=== PATIENT | female | born 1955 | race American Indian/Alaskan Native ===

== ENCOUNTER 2016-06-30 17:26 | Emergency (ER) | payer OTHER ==
[2016-06-30 17:48] VITALS: BP 157/90; PULSE 90; TEMP 98.4; BMI 19.5
[2016-06-30 18:48] LABS: INR 0.92 (0.82-1.09); PROTHROMBIN TIME (PATIENT) 10.1 SEC (9.98-11.88)
[2016-06-30 19:06] LABS: ALK PHOS 108 U/L (45-117); ANION GAP 11 (8-16); BILIRUBIN,TOTAL 0.3 mg/dL (0.2-1.0); CALCIUM 8.7 mg/dL (8.5-10.1); CO2 22 mmol/L (21-32); CREATININE 1.1 mg/dL (0.55-1.02); GLUCOSE,RANDOM 119 mg/dL (74-106); SGOT/AST 13 U/L (15-37); SGPT/ALT 24 U/L (12-78); TOT PROT 6.9 g/dl (6.4-8.2)
[2016-06-30 19:08] LABS: TROPONIN I < 0.02 ng/ml (0.00-0.05); URINE APPEARANCE CLEAR; URINE BILIRUBIN NEGATIVE (NEGATIVE); URINE BLOOD NEGATIVE (NEGATIVE); URINE COLOR YELLOW; URINE GLUCOSE (UA) NEGATIVE (NEGATIVE); URINE KETONE NEGATIVE (NEGATIVE); URINE NITRITE NEGATIVE (NEGATIVE); URINE UROBILINOGEN NEGATIVE E.U./dl (0.2-1.0)
[2016-06-30 19:10] LABS: URINE LEUK ESTERASE TRACE (NEGATIVE); URINE PROTEIN 1+ (NEGATIVE)
[2016-06-30 19:15] LABS: URINE BACTERIA RARE /hpf (NONE SEEN); URINE HYALINE CAST 2 /lpf; URINE MUCUS RARE; URINE RBC 6 /hpf (0-3); URINE WBC 8 /hpf (3-5)
--- NOTE | 2016-06-30 20:32 | PDOC ---
History of Present Illness - General Chief Complaint: Palpitations Stated Complaint: PALPITATIONS Time Seen by Provider: 06/30/16 17:43 - History of Present Illness Initial Comments: 06/30/16 20:29 CHIEF COMPLAINT: palpitations, stiff arms/hands HISTORY OF PRESENT ILLNESS: 61 yo F with PMH of HIV (on Stribild, undetectable VL), HTN, COPD, rheumatoid arthritis, restless leg syndrome, seizures, "arrhythmia" who presents to ED with c/o of two weeks of alternating arm pain, stiffness, and numbness. She reports that sometimes she feels "shooting pain" to her the left side of neck and that it "shoots towards the heart." Has palpitations and shortness of breath. Also complaining of dysuria/hematuria. She also reports "stiffness to fingers on both sides. She was seen by Dr. Ty Nagel recently for a UTI and was given cipro with no relief. She saw him again yesterday and was given and oxybutynin to take in combination with cipro for her urinary symptoms. No recent travel or sick contacts. PAST MEDICAL HISTORY: Denies past medical history FAMILY HISTORY: Denies SOCIAL HISTORY: Lives at home with . Current smoker, 2 cigs daily. Denies alcohol, illicit drug use. SURGICAL HISTORY: ALLERGIES: strawberry, pcn, sulfa PCP: Dr. Cristóbal Lozoya Tobacco Sieve Operator: Dr. Mccullough REVIEW OF SYSTEMS General/Constitutional: Denies fever or chills. Denies weakness, weight change. HEENT: Denies change in vision. Denies ear pain or discharge. Denies sore throat. Cardiovascular: "Pain from arms that feels like it shoots towards the heart." Chronic SOB. Respiratory: Chronic cough, "I have lots of junk in my lungs, they are still trying to figure out what that is" Gastrointestinal: Denies nausea, vomiting, diarrhea or constipation. Denies rectal bleeding. Genitourinary: Dysuria/hematuria x "a week." Musculoskeletal: Intermittent stiffness and numbness to arms and hands bilaterally. Skin and breasts: Denies rash or easy bruising. Neurologic: Denies headache, vertigo, loss of consciousness, or loss of sensation. PHYSICAL EXAM General Appearance: Well-appearing, appropriately dressed. No apparent distress. HEENT: EOMI, PERRLA, normal ENT inspection, normal voice, TMs normal, pharynx normal. No conjunctival pallor. No photophobia, scleral icterus. Neck: Supple. Trachea midline. No tenderness, rigidity, carotid bruit, stridor , lymphadenopathy, or thyromegaly. Respiratory/Chest: Crackles to lungs bilterally. Shortness of breath. chest tenderness, respiratory distress, accessory muscle use. No crackles, rales, rhonchi, stridor, wheezing, dullness Cardiovascular: RRR. S1, S2. No JVD, murmur, bradycardia, tachycardia. Vascular Pulses: Dorsalis-Pedis (R): 2+, Dorsalis-Pedis (L): 2+ Gastrointestinal/Abdominal: Normal bowel sounds. Abdomen soft, non-distended. No tenderness or rebound tenderness. No organomegaly, pulsatile mass, guarding , hernia, hepatomegaly, splenomegaly. Lymphatic: No adenopathy, tenderness. Musculoskeletal/Extremities: Normal inspection. FROM of all extremities, normal capillary refill. Pelvis Stable. No CVA tenderness. No tenderness to extremities, pedal edema, swelling, erythema or deformity. Integumentary: Appropriate color, dry, warm. No cyanosis, erythema, jaundice or rash Neurologic: veterinary physiologist II-XII intact. Fully oriented, alert. Appropriate mood/affect. Motor strength 5/5. No appreciable EOM palsy, facial droop or sensory deficit. 06/30/16 20:46 Past History - Past Medical History Allergies/Adverse Reactions: Allergies Allergy/AdvReac Type Severity Reaction Status Date / Time strawberry Allergy Intermediate Hives Verified 06/30/16 17:43 Penicillins Allergy Unknown Hives Verified 06/30/16 17:43 Sulfa (Sulfonamide Allergy Unknown Hives Verified 06/30/16 17:43 Antibiotics) Home Medications: Ambulatory Orders Mirtazapine [Remeron -] 30 mg PO DAILY 06/04/15 Mag Hydrox/Al Hydrox/Simeth [Mylanta Oral Suspension -] 30 ml PO Q6H #1 bottle 10/17/15 Multivitamin [Poly-Vitamin] 1 each PO DAILY #30 tab 10/17/15 Cholecalciferol (Vitamin D3) [Vitamin D3] 1,000 unit PO DAILY #30 tablet Acetaminophen/Caffeine/Butalb [Fioricet -] 1 tab PO BID PRN #60 tablet MDD 2 09/ 15/16 Megestrol Acetate [Megace] 400 mg PO TID #1 ml 02/13/16 Ondansetron HCl [Zofran] 8 mg PO DAILY #20 tablet 03/16/16 Albuterol 0.083% Nebulizer Kelly [Ventolin 0.083% Nebulizer Soln -] 1 neb NEB Q6H PRN #1 box 03/24/16 Albuterol Sulfate Inhaler - [Ventolin HFA Inhaler -] 2 inh PO Q4H PRN #1 inhaler 03/24/16 Budesonide/Formeterol Fumarate [SYMBICORT 80/4.5mcg -] 1 inh PO BID #1 inhaler 03/24/16 Tiotropium [place] [Spiriva Respimat] 1 puff IH DAILY #1 mist.inhal 03/24/16 Elviteg/Shandra/Emtric/Tenofo Dis [Stribild Tablet] 1 each PO DAILY #30 tablet 01/22 Butalbital/Acetaminophen [Acetaminophn-Butalbital 325-50] 1 each PO DAILY #30 tablet MDD 1 05/25/16 Gabapentin 800 mg PO HS 06/22/16 Oxycodone HCl/Acetaminophen [Percocet 10-325 mg Tablet] 1 each PO BID #30 tablet MDD 2 06/22/16 Anemia: No Asthma: Yes Cancer: No Cardiac Disorders: No CVA: No COPD: Yes CHF: No Dementia: No Diabetes: No GI Disorders: No Disorders: No HTN: Yes Hypercholesterolemia: No HIV: Yes Liver Disease: No Psychiatric Problems: Yes (anxeity) Suicide Attempt (Hx): No Seizures: No Thyroid Disease: Yes - Surgical History Abdominal Surgery: No Appendectomy: No Cardiac Surgery: No Cholecystectomy: No Lung Surgery: No Neurologic Surgery: No Orthopedic Surgery: Yes (neck) - Psycho/Social/Smoking Cessation Hx Anxiety: No Suicidal Ideation: No Smoking Status: Yes Smoking History: Former smoker Have you smoked in the past 12 months: Yes Number of Cigarettes Smoked Daily: 4 If you are a former smoker, when did you quit?: 8 months Cigars Per Day: 0 Information on smoking cessation initiated: No 'Breaking Loose' booklet given: 06/05/15 Hx Alcohol Use: No Drug/Substance Use Hx: Yes (none x 2 years) Substance Use Type: None Hx Substance Use Treatment: No (stopped on my own) Cardiac Specific PMH - Complaint Specific PMHX Pacemaker: No *Physical Exam - Vital Signs Last Vital Signs Temp Pulse Resp BP Pulse Ox 98.4 F 90 18 157/90 100 06/30/16 17:43 06/30/16 17:43 06/30/16 17:43 06/30/16 17:43 06/30/16 17:43 ED Treatment Course - LABORATORY CBC & Chemistry Diagram: 06/30/16 20:01 06/30/16 17:45 - ADDITIONAL ORDERS Additional order review: Laboratory Results 06/30/16 06/30/16 06/30/16 17:45 17:45 17:45 INR 0.92 Sodium 143 Potassium 4.6 Chloride 110 H Carbon Dioxide 22 Anion Gap 11 BUN 22 H Creatinine 1.1 H D Creat Clearance w eGFR 50.50 Random Glucose 119 H D Calcium 8.7 Total Bilirubin 0.3 D AST 13 L ALT 24 D Alkaline Phosphatase 108 D Creatine Kinase 100 Troponin I < 0.02 Total Protein 6.9 Albumin 4.0 Urine Color Yellow Urine Appearance Clear Urine pH 5.0 Ur Specific [place] 1.021 Urine Protein 1+ H Urine Glucose (UA) Negative Urine Ketones Negative Urine Blood Negative Urine Nitrite Negative Urine Bilirubin Negative Urine Urobilinogen Negative Ur Leukocyte Esterase Trace H Urine RBC 6 Urine WBC 8 Ur Epithelial Cells Rare Urine Bacteria Rare Hyaline Casts 2 Urine Mucus Rare 06/30/16 20:01 RBC 3.32 L MCV 101.8 H MCHC 33.5 RDW 14.4 D MPV 7.2 L D Neutrophils % 71.7 Lymphocytes % 19.2 D Monocytes % 8.2 Eosinophils % 0.4 Basophils % 0.5 Medical Decision Making - Medical Decision Making 06/30/16 21:16 61 yo F with PMH of HIV (on Stribild, undetectable VL), HTN, COPD, rheumatoid arthritis, restless leg syndrome, seizures, "arrhythmia" who presents to ED with c/o of two weeks of alternating arm pain, stiffness, and numbness. -CBC, CMP, cardiac profile -UA, Ucx -CXR Labs drawn in E except for CBC. Cardiac enzymes negative. CBC drawn and sent, patient eloped while awaiting results of CBC. *DC/Admit/Observation/Transfer Diagnosis at time of Disposition: lbme - Discharge Dispostion Disposition: ELOPED - Referrals Referrals: Na Price MD [Primary Care Provider] -
[2016-06-30 20:54] LABS: BASOPHIL 0.5 % (0-2.0); EOSINOPHIL 0.4 % (0-4.5); MCH 34.2 pg (25.7-33.7); MCHC 33.5 g/dl (32.0-36.0); MEAN CELL VOLUME 101.8 fl (80-96); MEAN PLT VOLUME 7.2 fl (7.5-11.1); NEUTROPHILS 71.7 % (42.8-82.8); PLATELET COUNT 308 K/MM3 (134-434); RDW 14.4 % (11.6-15.6); WHITE BLOOD COUNT 11.3 K/mm3 (4.0-10.0)
--- NOTE | 2016-07-01 14:47 | EKG ---
Test Reason : Blood Pressure : / mmHG Vent. Rate : 088 BPM Atrial Rate : 088 BPM P-R Int : 114 ms QRS Dur : 068 ms QT Int : 328 ms P-R-T Axes : 006 013 -14 degrees QTc Int : 396 ms SINUS RHYTHM WITH PREMATURE ATRIAL COMPLEXES POSSIBLE LEFT ATRIAL ENLARGEMENT LOW VOLTAGE QRS POSSIBLE INFERIOR INFARCT , AGE UNDETERMINED ABNORMAL ECG WHEN COMPARED WITH ECG OF 22-MAR-2016 09:47, PREMATURE ATRIAL COMPLEXES ARE NOW PRESENT BORDERLINE CRITERIA FOR INFERIOR INFARCT ARE NOW PRESENT T WAVE INVERSION NOW EVIDENT IN INFERIOR LEADS T WAVE INVERSION NOW EVIDENT IN ANTERIOR LEADS Confirmed by RADHIKA SHEPHERD MD ([id number]) on 07/01/2016 2:47:06 PM Referred By: Confirmed By:RADHIKA SHEPHERD MD
== END 2016-06-30 21:13 | disposition left against medical advice (07) ==
LOC: JER 17:26
DX: R00.2 Palpitations (principal); M79.601 Pain in right arm; M79.602 Pain in left arm; I10 Essential (primary) hypertension; J44.9 Chronic obstructive pulmonary disease, unspecified; G25.81 Restless legs syndrome; F41.9 Anxiety disorder, unspecified; Z21 Asymptomatic human immunodeficiency virus [HIV] infection status; Z87.891 Personal history of nicotine dependence
CPT/HCPCS: 36415; 71020-TC; 80053; 81003; 81015; 82550; 84484; 85025; 85610; 93005; 93010; 99281-25

== ENCOUNTER 2017-04-04 07:52 | Day surgery (SDC) | payer OTHER ==
[2017-03-29 16:21] VITALS: BMI 21.7
[~2017-04-04 07:52] MED LIST: BACITRACIN 50,000 UNITS VIAL NR ONE
[2017-04-04] MEDS ORDERED: BACITRACIN 50,000 UNITS VIAL NR ONE (10:30)
[2017-04-04] MEDS ORDERED: LIDOCAINE HCL 1%, 10 MG/ML (50 mL VIAL) IJ ONE ×2 (11:03)
--- NOTE | 2017-04-04 11:49 | OP ---
Operative Note - Note: Operative Date: 04/04/17 Pre-Operative Diagnosis: urge incontinence Operation: interstim neuromodulator placement Implants: interstim neuromodulator Post-Operative Diagnosis: Same as Pre-op Surgeon: Jose Conte Anesthesia: Local, Fractional Operative Report Dictated: Yes
[2017-04-04 12:42] VITALS: TEMP 98.7
[2017-04-04 13:30] VITALS: BP 140/90; PULSE 94
--- NOTE | 2017-04-04 20:08 | OP ---
DATE OF OPERATION: 04/04/2017 PREOPERATIVE DIAGNOSIS: Urge incontinence. POSTOPERATIVE DIAGNOSIS: Urge incontinence. PROCEDURE: InterStim neuromodulator placement. PROCEDURE: 1. Complete InterStim system implantation with incision and implantation of tined quadripolar lead electrodes into foramen S3. 2. Fluoroscopic guidance for needle placement. 3. Subcutaneous implantation of sacral nerve neurostimulator, electronic analysis and complex programming. INDICATIONS FOR THE PROCEDURE: Patient has severe urinary frequency and urgency with urge incontinence. The patient was informed of the risks and benefits of the procedures and agreed to undertake this procedure. DESCRIPTION OF PROCEDURE: The patient was properly identified and placed in prone position as per operating room protocol. MAC anesthesia was administered. The patient was given 1 g of Ancef. Pillows were placed under the lower abdomen to flatten the sacrum and under the shins to allow the toes to dangle freely. Tape was placed on each buttock and pulled laterally to separate cheeks adequately to visualize anal sphincter. The patient was prepped and draped in the usual sterile manner using ChloraPrep prep solution. The C-arm was moved into the PA position to provide fluoroscopy visual and the midline of the vertebrae. S1 notches and medial foraminal borders were marked. The C-arm was moved to the lateral position to image the area from sacral promontory to the coccyx. Local injection of lidocaine was administered. A 3.5-inch size needle was introduced approximately 2 cm above the SI notch and 3 cm lateral to the vertebral midline, feeling for foraminal margins until the S3 foramen was identified and penetrated. The depth of the needle was confirmed and adjusted fluoroscopically. Proper needle position was confirmed by patient identification of location of sensation, direct observation of the lifting of the perineum or bellowing, and observation of plantar flexion of the great toe utilizing the test stimulator box. The needle stylet was removed and a directional guidewire was placed and confirmed fluoroscopically. The foramen needle was removed. An incision was made peripherally to the directional guidewire through the fascial layer. The dilator and introducer sheath were placed over the directional guidewire and directed into the foramen until the opaque marker of the dilator was seen on the anterior rim of the sacrum. The dilator obturator was unlocked and removed. The lead was then placed through the introducer sheath to the first white line. Position was checked fluoroscopically. The lead was then further introduced until 3 electrodes were visible below the sacrum. Each electrode was tested for location of patient sensation, visualization of stephanie and plantar flexion of the great toe. After satisfactory positioning was confirmed, under continuous fluoroscopy, the introducer sheath was retracted, deploying the lead tines into the perisacral tissue. Further incision was made into the subcutaneous tissue posterior to the iliac crest and blunt dissection was continued until the gluteal fascia was identified and hemostasis was achieved, allowing for a sufficient pocket for the neurostimulator. A tunneling tool and tube were placed from the lead subcutaneously to the incised pocket site. The tunneling tool was removed and the lead was fed through the tube and pulled out at the pocket site. The lead was cleansed of bodily fluids and a boot was placed over the lead. The lead was inserted into the InterStim II pulse generator and the metal bands were aligned with the white lead tip clearly visible in the distal portion of the pulse generator header. The single set screw was tightened with the hex wrench. The pulse generator was placed into the subcutaneous pocket with the etched identification side placed upward and the extension wrapped counterclockwise around the pulse generator. The programming head was placed over the implanted neurostimulator. The impedance was verified to ensure adequate lead placement and the parameters were within normal limits. If impedance is greater than the normal limits, a second interrogation is required. If the second interrogation is required, further troubleshooting may be required. Impedances were checked, confirmed to be within normal limits at greater than 50 and less than 4000. After implantation of the neurostimulator was completed, complex programming of the neurostimulator was performed based on impedance values. Final electrode sensations were set to 0+1-2-. Estimated time for analysis and complex programming was 30 minutes. The wounds were irrigated with antibiotic solution and water and closed with a subcutaneous and subcuticular stitch. Counts were correct. Steri-Strips and gauze were placed over the incision under the cable connector. The estimated blood loss was less than 3 mL. The patient was transferred to postop in satisfactory condition. Using the clinician cobol programmer, the patient was programmed to the lead of optimum sensation and given instructions on utilizing the patient cobol programmer prior to discharge. RANDAL GALLARDO M.D. [id number]
== END 2017-04-04 13:30 | disposition home or self-care (01) ==
LOC: JASU-SURG 07:52
PROVIDERS: ATTEND Urology
PROC: 01HY0MZ Insertion of Neurostimulator Lead into Peripheral Nerve, Open Approach (ICD-10-PCS; 2017-04-04)
PROC: 4B00XVZ Measurement of Central Nervous Stimulator, External Approach (ICD-10-PCS; 2017-04-04)
PROC: 0JH70DZ Insertion of Multiple Array Stimulator Generator into Back Subcutaneous Tissue and Fascia, Open Approach (ICD-10-PCS; principal; 2017-04-04 09:30)
DX: N39.41 Urge incontinence (principal); R35.0 Frequency of micturition
CPT/HCPCS: 64581; 64590; 95972; C1767; C1778; 76000-TC; 94760

== ENCOUNTER 2017-06-25 15:43 | Observation (INO) | payer OTHER ==
[2017-06-25 16:39] VITALS: BMI 23.0
--- NOTE | 2017-06-25 16:42 | PDOC ---
Attending Attestation - Resident Resident Name: Amaury Marti - ED Attending Attestation I have performed the following: I have examined & evaluated the patient, The case was reviewed & discussed with the resident, I agree w/resident's findings & plan, Exceptions are as noted - HPI HPI: 06/30/17 22:25 Ms Noe is a 62 yo F who presents to the ER with a complaint of dizziness Her past medical history is significant for HIV, HTN, COPD, rheumatoid arthritis , restless leg syndrome, seizures, "arrhythmia". She awoke this morning with a complaint of dizziness which upon clarification was vertigo. She felt that her gait was not steady No prior episodes like this She denies chest pain She tells me that she had had right shoulder pain which for her is chronic She denies changes in her speech or sensation - Physicial Exam PE: 06/25/17 16:42 GENERAL: The patient is in no acute distress, pt is upset because she missed an afternoon dose of pain medications. HEAD: Normal with no signs of trauma. EYES: PERRLA, EOMI, sclera anicteric, conjunctiva clear. ENT: Moist mucous membranes. NECK: Normal range of motion, supple LUNGS: Breath sounds equal, clear to auscultation bilaterally. No wheezes, and no crackles. HEART:Regular rate and rhythm, normal S1 and S2 without murmur, rub or gallop. ABDOMEN: Soft, nontender EXTREMITIES: Normal range of motion, no edema. NEUROLOGICAL: Alert, awake, answers questions appropriately. Cranial nerves 2- 12 intact. No motor deficits in the in face, upper extremities and lower extremities. Finger to nose abnormal on the Left upper extremity. Normal speech. MUSCULOSKELETAL: Back non-tender to palpation SKIN: Warm, Dry, normal turgor, no rashes or lesions noted. - Medical Decision Making Upon my initial assessment of this patient, she was frustrated that she missed her dose of percocet I have ordered this for her and asked her to be patient while we obtain labs and imaging Labs performed, CMP hemolyzed and had to be re drawn Upon labs report of her troponin of 0.2, this patient had already walked out of the ER with her Pt was called at home and asked to return to the ER The police were also called as this patient left the ER with an IV Pt returned to the ER with her and was admitted for further evaluation Pt admitted to the Hospitalist service Clinical Impression: Elevated Troponin level, initial presentation Possible TIA vs CVA posterior circulation?, initial presentation
--- NOTE | 2017-06-25 17:25 | PDOC ---
History of Present Illness - General History Source: Patient Exam Limitations: No Limitations - History of Present Illness Initial Comments: 06/25/17 17:23 The patient is a 62F with a PMH of HIV, HTN, COPD, rheumatoid arthritis, restless leg syndrome, seizures, "arrhythmia" who presents to ED with dizziness and sudden onset weakness. The patient states that she woke up around 5am this morning and felt like she had an unsteady gait and felt like the room was spinning. She says that she has never had these symptoms before, especially the acute onset weakness. She states she has some chronic pains including CP and has mild SOB. She denies any focal neurologic deficits. <Amaury Marti - Last Filed: 06/25/17 19:05> <Macario Moses - Last Filed: 06/25/17 22:55> - General Chief Complaint: Asthma Stated Complaint: BREATHING PROBLEM, WEAKNESS Time Seen by Provider: 06/25/17 16:40 Past History - Past Medical History Anemia: No Asthma: Yes Cancer: No Cardiac Disorders: No CVA: No COPD: Yes (on meds) CHF: No Dementia: No Diabetes: No GI Disorders: Yes (delayed gastric emptying) Disorders: No HTN: Yes Hypercholesterolemia: No Liver Disease: No Psychiatric Problems: Yes (anxeity) Seizures: Yes (MANY YEARS AGO) Thyroid Disease: Yes - Surgical History Abdominal Surgery: No Appendectomy: No Cardiac Surgery: No Cholecystectomy: No Lung Surgery: No Neurologic Surgery: No Orthopedic Surgery: Yes (neck, microdiscectomy L3,4,5 [facility] 11/25/16) - Immunization History Immunization Up to Date: No (no flu or pneumonia shot.) - Suicide/Smoking/Psychosocial Hx Smoking Status: Yes Smoking History: Former smoker Have you smoked in the past 12 months: No Number of Cigarettes Smoked Daily: 3 If you are a former smoker, when did you quit?: 8 months Cigars Per Day: 0 Information on smoking cessation initiated: No 'Breaking Loose' booklet given: 04/04/17 Hx Alcohol Use: No Drug/Substance Use Hx: No Substance Use Type: Cocaine Hx Substance Use Treatment: Yes (25YRS AGO) <Amaury Marti - Last Filed: 06/25/17 19:05> <Macario Moses - Last Filed: 06/25/17 22:55> - Past Medical History Allergies/Adverse Reactions: Allergies Allergy/AdvReac Type Severity Reaction Status Date / Time strawberry Allergy Intermediate Hives Verified 04/04/17 08:39 Penicillins Allergy Unknown Hives Verified 04/04/17 08:39 Sulfa (Sulfonamide Allergy Unknown Hives Verified 04/04/17 08:39 Antibiotics) gabapentin AdvReac Intermediate Nausea Verified 04/04/17 08:39 Home Medications: Ambulatory Orders Albuterol Sulfate Inhaler - [Ventolin HFA Inhaler -] 2 inh PO Q4H PRN #1 inhaler 03/24/16 Budesonide/Formeterol Fumarate [SYMBICORT 80/4.5mcg -] 1 inh PO BID #1 inhaler 03/24/16 Tiotropium [place] [Spiriva Respimat] 1 puff IH DAILY #1 mist.inhal 03/24/16 Cyproheptadine [Periactin -] 4 mg PO HS 08/05/16 Elviteg/Cob/Emtri/Tenof Alafen [Genvoya (Non-Formulary)] 1 each PO DAILY Lisinopril [Prinivil -] 40 mg PO DAILY 04/04/17 Diclofenac Sodium [Voltaren] 2 gm TP QID PRN 06/03/17 Ergocalciferol (Vitamin D2) [Vitamin D2] 50,000 unit PO Q7D 06/03/17 Ondansetron HCl [Zofran] 8 mg PO DAILY #14 tablet MDD 2 06/03/17 Oxycodone HCl/Acetaminophen [Percocet 10-325 mg Tablet] 1 each PO TID PRN #90 tablet MDD 3 06/03/17 Pramipexole Dihydrochloride [Mirapex -] 1 - 2 mg PO HS 06/03/17 Review of Systems - Review of Systems Able to Perform ROS?: Yes Comments:: 06/25/17 17:46 GENERAL/CONSTITUTIONAL: Positive for weakness. No fever or chills. HEAD, EYES, EARS, NOSE AND THROAT: No change in vision. No ear pain or discharge. No sore throat. CARDIOVASCULAR: Positive for chest pain. No palpitations or lightheadedness. RESPIRATORY: No cough, wheezing, shortness of breath, or hemoptysis. GASTROINTESTINAL: No nausea, vomiting, diarrhea, constipation, or abdominal pain. GENITOURINARY: No dysuria, frequency, hematuria, or change in urination. MUSCULOSKELETAL: No joint or muscle swelling or pain. No neck or back pain. SKIN: No rash or lesions. NEUROLOGIC: Positive for weakness. No headache, numbness, tingling, loss of consciousness, or change in strength/sensation. ENDOCRINE: No increased thirst. No abnormal weight change. HEMATOLOGIC/LYMPHATIC: No anemia, easy bleeding, or history of blood clots. ALLERGIC/IMMUNOLOGIC: No hives or skin allergy. Is the patient limited [place] Zealander proficient: No <Amaury Marti - Last Filed: 06/25/17 19:05> *Physical Exam - Vital Signs Last Vital Signs Temp Pulse Resp BP Pulse Ox 98.3 F 98 H 20 127/81 99 06/25/17 16:30 06/25/17 16:30 06/25/17 16:30 06/25/17 16:30 06/25/17 16:30 - Physical Exam Comments: 06/25/17 17:53 GENERAL: Well developed, well nourished. Awake and alert. No acute distress. HEENT: Normocephalic, atraumatic. Hearing grossly normal. Moist mucous membranes. PERRLA, EOMI. No conjunctival pallor. Sclera are non-icteric. NECK: Supple. Full ROM. No JVD. CARDIOVASCULAR: Regular rate and rhythm. No murmurs, rubs, or gallops. PULMONARY: No evidence of respiratory distress. Coarse lung sounds bilaterally. ABDOMINAL: Soft. Non-tender. Distended. No rebound or guarding. GENITOURINARY: L CVA tenderness. MUSCULOSKELETAL: Normal range of motion at all joints. No bony deformities or tenderness. EXTREMITIES: No cyanosis. No clubbing. No edema. No calf tenderness. SKIN: Warm and dry. Normal capillary refill. No rashes. No jaundice. NEUROLOGICAL: Alert, awake, appropriate. Cranial nerves 2-12 intact. No deficits to light touch and temperature in face, upper extremities and lower extremities. No motor deficits in the in face, upper extremities and lower extremities. Finger to nose abnormal on the L. Normal speech. PSYCHIATRIC: Cooperative. Good eye contact. Appropriate mood and affect. <Amaury Marti - Last Filed: 06/25/17 19:05> - Vital Signs Last Vital Signs Temp Pulse Resp BP Pulse Ox 98.6 F 94 H 22 173/104 100 06/25/17 18:36 06/25/17 18:36 06/25/17 18:36 06/25/17 18:36 06/25/17 18:36 <Macario Moses - Last Filed: 06/25/17 22:55> Heart Score/ECG Review - History History: Slightly suspicious - Electrocardiogram EKG: Normal - Age Age: 45-65 - Risk Factors Risk Factors Heart Score: Yes Hx Hypercholesterolemia, Yes Hx Hypertension, Yes Smoking History Based on the list above the patient has:: >/=3 risk factors or Hx atherosclerotic disease - Troponin Troponin: >/=3x normal limit - Score Heart Score - Total: 5 <Macario Moses - Last Filed: 06/25/17 22:55> ED Treatment Course - LABORATORY CBC & Chemistry Diagram: 06/25/17 17:40 06/25/17 17:40 - RADIOLOGY Radiology Studies Ordered: Category Date Time Status CHEST PA & LAT [RAD] Stat Radiology 06/25/17 17:09 Ordered <Amaury Marti - Last Filed: 06/25/17 19:05> - LABORATORY CBC & Chemistry Diagram: 06/25/17 17:40 06/25/17 19:46 - ADDITIONAL ORDERS Additional order review: Laboratory Results 06/25/17 06/25/17 06/25/17 Unknown 19:46 17:40 Sodium 145 Cancelled Potassium 3.9 Cancelled Chloride 111 H Cancelled Carbon Dioxide 26 Cancelled Anion Gap 8 Cancelled BUN 20 H Cancelled Creatinine 1.0 Cancelled Creat Clearance w eGFR 56.18 Cancelled Random Glucose 98 Cancelled Calcium 8.2 L Cancelled Magnesium Cancelled Total Bilirubin 0.4 Cancelled AST 32 Cancelled ALT 39 Cancelled Alkaline Phosphatase 134 H Cancelled Creatine Kinase 161 Cancelled Creatine Kinase Index 1.3 CK-MB (CK-2) 2.126 Troponin I 0.20 H Cancelled Total Protein 7.1 Cancelled Albumin 3.9 Cancelled 06/25/17 17:40 RBC 3.73 MCV 104.5 H MCHC 33.7 RDW 15.3 D MPV 8.1 Neutrophils % 63.5 D Lymphocytes % 24.7 D Monocytes % 10.0 Eosinophils % 0.6 Basophils % 1.2 - Medications Given in the ED: ED Medications Discontinued Medications Generic Name Dose Route Start Last Admin Trade Name Clarice PRN Reason Stop Dose Admin Oxycodone/Acetaminophen 2 combo 06/25/17 19:23 06/25/17 19:29 Percocet 5/325 - PO 06/25/17 19:24 2 combo ONCE ONE Administration <Macario Moses - Last Filed: 06/25/17 22:55> Medical Decision Making - Medical Decision Making 06/25/17 17:54 The patient is a 62F with an extensive PMH who presents with acute onset weakness and dizziness. On my differential is stroke, TIA, vertigo. Pending labs and imaging. 06/25/17 19:[address] Moses, night team. <Amaury Marti - Last Filed: 06/25/17 19:05> *DC/Admit/Observation/Transfer <Amaury Marti - Last Filed: 06/25/17 19:05> <Macario Moses - Last Filed: 06/25/17 22:55> Diagnosis at time of Disposition: Troponin level elevated - Discharge Dispostion Disposition: ELOPED Condition at time of disposition: Stable - Referrals Referrals: Cristóbal Lozoya MD [Primary Care Provider] - - Patient Instructions - Post Discharge Activity
[2017-06-25 17:52] LABS: BASO % 1.2 % (0-2.0); EOS % 0.6 % (0-4.5); HEMATOCRIT 38.9 % (32.4-45.2); HEMOGLOBIN 13.1 GM/dL (10.7-15.3); LYMPH % 24.7 % (8-40); MCH 35.1 pg (25.7-33.7); MCHC 33.7 g/dl (32.0-36.0); MEAN CELL VOLUME 104.5 fl (80-96); MEAN PLT VOLUME 8.1 fl (7.5-11.1); NEUT % 63.5 % (42.8-82.8); PLATELET COUNT 258 K/MM3 (134-434); RBC 3.73 M/mm3 (3.60-5.2); RDW 15.3 % (11.6-15.6); WHITE BLOOD COUNT 9.1 K/mm3 (4.0-10.0)
[2017-06-25 20:28] LABS: ALBUMIN 3.9 g/dl (3.4-5.0); ALK PHOS 134 U/L (45-117); ANION GAP 8 (8-16); BILIRUBIN,TOTAL 0.4 mg/dL (0.2-1.0); BLOOD UREA NITROGEN 20 mg/dL (7-18); CALCIUM 8.2 mg/dL (8.5-10.1); CHLORIDE 111 mmol/L (98-107); CO2 26 mmol/L (21-32); GLUCOSE,RANDOM 98 mg/dL (74-106); POTASSIUM 3.9 mmol/L (3.5-5.1); SGOT/AST 32 U/L (15-37); SGPT/ALT 39 U/L (12-78); SODIUM 145 mmol/L (136-145); TOT PROT 7.1 g/dl (6.4-8.2)
--- NOTE | 2017-06-25 21:23 | PDOC ---
*Physical Exam - Vital Signs Last Vital Signs Temp Pulse Resp BP Pulse Ox 98.6 F 94 H 22 173/104 100 06/25/17 18:36 06/25/17 18:36 06/25/17 18:36 06/25/17 18:36 06/25/17 18:36 - Physical Exam Comments: 06/25/17 21:21 GENERAL: Awake, alert, and fully oriented, in no acute distress HEAD: No signs of trauma, normocephalic, atraumatic EYES: PERRLA, EOMI, sclera anicteric, conjunctiva clear ENT: Auricles normal inspection, hearing grossly normal, nares patent, oropharynx clear without exudates. Moist mucosa LUNGS: No distress, speaks full sentences, clear to auscultation bilaterally HEART: Regular rate and rhythm, normal S1 and S2, no murmurs, rubs or gallops, peripheral pulses normal and equal bilaterally. NEUROLOGICAL: Cranial nerves II through XII grossly intact. Normal speech, walks stably with a cane, no focal sensorimotor deficits SKIN: Warm, Dry, normal turgor, no rashes or lesions noted. ED Treatment Course - LABORATORY CBC & Chemistry Diagram: 06/25/17 17:40 06/25/17 19:46 - ADDITIONAL ORDERS Additional order review: Laboratory Results 06/25/17 06/25/17 06/25/17 Unknown 19:46 17:40 Sodium 145 Cancelled Potassium 3.9 Cancelled Chloride 111 H Cancelled Carbon Dioxide 26 Cancelled Anion Gap 8 Cancelled BUN 20 H Cancelled Creatinine 1.0 Cancelled Creat Clearance w eGFR 56.18 Cancelled Random Glucose 98 Cancelled Calcium 8.2 L Cancelled Magnesium Cancelled Total Bilirubin 0.4 Cancelled AST 32 Cancelled ALT 39 Cancelled Alkaline Phosphatase 134 H Cancelled Creatine Kinase 161 Cancelled Troponin I 0.20 H Cancelled Total Protein 7.1 Cancelled Albumin 3.9 Cancelled 06/25/17 17:40 RBC 3.73 MCV 104.5 H MCHC 33.7 RDW 15.3 D MPV 8.1 Neutrophils % 63.5 D Lymphocytes % 24.7 D Monocytes % 10.0 Eosinophils % 0.6 Basophils % 1.2 - Medications Given in the ED: ED Medications Discontinued Medications Generic Name Dose Route Start Last Admin Trade Name Freq PRN Reason Stop Dose Admin Oxycodone/Acetaminophen 2 combo 06/25/17 19:23 06/25/17 19:29 Percocet 5/325 - PO 06/25/17 19:24 2 combo ONCE ONE Administration Medical Decision Making - Medical Decision Making 06/25/17 21:24 EKG shows normal sinus rhythm, normal rate, normal axis. No st elevations/ depressions. No t-wave abnormalities. Q waves in anterior and lateral leads. Normal CA/QRS/QTc intervals. Patient says that she feels better. Walk test normal. Laboratory Tests 06/25/17 06/25/17 17:40 Unknown WBC 9.1 Hgb 13.1 D Hct 38.9 Plt Count 258 Troponin I 0.20 H CBC normal. CMP unremarkable. Trop 0.20. Delay in trop/cmp due to hemolyzation of labs. Went to reassess patient. Patient no longer in bed, not in bathrooms, not seen in ED. Will place call to patient. 06/25/17 21:35 Patient contacted at her home. Advised of results, told to return to the ED. Confirmed as eloped. Patient still has IV in arm. Will notify [facility]. 06/25/17 22:28 Patient came back to ED. Will give aspirin and admit. *DC/Admit/Observation/Transfer Diagnosis at time of Disposition: Troponin level elevated - Discharge Dispostion Condition at time of disposition: Stable Admit: Yes - Referrals Referrals: Cristóbal Lozoya MD [Primary Care Provider] - - Patient Instructions - Post Discharge Activity
[2017-06-25] MEDS ORDERED: ASPIRIN 81 MG CHEWABLE TABLETS PO ONE (22:27)
[2017-06-25] MEDS ORDERED: ASPIRIN COATED 81 MG TABLET.EC ONE (22:42)
--- NOTE | 2017-06-25 23:35 | HP ---
CHIEF COMPLAINT: light headed with chest pain PCP: Dr. Lozoya HISTORY OF PRESENT ILLNESS: This is a 62 year old female with a past medical history of HIV (viral load <20 in 07/23), COPD, HTN, "arrhythmia" according to patient, anxiety, who presents to the emergency room due to lightheadedness, shortness of breath, and chest pain this morning. Patient states she was getting out of bed, urinated and moved her bowels, then walked to kitchen to make coffee, just then symptoms began. She admits to accompanied left arm pain and tingling. Denies palpitations , diaphoresis, n, v, blurry vision, LOC, edema. She does have chronic sob from COPD, but admits to worsening since event. Patient came to ER; eloped; then was called back for troponin of 0.2. Recent Travel: PAST MEDICAL HISTORY: HIV; COPD, HTN, urinary incontinence PAST SURGICAL HISTORY: s/p thyroidectomy?; interstim neuromodulator placed for urinary incontinence Social History: Smokin-3 daily cigs for 30yrs Alcohol:no Drugs: no Family History: Allergies strawberry Allergy (Intermediate, Verified 04/04/17 08:39) Hives PATIENT STATED SHE GETS HIVES Penicillins Allergy (Unknown, Verified 04/04/17 08:39) Hives Sulfa (Sulfonamide Antibiotics) Allergy (Unknown, Verified 04/04/17 08:39) Hives gabapentin Adverse Reaction (Intermediate, Verified 04/04/17 08:39) Nausea HOME MEDICATIONS: Home Medications Medication Instructions Recorded Albuterol Sulfate Inhaler - 2 inh PO Q4H PRN #1 inhaler 03/24/16 [Ventolin HFA Inhaler -] Budesonide/Formeterol Fumarate 1 inh PO BID #1 inhaler 03/24/16 [SYMBICORT 80/4.5mcg -] Tiotropium [place] [Spiriva 1 puff IH DAILY #1 mist.inhal 03/24/16 Respimat] Cyproheptadine [Periactin -] 4 mg PO HS 08/05/16 Elviteg/Cob/Emtri/Tenof Alafen 1 each PO DAILY 03/02/17 [Genvoya (Non-Formulary)] Lisinopril [Prinivil -] 40 mg PO DAILY 04/04/17 Diclofenac Sodium [Voltaren] 2 gm TP QID PRN 06/03/17 Ergocalciferol (Vitamin D2) 50,000 unit PO Q7D 06/03/17 [Vitamin D2] Ondansetron HCl [Zofran] 8 mg PO DAILY #14 tablet MDD 2 06/03/17 Oxycodone HCl/Acetaminophen 1 each PO TID PRN #90 tablet MDD 3 06/03/17 [Percocet 10-325 mg Tablet] Pramipexole Dihydrochloride 1 - 2 mg PO HS 06/03/17 [Mirapex -] REVIEW OF SYSTEMS CONSTITUTIONAL: Absent: fever, chills, diaphoresis, generalized weakness, malaise, loss of appetite, weight change HEENT: Absent: rhinorrhea, nasal congestion, throat pain, throat swelling, difficulty swallowing, mouth swelling, ear pain, eye pain, visual changes CARDIOVASCULAR: POsitive:chest pain, lightheadedness Absent: , syncope, palpitations, irregular heart rate, , peripheral edema RESPIRATORY: Positive:shortness of breath, dyspnea with exertion, orthopnea, wheezing, Absent: cough, stridor, hemoptysis GASTROINTESTINAL: Absent: abdominal pain, abdominal distension, nausea, vomiting, diarrhea, constipation, melena, hematochezia GENITOURINARY: Absent: dysuria, frequency, urgency, hesitancy, hematuria, flank pain, genital pain MUSCULOSKELETAL: Absent: myalgia, arthralgia, joint swelling, back pain, neck pain SKIN: Absent: rash, itching, pallor HEMATOLOGIC/IMMUNOLOGIC: Absent: easy bleeding, easy bruising, lymphadenopathy, frequent infections ENDOCRINE: Absent: unexplained weight gain, unexplained weight loss, heat intolerance, cold intolerance NEUROLOGIC: Absent: headache, focal weakness or paresthesias, dizziness, unsteady gait, seizure, mental status changes, bladder or bowel incontinence PSYCHIATRIC: Absent: anxiety, depression, suicidal or homicidal ideation, hallucinations. PHYSICAL EXAMINATION Vital Signs - 24 hr 06/25/17 06/25/17 16:30 18:36 Temperature 98.3 F 98.6 F Pulse Rate 98 H Pulse Rate [ 94 H Left] Respiratory 20 22 Rate Blood Pressure 127/81 Blood Pressure 173/104 [Left] O2 Sat by Pulse 99 100 Oximetry (%) GENERAL: Awake, alert, and fully oriented, in no acute distress. HEAD: Normal with no signs of trauma. NECK: Normal range of motion, supple without lymphadenopathy, JVD, or masses. LUNGS: Breath sounds equal, clear to auscultation bilaterally.bilateral wheezing HEART: Regular rate and rhythm, normal S1 and S2 without murmur, rub or gallop. ABDOMEN: Soft, nontender, not distended, normoactive bowel sounds, no guarding, no rebound, no masses. No hepatomegaly or splenomegaly. MUSCULOSKELETAL: Normal range of motion at all joints. No bony deformities or tenderness. No CVA tenderness. UPPER EXTREMITIES: 2+ pulses, warm, well-perfused. No cyanosis. No clubbing. No peripheral edema. LOWER EXTREMITIES: 2+ pulses, warm, well-perfused. No calf tenderness. No peripheral edema. NEUROLOGICAL: Cranial nerves II-XII intact. Normal speech. Normal gait. PSYCHIATRIC: Cooperative. Good eye contact. Appropriate mood and affect. SKIN: Warm, dry, normal turgor, no rashes or lesions noted, normal capillary refill. Laboratory Results - last 24 hr 06/25/17 06/25/17 06/25/17 17:40 17:40 19:46 WBC 9.1 RBC 3.73 Hgb 13.1 D Hct 38.9 MCV 104.5 H MCH 35.1 H MCHC 33.7 RDW 15.3 D Plt Count 258 MPV 8.1 Neutrophils % 63.5 D Lymphocytes % 24.7 D Monocytes % 10.0 Eosinophils % 0.6 Basophils % 1.2 Sodium Cancelled 145 Potassium Cancelled 3.9 Chloride Cancelled 111 H Carbon Dioxide Cancelled 26 Anion Gap Cancelled 8 BUN Cancelled 20 H Creatinine Cancelled 1.0 Creat Clearance w eGFR Cancelled 56.18 Random Glucose Cancelled 98 Calcium Cancelled 8.2 L Magnesium Cancelled Total Bilirubin Cancelled 0.4 AST Cancelled 32 ALT Cancelled 39 Alkaline Phosphatase Cancelled 134 H Creatine Kinase Cancelled Creatine Kinase Index CK-MB (CK-2) Troponin I Cancelled Total Protein Cancelled 7.1 Albumin Cancelled 3.9 06/25/17 Unknown WBC RBC Hgb Hct MCV MCH MCHC RDW Plt Count MPV Neutrophils % Lymphocytes % Monocytes % Eosinophils % Basophils % Sodium Potassium Chloride Carbon Dioxide Anion Gap BUN Creatinine Creat Clearance w eGFR Random Glucose Calcium Magnesium Total Bilirubin AST ALT Alkaline Phosphatase Creatine Kinase 161 Creatine Kinase Index 1.3 CK-MB (CK-2) 2.126 Troponin I 0.20 H Total Protein Albumin ASSESSMENT/PLAN: 62 year old female with a history of HIV and COPD, HTN presents to emergency room with lightheadedness and chest pain tht started early this morning. Trop 0.2; r/o ACS. 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 -repeat ECG ; no st/t wave abnormalities; repeat due to artifact -trend trop -orhtostatics -carotid doppler -echocardiogram #Sob; sec to COPD -cont inhaled broncodilators -keep O2% >88; -monitor off steroids; no indication for antibiotics #HIV: -cont HAART -check viral load/cd4 #hx of thyroidectomy; not on medications -check tsh DVT: heparin sq Disposition: tele obs Problem List - Problem (1) Troponin level elevated Code(s): R74.8 - ABNORMAL LEVELS OF OTHER SERUM ENZYMES (2) COPD (chronic obstructive pulmonary disease) Code(s): J44.9 - CHRONIC OBSTRUCTIVE PULMONARY DISEASE, UNSPECIFIED Visit type - Emergency Visit Emergency Visit: Yes Care time: The patient presented to the Emergency Department on the above date and was hospitalized for further evaluation of their emergent condition. - New Patient This patient is new to me today: Yes Date on this admission: 06/26/17 - Critical Care Critical Care patient: No
--- NOTE | 2017-06-26 00:36 | PDOC ---
ED Treatment Course - LABORATORY CBC & Chemistry Diagram: 06/25/17 17:40 06/25/17 19:46 - ADDITIONAL ORDERS Additional order review: Laboratory Results 06/25/17 06/25/17 19:46 17:40 Sodium 145 Cancelled Potassium 3.9 Cancelled Chloride 111 H Cancelled Carbon Dioxide 26 Cancelled Anion Gap 8 Cancelled BUN 20 H Cancelled Creatinine 1.0 Cancelled Creat Clearance w eGFR 56.18 Cancelled Random Glucose 98 Cancelled Calcium 8.2 L Cancelled Magnesium Cancelled Total Bilirubin 0.4 Cancelled AST 32 Cancelled ALT 39 Cancelled Alkaline Phosphatase 134 H Cancelled Creatine Kinase Cancelled Troponin I Cancelled Total Protein 7.1 Cancelled Albumin 3.9 Cancelled 06/25/17 17:40 RBC 3.73 MCV 104.5 H MCHC 33.7 RDW 15.3 D MPV 8.1 Neutrophils % 63.5 D Lymphocytes % 24.7 D Monocytes % 10.0 Eosinophils % 0.6 Basophils % 1.2 - Medications Given in the ED: ED Medications Discontinued Medications Generic Name Dose Route Start Last Admin Trade Name Clarice PRN Reason Stop Dose Admin Aspirin 162 mg 06/25/17 22:27 06/25/17 22:56 Asa - PO 06/25/17 22:28 162 mg ONCE ONE Administration Oxycodone/Acetaminophen 2 combo 06/25/17 19:23 06/25/17 19:29 Percocet 5/325 - PO 06/25/17 19:24 2 combo ONCE ONE Administration *DC/Admit/Observation/Transfer Diagnosis at time of Disposition: Troponin level elevated CVA (cerebral vascular accident) Qualifiers: CVA mechanism: unspecified Qualified Code(s): I63.9 - Cerebral infarction, unspecified - Discharge Dispostion Condition at time of disposition: Stable Admit: Yes - Referrals - Patient Instructions - Post Discharge Activity
[2017-06-26] MEDS ORDERED: ATORVASTATIN CA 80 MG TABLET (FP) PO ONE (00:42)
[2017-06-26] MEDS ORDERED: ALBUTEROL SO4 2.5/IPRATROPIUM 0.5 INH SOL 3 ML VIAL.NEB. NEB PRN (00:43)
[2017-06-26] MEDS ORDERED: ALBUTEROL SO4 18 GM HFA INHALER IH PRN (00:44)
[2017-06-26] MEDS ORDERED: PATIENT'S OWN MEDICATION (NON-FORMULARY) (Diclofenac Sodium [Voltaren] 2 GM) TP PRN (00:44)
[2017-06-26] MEDS ORDERED: SODIUM CHLORIDE 1,000 ML IV SCH (00:45)
--- NOTE | 2017-06-26 01:54 | PN ---
Teaching Attending Note Name of Resident: Dana Tracey ATTENDING PHYSICIAN STATEMENT I saw and evaluated the patient. I reviewed the resident's note and discussed the case with the resident. I agree with the resident's findings and plan as documented. SUBJECTIVE: 62 woman with well controlled HIV on Genvoya, HTN, COPD, RA, restless leg syndrome, seizures, migraines, and recent cervical microdiscectomy, reports waking up at about 5am on 06/25 with vertigo, nausea, unsteady gait, and also c/ o some chest pain. As per patient, symptoms have persisted all day. She denied any nausea or vomiting. Headache is different from her regular migraines and is located in occipital region. OBJECTIVE: Last Vital Signs Temp Pulse Resp BP Pulse Ox 98.6 F 94 H 22 173/104 100 06/25/17 18:36 06/25/17 18:36 06/25/17 18:36 06/25/17 18:36 06/25/17 18:36 General-NAD, AAox3 HEENT- nc, at CN grossly intact except for decreased sensation on left side of face Neck- supple CV -s1+s2+ RRR Chest- CTA b/l Abdomen- soft, nt, BS+ Neuro- left face, upper extremity and lower extremity grossly decreased sensation compared to right Unable to perform finger to nose test with left hand. Unable to perform Romberg test due to unsteady posture No hyperreflexia in biceps or patella b/l Abnormal Lab Results 06/25/17 06/25/17 06/25/17 17:40 19:46 Unknown MCV 104.5 H MCH 35.1 H Chloride 111 H BUN 20 H Calcium 8.2 L Alkaline Phosphatase 134 H Troponin I 0.[address] of head- lacunar infarct of right thalamus of indeterminant age, no acute infarcts or lesions noted EKG -NSR, no acute ST-T changes ASSESSMENT AND PLAN: #Possible CVA as patient has clinical findings such as persistent vertigo and headache and left sided numbness and weakness. Head CT was initially negative however it is not very sensitive. Possible basilar involvement as there is persistent vertigo and headache. Patient is already out of window for TPA administration as symptoms started on 5am. -admit to telemetry -ASA -high dose statin -neurology evaluation -NPO -physical therapy evaluation -speech and swallow evaluation -transthoracic echo -carotid duplex b/l -MRI of brain, MRA of head/neck -neuro checks q4hrs -bedrest -fall precuations #R/o ACS- patient c/o chest pain- troponin was mildly elevated -0.2. Positive troponin may be 2/2 to CVA. Lower suspiscion -trend troponin -ASA -Clopidogrel -repeat EKG -cardiology evaluation DVT ppx -heparin sc diet - NPO for now
--- NOTE | 2017-06-26 01:59 | HP ---
CHIEF COMPLAINT: dizziness and chest pain HISTORY OF PRESENT ILLNESS: 62F with PMH of HIV (most recent CD4 522 and viral load < 20 in 09/2016), asthma/ COPD, htn, migraines, presents c/o of vertigo and chest pain. Symptoms began upon waking at 5am on 06/25/17. Pt reports Left sided chest pain that radiated to the Right chest and down the Right arm, which has since resolved. Pt reports persistent vertigo, and a headache that is different from her regular migraines as this headache is located in the occipital region. Pt denies fever , palpitations, diaphoresis, LOC. ER course was notable for: (1) trop 0.2 (2) ASA 162mg and Percocet (3) EKG -> NSR, no acute ST-T changes PAST MEDICAL HISTORY: HIV COPD asthma htn rheumatoid arthritis restless leg syndrome seizures anxiety PAST SURGICAL HISTORY: microdiscectomy in cervical spine 11/2016 at [facility] thyroidectomy 06/2016 interstim neuromodulator placement by Dg at [facility] in 03/2017 Social History: Smokin cigarettes daily x 30 yrs Alcohol: none Drugs: cocaine 25 yrs ago Allergies strawberry Allergy (Intermediate, Verified 04/04/17 08:39) Hives PATIENT STATED SHE GETS HIVES Penicillins Allergy (Unknown, Verified 04/04/17 08:39) Hives Sulfa (Sulfonamide Antibiotics) Allergy (Unknown, Verified 04/04/17 08:39) Hives gabapentin Adverse Reaction (Intermediate, Verified 04/04/17 08:39) Nausea HOME MEDICATIONS: Home Medications Medication Instructions Recorded Albuterol Sulfate Inhaler - 2 inh PO Q4H PRN #1 inhaler 03/24/16 [Ventolin HFA Inhaler -] Budesonide/Formeterol Fumarate 1 inh PO BID #1 inhaler 03/24/16 [SYMBICORT 80/4.5mcg -] Tiotropium [place] [Spiriva 1 puff IH DAILY #1 mist.inhal 03/24/16 Respimat] Cyproheptadine [Periactin -] 4 mg PO HS 08/05/16 Elviteg/Cob/Emtri/Tenof Alafen 1 each PO DAILY 03/02/17 [Genvoya (Non-Formulary)] Lisinopril [Prinivil -] 40 mg PO DAILY 04/04/17 Diclofenac Sodium [Voltaren] 2 gm TP QID PRN 06/03/17 Ergocalciferol (Vitamin D2) 50,000 unit PO Q7D 06/03/17 [Vitamin D2] Ondansetron HCl [Zofran] 8 mg PO DAILY #14 tablet MDD 2 06/03/17 Oxycodone HCl/Acetaminophen 1 each PO TID PRN #90 tablet MDD 3 06/03/17 [Percocet 10-325 mg Tablet] Pramipexole Dihydrochloride 1 - 2 mg PO HS 06/03/17 [Mirapex -] REVIEW OF SYSTEMS CONSTITUTIONAL: Absent: fever, chills, diaphoresis HEENT: Absent: rhinorrhea, nasal congestion, throat pain, throat swelling, difficulty swallowing, mouth swelling, ear pain, eye pain, visual changes CARDIOVASCULAR: chest pain Absent: syncope, palpitations, irregular heart rate, peripheral edema RESPIRATORY: dyspnea on exertion, orthopnea, wheezing Absent: cough, stridor, hemoptysis GASTROINTESTINAL: Absent: abdominal pain, abdominal distension, diarrhea, constipation, melena, hematochezia GENITOURINARY: Absent: dysuria, hematuria MUSCULOSKELETAL: Absent: myalgia, arthralgia, joint swelling, back pain, neck pain SKIN: Absent: rash, itching, pallor HEMATOLOGIC/IMMUNOLOGIC: Absent: easy bleeding, easy bruising NEUROLOGIC: Left-sided weakness, dizziness, headache, unsteady gait Absent: seizure, mental status changes, bladder or bowel incontinence PHYSICAL EXAMINATION Vital Signs - 24 hr 06/25/17 06/25/17 16:30 18:36 Temperature 98.3 F 98.6 F Pulse Rate 98 H Pulse Rate [ 94 H Left] Respiratory 20 22 Rate Blood Pressure 127/81 Blood Pressure 173/104 [Left] O2 Sat by Pulse 99 100 Oximetry (%) GENERAL: Awake, alert, and fully oriented, in no acute distress. HEAD: Normal with no signs of trauma. EYES: Pupils equal, round and reactive to light, sclera anicteric, conjunctiva clear. No lid lag. EARS, NOSE, THROAT: Ears normal, nares patent, oropharynx clear without exudates. Moist mucous membranes. NECK: Supple without lymphadenopathy, JVD, or masses. LUNGS: diffuse molly wheezes HEART: Regular rate and rhythm, normal S1 and S2 without murmur, rub or gallop. ABDOMEN: Soft, nontender, not distended, normoactive bowel sounds, no guarding. LOWER EXTREMITIES: Warm, well-perfused. No calf tenderness. No peripheral edema. NEUROLOGICAL: Left sided (face, UE and LE) with decreased sensation as compared to Right side. Left UE and LE muscle strength 4/5, compared to Right UE and LE 5/5. No hyper-reflexia x 4 extremities appreciated. Pt unable to perform finger to nose test with Left UE. Gait was observed to be unsteady, with cane. SKIN: Warm, dry, normal turgor, no rashes or lesions noted. Laboratory Results - last 24 hr 06/25/17 06/25/17 06/25/17 17:40 17:40 19:46 WBC 9.1 RBC 3.73 Hgb 13.1 D Hct 38.9 MCV 104.5 H MCH 35.1 H MCHC 33.7 RDW 15.3 D Plt Count 258 MPV 8.1 Neutrophils % 63.5 D Lymphocytes % 24.7 D Monocytes % 10.0 Eosinophils % 0.6 Basophils % 1.2 Sodium Cancelled 145 Potassium Cancelled 3.9 Chloride Cancelled 111 H Carbon Dioxide Cancelled 26 Anion Gap Cancelled 8 BUN Cancelled 20 H Creatinine Cancelled 1.0 Creat Clearance w eGFR Cancelled 56.18 Random Glucose Cancelled 98 Calcium Cancelled 8.2 L Magnesium Cancelled Total Bilirubin Cancelled 0.4 AST Cancelled 32 ALT Cancelled 39 Alkaline Phosphatase Cancelled 134 H Creatine Kinase Cancelled Creatine Kinase Index CK-MB (CK-2) Troponin I Cancelled Total Protein Cancelled 7.1 Albumin Cancelled 3.9 06/25/17 Unknown WBC RBC Hgb Hct MCV MCH MCHC RDW Plt Count MPV Neutrophils % Lymphocytes % Monocytes % Eosinophils % Basophils % Sodium Potassium Chloride Carbon Dioxide Anion Gap BUN Creatinine Creat Clearance w eGFR Random Glucose Calcium Magnesium Total Bilirubin AST ALT Alkaline Phosphatase Creatine Kinase 161 Creatine Kinase Index 1.3 CK-MB (CK-2) 2.126 Troponin I 0.20 H Total Protein Albumin IMAGIN06/25/[address] -> prelim read: no acute infarcts or lesions noted. 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 ASSESSMENT/PLAN: 62F with PMH of HIV (most recent CD4 522 and viral load < 20 in 09/2016), asthma/ COPD, htn, migraines, presents c/o of vertigo and chest pain, admitted to Telemetry for possible CVA. # possible CVA - persistent vertigo, headache (different from regular migraines, located in occipital region), Left-sided weakness and diminished sensation - out of window for TPA as symptoms began at 5am - Neurology Consult ([facility]) - f/u MRI brain, MRA neck - f/u lipid panel, hgba1c, TSH - neuro checks q4hr - fall precautions - bedrest # chest pain - r/o ACS - repeat EKG - f/u Echo - ASA, high dose statin, Clopidogrel given - troponins trending down - continuous cardiac monitoring # asthma/COPD - resume home meds of Albuterol, Spiriva, Symbicort - monitor off steroids # htn - hold home med of Lisinopril for now as pt not hypertensive currently - Day team to reconcile medications with pt's pharmacy ([facility]) # HIV - continue home med of Genvoya - f/u outpt with Dr. Lozoya # Rheumatoid Arthritis - resume home med of Voltaren # Restless Leg Syndrome - resume home med of Mirapex # FEN - Fluids: possibly po pending bedside swallow eval - Electrolytes: wnl, continue to monitor - Nutrition: npo pending bedside swallow eval # Prophylaxis - DVT ppx with molly SCDs - deconditioning ppx with PT Visit type - Emergency Visit Emergency Visit: Yes ED Registration Date: 06/25/17 Care time: The patient presented to the Emergency Department on the above date and was hospitalized for further evaluation of their emergent condition. - New Patient This patient is new to me today: Yes Date on this admission: 06/26/17 - Critical Care Critical Care patient: No
[2017-06-26 03:12] LABS: URINE APPEARANCE CLEAR; URINE BILIRUBIN NEGATIVE (NEGATIVE); URINE BLOOD NEGATIVE (NEGATIVE); URINE COLOR YELLOW; URINE GLUCOSE (UA) NEGATIVE (NEGATIVE); URINE KETONE NEGATIVE (NEGATIVE); URINE LEUK ESTERASE NEGATIVE (NEGATIVE); URINE NITRITE NEGATIVE (NEGATIVE)
[2017-06-26 03:23] LABS: URINE PROTEIN 2+ (NEGATIVE)
[2017-06-26 03:28] LABS: EPI CELLS RARE /HPF (FEW); URINE BACTERIA RARE /hpf (NONE SEEN); URINE HYALINE CAST 3 /lpf; URINE MUCUS FEW
[2017-06-26 03:40] LABS: INR 1.02 (0.82-1.09); PROTHROMBIN TIME (PATIENT) 11.5 SEC (9.98-11.88)
[2017-06-26] MEDS ORDERED: CLOPIDOGREL BISULFATE 300 MG TABLET PO ONE (04:50)
[2017-06-26] MEDS ORDERED: ASPIRIN 81 MG CHEWABLE TABLETS PO ONE (05:03)
[2017-06-26 06:46] LABS: BASO % 0.7 % (0-2.0); EOS % 0.7 % (0-4.5); HEMATOCRIT 35.2 % (32.4-45.2); HEMOGLOBIN 11.9 GM/dL (10.7-15.3); LYMPH % 25.3 % (8-40); MCH 35.3 pg (25.7-33.7); MCHC 33.8 g/dl (32.0-36.0); MEAN CELL VOLUME 104.4 fl (80-96); MONO % 8.7 % (3.8-10.2); NEUT % 64.6 % (42.8-82.8); PLATELET COUNT 252 K/MM3 (134-434); RBC 3.38 M/mm3 (3.60-5.2); RDW 15.5 % (11.6-15.6); WHITE BLOOD COUNT 9.2 K/mm3 (4.0-10.0)
[2017-06-26 07:07] LABS: CHLORIDE 110 mmol/L (98-107); POTASSIUM 3.8 mmol/L (3.5-5.1); SODIUM 146 mmol/L (136-145)
[2017-06-26 07:15] LABS: ALBUMIN 3.5 g/dl (3.4-5.0); ALK PHOS 118 U/L (45-117); ANION GAP 8 (8-16); BILIRUBIN,TOTAL 0.5 mg/dL (0.2-1.0); BLOOD UREA NITROGEN 23 mg/dL (7-18); CALCIUM 8.8 mg/dL (8.5-10.1); CO2 28 mmol/L (21-32); CREATININE 0.9 mg/dL (0.55-1.02); GLUCOSE,RANDOM 89 mg/dL (74-106); SGOT/AST 31 U/L (15-37); SGPT/ALT 36 U/L (12-78); TOT PROT 6.6 g/dl (6.4-8.2)
[2017-06-26] MEDS ORDERED: BUDESONIDE/FORMETEROL FUMARATE 80/4.5 mcg INHALER IH SCH (10:00)
[2017-06-26] MEDS ORDERED: PATIENT'S OWN MEDICATION (NON-FORMULARY) (Elviteg/Cob/Emtri/Tenof Alafen [Genvoya (Non-For PO SCH (10:00)
[2017-06-26 10:19] VITALS: BP 120/62; PULSE 97; TEMP 98.3
--- NOTE | 2017-06-26 11:09 | EKG ---
Test Reason : Blood Pressure : / mmHG Vent. Rate : 089 BPM Atrial Rate : 089 BPM P-R Int : 116 ms QRS Dur : 070 ms QT Int : 350 ms P-R-T Axes : 063 049 076 degrees QTc Int : 425 ms POOR DATA QUALITY, INTERPRETATION MAY BE ADVERSELY AFFECTED NORMAL SINUS RHYTHM SEPTAL INFARCT , AGE UNDETERMINED ABNORMAL ECG WHEN COMPARED WITH ECG OF 30-JUN-2016 18:00, PREMATURE ATRIAL COMPLEXES ARE NO LONGER PRESENT SEPTAL INFARCT IS NOW PRESENT BORDERLINE CRITERIA FOR INFERIOR INFARCT ARE NO LONGER PRESENT T WAVE INVERSION NO LONGER EVIDENT IN INFERIOR LEADS NONSPECIFIC T WAVE ABNORMALITY HAS REPLACED INVERTED T WAVES IN ANTERIOR LEADS Confirmed by CORA MILLIGAN, RADHIKA ([id number]) on 06/26/2017 11:08:42 AM Referred By: Confirmed By:RADHIKA SHEPHERD MD
[2017-06-26] MEDS ORDERED: ACETAMINOPHEN/CAFFEINE/BUTALBITAL 1 TAB PO ONE (11:47)
[2017-06-26] MEDS ORDERED: DICLOFENAC SODIUM 25 MG TABLET.DR PO PRN (12:41)
--- NOTE | 2017-06-26 12:46 | PN ---
Teaching Attending Note Name of Resident: Preeti Mcneill SUBJECTIVE: Patient seen and examined. Reports LUE/LLE tingling/numbness that is chronic. Also reports left sided intermittent migraine headaches. Denies any dizziness or new gait unsteadiness currently, has been ambulating with cane to the bathroom in the ED. OBJECTIVE: Vital Signs Period Temp Pulse Resp BP Sys/Beasley Pulse Ox Last 24 Hr 98.3 F-100.2 F 94-98 16-22 120-173/62-104 96-100 Intake & Output 06/23/17 06/24/17 06/25/17 06/26/17 23:59 23:59 23:59 23:59 Weight 147 lb 147 lb General: ambulating in ED with cane, no acute distress CVS:S1S2 regular Chest; CTAB, no rales or wheezing abdomen: soft, NT, ND, positive bowel sounds extremities: no edema Neuro AAOX3, facial symmetry, PERRL, power RUE/RLE 5/5, LUE/LLE 4/5, decreased sensation to gross touch LUE/LLE, no pronator drift, DTR bilaterally symmetric Home Medication List Medication Instructions Recorded Confirmed Type Cyproheptadine [Periactin -] 4 mg PO HS 08/05/16 06/25/17 History Elviteg/Cob/Emtri/Tenof Alafen 1 each PO DAILY 03/02/17 06/25/17 History [Genvoya (Non-Formulary)] Lisinopril [Prinivil -] 40 mg PO DAILY 04/04/17 06/25/17 History Diclofenac Sodium [Voltaren] 2 gm TP QID PRN 06/03/17 06/25/17 History Ergocalciferol (Vitamin D2) 50,000 unit PO Q7D 06/03/17 06/25/17 History [Vitamin D2] Pramipexole Dihydrochloride 1 - 2 mg PO HS 06/03/17 06/25/17 History [Mirapex -] Active Medications Generic Name Dose Route Start Last Admin Trade Name Freq PRN Reason Stop Dose Admin Acetaminophen/Butalbital/Caffeine 1 tablet 06/26/17 11:47 06/26/17 11:59 Fioricet - PO 06/26/17 11:48 1 tablet ONCE ONE Administration Albuterol Sulfate 2 puff 06/26/17 00:44 Ventolin Hfa Inhaler - IH Q4H PRN WHEEZING Albuterol/Ipratropium 1 amp 06/26/17 00:43 06/26/17 04:18 Duoneb - NEB 1 amp Q6H PRN Administration SHORT OF BREATH/WHEEZING Budesonide/Formoterol Fumarate 1 puff 06/26/17 10:00 06/26/17 11:03 Symbicort 80/4.5mcg - IH Not Given BID [facility] Cyproheptadine HCl 4 mg 06/26/17 22:00 Periactin - PO [facility] Diclofenac Sodium 25 mg 06/26/17 12:41 Voltaren - PO BID PRN MODERATE PAIN Sodium Chloride 1,000 mls @ 42 mls/hr 06/26/17 00:45 06/26/17 00:52 Normal Saline - IV 42 mls/hr ASDIR OSBALDO Administration Non-Formulary Medication 2 gm 06/26/17 00:44 Diclofenac Sodium [Voltaren] TP QID PRN PAIN Non-Formulary Medication 1 each 06/26/17 10:00 Elviteg/Cob/Emtri/Tenof Alafen [Genvoya (Non-Formulary)] PO DAILY [facility] Oxycodone/Acetaminophen 1 combo 06/26/17 12:40 Percocet 5/325 - PO TID PRN PAIN LEVEL 6-10 Pramipexole Dihydrochloride 1 mg 06/26/17 22:00 Mirapex - PO [facility] Laboratory Results - last 24 hr 06/25/17 06/25/17 06/25/17 01:14 17:40 17:40 WBC 9.1 RBC 3.73 Hgb 13.1 D Hct 38.9 MCV 104.5 H MCH 35.1 H MCHC 33.7 RDW 15.3 D Plt Count 258 MPV 8.1 Neutrophils % 63.5 D Lymphocytes % 24.7 D Monocytes % 10.0 Eosinophils % 0.6 Basophils % 1.2 PT with INR INR Sodium Cancelled Potassium Cancelled Chloride Cancelled Carbon Dioxide Cancelled Anion Gap Cancelled BUN Cancelled Creatinine Cancelled Creat Clearance w eGFR Cancelled Random Glucose Cancelled Hemoglobin A1c % Calcium Cancelled Magnesium Cancelled Total Bilirubin Cancelled AST Cancelled ALT Cancelled Alkaline Phosphatase Cancelled Creatine Kinase Cancelled Creatine Kinase Index CK-MB (CK-2) Troponin I Cancelled Total Protein Cancelled Albumin Cancelled Triglycerides Cholesterol Total LDL Cholesterol HDL Cholesterol TSH Urine Color Yellow Urine Appearance Clear Urine pH 5.0 Ur Specific [place] 1.027 Urine Protein 2+ H Urine Glucose (UA) Negative Urine Ketones Negative Urine Blood Negative Urine Nitrite Negative Urine Bilirubin Negative Urine Urobilinogen 2.0 H Ur Leukocyte Esterase Negative Urine WBC (Auto) 1 Urine RBC (Auto) 12 Ur Epithelial Cells Rare Urine Bacteria Rare Hyaline Casts 3 Urine Mucus Few Blood Type Antibody Screen Antibody Identification 06/25/17 06/25/17 06/26/17 19:46 Unknown 01:14 WBC RBC Hgb Hct MCV MCH MCHC RDW Plt Count MPV Neutrophils % Lymphocytes % Monocytes % Eosinophils % Basophils % PT with INR 11.50 INR 1.02 Sodium 145 Potassium 3.9 Chloride 111 H Carbon Dioxide 26 Anion Gap 8 BUN 20 H Creatinine 1.0 Creat Clearance w eGFR 56.18 Random Glucose 98 Hemoglobin A1c % Calcium 8.2 L Magnesium Total Bilirubin 0.4 AST 32 ALT 39 Alkaline Phosphatase 134 H Creatine Kinase 161 Creatine Kinase Index 1.3 CK-MB (CK-2) 2.126 Troponin I 0.20 H Total Protein 7.1 Albumin 3.9 Triglycerides Cholesterol Total LDL Cholesterol HDL Cholesterol TSH Urine Color Urine Appearance Urine pH Ur Specific [place] Urine Protein Urine Glucose (UA) Urine Ketones Urine Blood Urine Nitrite Urine Bilirubin Urine Urobilinogen Ur Leukocyte Esterase Urine WBC (Auto) Urine RBC (Auto) Ur Epithelial Cells Urine Bacteria Hyaline Casts Urine Mucus Blood Type Antibody Screen Antibody Identification 06/26/17 06/26/17 06/26/17 01:14 01:14 01:14 WBC RBC Hgb Hct MCV MCH MCHC RDW Plt Count MPV Neutrophils % Lymphocytes % Monocytes % Eosinophils % Basophils % PT with INR INR Sodium Potassium Chloride Carbon Dioxide Anion Gap BUN Creatinine Creat Clearance w eGFR Random Glucose Hemoglobin A1c % Calcium Magnesium Total Bilirubin AST ALT Alkaline Phosphatase Creatine Kinase 160 Creatine Kinase Index 1.2 CK-MB (CK-2) 1.960 Troponin I 0.17 H Total Protein Albumin Triglycerides 157 Cholesterol 185 Total LDL Cholesterol 76 HDL Cholesterol 89 H TSH 3.75 H Urine Color Urine Appearance Urine pH Ur Specific [place] Urine Protein Urine Glucose (UA) Urine Ketones Urine Blood Urine Nitrite Urine Bilirubin Urine Urobilinogen Ur Leukocyte Esterase Urine WBC (Auto) Urine RBC (Auto) Ur Epithelial Cells Urine Bacteria Hyaline Casts Urine Mucus Blood Type B NEGATIVE Antibody Screen Positive H Antibody Identification Anti-D 06/26/17 06/26/17 06/26/17 01:14 06:00 06:00 WBC 9.2 RBC 3.38 L Hgb 11.9 Hct 35.2 MCV 104.4 H MCH 35.3 H MCHC 33.8 RDW 15.5 Plt Count 252 MPV 8.0 Neutrophils % 64.6 Lymphocytes % 25.3 Monocytes % 8.7 Eosinophils % 0.7 Basophils % 0.7 PT with INR INR Sodium 146 H Potassium 3.8 Chloride 110 H Carbon Dioxide 28 Anion Gap 8 BUN 23 H Creatinine 0.9 Creat Clearance w eGFR > 60 Random Glucose 89 Hemoglobin A1c % 5.7 Calcium 8.8 Magnesium Total Bilirubin 0.5 D AST 31 ALT 36 Alkaline Phosphatase 118 H Creatine Kinase Creatine Kinase Index CK-MB (CK-2) Troponin I Total Protein 6.6 Albumin 3.5 Triglycerides Cholesterol Total LDL Cholesterol HDL Cholesterol TSH Urine Color Urine Appearance Urine pH Ur Specific [place] Urine Protein Urine Glucose (UA) Urine Ketones Urine Blood Urine Nitrite Urine Bilirubin Urine Urobilinogen Ur Leukocyte Esterase Urine WBC (Auto) Urine RBC (Auto) Ur Epithelial Cells Urine Bacteria Hyaline Casts Urine Mucus Blood Type Antibody Screen Antibody Identification 06/26/17 11:01 WBC RBC Hgb Hct MCV MCH MCHC RDW Plt Count MPV Neutrophils % Lymphocytes % Monocytes % Eosinophils % Basophils % PT with INR INR Sodium Potassium Chloride Carbon Dioxide Anion Gap BUN Creatinine Creat Clearance w eGFR Random Glucose Hemoglobin A1c % Calcium Magnesium Total Bilirubin AST ALT Alkaline Phosphatase Creatine Kinase 134 Creatine Kinase Index CK-MB (CK-2) Troponin I 0.11 H Total Protein Albumin Triglycerides Cholesterol Total LDL Cholesterol HDL Cholesterol TSH Urine Color Urine Appearance Urine pH Ur Specific [place] Urine Protein Urine Glucose (UA) Urine Ketones Urine Blood Urine Nitrite Urine Bilirubin Urine Urobilinogen Ur Leukocyte Esterase Urine WBC (Auto) Urine RBC (Auto) Ur Epithelial Cells Urine Bacteria Hyaline Casts Urine Mucus Blood Type Antibody Screen Antibody Identification EKG NSR CT brain - ASSESSMENT AND PLAN: 62 yof with PMHx of HIV, COPD, HTN, Chronic LUE tingling/numbess, radiculopathy , comes with dizziness/gait instability/Ongoing LUE/LLE tingling/numbness and noted with elevated troponin. -Dizziness/gait instability -Chronic LUE/LLE tingling/numbness -Elevated Troponin -HIV on HAART -COPD -HTN Plan: Reports went to bath, urinated/had BM after which went to make coffee when had sudden onset of dizziness/gait instability. Also reports LUE/LLE tingling/ numbness and some weakness which she states is chronic and uses a cane for the same. Reportedly seen by her Neurologist Dr. Alok Valdivia in last 2 weeks, had MRI brain (doesn't know results). Also reported C-spine discectomy a year ago with Dr. Darling at [facility]. Denies any exertional symptoms, again reports stress test within last 2 weeks, reportedly normal. CT brain prelim raising suspicion for lacunar infarct right thalamus of indeterminate age, follow up official read. Neurology consult with Dr. Vazquez. ASA, lipid profile noted. Follow up MRI brain/MRA neck. PT eval. no facial symptoms, resume diet after bedside swallow eval, no concerns currently. No chest symptoms or concerning EKG changes. Trend TRoponin. Check 2D echo. Cardiology consult. Reportedly with recent stress test in 2 week, attempt to retrieve records. [facility] registry reviewed (reference # [id number], getting monthly percocet 90 tablets last filled on 06/02/2017 with [facility]). No opioid scripts on discharge hold lisinopril x 24 hours. PT eval. Dispo planning in 24 hours pending neurology/cardiology input, MRI/MRA and 2D echo. Plan discussed with patient in detail, all questions answered. Attempted to reach [place] pharmacy, not open currently.
[2017-06-26] MEDS ORDERED: ACETAMINOPHEN 325 MG TABLET (FP) PO PRN (12:49)
[2017-06-26] MEDS ORDERED: oxyCODONE HCL 5 MG TABLET PO PRN (12:49)
--- NOTE | 2017-06-26 13:14 | CON.CARD ---
Consult Consult Specialty:: Cardiology Referred by:: Hospitalist Reason for Consultation:: Elevated troponin - History of Present Illness Chief Complaint: Dizziness, L sided weakness, unsteady gait History of Present Illness: 62 year old woman with a h/o HIV, HTN, COPD, spine disease with chronic radiculopathy, admitted with unsteady gait, dizziness, headaches, worsening L sided weakness, incidentally noted to have an elevated troponin. Pt seen and examined in the ER in [place]. states she still feels dizzy, unsteady and headaches. reports mild chronic intermittent chest pain. chronic dyspnea. - History Source History Provided By: Patient, Medical Record Limitations to Obtaining History: No Limitations - Past Medical History Cardio/Vascular: Yes: HTN, Hyperlipdemia Pulmonary: Yes: COPD Infectious Disease: Yes: HIV Endocrine: Yes: Hypothyroidism Additional Medical History: 1. HIV Positivity. 2. COPD/Emphysema. 3. HTN. 4. Seizure d/o. 5. Tobacco Abuse (Quit 6 months Ago). 6. h/o TB-treated in the past - Alcohol/Substance Use Hx Alcohol Use: No History of Substance Use: reports: None - Smoking History Smoking history: Former smoker Have you smoked in the past 12 months: No Aproximately how many cigarettes per day: 3 If you are a former smoker, when did you quit?: 8 months - Social History Usual Living Arrangement: Alone ADL: Independent History of Recent Travel: No Home Medications - Allergies Allergies/Adverse Reactions: Allergies Allergy/AdvReac Type Severity Reaction Status Date / Time strawberry Allergy Intermediate Hives Verified 04/04/17 08:39 Penicillins Allergy Unknown Hives Verified 04/04/17 08:39 Sulfa (Sulfonamide Allergy Unknown Hives Verified 04/04/17 08:39 Antibiotics) gabapentin AdvReac Intermediate Nausea Verified 04/04/17 08:39 - Home Medications Home Medications: Ambulatory Orders Albuterol Sulfate Inhaler - [Ventolin HFA Inhaler -] 2 inh PO Q4H PRN #1 inhaler 03/24/16 Budesonide/Formeterol Fumarate [SYMBICORT 80/4.5mcg -] 1 inh PO BID #1 inhaler 03/24/16 Tiotropium [place] [Spiriva Respimat] 1 puff IH DAILY #1 mist.inhal 03/24/16 Cyproheptadine [Periactin -] 4 mg PO HS 08/05/16 Elviteg/Cob/Emtri/Tenof Alafen [Genvoya (Non-Formulary)] 1 each PO DAILY Lisinopril [Prinivil -] 40 mg PO DAILY 04/04/17 Diclofenac Sodium [Voltaren] 2 gm TP QID PRN 06/03/17 Ergocalciferol (Vitamin D2) [Vitamin D2] 50,000 unit PO Q7D 06/03/17 Ondansetron HCl [Zofran] 8 mg PO DAILY #14 tablet MDD 2 06/03/17 Oxycodone HCl/Acetaminophen [Percocet 10-325 mg Tablet] 1 each PO TID PRN #90 tablet MDD 3 06/03/17 Pramipexole Dihydrochloride [Mirapex -] 1 - 2 mg PO HS 06/03/17 Family Disease History - Family Disease History Family Disease History: Heart Disease: Father, Mother, Brother, Respiratory: Mother, Other: Father, Mother, Brother, Sister Review of Systems - Review of Systems Constitutional: reports: Weakness. denies: No Symptoms, Chills, Diaphoresis, Fever, Lethargy, Loss of Appetite, Malaise, Night Sweats, Unintentional Wgt. Loss, Other Eyes: denies: No Symptoms, Blind Spots, Blurred Vision, Double Vision, Eye Pain , Floaters, Photophobia, Recent Change in Vision, Other HENT: denies: No Symptoms, Difficult Swallowing, Ear Discharge, Ear Pain, Epistaxis, Gingival Bleeding, Hearing Loss, Mouth Swelling, Nasal Congestion, Ocular Prosthesis, Throat Pain, Toothache, Ringing in Ears, Other Neck: denies: No Symptoms, Decreased ROM, Lumps, Pain on Movement, Stiffness, Swollen Glands, Tenderness, Other Cardiovascular: reports: Chest Pain, Palpitations, Shortness of Breath. denies : No Symptoms, Edema, Other Respiratory: reports: SOB, SOB on Exertion. denies: No Symptoms, Cough, Exercise Intolerance, Hemoptysis, Orthopnea, PND, Snoring, Wheezing, Other Gastrointestinal: denies: No Symptoms, Abdominal Pain, Bloating, Constipation, Diarrhea, Dysphagia, Indigestion, Melena, Nausea, Rectal Bleeding, Vomiting, Vomiting Blood, Other Genitourinary: denies: No Symptoms, Burning, Discharge, Dysuria, Flank Pain, Frequency, Hematuria, Incontinence, Lesions, Menses, Pain, Testicular Mass, Testicular Pain, Testicular Swelling, Urgency, Vaginal Bleeding, Other Breasts: denies: No Symptoms Reported, See HPI, Breast Implants, Discharge from Nipple, Lumps, Pain, Skin Changes, Other Musculoskeletal: denies: No Symptoms, Back Pain, Crepitus, Decreased ROM, Extremity Pain, Joint Pain, Joint Swelling, Muscle Pain, Muscle Cramps, Muscle Weakness, Other Integumentary: denies: No Symptoms, Blister, Bruising, Change in Color, Eczema, Erythema, Incision, Lesions, Lump, Pallor, Pruritis, Rash, Wound, Other Neurological: reports: Dizziness, Headache, Incoordination, Numbness, Parasthesia, Pre-Existing Deficit, Unsteady Gait, Weakness Endocrine: denies: No Symptoms, Excessive Sweating, Flushing, Increased Hunger, Increased Thirst, Intolerance to Cold, Intolerance to Heat, Unexplained Weight Gain, Unexplained Weight Loss, Other Hematology/Lymphatic: denies: No Symptoms, Easily Bruised, Excessive Bleeding, Swollen Glands, Other Psychiatric: denies: No Symptoms, Altered Sleep Pattern, Anxiety, Depression, Hallucinations, Panic, Paranoia, Suicidal, Other - Risk Factors Known Risk Factors: Yes: Hypercholesterolemia, Hypertension, Smoking Vital Signs: Vital Signs Temperature 98.3 F 06/26/17 10:18 Pulse Rate 97 H 06/26/17 10:18 Respiratory Rate 16 06/26/17 10:18 Blood Pressure 120/62 06/26/17 10:18 O2 Sat by Pulse Oximetry (%) 98 06/26/17 10:18 Constitutional: Yes: Well Nourished, No Distress, Calm Eyes: Yes: WNL, Conjunctiva Clear, EOM Intact, PERRL Neck: Yes: WNL, Supple, Trachea Midline Respiratory: Yes: Regular, Wheezes. No: Rales, Rhonchi, SOB Gastrointestinal: Yes: Normal Bowel Sounds, Soft. No: Distention, Tenderness Renal/: Yes: WNL Cardiovascular: Yes: Regular Rate and Rhythm. No: Bradycardia, Tachycardia, Pulse Irregular, Gallop, Rub, Varicosities JVD: No Carotid Bruit: No PMI: Non-Displaced Heart Sounds: Yes: S1, S2. No: Split S2, S3, S4, Clicks, Gallop, Rub, Bruit Murmur: No: Systolic Murmur, Diastolic Murmur Musculoskeletal: Yes: Muscle Weakness Extremities: Yes: WNL Edema: No Peripheral Pulses WNL: Yes Peripheral Pulses: 2+ Left Doralis Pedis, 2+ Right Dorsalis Pedis Neurological: Yes: Alert, Oriented Psychiatric: Yes: Alert, Oriented - Other Data Labs, Other Data: CBC, BMP 06/26/17 06:00 06/26/17 06:00 INR, PTT INR 1.02 (0.82-1.09) 06/26/17 01:14 Troponin, BNP 06/25/17 06/25/17 06/26/17 17:40 Unknown 01:14 Troponin I Cancelled 0.20 H 0.17 H 06/26/17 11:01 Troponin I 0.11 H Troponin, BNP 06/25/17 06/25/17 06/26/17 17:40 Unknown 01:14 Troponin I Cancelled 0.20 H 0.17 H 06/26/17 11:01 Troponin I 0.11 H ekg-nsr 84bpm, no sig ST abnl Echo: Pending Imaging - Results Chest X-ray: Report Reviewed, Image Reviewed EKG: Report Reviewed, Image Reviewed Other: Report Reviewed, Image Reviewed Assessment/Plan 62 year old woman with a h/o HIV, HTN, COPD, spine disease with chronic radiculopathy, admitted with unsteady gait, dizziness, headaches, worsening L sided weakness, incidentally noted to have an elevated troponin. states she still feels dizzy, unsteady and headaches. reports mild chronic intermittent chest pain. chronic dyspnea. Elevated troponin-uncertain etiology, Neurological symptoms, chronic intermittent atypical chest pain -mildly elevated and trended down with normal CK level -ekg showed no sig ST abnl -unlikely ACS -given clinical picture concern for CVA as source of elevated troponin -head CT report pending, MRI pending -Neurology to consult -hold off on full AC at this time -pt reports having a normal stress test a few weeks ago at outside office, would be helpful to review report as well as echo -plan for echo here -telemetry monitoring Dizziness/unsteady gait/L sided weakness -Neuro evaluation and imaging as above -check echo and carotid doppler -telemetry monitoring for occult arrhythmia
--- NOTE | 2017-06-26 13:38 | PN ---
Progress Note (short form) - Note Progress Note: Neurology History of Present Illness The patient is a 62F with a PMH of HIV, HTN, COPD, rheumatoid arthritis, restless leg syndrome, seizures, "arrhythmia" who presents to ED with dizziness and sudden onset weakness of the left. The patient states that she woke up around 5am in the morning and felt like she had an unsteady gait and felt like the room was spinning. She says that she has never had these symptoms before, especially the weakness. Difficult getting consistent history. She states she has some chronic pains including CP and has mild SOB. CT head without acute changes but awaiting final report. Will check MRI brain to rule out CVA. Past History - Past Medical History Anemia: No Asthma: Yes Cancer: No Cardiac Disorders: No CVA: No COPD: Yes (on meds) CHF: No Dementia: No Diabetes: No GI Disorders: Yes (delayed gastric emptying) Disorders: No HTN: Yes Hypercholesterolemia: No Liver Disease: No Psychiatric Problems: Yes (anxeity) Seizures: Yes (MANY YEARS AGO) Thyroid Disease: Yes - Surgical History Abdominal Surgery: No Appendectomy: No Cardiac Surgery: No Cholecystectomy: No Lung Surgery: No Neurologic Surgery: No Orthopedic Surgery: Yes (neck, microdiscectomy L3,4,5 [facility] 11/25/16) - Immunization History Immunization Up to Date: No (no flu or pneumonia shot.) - Suicide/Smoking/Psychosocial Hx Smoking Status: Yes Smoking History: Former smoker Have you smoked in the past 12 months: No Number of Cigarettes Smoked Daily: 3 If you are a former smoker, when did you quit?: 8 months Cigars Per Day: 0 Information on smoking cessation initiated: No 'Breaking Loose' booklet given: 04/04/17 Hx Alcohol Use: No Drug/Substance Use Hx: No Substance Use Type: Cocaine Hx Substance Use Treatment: Yes (25YRS AGO) - Past Medical History Allergies/Adverse Reactions: Allergies Allergy/AdvReac Type Severity Reaction Status Date / Time strawberry Allergy Intermediate Hives Verified 04/04/17 08:39 Penicillins Allergy Unknown Hives Verified 04/04/17 08:39 Sulfa (Sulfonamide Allergy Unknown Hives Verified 04/04/17 08:39 Antibiotics) gabapentin AdvReac Intermediate Nausea Verified 04/04/17 08:39 Home Medications: Ambulatory Orders Albuterol Sulfate Inhaler - [Ventolin HFA Inhaler -] 2 inh PO Q4H PRN #1 inhaler 03/24/16 Budesonide/Formeterol Fumarate [SYMBICORT 80/4.5mcg -] 1 inh PO BID #1 inhaler 03/24/16 Tiotropium [employer] [Spiriva Respimat] 1 puff IH DAILY #1 mist.inhal 03/24/16 Cyproheptadine [Periactin -] 4 mg PO HS 08/05/16 Elviteg/Cob/Emtri/Tenof Alafen [Genvoya (Non-Formulary)] 1 each PO DAILY Lisinopril [Prinivil -] 40 mg PO DAILY 04/04/17 Diclofenac Sodium [Voltaren] 2 gm TP QID PRN 06/03/17 Ergocalciferol (Vitamin D2) [Vitamin D2] 50,000 unit PO Q7D 06/03/17 Ondansetron HCl [Zofran] 8 mg PO DAILY #14 tablet MDD 2 06/03/17 Oxycodone HCl/Acetaminophen [Percocet 10-325 mg Tablet] 1 each PO TID PRN #90 tablet MDD 3 06/03/17 Pramipexole Dihydrochloride [Mirapex -] 1 - 2 mg PO HS 06/03/17 Review of Systems GENERAL/CONSTITUTIONAL: Positive for weakness. No fever or chills. HEAD, EYES, EARS, NOSE AND THROAT: No change in vision. No ear pain or discharge. No sore throat. CARDIOVASCULAR: Positive for chest pain. No palpitations or lightheadedness. RESPIRATORY: No cough, wheezing, shortness of breath, or hemoptysis. GASTROINTESTINAL: No nausea, vomiting, diarrhea, constipation, or abdominal pain. GENITOURINARY: No dysuria, frequency, hematuria, or change in urination. MUSCULOSKELETAL: No joint or muscle swelling or pain. No neck or back pain. SKIN: No rash or lesions. NEUROLOGIC: Positive for weakness. No headache, numbness, tingling, loss of consciousness, or change in strength/sensation. ENDOCRINE: No increased thirst. No abnormal weight change. HEMATOLOGIC/LYMPHATIC: No anemia, easy bleeding, or history of blood clots. ALLERGIC/IMMUNOLOGIC: No hives or skin allergy. Is the patient limited Spanish proficient: No *Physical Exam Vital Signs Period Temp Pulse Resp BP Sys/Beasley Pulse Ox Last 24 Hr 98.3 F-100.2 F 94-98 16-22 120-173/62-104 96-100 GENERAL: Well developed, well nourished. Awake and alert. No acute distress. HEENT: Normocephalic, atraumatic. Hearing grossly normal. Moist mucous membranes. PERRLA, EOMI. No conjunctival pallor. Sclera are non-icteric. NECK: Supple. Full ROM. No JVD. CARDIOVASCULAR: Regular rate and rhythm. No murmurs, rubs, or gallops. PULMONARY: No evidence of respiratory distress. Coarse lung sounds bilaterally. ABDOMINAL: Soft. Non-tender. Distended. No rebound or guarding. GENITOURINARY: L CVA tenderness. MUSCULOSKELETAL: Normal range of motion at all joints. No bony deformities or tenderness. EXTREMITIES: No cyanosis. No clubbing. No edema. No calf tenderness. SKIN: Warm and dry. Normal capillary refill. No rashes. No jaundice. NEUROLOGICAL: Alert, awake, appropriate. Cranial nerves 2-12 intact. No deficits to light touch and temperature in face, ?5-/5 L sided, 5/5 R sided Finger to nose abnormal on the L. Normal speech. PSYCHIATRIC: Cooperative. Good eye contact. Appropriate mood and affect. CBCD WBC 9.2 K/mm3 (4.0-10.0) 06/26/17 06:00 RBC 3.38 M/mm3 (3.60-5.2) L 06/26/17 06:00 Hgb 11.9 GM/dL (10.7-15.3) 06/26/17 06:00 Hct 35.2 % (32.4-45.2) 06/26/17 06:00 MCV 104.4 fl (80-96) H 06/26/17 06:00 MCHC 33.8 g/dl (32.0-36.0) 06/26/17 06:00 RDW 15.5 % (11.6-15.6) 06/26/17 06:00 Plt Count 252 K/MM3 (134-434) 06/26/17 06:00 MPV 8.0 fl (7.5-11.1) 06/26/17 06:00 CMP Sodium 146 mmol/L (136-145) H 06/26/17 06:00 Potassium 3.8 mmol/L (3.5-5.1) 06/26/17 06:00 Chloride 110 mmol/L (98-107) H 06/26/17 06:00 Carbon Dioxide 28 mmol/L (21-32) 06/26/17 06:00 Anion Gap 8 (8-16) 06/26/17 06:00 BUN 23 mg/dL (7-18) H 06/26/17 06:00 Creatinine 0.9 mg/dL (0.55-1.02) 06/26/17 06:00 Creat Clearance w eGFR > 60 (>60) 06/26/17 06:00 Calcium 8.8 mg/dL (8.5-10.1) 06/26/17 06:00 Total Bilirubin 0.5 mg/dL (0.2-1.0) D 06/26/17 06:00 AST 31 U/L (15-37) 06/26/17 06:00 ALT 36 U/L (12-78) 06/26/17 06:00 Alkaline Phosphatase 118 U/L (45-117) H 06/26/17 06:00 Total Protein 6.6 g/dl (6.4-8.2) 06/26/17 06:00 Albumin 3.5 g/dl (3.4-5.0) 06/26/17 06:00 CT head reviewed Plan: 62F with a PMH of HIV, HTN, COPD, rheumatoid arthritis, restless leg syndrome, seizures, "arrhythmia" who presents to ED with dizziness and sudden onset weakness of the left. The patient states that she woke up around 5am in the morning and felt like she had an unsteady gait and felt like the room was spinning. She says that she has never had these symptoms before, especially the weakness. Difficult getting consistent history. She states she has some chronic pains including CP and has mild SOB. CT head without acute changes but awaiting final report Will check MRI brain to rule out CVA ASA, Statin recommended Can give Meclezine PRN for dizzyness Increased hydration Eply manuevers Avoid sudden head movements Monitor BP, can allow systolic to 160's for now Cardiology following Fall preacautions Continue Mirapex for RLS
[2017-06-26] MEDS ORDERED: MECLIZINE HCL 25 MG TABLET (FP) PO PRN (13:39)
--- NOTE | 2017-06-26 18:07 | DS ---
Physical Exam: PLEASE NOTE THAT THE PATIENT ELOPED. LABS Laboratory Results - last 24 hr 06/25/17 06/25/17 06/25/17 01:14 19:46 Unknown WBC RBC Hgb Hct MCV MCH MCHC RDW Plt Count MPV Neutrophils % Lymphocytes % Monocytes % Eosinophils % Basophils % PT with INR INR Sodium 145 Potassium 3.9 Chloride 111 H Carbon Dioxide 26 Anion Gap 8 BUN 20 H Creatinine 1.0 Creat Clearance w eGFR 56.18 Random Glucose 98 Hemoglobin A1c % Calcium 8.2 L Total Bilirubin 0.4 AST 32 ALT 39 Alkaline Phosphatase 134 H Creatine Kinase 161 Creatine Kinase Index 1.3 CK-MB (CK-2) 2.126 Troponin I 0.20 H Total Protein 7.1 Albumin 3.9 Triglycerides Cholesterol Total LDL Cholesterol HDL Cholesterol TSH Urine Color Yellow Urine Appearance Clear Urine pH 5.0 Ur Specific [place] 1.027 Urine Protein 2+ H Urine Glucose (UA) Negative Urine Ketones Negative Urine Blood Negative Urine Nitrite Negative Urine Bilirubin Negative Urine Urobilinogen 2.0 H Ur Leukocyte Esterase Negative Urine WBC (Auto) 1 Urine RBC (Auto) 12 Ur Epithelial Cells Rare Urine Bacteria Rare Hyaline Casts 3 Urine Mucus Few Blood Type Antibody Screen Antibody Identification 06/26/17 06/26/17 06/26/17 01:14 01:14 01:14 WBC RBC Hgb Hct MCV MCH MCHC RDW Plt Count MPV Neutrophils % Lymphocytes % Monocytes % Eosinophils % Basophils % PT with INR 11.50 INR 1.02 Sodium Potassium Chloride Carbon Dioxide Anion Gap BUN Creatinine Creat Clearance w eGFR Random Glucose Hemoglobin A1c % Calcium Total Bilirubin AST ALT Alkaline Phosphatase Creatine Kinase 160 Creatine Kinase Index 1.2 CK-MB (CK-2) 1.960 Troponin I 0.17 H Total Protein Albumin Triglycerides 157 Cholesterol 185 Total LDL Cholesterol 76 HDL Cholesterol 89 H TSH Urine Color Urine Appearance Urine pH Ur Specific [place] Urine Protein Urine Glucose (UA) Urine Ketones Urine Blood Urine Nitrite Urine Bilirubin Urine Urobilinogen Ur Leukocyte Esterase Urine WBC (Auto) Urine RBC (Auto) Ur Epithelial Cells Urine Bacteria Hyaline Casts Urine Mucus Blood Type B NEGATIVE Antibody Screen Positive H Antibody Identification Anti-D 06/26/17 06/26/17 06/26/17 01:14 01:14 06:00 WBC 9.2 RBC 3.38 L Hgb 11.9 Hct 35.2 MCV 104.4 H MCH 35.3 H MCHC 33.8 RDW 15.5 Plt Count 252 MPV 8.0 Neutrophils % 64.6 Lymphocytes % 25.3 Monocytes % 8.7 Eosinophils % 0.7 Basophils % 0.7 PT with INR INR Sodium Potassium Chloride Carbon Dioxide Anion Gap BUN Creatinine Creat Clearance w eGFR Random Glucose Hemoglobin A1c % 5.7 Calcium Total Bilirubin AST ALT Alkaline Phosphatase Creatine Kinase Creatine Kinase Index CK-MB (CK-2) Troponin I Total Protein Albumin Triglycerides Cholesterol Total LDL Cholesterol HDL Cholesterol TSH 3.75 H Urine Color Urine Appearance Urine pH Ur Specific [place] Urine Protein Urine Glucose (UA) Urine Ketones Urine Blood Urine Nitrite Urine Bilirubin Urine Urobilinogen Ur Leukocyte Esterase Urine WBC (Auto) Urine RBC (Auto) Ur Epithelial Cells Urine Bacteria Hyaline Casts Urine Mucus Blood Type Antibody Screen Antibody Identification 06/26/17 06/26/17 06:00 11:01 WBC RBC Hgb Hct MCV MCH MCHC RDW Plt Count MPV Neutrophils % Lymphocytes % Monocytes % Eosinophils % Basophils % PT with INR INR Sodium 146 H Potassium 3.8 Chloride 110 H Carbon Dioxide 28 Anion Gap 8 BUN 23 H Creatinine 0.9 Creat Clearance w eGFR > 60 Random Glucose 89 Hemoglobin A1c % Calcium 8.8 Total Bilirubin 0.5 D AST 31 ALT 36 Alkaline Phosphatase 118 H Creatine Kinase 134 Creatine Kinase Index CK-MB (CK-2) Troponin I 0.11 H Total Protein 6.6 Albumin 3.5 Triglycerides Cholesterol Total LDL Cholesterol HDL Cholesterol TSH Urine Color Urine Appearance Urine pH Ur Specific [place] Urine Protein Urine Glucose (UA) Urine Ketones Urine Blood Urine Nitrite Urine Bilirubin Urine Urobilinogen Ur Leukocyte Esterase Urine WBC (Auto) Urine RBC (Auto) Ur Epithelial Cells Urine Bacteria Hyaline Casts Urine Mucus Blood Type Antibody Screen Antibody Identification HOSPITAL COURSE: Date of Admission:06/25/17 Date of Discharge: 06/26/17 Please note that the patient eloped. A detailed history and physical on admission has been documented on 06/25/17. Patient was seen this AM and detailed exam documented as well. Patient was seen by cardiology and her troponin leak was suspected from possible CVA but no concerns for ACS or full dose anti-coagulation were noted. Plan was to watch her on telemetry and cycle troponins, get 2D echo. She was also evaluated by neurology and plan was to get MRI brain and neurological monitoring. She had reported recent stress test and MRI brain within prior 2 weeks and plan was to retrieve further records. However Nursing note from 5:43 PM noted that patient had reportedly eloped with "IV on bed". Call was placed to ED and confirmed. Patient was contacted and reached at her home phone [phone]. Patient reported 'nobody was doing anything for me, my hospital is [facility] and I will go there tomorrow'. Patient was informed of her current risks with ongoing stroke, possible need to address underlying heart attack and need for additional testing and monitoring, and risks of lack of treatment including progressive stroke, permanent brain damage or disasbility, massive heart attack and . She was advised to go the ED as soon as she can. patient relayed full understanding of the risks and reported planning to go to [facility]. Please note that discharge medications, discharge instructions not applicable except above. Minutes to complete discharge: 35 Discharge Summary Reason For Visit: ELEVATED TROPONIN LEVEL Current Active Problems CVA (cerebral vascular accident) (Acute) Troponin level elevated (Acute) Condition: Unchanged/Unknown - Instructions Referrals: Cristóbal Lozoya MD [Primary Care Provider] - This patient is new to me today: Yes Date on this admission: 06/26/17 Emergency Visit: No Critical Care patient: No - Discharge Referral Referred to [facility] No
[2017-06-26] MEDS ORDERED: CYPROHEPTADINE HCL 4 MG TABLET PO SCH (22:00)
[2017-06-26] MEDS ORDERED: PRAMIPEXOLE DIHYDROCHLORIDE 1 MG TABLET PO SCH (22:00)
== END 2017-06-26 17:10 | disposition left against medical advice (07) ==
LOC: JER 15:43 → JERBED 23:21
PROVIDERS: ADMIT Internal Medicine; ATTEND Hospitalist
PROC: 3E0337Z Introduction of Electrolytic and Water Balance Substance into Peripheral Vein, Percutaneous Approach (ICD-10-PCS; principal; 2017-06-25)
PROC: 3E0F7GC Introduction of Other Therapeutic Substance into Respiratory Tract, Via Natural or Artificial Opening (ICD-10-PCS; 2017-06-25)
DX: R77.8 Other specified abnormalities of plasma proteins (principal); R55 Syncope and collapse; R07.9 Chest pain, unspecified; I10 Essential (primary) hypertension; R06.02 Shortness of breath; Z21 Asymptomatic human immunodeficiency virus [HIV] infection status; J44.9 Chronic obstructive pulmonary disease, unspecified; J45.909 Unspecified asthma, uncomplicated; M06.9 Rheumatoid arthritis, unspecified; G25.81 Restless legs syndrome; F41.9 Anxiety disorder, unspecified; I49.9 Cardiac arrhythmia, unspecified; R26.89 Other abnormalities of gait and mobility; R20.2 Paresthesia of skin; I25.2 Old myocardial infarction; R20.0 Anesthesia of skin; Z86.69 Personal history of other diseases of the nervous system and sense organs; Z87.891 Personal history of nicotine dependence; Z88.0 Allergy status to penicillin; Z88.2 Allergy status to sulfonamides; Z91.018 Allergy to other foods
CPT/HCPCS: 36415; 70450-TC; 71046-TC-FY; 80053; 81003; 81015; 82465; 82550; 82553; 83036; 83718; 83721; 84443; 84478; 84484; 85025; 85610; 86850; 86870; 86900; 86901; 86902; 87086; 93005; 93010; 94640; 99285-25; G0378; J7030

== ENCOUNTER 2018-04-03 07:56 | Day surgery (SDC) | payer OTHER ==
[2018-03-10 17:18] VITALS: BMI 22.1
[2018-04-03] MEDS ORDERED: PROPOFOL 20 ML ONE (08:33)
[2018-04-03] MEDS ORDERED: MIDAZOLAM HCL 2 MG/2 ML SINGLE DOSE VIAL ONE (08:33)
[2018-04-03] MEDS ORDERED: LIDOCAINE HCL 2% (20ML MULTI-DOSE VIAL) NR ONE (09:42)
[2018-04-03] MEDS ORDERED: LIDOCAINE HCL 1%, 10 MG/ML (20ML VIAL) ONE (09:52)
[2018-04-03] MEDS ORDERED: LIDOCAINE HCL 1%, 10 MG/ML (50 mL VIAL) IJ ONE (10:27)
--- NOTE | 2018-04-03 10:50 | OP ---
Operative Note - Note: Operative Date: 04/03/18 Pre-Operative Diagnosis: urge incontinence Operation: removal of interstim neuromodulator Post-Operative Diagnosis: Same as Pre-op Surgeon: Jose Conte Anesthesia: Local, Fractional Specimens Removed: interstim neuromodulator
[2018-04-03] MEDS ORDERED: oxyCODONE HCL 5 MG TABLET PO PRN (11:04)
--- NOTE | 2018-04-03 11:19 | OP ---
DATE OF OPERATION: 04/03/2018 PREOPERATIVE DIAGNOSIS: Urge incontinence. POSTOPERATIVE DIAGNOSIS: Urge incontinence. PROCEDURE: Removal of InterStim neuromodulator. SURGEON: Jose Nagel MD ANESTHESIA: Fractional with local. DESCRIPTION OF PROCEDURE: The patient has a history of urge incontinence, which was well managed with the InterStim neuromodulator. The patient wants the neuromodulator removed in order to have an MRI of her shoulder. The patient has had all risks and benefits involving this decision reviewed. The patient accepts the risks and benefits and wants the neuromodulator removed. The patient was brought in the operating room and placed in a prone position on the operating room table. Sedation and light anesthesia are administered as is Levaquin preoperatively for surgical prophylaxis. The InterStim is located on the patient's left buttock. It is palpated in the left upper quadrant of the buttock. Lidocaine is instilled in the area. Sharp dissection utilizing a knife was taken through the fascia. At this point, electrocauterization was used to go to the level of the InterStim neuromodulator. The InterStim neuromodulator was manipulated out of the wound. The wire was removed from the InterStim neuromodulator. At this point, the wire was pulled, and a dimpling in the midline is noted. A vertical incision measuring 1 cm is made over the dimple. At this point, a right-angle clamp was taken, and the wire was brought out of the wound. It is then removed utilizing a heavy clamp, which is twirled toward the head bringing out the wire in its entirety. A 2-layered closure is utilized for the left buttock and midline incisions. No complications are noted. The patient tolerated the procedure very well. DISPOSITION: To recovery room. Raúl [id number]
[2018-04-03 11:52] VITALS: BP 126/75; PULSE 88; TEMP 97.8
--- NOTE | 2018-04-04 09:40 | PATH ---
Surgical Pathology Report Patient Name: REJI [facility]. Rec. #: [id number] /Age/Gender: 1955 (Age: 63) / F Account: [id number] Location: [facility] SURGICAL Taken: 04/03/2018 Received: 04/03/2018 Reported: 04/04/2018 Physicians: Jose Conte Specimen(s) Received REMOVED INTERSTIM Clinical History Urge incontinence Final Diagnosis INTERSTIM, REMOVAL: STEWARD DISHWASHER (BATTERY) AND HARDWARE(WIRE). MACROSCOPIC DIAGNOSIS. Electronically Signed Zahida Pinedo M.D. Gross Description Received fresh labeled "removed interstim," is a 5.0 x 4.3 x 0.6 cm barr metallic device, consistent with a battery. The battery has the following inscription: "[employer] InterStim II SN: [id number]." Also received within the same container is a 28 cm in length metallic wire. No soft tissue is present. No sections are submitted, gross only. DL/04/03/2018 saudi/04/03/2018
== END 2018-04-03 11:45 | disposition home or self-care (01) ==
LOC: JASU-SURG 07:56
PROVIDERS: ATTEND Urology
PROC: 0JPT0MZ Removal of Stimulator Generator from Trunk Subcutaneous Tissue and Fascia, Open Approach (ICD-10-PCS; principal; 2018-04-03 09:00)
DX: N39.41 Urge incontinence (principal); Z21 Asymptomatic human immunodeficiency virus [HIV] infection status
CPT/HCPCS: 88300-TC

== ENCOUNTER 2018-09-03 20:38 | Emergency (ER) | payer OTHER ==
[2018-09-03 20:49] VITALS: BP 147/80; PULSE 81; TEMP 97.8; BMI 18.6
--- NOTE | 2018-09-03 21:45 | PDOC ---
History of Present Illness - History of Present Illness Initial Comments: 09/03/18 21:44 63 yo F with h/o HIV on HAART, anxiety, osteoporosis, HTN, COPD, hypothyoridism , chronic pain syndrome, cervical neck disorder, chronic opioid use, prior cervical laminectomy at [facility] who p/w continuous acute on chronic sharp, unremitting, left sided neck pain. No identifiable alleviators, pain aggravated with horizontal or vertical neck improvement. Denies trauma of neck, or back. Denies heavy lifting, straining, repetitive movement. Patient with diffuse headache, stable, now unremitting. 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 Now with daily GUNDERSON x 1 month. No identifiable alleviators or triggers. Patient follows with Dr. Cochran Neurology. Scheduled apt. 2018 neurology, was advised to get MRI cervical spine. Has been taking Methylprednisilone with mild improvement in neck pain x 3-4 days. On Fiorcet, Percocet,Botox for migraines . Recently seen by Dr. Song advised to f/u neurology for GUNDERSON disorder, possible botox injections for symptom relief. Prior Cervical imaging with previous anterior spinal fusion C4-C6. Prominent prevertebral soft tissues. Prevertebral clips (04/2018) Patient denies vision change, palpitations, cough, wheezing, orthopena, PND, leg swelling/pain, N/V, F,C, CP, SOB, urinary complaints, hematuria, BPR, abdominal pain, diarrhea, constipation, lightheadedness, weakness, sensory changes. PMHx: as noted above ROS: as noted SHx: nicotine dependence Allergies: Sulfa meds, PCN, Gabapentin, Topiramate <Jason Sotomayor - Last Filed: 09/03/18 23:20> <Gali Sorto - Last Filed: 09/03/18 23:36> - General Chief Complaint: Headache Stated Complaint: HEADACHE AROUND RT EAR Time Seen by Provider: 09/03/18 21:38 Past History - Past Medical History Anemia: Yes Asthma: Yes Cancer: Yes (cervical cancer- cone biopsy- 1970s) Cardiac Disorders: (afib paroxsmal) CVA: Yes (tia's) COPD: No CHF: No Dementia: No Diabetes: No GI Disorders: Yes (delayed gastric emptying, dysphagia) Disorders: Yes (incontinence) HTN: Yes Hypercholesterolemia: Yes (no meds per cardiology Dr Gonzalez) Liver Disease: No Psychiatric Problems: Yes (anxeity) Seizures: No Thyroid Disease: Yes (hypothyroid) Other medical history: Migraines - Surgical History Abdominal Surgery: No Appendectomy: No Cardiac Surgery: No Cholecystectomy: No Lung Surgery: No Neurologic Surgery: No Orthopedic Surgery: Yes (neck , microdiscectomy L3,4,5 [facility] 11/25/16) - Immunization History Immunization Up to Date: No (no flu or pneumonia shot.) - Suicide/Smoking/Psychosocial Hx Smoking Status: Yes Smoking History: Never smoked Have you smoked in the past 12 months: Yes Number of Cigarettes Smoked Daily: 2 If you are a former smoker, when did you quit?: 8 months Cigars Per Day: 0 'Breaking Loose' booklet given: 04/04/17 Hx Alcohol Use: No Drug/Substance Use Hx: No Substance Use Type: Cocaine Hx Substance Use Treatment: Yes (25YRS AGO) <Jason Sotomayor - Last Filed: 09/03/18 23:20> <Gali Sorto - Last Filed: 09/03/18 23:36> - Past Medical History Allergies/Adverse Reactions: Allergies Allergy/AdvReac Type Severity Reaction Status Date / Time strawberry Allergy Intermediate Hives Verified 04/03/18 08:33 Penicillins Allergy Unknown Hives Verified 04/03/18 08:33 Sulfa (Sulfonamide Allergy Unknown Hives Verified 04/03/18 08:33 Antibiotics) gabapentin AdvReac Intermediate Nausea Verified 04/03/18 08:33 topiramate [From Topamax] AdvReac Intermediate Nausea Verified 04/03/18 08:33 Home Medications: Ambulatory Orders Levothyroxine [Synthroid -] 25 mcg PO DAILY #30 tablet 09/30/17 Mirtazapine [Remeron -] 15 mg PO HS 12/29/17 Ondansetron HCl [Zofran] 8 mg PO DAILY #30 tablet MDD 2 03/22/18 Diclofenac Sodium [Voltaren] 2 gm TP TID PRN #3 tube 07/18/18 Ergocalciferol (Vitamin D2) [Vitamin D2] 50,000 unit PO Q7D #4 capsule 07/18/18 Acetaminophen/Caffeine/Butalb [Fioricet -] 1 tab PO Q6H PRN 08/15/18 Oxycodone HCl/Acetaminophen [Percocet 10-325 mg Tablet] 1 each PO TID PRN #90 tablet MDD 3 08/15/18 Albuterol Sulfate Inhaler - [Ventolin HFA Inhaler -] 2 inh PO Q4H PRN #1 inhaler 08/31/18 Bictegrav/Emtricit/Tenofov Ala [Biktarvy 50-200-25 mg Tablet] 1 each PO DAILY # 30 tablet 08/31/18 Budesonide/Formeterol Fumarate [SYMBICORT 160/4.5mcg -] 1 inh PO BID #1 inhaler 08/31/18 Lisinopril 10 mg PO DAILY #30 tablet 08/31/18 Megestrol Acetate Oral Susp [Megace Oral Suspension -] 400 mg PO DAILY 30 Days # 300 cup 08/31/18 Review of Systems - Review of Systems Comments:: 09/03/18 21:45 GENERAL/CONSTITUTIONAL: No fever or chills. No weakness. HEAD, EYES, EARS, NOSE AND THROAT: No change in vision. No ear pain or discharge. No sore throat. CARDIOVASCULAR: No chest pain or shortness of breath RESPIRATORY: No cough, wheezing, or hemoptysis. GASTROINTESTINAL: No nausea, vomiting, diarrhea or constipation. GENITOURINARY: No dysuria, frequency, or change in urination. MUSCULOSKELETAL: No joint or muscle swelling or pain. No neck or back pain. SKIN: No rash NEUROLOGIC: + Neck pain and headache. No vertigo, loss of consciousness, or change in strength/sensation. ENDOCRINE: No increased thirst. No abnormal weight change HEMATOLOGIC/LYMPHATIC: No anemia, easy bleeding, or history of blood clots. ALLERGIC/IMMUNOLOGIC: No hives or skin allergy. <Jason Sotomayor - Last Filed: 09/03/18 23:20> *Physical Exam - Vital Signs Last Vital Signs Temp Pulse Resp BP Pulse Ox 97.8 F 81 20 147/80 99 09/03/18 20:46 09/03/18 20:46 09/03/18 20:46 09/03/18 20:46 09/03/18 20:46 - Physical Exam Comments: 09/03/18 21:45 GENERAL: Awake, alert, and fully oriented, in no acute distress HEAD: No signs of trauma, normocephalic, atraumatic EYES: PERRLA, EOMI, sclera anicteric, conjunctiva clear ENT: Auricles normal inspection, hearing grossly normal, nares patent, oropharynx clear without exudates. Moist mucosa NECK: + Left posterior-lateral ttp SCM, splenius capitis insertion. Decreased horizontal and vertical ROM 2/2 pain. supple, no lymphadenopathy, JVD, or masses LUNGS: No distress, speaks full sentences, clear to auscultation bilaterally HEART: Regular rate and rhythm, normal S1 and S2, no murmurs, rubs or gallops, peripheral pulses normal and equal bilaterally. ABDOMEN: Soft, nontender, normoactive bowel sounds. No guarding, no rebound. No masses EXTREMITIES : Normal inspection, Normal range of motion, no edema. No clubbing or cyanosis. NEUROLOGICAL: Cranial nerves II through XII grossly intact. Normal speech, normal gait, no focal sensorimotor deficits SKIN: Warm, Dry, normal turgor, no rashes or lesions noted <Jason Sotomayor - Last Filed: 09/03/18 23:20> - Vital Signs Last Vital Signs Temp Pulse Resp BP Pulse Ox 97.8 F 81 20 147/80 99 09/03/18 20:46 09/03/18 20:46 09/03/18 20:46 09/03/18 20:46 09/03/18 20:46 <Gali Sorto - Last Filed: 09/03/18 23:36> ED Treatment Course - Medications Given in the ED: ED Medications Discontinued Medications Generic Name Dose Route Start Last Admin Trade Name Ronaldoq PRN Reason Stop Dose Admin Acetaminophen 650 mg 09/03/18 22:28 09/03/18 22:52 Tylenol - PO 09/03/18 22:29 650 mg ONCE ONE Administration Diazepam 5 mg 09/03/18 23:04 09/03/18 23:18 Valium - PO 09/03/18 23:05 5 mg ONCE ONE Administration Lidocaine 1 patch 09/03/18 22:28 09/03/18 22:51 Lidoderm Patch - TP 09/03/18 22:29 1 patch ONCE ONE Administration Methocarbamol 500 mg 09/03/18 22:28 09/03/18 22:52 Robaxin - PO 09/03/18 22:29 500 mg ONCE ONE Administration <Gali Sorto - Last Filed: 09/03/18 23:36> Medical Decision Making - Medical Decision Making 09/03/18 22:146 63 yo F with h/o HIV on HAART, anxiety, osteoporosis, HTN, COPD, hypothyoridism , chronic pain syndrome, cervical neck disorder, chronic opioid use, prior cervical laminectomy at [facility] who p/w continuous acute on chronic dull diffuse headache, and sharp, unremitting, left sided neck pain, aggravated with horizontal or vertical neck improvement. Neg c-spine ttp. Nexus neg c-spine. No focal neuro deficits. Vitals wnl, AF, A&Ox3. Denies trauma of neck, or back. Denies vision change, palpitations, cough, wheezing, N/V, F,C, CP, SOB, urinary complaints, hematuria, BPR, abdominal pain, diarrhea, constipation, lightheadedness, weakness, sensory changes. GUNDERSON slow onset, moderate intensity, and consistent with prior. No evidence of increased ICP on physical exam, or history. Low suspicion SAH, hematoma, or mass effect. ED Course: 09/03/18 22:32 Patient advised to f/u with neurology September [address] Cochran Tylenol, Robaxin, Lidoderm patch Patient pain improved Stable for d/c with return precautions. <Jason Sotomayor - Last Filed: 09/03/18 23:20> *DC/Admit/Observation/Transfer <Jason Sotomayor - Last Filed: 09/03/18 23:20> <Gali Sorto - Last Filed: 09/03/18 23:36> Diagnosis at time of Disposition: Chronic neck pain - Discharge Dispostion Condition at time of disposition: Stable - Referrals Referrals: Roscoe Cochran [Non Staff, Medical] - - Patient Instructions Printed Discharge Instructions: DI for Chronic Neck Pain Additional Instructions: Please return to the emergency department with any new or worsening symptoms or concerns. Please follow up with your neurologist and primary care physician within 72 hours. Please follow up with Dr. Cochran as scheduled.
[2018-09-03] MEDS ORDERED: LIDOCAINE PATCH REMOVAL MC SCH (22:00)
[2018-09-03] MEDS ORDERED: METHOCARBAMOL 500 MG TABLET PO ONE (22:28)
[2018-09-03] MEDS ORDERED: ACETAMINOPHEN 325 MG TABLET (FP) PO ONE (22:28)
[2018-09-03] MEDS ORDERED: LIDOCAINE 5% TOPICAL PATCH TP ONE (22:28)
[2018-09-03] MEDS ORDERED: ACETAMINOPHEN 325 MG TABLET (FP) ONE (22:33)
[2018-09-03] MEDS ORDERED: METHOCARBAMOL 500 MG TABLET ONE (22:33)
[2018-09-03] MEDS ORDERED: LIDOCAINE 5% TOPICAL PATCH ONE (22:34)
[2018-09-03] MEDS ORDERED: diazePAM 5 MG TABLET PO ONE (23:04)
[2018-09-03] MEDS ORDERED: diazePAM 5 MG TABLET ONE (23:13)
--- NOTE | 2018-09-03 23:39 | PDOC ---
Documentation entered by Gabino Hernandez SCRIBE, acting as scribe for Gali Sorto MD. Gali Sorto MD: This documentation has been prepared by the David pickens Daniel, SCRIBE, under my direction and personally reviewed by me in its entirety. I confirm that the documentation accurately reflects all work, treatment, procedures, and medical decision making performed by me. Attending Attestation - Resident Resident Name: BranKishor - ED Attending Attestation I have performed the following: I have examined & evaluated the patient, The case was reviewed & discussed with the resident, I agree w/resident's findings & plan, Exceptions are as noted - HPI HPI: 09/03/18 23:06 The patient is a 63 year old female with a past medical history of HAART, anxiety, osteoporosis, HTN, COPD, hypothyroidism, chronic pain syndrome, cervical neck disorder, chronic opioid use, prior cervical laminectomy here today for evaluation of neck pain. The patient reports that her neck pain used to be intermittent but has become constant in the past month. She reports that her neck pain is worse with any movement of the head. She also notes having a constant dull headache. Patient denies lightheadedness. Denies fever, chills. Denies chest pain, shortness of breath. Denies nausea, vomiting, diarrhea, abdominal pain. - Physicial Exam PE: 09/03/18 23:21 wnwd 63 yo female has chronic migraines and neck pain but it has been more persistent than usual head ncat eyes valeria eomi neck supple,no bruits,+left posterior SCM soreness,no midline tenderness lungs cta b/l cvs [id number] abd nontender extremities no deformities skin warm and dry neuro axox3,ambulatory psych appropriate 09/03/18 23:35 - Medical Decision Making 09/03/18 23:36 pt has an appt with Dr Cochran her neurologist for her head/neck pain in the morning -she states has had been offered botox injections by her neurologist and also she is scheduled for MRI so she will keep her appt with Dr Cochran tomorrow -she has no new focal neuro deficits -pt's pain improved after muscle relaxants,pain meds given imp acute on chronic pain/discharged home w outpt follow up this week
[2018-09-04] MEDS ORDERED: diazePAM 2 MG TABLET PO SCH (10:00)
== END 2018-09-04 | disposition home or self-care (01) ==
LOC: JER 20:38
DX: M54.2 Cervicalgia (principal); R51 Headache; G89.29 Other chronic pain; G43.909 Migraine, unspecified, not intractable, without status migrainosus; E03.9 Hypothyroidism, unspecified; F41.9 Anxiety disorder, unspecified; E78.00 Pure hypercholesterolemia, unspecified; M19.90 Unspecified osteoarthritis, unspecified site; Z86.73 Personal history of transient ischemic attack (TIA), and cerebral infarction without residual deficits; Z85.41 Personal history of malignant neoplasm of cervix uteri
CPT/HCPCS: 99282-25

== ENCOUNTER 2018-10-04 09:23 | Observation (INO) | payer OTHER ==
[2018-10-04 09:31] VITALS: BMI 18.8
[2018-10-04] MEDS ORDERED: SODIUM CHLORIDE 1,000 ML IV SCH (09:45)
[2018-10-04 10:16] LABS: BASO % 0.9 % (0-2.0); EOS % 1.7 % (0-4.5); HEMATOCRIT 36.6 % (32.4-45.2); HEMOGLOBIN 12.4 GM/dL (10.7-15.3); LYMPH % 32.3 % (8-40); MCH 36.7 pg (25.7-33.7); MCHC 33.8 g/dl (32.0-36.0); MEAN CELL VOLUME 108.8 fl (80-96); MEAN PLT VOLUME 8.1 fl (7.5-11.1); MONO % 7.9 % (3.8-10.2); NEUT % 57.2 % (42.8-82.8); PLATELET COUNT 311 K/MM3 (134-434); RBC 3.36 M/mm3 (3.60-5.2); RDW 15.3 % (11.6-15.6); WHITE BLOOD COUNT 7.8 K/mm3 (4.0-10.0)
--- NOTE | 2018-10-04 10:24 | PDOC ---
Documentation entered by Anastasiya Alarcon SCRIBE, acting as scribe for Araceli Galindo MD. Araceli Galindo MD: This documentation has been prepared by the gabiibe, Anastasiya Alarcon SCRIBE, under my direction and personally reviewed by me in its entirety. I confirm that the documentation accurately reflects all work, treatment, procedures, and medical decision making performed by me. History of Present Illness - General Chief Complaint: CVA/TIA Stated Complaint: WEAKNESS Time Seen by Provider: 10/04/18 09:35 History Source: Family Exam Limitations: No Limitations - History of Present Illness Initial Comments: 10/04/18 10:21 The patient is a 63-year-old female, with a past medical history of HIV (on HAART), osteoporosis, HTN, asthma, COPD, hypothyroidism, migraines, chronic pain syndrome, anxiety, and seizures, who presents to the ED with 2 days of difficulty speaking. Patients is at bedside and reports that on Tuesday morning the patient appeared to be confused and was having difficulty finding her words. He denies any slurred speech. She was last known well on Tuesday evening. On exam, patient reports having a chronic headache; she has a history of migraines. The patient denies any fever, chills, nausea, or vomiting. Denies any frequency , urgency, hesitancy, dysuria, or hematuria. Denies any chest pain or shortness of breath. Allergies: [place], Penicillins, Sulfa. Social History: Smokin cigarettes daily x 30 yrs, cocaine use 25 years ago. Denies any alcohol use. Surgical History: Microdiscectomy in cervical spine 11/2016 at [facility], thyroidectomy 06/2016 interstim neuromodulator placement by gD at [facility] in 03/2017 tPA Exclusion checklist 3-4.5h - Time Elapsed Date last known well: 10/01/18 Time last known well: 20:00 Elaspsed time: 2 Day(s) and 21 Hour(s) and 31 Minutes - Thrombolytic Therapy Candidate Is patient eligible for thrombolytic therapy: No - Exclusion Criteria 3-4.5 hr SBP greater than 185 or DBP greater than 110mmHg despite tx: No Recent IC/spinal surgery,head trauma or stroke<3mos.: No Hx IC hemorrhage, IC neoplasm, AV malformation or aneurysm: No Active internal bleeding: No Blding diathesis(low plt ct, inc PTT,INR>1.7 or use of NOAC): No Symptoms suggest subarachnoid hemorrhage: No CT demonstrates multilobar infarct(>1/3 cerebral hemiphere): No Arterial puncture at noncompressible site in previous 7 days: No Blood glucose concentration less than 50mg/dL (2.7mmol/L): No - Relative Exclusion Criteria 3-4.5 hr Life expectancy <1 yr or severe co-morbid illness: No : No Patient/family refused: No Rapid improvement: No Stroke severity too mild: No Recent acute CT (w/in previous 3 months): No Seizure at onset with postictal residual neuro impairments: No Major surgery or serious trauma w/in previous 14 days: No Recent GI or hemorrhage (w/in previous 21 days): No - Add'l Relative Exclusion 3-4.5 hr Age > 80: No Hx of both diabetes AND prior ischemic stroke: No Taking an oral anticoagulant regardless of INR: No NIHSS >25: No - Ineligibility reason(s) Reasons No tPA given: Outside of window - delayed arrival NIH Stroke Scale - Last Known Well Date/Time & Onset Date Last Known Well: 10/01/18 Time Last Known Well: 20:00 - Initial Evaluation Level of consciousness: Alert Ask patient the month and their age: Answers both correctly Ask patient to open & close eyes; make fist and let go: Obeys both correctly Best gaze (horizontal eye movement): Normal Visual field testing: Partial hemianopia Facial paresis (Show teeth/raise eyebrows/close eyes tight): Normal symmetrical movement Motor Function: Left Arm: Normal Motor Function: Right Arm: Normal (extends arm 90 (or 45) degrees for 10 seconds without drift Motor Function: Left Leg: Normal (extends leg 30 degrees for 5 seconds without drift) Motor Function: Right Leg: Normal (extends leg 30 degrees for 5 seconds without drift) Limb Ataxia: No ataxia Sensory(Use pinprick test arms,legs,trunk,face/side to side): Normal Best language (Describe picture, name items, read sentences): Mild to moderate aphasia Dysarthria (read several words): Normal articulation Extinction and Inattention: No abnormality - Total Score NIH Stroke Scale Score: 2 Past History - Past Medical History Allergies/Adverse Reactions: Allergies Allergy/AdvReac Type Severity Reaction Status Date / Time strawberry Allergy Intermediate Hives Verified 10/04/18 10:17 Penicillins Allergy Unknown Hives Verified 10/04/18 10:17 Sulfa (Sulfonamide Allergy Unknown Hives Verified 10/04/18 10:17 Antibiotics) gabapentin AdvReac Intermediate Nausea Verified 10/04/18 10:17 topiramate [From Topamax] AdvReac Intermediate Nausea Verified 10/04/18 10:17 Home Medications: Ambulatory Orders Levothyroxine [Synthroid -] 25 mcg PO DAILY #30 tablet 09/30/17 Diclofenac Sodium [Voltaren] 2 gm TP TID PRN #3 tube 07/18/18 Ergocalciferol (Vitamin D2) [Vitamin D2] 50,000 unit PO Q7D #4 capsule 07/18/18 Acetaminophen/Caffeine/Butalb [Fioricet -] 1 tab PO Q6H PRN 08/15/18 Albuterol Sulfate Inhaler - [Ventolin HFA Inhaler -] 2 inh PO Q4H PRN #1 inhaler 08/31/18 Bictegrav/Emtricit/Tenofov Ala [Biktarvy 50-200-25 mg Tablet] 1 each PO DAILY # 30 tablet 08/31/18 Budesonide/Formeterol Fumarate [SYMBICORT 160/4.5mcg -] 1 inh PO BID #1 inhaler 08/31/18 Lisinopril 10 mg PO DAILY #30 tablet 08/31/18 Megestrol Acetate Oral Susp [Megace Oral Suspension -] 400 mg PO DAILY 30 Days # 300 cup 09/12/18 Oxycodone HCl/Acetaminophen [Percocet 10-325 mg Tablet] 1 each PO TID PRN #90 tablet MDD 3 09/12/18 Umeclidinium [place] [Incruse Ellipta] 62.5 mcg IH DAILY 10/04/18 Anemia: Yes Asthma: Yes Cancer: Yes (cervical cancer- cone biopsy- 1970s) Cardiac Disorders: (afib paroxsmal) CVA: Yes (tia's) COPD: No CHF: No Dementia: No Diabetes: No GI Disorders: Yes (delayed gastric emptying, dysphagia) Disorders: Yes (incontinence) HTN: Yes Hypercholesterolemia: Yes (no meds per cardiology Dr Gonzalez) Liver Disease: No Psychiatric Problems: Yes (anxeity) Seizures: No Thyroid Disease: Yes (hypothyroid) - Surgical History Abdominal Surgery: No Appendectomy: No Cardiac Surgery: No Cholecystectomy: No Lung Surgery: No Neurologic Surgery: No Orthopedic Surgery: Yes (neck , microdiscectomy L3,4,5 [facility] 11/25/16) - Immunization History Immunization Up to Date: No (no flu or pneumonia shot.) - Suicide/Smoking/Psychosocial Hx Smoking Status: Yes Smoking History: Current every day smoker Have you smoked in the past 12 months: Yes Number of Cigarettes Smoked Daily: 3 If you are a former smoker, when did you quit?: 8 months Cigars Per Day: 0 Information on smoking cessation initiated: No 'Breaking Loose' booklet given: 04/04/17 Hx Alcohol Use: No Drug/Substance Use Hx: No Substance Use Type: Cocaine Hx Substance Use Treatment: Yes (25YRS AGO) Review of Systems - Review of Systems Able to Perform ROS?: Yes Comments:: 10/04/18 10:21 GENERAL/CONSTITUTIONAL: No fever or chills. No weakness. HEAD, EYES, EARS, NOSE AND THROAT: No change in vision. No ear pain or discharge. No sore throat. CARDIOVASCULAR: No chest pain or shortness of breath. RESPIRATORY: No cough, wheezing, or hemoptysis. GASTROINTESTINAL: No nausea, vomiting, diarrhea or constipation. GENITOURINARY: No dysuria, frequency, or change in urination. MUSCULOSKELETAL: No joint or muscle swelling or pain. No neck or back pain. SKIN: No rash NEUROLOGIC: (+)Headache. No vertigo, loss of consciousness, or change in strength/sensation. ENDOCRINE: No increased thirst. No abnormal weight change. HEMATOLOGIC/LYMPHATIC: No anemia, easy bleeding, or history of blood clots. ALLERGIC/IMMUNOLOGIC: No hives or skin allergy. *Physical Exam - Vital Signs Last Vital Signs Temp Pulse Resp BP Pulse Ox 98.3 F 85 16 105/78 100 10/04/18 09:28 10/04/18 09:28 10/04/18 09:28 10/04/18 09:28 10/04/18 09:28 - Physical Exam Comments: 10/04/18 10:22 GENERAL: The patient is in no acute distress. HEAD: Normal with no signs of trauma. EYES: PERRLA, EOMI, sclera anicteric, conjunctiva clear. ENT: Ears normal, nares patent, oropharynx clear without exudates. Moist mucous membranes. NECK: Normal range of motion, supple without lymphadenopathy, JVD, or masses. LUNGS: Breath sounds equal, clear to auscultation bilaterally. No wheezes, and no crackles. HEART:Regular rate and rhythm, normal S1 and S2 without murmur, rub or gallop. ABDOMEN: Soft, nontender, normoactive bowel sounds. No guarding, no rebound. No masses palpable. EXTREMITIES: Normal range of motion, no edema. No clubbing or cyanosis. No erythema, or tenderness. NEUROLOGICAL: (+)See NIHSS. MUSCULOSKELETAL: Back non-tender to palpation, no CVA tenderness SKIN: Warm, Dry, normal turgor, no rashes or lesions noted. ED Treatment Course - LABORATORY CBC & Chemistry Diagram: 10/04/18 10:00 10/04/18 10:00 - RADIOLOGY Radiology Studies Ordered: 10/04/18 11:[address] was reviewed by Dr. Galindo and over-read by Radiology. IMPRESSION: No significant interval change or gross acute intracranial pathology is identified. There remains [id number] volume loss and moderate ventricular dilatation. No mass lesion or gross acute infarct are identified. Correlate clinically to determine further evaluation. Medical Decision Making - Medical Decision Making 10/04/18 10:00 Ms Noe presents to the ER with her family due to difficulty with her speech She has a h/o HTN, Hypothyroidism, HIV, per chart review, possible prior CVA Pt was noted to have these symptoms beginning on Tuesday morning She was notably "confused" when this was clarified, pt was actually noted to be having word finding difficulty Pt reports chronic headache, no changes in this regard No head trauma No chest pain No abdominal pain On examination: A&O x3 RRR CTA B/L No abdominal tenderness Neuro: please see NIHSS Pt demonstrates word finding difficulties 10/04/18 10:20 EKG - DD: CVA Brain mass Brain bleed Complicated migraine Will do: Labs CT stroke Re Assess 10/04/18 10:27 EKG - NSR rate of 78 bpm, axis nml, intervals nml, ARTIFACT at baseline, no clear st elevation or depressions, no pathological q waves 10/04/18 10:51 Laboratory Tests 10/04/18 10:00 WBC 7.8 Hgb 12.4 Hct 36.6 Plt Count 311 10/04/18 12:26 Laboratory Tests 05/29/19 10:00 Sodium 146 H Potassium 4.1 Chloride 119 H Carbon Dioxide 19 L BUN 19 H Creatinine 0.8 Random Glucose 77 Creatine Kinase 59 Troponin I 0.07 H 10/04/18 12:26 CXR : no acute findings 10/04/18 12:29 CT - lacunar infarcts, no acute infarct noted Pt admitted to hospitalist service 10/04/18 17:29 Pt was about to be sent to her room Became very agitated and verbally abusive to staff with clear speech Pt ambulatory to the bathroom and the phone with NO assistance Pt called family multiple times Pt refused to be transported to the inpatient unit Hospitalist team called and have responded to the ER to AMA this patient Pt will be leaving here AMA today 10/04/18 17:31 *DC/Admit/Observation/Transfer Diagnosis at time of Disposition: Word finding difficulty, Weakness - Discharge Dispostion Condition at time of disposition: Stable Decision to Admit order: Yes - Referrals - Patient Instructions - Post Discharge Activity
[2018-10-04 11:06] LABS: PROTHROMBIN TIME (PATIENT) 11.8 SEC (9.7-13.0)
[2018-10-04] MEDS ORDERED: METOCLOPRAMIDE HCL INJECTION 10 MG/2 ML VIAL IVPUSH ONE (11:24)
[2018-10-04] MEDS ORDERED: ACETAMINOPHEN 1000 MG/100 ML VIAL (NON FORMULARY) IVPB ONE (11:24)
[2018-10-04] MEDS ORDERED: ACETAMINOPHEN INJECTION 100 ML IVPB ONE (11:29)
[2018-10-04] MEDS ORDERED: METOCLOPRAMIDE HCL INJECTION 10 MG/2 ML VIAL ONE (11:29)
[2018-10-04 12:13] LABS: CREATININE 0.8 mg/dL (0.55-1.3); POTASSIUM 4.1 mmol/L (3.5-5.1)
[2018-10-04 12:14] LABS: ALBUMIN 3.5 g/dl (3.4-5.0); CALCIUM 8.9 mg/dL (8.5-10.1); TOT PROT 6.5 g/dl (6.4-8.2)
[2018-10-04 12:15] LABS: BILIRUBIN,TOTAL 0.3 mg/dL (0.2-1)
--- NOTE | 2018-10-04 14:33 | CONSULT ---
Consult - text type - Consultation Consultation Note: NEUROLOGY CONSULT GREATLY APPRECIATED: This 63 yo RH woman with pmhx HIV (on HAART), migraines, seizures, asthma/COPD, hypothyroidism and chronic pain and insomnia. Maintained on: levothyroxine, mirtazapine 15 mg qhs, Butalbital, ventolin, Biktarvy, Symbicort, lisionpril, megace, percocet 10-325 TID. Surgical history includes: ACD C4-C6 11/2016 at [facility], thyroidectomy, interstim neuromodulator placement by Dg 03/2017, L shoulder sx. Adverse drug rx include: gabapentin and topiramate, which resulted in nausea. Presenting in ED due to reports of increased difficulty with word finding x2 days associated with persistent headache. Pt does note some memory changes and believes this has been going on for at least 2 weeks, admitting she may be depressed. Previously seen by Dr. Roscoe Cochran for Rx for migraine headaches. Reports hx of holocranial migraines since age 15, persistent daily despite ( perhaps because of) use of butalbital. Today with L occipital "pains" with associated photophobia, phonophobia, dizziness and kinesiophobia. Hx of seizures since childhood reported by patient, previously maintained on dilantin however unsure why discontinued, or when. Review of systems significant for mostly nocturnal "tingling" in the hands R>L. She notes this is disabling and interrupts her ability to grasp or hold things as well. Head CT (C-): Mild to mod atrophy with ex vacuo ventricular dilation. Scattered microvascular changes. Mod periventricular ischemic changes. RONI: Cor reg. No bruit. Neck supple. S/P ACD. B/L Complete claw hands with R wrist drop. + Tinel's on R. NEURO: Slightly dysarthric. "Ox [facility]" "I don't know month, corrected to " 2018. TRUMP. CNII-CNXII: EOM's full without nystagmus. Full barker. No facial. Motor: No drift. Strength normal in proximal groups, however 4-/5 intrinsic on R, 4+/5 R ABP, 3/5 R wrist extenders. Reduced reflexes. Coordination: No FTN dystaxia Sensation: Diminished to pinprick in R median and ulnar distribution , however spared in R posterior forearm. Decreased vibration toes. Gait: Slightly wide-based, shuffling. 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 Psuedodementia/Depression Suggest: Review prior neuroimaging at [facility] (i.e. MRI of brain, C spine) Check TSH, B12, RPR, UA, C & S, check HIV viral loads and CD4 count Start Depakote 250 mg po qhs x 1 week then increase to Depakote 500 mg po qhs for migraine and seizure prevention Try Sumatriptan 50-100 mg prn for migraine D/C butalbital, mirtazapine Neuro f/u for electrodiagnostic evaluation of compressive/ metabolic neuropathies. Thank you very much, Jose L Ridley MD
[2018-10-04] MEDS ORDERED: ACETAMINOPHEN/CAFFEINE/BUTALBITAL 1 TAB PO PRN (14:43)
[2018-10-04] MEDS ORDERED: ALBUTEROL SO4 8 GM HFA INHALER IH PRN (15:27)
[2018-10-04] MEDS ORDERED: SUMAtriptan SUCCINATE 50 MG TABLET PO ONE (15:45)
--- NOTE | 2018-10-04 15:59 | HP ---
CHIEF COMPLAINT: Left neck pain associated with dizziness and difficulty finding words. PCP: HISTORY OF PRESENT ILLNESS: Pt.is a 63 y.o. F w/ PMHx. of HIV(CD4: 1,923; Viral Load: 0-last week), HTN, COPD, Hypothyroidism, Migraines, chronic pain syndrome , seizures, Rheumatoid Arthritis(not on medication) presents for worsening left neck pain associated with dizziness, and anomic aphasia. Pt. states that these issues began 2 months ago but has been getting worse over the last 2 days. Pt. states she has 9/10 pain in her neck. Pt. endorses difficulty walking due to imbalance and dizziness (feels like the room is spinning), right hand pain that is associated with night time numbness in that hand. Pt. endorses decreased sleep, energy, appetite and difficulty remembering. Pt. states that she feels sad about 3 days/ week. Pt. states that she still enjoys wood-working but due to her increased right hand pain has been unable to do this activity as much as in the past. Pt. endorses vaginal discharge that is clear and sometimes with blood. Pt. states that she follow Dr. Sandoval. Pt. states she follows Dr. Cochran as her neurologist. Pt. denies fever, chills, nausea, vomiting, diarrhea, constipation, chest pain, shortness of breath or difficulty swallowing. ER course was notable for: (1)CBC. CMP, (2)Reglan, Ofirmev, NS @ 42ml/hr (3)Neuro Consult Recent Travel: No PAST MEDICAL HISTORY: As Above PAST SURGICAL HISTORY: Microdiscectomy in C-Spine, Thyroidectomy 06/2016, Neuromodulator placement (by Dg in 03/2017) and L. Shoulder surgery Social History: Smokin cigs/ day x 30 years Alcohol: Denies Drugs: Cocaine use 25 years ago Family History: Mother-Uterine Ca; Father has metal plate in head Allergies strawberry Allergy (Intermediate, Verified 10/04/18 10:17) Hives PATIENT STATED SHE GETS HIVES Penicillins Allergy (Unknown, Verified 10/04/18 10:17) Hives Sulfa (Sulfonamide Antibiotics) Allergy (Unknown, Verified 10/04/18 10:17) Hives gabapentin Adverse Reaction (Intermediate, Verified 10/04/18 10:17) Nausea topiramate [From Topamax] Adverse Reaction (Intermediate, Verified 10/04/18 10: 17) Nausea HOME MEDICATIONS: Home Medications Medication Instructions Recorded Levothyroxine [Synthroid -] 25 mcg PO DAILY #30 tablet 09/30/17 Diclofenac Sodium [Voltaren] 2 gm TP TID PRN #3 tube 07/18/18 Ergocalciferol (Vitamin D2) 50,000 unit PO Q7D #4 capsule 07/18/18 [Vitamin D2] Acetaminophen/Caffeine/Butalb 1 tab PO Q6H PRN 08/15/18 [Fioricet -] Albuterol Sulfate Inhaler - 2 inh PO Q4H PRN #1 inhaler 08/31/18 [Ventolin HFA Inhaler -] Bictegrav/Emtricit/Tenofov Ala 1 each PO DAILY #30 tablet 08/31/18 [Biktarvy 50-200-25 mg Tablet] Budesonide/Formeterol Fumarate 1 inh PO BID #1 inhaler 08/31/18 [SYMBICORT 160/4.5mcg -] Lisinopril 10 mg PO DAILY #30 tablet 08/31/18 Megestrol Acetate Oral Susp 400 mg PO DAILY 30 Days #300 cup 09/12/18 [Megace Oral Suspension -] Oxycodone HCl/Acetaminophen 1 each PO TID PRN #90 tablet MDD 3 09/12/18 [Percocet 10-325 mg Tablet] Umeclidinium [place] [Incruse 62.5 mcg IH DAILY 10/04/18 Ellipta] REVIEW OF SYSTEMS CONSTITUTIONAL: malaise, loss of appetite, Absent: fever, chills, diaphoresis, generalized weakness, weight change HEENT: visual changes Absent: rhinorrhea, nasal congestion, throat pain, throat swelling, difficulty swallowing, mouth swelling, ear pain, eye pain, CARDIOVASCULAR: Absent: chest pain, syncope, palpitations, irregular heart rate, lightheadedness , peripheral edema RESPIRATORY: Absent: cough, shortness of breath, dyspnea with exertion, orthopnea, wheezing, stridor, hemoptysis GASTROINTESTINAL: Absent: abdominal pain, abdominal distension, nausea, vomiting, diarrhea, constipation, melena, hematochezia GENITOURINARY: Absent: dysuria, frequency, urgency, hesitancy, hematuria, flank pain, genital pain MUSCULOSKELETAL: neck pain, arthralgia Absent: myalgia, joint swelling, back pain, SKIN: Absent: rash, itching, pallor HEMATOLOGIC/IMMUNOLOGIC: Absent: easy bleeding, easy bruising, lymphadenopathy, frequent infections ENDOCRINE: Absent: unexplained weight gain, unexplained weight loss, heat intolerance, cold intolerance NEUROLOGIC: headache, focal weakness or paresthesias, dizziness, unsteady gait, seizure, mental status changes, Absent: bladder or bowel incontinence PSYCHIATRIC: anxiety, depression Absent: suicidal or homicidal ideation, hallucinations. PHYSICAL EXAMINATION Vital Signs - 24 hr 10/04/18 10/04/18 10/04/18 09:28 10:23 11:27 Temperature 98.3 F Pulse Rate 85 Pulse Rate [ 76 Apical] Respiratory 16 18 Rate Blood Pressure 105/78 Blood Pressure 154/81 [Left Arm] O2 Sat by Pulse 100 100 98 Oximetry (%) GENERAL: Awake, alert, and fully oriented, in mild distress. HEAD: Normal with no signs of trauma. EYES: Extraocular movements intact, sclera anicteric, conjunctiva clear. EARS, NOSE, THROAT: Ears normal, nares patent, oropharynx clear without exudates. Moist mucous membranes. NECK: Normal range of motion, supple without lymphadenopathy, JVD, or masses, non-tender to palpation LUNGS: Breath sounds equal, clear to auscultation bilaterally. No wheezes, and no crackles. No accessory muscle use. HEART: Regular rate and rhythm, normal S1 and S2 without murmur ABDOMEN: Soft, nontender, not distended, normoactive bowel sounds, no guarding, no rebound, no masses. MUSCULOSKELETAL: Normal range of motion at all joints EXCEPT Right Hand. Right wrist tenderness. No CVA tenderness. UPPER EXTREMITIES: 2+ radial pulses, warm, well-perfused. No cyanosis. No clubbing. No peripheral edema. R. Hand has 1/5 political aide strength, L. Hand has 3/5 political aide strength. Proximal muscles 5/5 in strength. Lower extremities 5/5 muscle strength. Decreased vibration sensation in R. Hand and L. Foot. Positive Tinnel test in right hand. LOWER EXTREMITIES: 2+ dorsal pedal pulses, warm, well-perfused. No calf tenderness. No peripheral edema. NEUROLOGICAL: Cranial nerves II-XII intact. Normal speech. Normal gait. PSYCHIATRIC: Cooperative. Good eye contact. Anxious, depressed. SKIN: Warm, dry, normal turgor, no rashes or lesions noted, normal capillary refill. Laboratory Results - last 24 hr 10/04/18 10/04/18 10/04/18 10:00 10:00 10:00 WBC 7.8 RBC 3.36 L Hgb 12.4 Hct 36.6 MCV 108.8 H MCH 36.7 H MCHC 33.8 RDW 15.3 Plt Count 311 MPV 8.1 Absolute Neuts (auto) 4.5 Neutrophils % 57.2 Lymphocytes % 32.3 Monocytes % 7.9 Eosinophils % 1.7 D Basophils % 0.9 Nucleated RBC % 0 PT with INR 11.80 INR 1.00 Sodium 146 H Potassium 4.1 Chloride 119 H Carbon Dioxide 19 L Anion Gap 8 BUN 19 H Creatinine 0.8 Est GFR (CKD-EPI)AfAm 90.94 Est GFR (CKD-EPI)NonAf 78.46 Random Glucose 77 Calcium 8.9 Total Bilirubin 0.3 AST 14 L ALT 25 Alkaline Phosphatase 167 H Creatine Kinase 59 Troponin I 0.07 H Total Protein 6.5 Albumin 3.5 Triglycerides 115 Cholesterol 156 Total LDL Cholesterol 87 HDL Cholesterol 56 Blood Type Antibody Screen Antibody Identification Antigen Identification 10/04/18 10:00 WBC RBC Hgb Hct MCV MCH MCHC RDW Plt Count MPV Absolute Neuts (auto) Neutrophils % Lymphocytes % Monocytes % Eosinophils % Basophils % Nucleated RBC % PT with INR INR Sodium Potassium Chloride Carbon Dioxide Anion Gap BUN Creatinine Est GFR (CKD-EPI)AfAm Est GFR (CKD-EPI)NonAf Random Glucose Calcium Total Bilirubin AST ALT Alkaline Phosphatase Creatine Kinase Troponin I Total Protein Albumin Triglycerides Cholesterol Total LDL Cholesterol HDL Cholesterol Blood Type B NEGATIVE Antibody Screen Positive Antibody Identification Anti-D Antigen Identification No Result Required. Current Medications Albuterol Sulfate (Ventolin Hfa Inhaler -) 2 puff IH Q4H PRN PRN Reason: WHEEZING Budesonide/Formoterol Fumarate (Symbicort 160/4.5mcg -) 1 puff IH BID OSBALDO Divalproex Sodium (Depakote *Er* -) 250 mg PO HS OSBALDO Sodium Chloride (Normal Saline -) 1,000 mls @ 42 mls/hr IV ASDIR OSBALDO Last Admin: 10/04/18 10:12 Dose: 42 mls/hr Levothyroxine Sodium (Synthroid -) 25 mcg PO DAILY@0700 [facility] Lisinopril (Prinivil) 10 mg PO DAILY OSBALDO Megestrol Acetate (Megace Oral Suspension -) 400 mg PO DAILY OSBALDO Non-Formulary Medication (Bictegrav/Emtricit/Tenofov Ala) 1 each PO DAILY OSBALDO ASSESSMENT/PLAN: Pt.is a 63 y.o. F w/ PMHx. of HIV(CD4: 1,923; Viral Load: 0-last week), HTN, COPD, Hypothyroidism, Migraines, chronic pain syndrome, seizures, Rheumatoid Arthritis(not on medication) presents for worsening left neck pain associated with dizziness, and anomic aphasia. #r/o TIA Symptoms likely 2/2 Depression however must rule out TIA, infectious and other pathologies Head CT negative for acute pathology Neuro consult Dr. Ridley appreciated Will investigate prior head imaging f/u RPR, TSH, B12 and Folate levels Physical Therapies f/u UA to rule out pathology will consider MRI to #Migraine d/c Fiorcet and Remeron will start Sumatriptan 50mg #Seizures Start Depakote 250mg HS for 1 week, then increase Depakote 500mg HS #HTN Lisinopril 10mg Daily #HIV-stable c/w Biktarvy CD4: 1,923, Viral Load: 0 - as per Pt. which was checked last week. Pt. Ddx. 17 years ago 2/2 sexual activity. c/w Megace #COPD-stable c/w Symbicort c/w Ventolin inhaler PRN #FEN NS @ 42ml/hr monitor electrolytes and replete as needed Regular Diet #DVT Ppx. Early Ambulation SCDs/TEDs Visit type - Emergency Visit Emergency Visit: Yes ED Registration Date: 10/04/18 Care time: The patient presented to the Emergency Department on the above date and was hospitalized for further evaluation of their emergent condition. - New Patient This patient is new to me today: Yes Date on this admission: 10/04/18 - Critical Care Critical Care patient: No
[2018-10-04] MEDS ORDERED: SUMAtriptan SUCCINATE 50 MG TABLET ONE (16:23)
--- NOTE | 2018-10-04 17:16 | EKG ---
Test Reason : Blood Pressure : / mmHG Vent. Rate : 078 BPM Atrial Rate : 078 BPM P-R Int : 134 ms QRS Dur : 068 ms QT Int : 376 ms P-R-T Axes : 055 072 073 degrees QTc Int : 428 ms POOR DATA QUALITY, INTERPRETATION MAY BE ADVERSELY AFFECTED SINUS RHYTHM WITH PREMATURE ATRIAL COMPLEXES OTHERWISE NORMAL ECG WHEN COMPARED WITH ECG OF 31-AUG-2018 11:13, PREMATURE ATRIAL COMPLEXES ARE NOW PRESENT Confirmed by GUS RUBIO MD ([id number]) on 10/04/2018 5:16:13 PM Referred By: Confirmed By:GUS RUBIO MD
--- NOTE | 2018-10-04 17:37 | HOSP ---
Subjective - Review of Symptoms Events since last encounter: Notified by ER staff about patient wanting leave AMA instead of going to her room on telemetry. Pt reports that she felt better and didn't want to stay any longer. It was discussed how we were evaluating her for a possible TIA which could be the source of her intermittent weakness and anomic aphasia. It was explained how leaving AMA could lead to potentially worsened neurovascular status, how her symptoms could return or worsen, and even possibly lead to . She verbalized understanding of the risks and still wanted to leave. Pt is leaving against medical advice of sound logic and orientation. D/c summary to follow in EMR. Physical Examination Vital Signs: Vital Signs Temperature 98.6 F 10/04/18 17:02 Pulse Rate 74 10/04/18 17:02 Respiratory Rate 20 10/04/18 17:02 Blood Pressure 126/77 10/04/18 17:02 O2 Sat by Pulse Oximetry (%) 98 10/04/18 17:02 Labs: CBC, BMP 10/04/18 10:00 10/04/18 10:00
--- NOTE | 2018-10-04 17:39 | DS ---
Physical Exam: SUBJECTIVE: Pt left AMA (see previous note). OBJECTIVE: Vital Signs Period Temp Pulse Resp BP Sys/Beasley Pulse Ox Last 24 Hr 98.3 F-98.6 F 74-85 16-23 105-154/71-81 98-100 PHYSICAL EXAM SEE H&P and AMA note LABS Laboratory Results 10/04/18 10/04/18 10/04/18 10:00 10:00 10:00 WBC 7.8 RBC 3.36 L Hgb 12.4 Hct 36.6 MCV 108.8 H MCH 36.7 H MCHC 33.8 RDW 15.3 Plt Count 311 MPV 8.1 Absolute Neuts (auto) 4.5 Neutrophils % 57.2 Lymphocytes % 32.3 Monocytes % 7.9 Eosinophils % 1.7 D Basophils % 0.9 Nucleated RBC % 0 PT with INR 11.80 INR 1.00 Sodium 146 H Potassium 4.1 Chloride 119 H Carbon Dioxide 19 L Anion Gap 8 BUN 19 H Creatinine 0.8 Est GFR (CKD-EPI)AfAm 90.94 Est GFR (CKD-EPI)NonAf 78.46 Random Glucose 77 Calcium 8.9 Total Bilirubin 0.3 AST 14 L ALT 25 Alkaline Phosphatase 167 H Creatine Kinase 59 Troponin I 0.07 H Total Protein 6.5 Albumin 3.5 Triglycerides 115 Cholesterol 156 Total LDL Cholesterol 87 HDL Cholesterol 56 Serum Folate 17 Blood Type Antibody Screen Antibody Identification Antigen Identification 10/04/18 10:00 WBC RBC Hgb Hct MCV MCH MCHC RDW Plt Count MPV Absolute Neuts (auto) Neutrophils % Lymphocytes % Monocytes % Eosinophils % Basophils % Nucleated RBC % PT with INR INR Sodium Potassium Chloride Carbon Dioxide Anion Gap BUN Creatinine Est GFR (CKD-EPI)AfAm Est GFR (CKD-EPI)NonAf Random Glucose Calcium Total Bilirubin AST ALT Alkaline Phosphatase Creatine Kinase Troponin I Total Protein Albumin Triglycerides Cholesterol Total LDL Cholesterol HDL Cholesterol Serum Folate Blood Type B NEGATIVE Antibody Screen Positive Antibody Identification Anti-D Antigen Identification No Result Required. HOSPITAL COURSE: Date of Admission:10/04/18 Date of Discharge: 10/04/18 Pt was seen here for intermittent weakness and anomic aphasia which occurred today alongside a unilateral headache that she was experiencing. Pt had routine labs performed, a Head CT, and CXR which did not reveal any acute pathologic abnormalities. Neurology was consulted and saw the patient and recommended further neurological workup. However, upon transitioning to the telemetry floor for r/o TIA, pt wanted to leave AMA. (See AMA encounter in EMR). Pt is leaving against medical advice with paperwork signed and left in chart. Head CT noncontrast 10/04/18 - No significant interval change or gross acute intracranial pathology is identified. There remains [id number] volume loss and moderate ventricular dilatation. No mass lesion or gross acute infarct are identified. Minutes to complete discharge: 35 Discharge Summary Reason For Visit: WORD FINDING DIFFICULTY,TIA,WEAKNESS Current Active Problems Weakness (Acute) Word finding difficulty (Acute) Condition: Stable - Instructions - Home Medications Comprehensive Discharge Medication List: Ambulatory Orders Levothyroxine [Synthroid -] 25 mcg PO DAILY #30 tablet 09/30/17 Diclofenac Sodium [Voltaren] 2 gm TP TID PRN #3 tube 07/18/18 Ergocalciferol (Vitamin D2) [Vitamin D2] 50,000 unit PO Q7D #4 capsule 07/18/18 Acetaminophen/Caffeine/Butalb [Fioricet -] 1 tab PO Q6H PRN 08/15/18 Albuterol Sulfate Inhaler - [Ventolin HFA Inhaler -] 2 inh PO Q4H PRN #1 inhaler 08/31/18 Bictegrav/Emtricit/Tenofov Ala [Biktarvy 50-200-25 mg Tablet] 1 each PO DAILY # 30 tablet 08/31/18 Budesonide/Formeterol Fumarate [SYMBICORT 160/4.5mcg -] 1 inh PO BID #1 inhaler 08/31/18 Lisinopril 10 mg PO DAILY #30 tablet 08/31/18 Megestrol Acetate Oral Susp [Megace Oral Suspension -] 400 mg PO DAILY 30 Days # 300 cup 09/12/18 Oxycodone HCl/Acetaminophen [Percocet 10-325 mg Tablet] 1 each PO TID PRN #90 tablet MDD 3 09/12/18 Umeclidinium [place] [Incruse Ellipta] 62.5 mcg IH DAILY 10/04/18 This patient is new to me today: Yes Date on this admission: 10/04/18 Emergency Visit: Yes ED Registration Date: 10/04/18 Care time: The patient presented to the Emergency Department on the above date and was hospitalized for further evaluation of their emergent condition. Critical Care patient: No - Discharge Referral Referred to [facility] No
--- NOTE | 2018-10-04 18:18 | PN ---
Teaching Attending Note Name of Resident: Jose L Ribeiro ATTENDING PHYSICIAN STATEMENT I reviewed the resident's note and discussed the case with the resident. I agree with the resident's findings and plan as documented. SUBJECTIVE: 63 y.o. F w/ PMHx. of HIV(CD4: 1,923; Viral Load: 0-last week), HTN, COPD, Hypothyroidism, Migraines, chronic pain syndrome, seizures, Rheumatoid Arthritis (not on medication) presents for worsening left neck pain associated with dizziness, and anomic aphasia. Pt. states that these issues began 2 months ago but has been getting worse over the last 2 days. Pt. states she has 9/10 pain in her neck. Pt. endorses difficulty walking due to imbalance and dizziness ( feels like the room is spinning), right hand pain that is associated with night time numbness in that hand. Pt. endorses decreased sleep, energy, appetite and difficulty remembering. Pt. states that she feels sad about 3 days/ week. Pt. states that she still enjoys wood-working but due to her increased right hand pain has been unable to do this activity as much as in the past. Pt. endorses vaginal discharge that is clear and sometimes with blood. Pt. states that she follow Dr. Sandoval. Pt. states she follows Dr. Cochran as her neurologist. Pt. denies fever, chills, nausea, vomiting, diarrhea, constipation, chest pain, shortness of breath or difficulty swallowing. Assessment and plan 1. Intermittent dizzyness- assoc with aphasia and dizzyness. could be chronic GUNDERSON with aura vs TIA vs electrolyte disturbance vs NPH. MRI, TSH, Vit B12, folate , RPR. neuro eval. case d/w resident. pt signed out AMA by resident prior to my eval of the patient. she was encouraged to f/u [facility] neuro as outpatient
--- NOTE | 2018-10-04 20:08 | HOSP ---
Subjective - Review of Symptoms Subjective: Patient daughter voiced concern about patient going home due to unsafe home conditions and polypharmacy use. Spoke to patient and her daughter. Patient reports continued slurred speech and posterior neck pain worse with turning her head. Patient agreed to stay admitted. Will give patient a dose of flexeril for her musculoskeletal neck pain. Physical Examination Vital Signs: Vital Signs Temperature 98.6 F 10/04/18 17:02 Pulse Rate 74 10/04/18 17:02 Respiratory Rate 20 10/04/18 17:02 Blood Pressure 126/77 10/04/18 17:02 O2 Sat by Pulse Oximetry (%) 98 10/04/18 17:02 Labs: CBC, BMP 10/04/18 10:00 10/04/18 10:00 Visit type - Emergency Visit Emergency Visit: No - New Patient This patient is new to me today: Yes Date on this admission: 10/04/18 - Critical Care Critical Care patient: No
[2018-10-04] MEDS ORDERED: CYCLOBENZAPRINE HCL 5 MG TABLET PO ONE (20:18)
[2018-10-04] MEDS ORDERED: DIVALPROEX SODIUM 125 MG TABLET E.C. ONE (21:14)
[2018-10-04] MEDS ORDERED: DIVALPROEX NA *ER* EXTEND REL 250 MG TABLET.SA PO SCH (22:00)
[2018-10-04] MEDS: BUDESONIDE/FORMETEROL FUMARATE 160/4.5 mcg INHALER IH SCH (22:06)
[2018-10-05] MEDS ORDERED: traMADol HCL 50 MG TABLET PO ONE (01:32)
[2018-10-05] MEDS: LEVOTHYROXINE NA 25 MCG TABLET (FP) PO SCH (06:18)
[2018-10-05 08:21] LABS: BASO % 0.8 % (0-2.0); HEMATOCRIT 39.7 % (32.4-45.2); HEMOGLOBIN 13.2 GM/dL (10.7-15.3); LYMPH % 28.7 % (8-40); MCH 36.2 pg (25.7-33.7); MCHC 33.3 g/dl (32.0-36.0); MEAN CELL VOLUME 108.7 fl (80-96); MONO % 8.4 % (3.8-10.2); NEUT % 60.1 % (42.8-82.8); PLATELET COUNT 332 K/MM3 (134-434); RBC 3.65 M/mm3 (3.60-5.2); RDW 15.2 % (11.6-15.6); WHITE BLOOD COUNT 8.2 K/mm3 (4.0-10.0)
[2018-10-05] MEDS ORDERED: PATIENT'S OWN MEDICATION (NON-FORMULARY) (Diclofenac Sodium [Voltaren] 2 GM) TP PRN (08:42)
[2018-10-05] MEDS ORDERED: ERGOCALCIFEROL (VIT D2) 50,000 UNIT (1.25 MG) CAPSULE PO SCH (08:45)
[2018-10-05] MEDS ORDERED: ACETAMINOPHEN 325 MG TABLET (FP) PO PRN (08:48)
[2018-10-05 09:13] LABS: CREATININE 0.8 mg/dL (0.55-1.3); MAGNESIUM 2.1 mg/dL (1.8-2.4); POTASSIUM 4.3 mmol/L (3.5-5.1)
[2018-10-05] MEDS ORDERED: PATIENT'S OWN MEDICATION (NON-FORMULARY) (Bictegrav/Emtricit/Tenofov Ala 1 EACH) PO SCH ×2 (10:00)
[2018-10-05] MEDS ORDERED: PATIENT'S OWN MEDICATION (NON-FORMULARY) (Umeclidinium Bromide [Incruse Ellipta] 62.5 MCG) IH SCH (10:00)
[2018-10-05] MEDS ORDERED: FLU VACCINE QUAD 60 MCG/0.5 ML (MDV 18-19) IM ONE (10:00)
[2018-10-05] MEDS: BUDESONIDE/FORMETEROL FUMARATE 160/4.5 mcg INHALER IH SCH ×2 (10:28→22:21)
[2018-10-05] MEDS: LISINOPRIL 10 MG TABLET (FP) PO SCH (10:28)
[2018-10-05] MEDS: oxyCODONE HCL 5 MG TABLET PO PRN ×2 (10:29→18:57)
--- NOTE | 2018-10-05 12:27 | PN ---
Progress Note (short form) - Note Progress Note: NEUROLOGY PROGRESS: Office chart reviewed. Pt examined. This 63 yo woman with h/o HTN, Rheumatoid arthritis and HIV was my office patient from for treatment of chronic Migraine Headaches and Restless Limbs Syndrome (RLS). Headaches responded to Depakote at that time. Chronic nocturnal leg pains responded to Ropineral (pramipexole caused throat tightness. Today notes decreased headaches on Depakote. Didn't sleep last night due to throbbing left groin pain and diffuse numbness in both legs. Given Oxycodone with some mitigation. Denies further change in speech. Has never seen a Establishment Guide. Notes weakness and numbness right digit IV and V. Exam: MS/Speech normal CN II-XII Normal Motor: R intrinsics 4-/5 with atrophy. Left 4+/5. Normal leg strength. Normal reflexes. Downgoing toes. Coord: No FTN dystaxia Sensory: Decreased pin Right Ulnar distribution Gait: Sl shuffle IMP: 1. Migraine headaches 2. Restless Limbs syndrome 3. H/O seizures 4. 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 Thank you very much, Jose L Ridley MD
--- NOTE | 2018-10-05 12:31 | PN ---
Teaching Attending Note Name of Resident: Jose L Ribeiro ATTENDING PHYSICIAN STATEMENT I saw and evaluated the patient. I reviewed the resident's note and discussed the case with the resident. I agree with the resident's findings and plan as documented. SUBJECTIVE:pt was encouraged by daughter to stay for further evaluation. today she states dizzyness has resolved and GUNDERSON has improved since yesterday. pt has a +ROS, most of which seems chronic as she states all her issues have been ongoing for a minimum of a few months. also has L shoulder pain, diarrhea and poor po intake. states no recent changes in medications and claims compliance OBJECTIVE: Last Vital Signs Temp Pulse Resp BP Pulse Ox 97.9 F 88 18 155/74 98 10/05/18 06:00 10/05/18 06:00 10/05/18 06:00 10/05/18 06:00 10/05/18 03:44 General NAD bitemporal wasting, prominent clavicles, thin appearing HEENT no nystagmus CV S1 S2 RRR no murmur/rub/gallop Lungs CTA B/L no wheezing/rales/rhonchi Abdomen soft NT/ND Neuro CN II-XII grossly intact negative dysmetria, pronator drift. strength 3/5 RUE but sensation intact Back no bone point tenderness along the spine. +muscle spasms and point tenderness in mid trapezius on L side ASSESSMENT AND PLAN: 63yo F [facility] PMH HIV on HARRT, HTN, COPD, RA, migraines, seizures, s/p thyroidectomy now hypothyroid presented to the ER with constellation of symptoms but mostly for GUNDERSON and dizzyness 1. GUNDERSON- with dizzyness. likely complex migraine with aura. imaging negative. workup so far negative and seems symptoms have mostly resolved. will start depakote with titration instructions per neurology. 2. L shoulder pain- seems muscular. had recent rotator cuff repair done which she has not followed up [facility] surgeon since the surgery. will give flexeril prn. would liekyl benefit from PT. encourage surgery follow up as outpatient 3. Diarrhea- states its worse when she does not eat. no assoc fever/chills/ abdominal pain. has not had recent abx. will check for O&P but low suspicion as VL undetectable and high CD4 counts. liekly diet or medication induced. should try elimination diet 4. malnutrition- BMI 17. evident by body habitus and reports of poor po intake. on megace. encourage po intake 5. HIV on HARRT- VL undetectable and high CD4. cont home regimen 6. HTN- controlled. cont home medication. will adjust if needed to optimize control 7. RA- cont home regimen 8. DVT ppx- EAM
[2018-10-05] MEDS: MEGESTROL ACETATE 400 MG/10 ML UNIT DOSE CUP PO SCH (13:31)
[2018-10-05] MEDS: rOPINIRole HCL 0.25 MG TABLET PO SCH ×2 (13:32→23:38)
--- NOTE | 2018-10-05 14:33 | PN ---
Physical Exam: SUBJECTIVE: Patient seen and examined. Pt. states she was not sleeping. 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 Pt. endorses mild, chronic dizziness. Pt. endorses 4 episodes of water diarrhea last night and 2 episodes of diarrhea this morning. Pt. now states that she has had diarrhea for 1 week. Pt. denies any recent antibiotic use other than her HARRT therapy. Pt. endorses chills but denies fever. Pt. denies any difficulty swallowing. Pt. states that the left neck pain started shortly after having left shoulder surgery and endorses that she neve rwent ot formal physical therapy. OBJECTIVE: Vital Signs Period Temp Pulse Resp BP Sys/Beasley Pulse Ox Last 24 Hr 97.9 F-99 F 74-88 18-20 126-155/68-77 98-98 GENERAL: Awake, alert, and fully oriented, in mild distress. HEAD: Normal with no signs of trauma. EYES: Extraocular movements intact, sclera anicteric, conjunctiva clear. EARS, NOSE, THROAT: Ears normal, nares patent, oropharynx clear without exudates. Moist mucous membranes. NECK: Normal range of motion, supple without lymphadenopathy, JVD, or masses, non-tender to palpation LUNGS: Breath sounds equal, clear to auscultation bilaterally. No wheezes, and no crackles. No accessory muscle use. HEART: Regular rate and rhythm, normal S1 and S2 without murmur ABDOMEN: Soft, nontender, not distended, hyperactive bowel sounds MUSCULOSKELETAL: Normal range of motion at all joints EXCEPT Right Hand. Right wrist tenderness. No CVA tenderness. UPPER EXTREMITIES: 2+ dorsal pedal pulses, warm, well-perfused. No cyanosis. No clubbing. No peripheral edema. R. Hand has 2/5 lens dotter strength, L. Hand has 3/5 lens dotter strength. Proximal muscles 5/5 in strength. Lower extremities 5/5 muscle strength. R. Hand general numbness, Medial aspect of the left foot numbness. LOWER EXTREMITIES: 2+ dorsal pedal pulses, warm, well-perfused. No calf tenderness. No peripheral edema. NEUROLOGICAL: Normal speech. Normal gait. PSYCHIATRIC: Cooperative. Good eye contact. Anxious, depressed. SKIN: Warm, dry, normal turgor Laboratory Results - last 24 hr 10/04/18 10/05/18 10/05/18 10:00 07:50 07:50 WBC RBC Hgb Hct MCV MCH MCHC RDW Plt Count MPV Absolute Neuts (auto) Neutrophils % Lymphocytes % Monocytes % Eosinophils % Basophils % Nucleated RBC % Sodium 146 H Potassium 4.1 Chloride 119 H Carbon Dioxide 19 L Anion Gap 8 BUN 19 H Creatinine 0.8 Est GFR (CKD-EPI)AfAm 90.94 Est GFR (CKD-EPI)NonAf 78.46 Random Glucose 77 Calcium 8.9 Magnesium Total Bilirubin 0.3 AST 14 L ALT 25 Alkaline Phosphatase 167 H Creatine Kinase 59 Troponin I 0.07 H 0.07 H Total Protein 6.5 Albumin 3.5 Triglycerides 115 Cholesterol 156 Total LDL Cholesterol 87 HDL Cholesterol 56 Vitamin B12 Cancelled Serum Folate 17 TSH Cancelled RPR Titer 10/05/18 10/05/18 10/05/18 07:50 07:50 07:50 WBC 8.2 RBC 3.65 Hgb 13.2 Hct 39.7 MCV 108.7 H MCH 36.2 H MCHC 33.3 RDW 15.2 Plt Count 332 MPV 8.0 Absolute Neuts (auto) 5.0 Neutrophils % 60.1 Lymphocytes % 28.7 Monocytes % 8.4 Eosinophils % 2.0 Basophils % 0.8 Nucleated RBC % 0 Sodium 145 Potassium 4.3 Chloride 118 H Carbon Dioxide 18 L Anion Gap 9 BUN 20 H Creatinine 0.8 Est GFR (CKD-EPI)AfAm 90.94 Est GFR (CKD-EPI)NonAf 78.46 Random Glucose 97 Calcium 9.0 Magnesium 2.1 Total Bilirubin AST ALT Alkaline Phosphatase Creatine Kinase Troponin I Total Protein Albumin Triglycerides Cholesterol Total LDL Cholesterol HDL Cholesterol Vitamin B12 789 Serum Folate TSH 1.84 RPR Titer Nonreactive 10/05/18 13:05 WBC RBC Hgb Hct MCV MCH MCHC RDW Plt Count MPV Absolute Neuts (auto) Neutrophils % Lymphocytes % Monocytes % Eosinophils % Basophils % Nucleated RBC % Sodium Potassium Chloride Carbon Dioxide Anion Gap BUN Creatinine Est GFR (CKD-EPI)AfAm Est GFR (CKD-EPI)NonAf Random Glucose Calcium Magnesium Total Bilirubin AST ALT Alkaline Phosphatase Creatine Kinase Troponin I 0.06 H Total Protein Albumin Triglycerides Cholesterol Total LDL Cholesterol HDL Cholesterol Vitamin B12 Serum Folate TSH RPR Titer Active Medications Home Medications Medication Instructions Recorded Levothyroxine [Synthroid -] 25 mcg PO DAILY #30 tablet 09/30/17 Diclofenac Sodium [Voltaren] 2 gm TP TID PRN #3 tube 07/18/18 Ergocalciferol (Vitamin D2) 50,000 unit PO Q7D #4 capsule 07/18/18 [Vitamin D2] Acetaminophen/Caffeine/Butalb 1 tab PO Q6H PRN 08/15/18 [Fioricet -] Albuterol Sulfate Inhaler - 2 inh PO Q4H PRN #1 inhaler 08/31/18 [Ventolin HFA Inhaler -] Bictegrav/Emtricit/Tenofov Ala 1 each PO DAILY #30 tablet 08/31/18 [Biktarvy 50-200-25 mg Tablet] Budesonide/Formeterol Fumarate 1 inh PO BID #1 inhaler 08/31/18 [SYMBICORT 160/4.5mcg -] Lisinopril 10 mg PO DAILY #30 tablet 08/31/18 Megestrol Acetate Oral Susp 400 mg PO DAILY 30 Days #300 cup 09/12/18 [Megace Oral Suspension -] Oxycodone HCl/Acetaminophen 1 each PO TID PRN #90 tablet MDD 3 09/12/18 [Percocet 10-325 mg Tablet] Umeclidinium [place] [Incruse 62.5 mcg IH DAILY 10/04/18 Ellipta] Current Medications Acetaminophen (Tylenol -) 325 mg PO Q8H PRN PRN Reason: PAIN 7-10 Albuterol Sulfate (Ventolin Hfa Inhaler -) 2 puff IH Q4H PRN PRN Reason: WHEEZING Budesonide/Formoterol Fumarate (Symbicort 160/4.5mcg -) 1 puff IH BID [facility] Last Admin: 10/05/18 10:28 Dose: 1 puff Divalproex Sodium (Depakote *Er* -) 500 mg PO [facility] Ergocalciferol (Drisdol -) 50,000 unit PO Th [facility] Last Admin: 10/05/18 10:26 Dose: 50,000 unit Levothyroxine Sodium (Synthroid -) 25 mcg PO DAILY@0700 [facility] Last Admin: 10/05/18 06:18 Dose: 25 mcg Lisinopril (Prinivil) 10 mg PO DAILY [facility] Last Admin: 10/05/18 10:28 Dose: 10 mg Megestrol Acetate (Megace Oral Suspension -) 400 mg PO DAILY [facility] Last Admin: 10/05/18 13:31 Dose: 400 mg Non-Formulary Medication (Bictegrav/Emtricit/Tenofov Ala) 1 each PO DAILY [facility] Non-Formulary Medication (Umeclidinium [place] [Incruse Ellipta]) 62.5 mcg IH DAILY [facility] Oxycodone HCl (Roxicodone -) 10 mg PO Q8H PRN PRN Reason: PAIN 7-10 Last Admin: 10/05/18 10:29 Dose: 10 mg Ropinirole HCl (Requip -) 0.25 mg PO TID [facility] Last Admin: 10/05/18 13:32 Dose: 0.25 mg ASSESSMENT/PLAN: Pt.is a 63 y.o. F w/ PMHx. of HIV(CD4: 1,923; Viral Load: 0-last week), HTN, COPD, Hypothyroidism, Migraines, chronic pain syndrome, seizures, Rheumatoid Arthritis(not on medication) presents for worsening left neck pain associated with dizziness, and anomic aphasia. #Chronic Pain Syndrome TIA ruled out Symptoms likely 2/2 Depression however must rule out TIA, infectious and other pathologies Head CT negative for acute pathology Neuro consult Dr. Ridley appreciated--> f/u ESR, CRP, RF, CORTES, Lyme and Uric Acid for component of Rheumatoid Arthritis Pending results will consider Rheumatology consult TSH, B12 and Folate levels wnl RPR negative Physical Therapy f/u UA to rule out pathology started Ropinorole for likely component of restless leg syndrome #Migraine d/c Fiorcet and Remeron c/w Sumatriptan 50mg Pt. reports resolution of neck pain #Seizure Disorder Unspecified Increased Depakote to 500mg HS- per Neuro #Macrocytosis w/o anemia likely secondary to RTI (emtricitabine) compliance In the setting of HIV + Pt. on HAART this is another indicator of medication compliance f/u Iron studies- per Neuro #HTN Lisinopril 10mg Daily #HIV-stable c/w Biktarvy CD4: 1,923, Viral Load: 0 - as per Pt. which was checked last week. As per our last available records last CD4 was 1,302 (09/12/18) Pt. Ddx. 17 years ago 2/2 sexual activity. c/w Megace- Pt. states that she gets Diarrhea if not on Megace. #COPD-stable c/w Symbicort c/w Ventolin inhaler PRN #FEN NS @ 42ml/hr monitor electrolytes and replete as needed Regular Diet #DVT Ppx. Early Ambulation SCDs/TEDs Visit type - Emergency Visit Emergency Visit: Yes ED Registration Date: 10/04/18 Care time: The patient presented to the Emergency Department on the above date and was hospitalized for further evaluation of their emergent condition. - New Patient This patient is new to me today: No - Critical Care Critical Care patient: No - Discharge Referral Referred to [facility] Med P.C.: No
[2018-10-05] MEDS: ACETAMINOPHEN 325 MG TABLET (FP) PO PRN (18:58)
[2018-10-05] MEDS ORDERED: PT OWN MED DRAWER 7, Y5N ONE ×2 (21:53→22:36)
[2018-10-05] MEDS ORDERED: DIVALPROEX NA *ER* EXTEND REL 500 MG TABLET.SA (FP) PO SCH (22:00)
[2018-10-06] MEDS: oxyCODONE HCL 5 MG TABLET PO PRN ×2 (01:08→10:06)
[2018-10-06] MEDS: ACETAMINOPHEN 325 MG TABLET (FP) PO PRN (01:09)
[2018-10-06 04:12] LABS: SERUM IRON SATURATION 55 % (15-55); TOTAL IRON BINDING CAPACITY 389 ug/dL (250-450); UIBC 175 ug/dL (118-369)
[2018-10-06] MEDS: LEVOTHYROXINE NA 25 MCG TABLET (FP) PO SCH (06:33)
[2018-10-06] MEDS: rOPINIRole HCL 0.25 MG TABLET PO SCH (06:33)
[2018-10-06 06:36] VITALS: TEMP 98
[2018-10-06] MEDS ORDERED: CYCLOBENZAPRINE HCL 5 MG TABLET PO ONE (07:39)
[2018-10-06 08:37] LABS: CALCIUM 8.7 mg/dL (8.5-10.1); CREATININE 0.7 mg/dL (0.55-1.3); PHOSPHOROUS 3.7 mg/dL (2.5-4.9); POTASSIUM 4.1 mmol/L (3.5-5.1)
[2018-10-06] MEDS ORDERED: PT OWN MED DRAWER 7, Y5N ONE (09:11)
[2018-10-06 10:03] LABS: HYALINE CASTS 8 /lpf (0-8); URINE APPEARANCE CLEAR; URINE BACTERIA 27.3 /hpf (NEGATIVE); URINE BILIRUBIN NEGATIVE (NEGATIVE); URINE COLOR YELLOW; URINE GLUCOSE (UA) NEGATIVE (NEGATIVE); URINE KETONE NEGATIVE (NEGATIVE); URINE LEUK ESTERASE NEGATIVE (NEGATIVE); URINE NITRITE NEGATIVE (NEGATIVE); URINE PROTEIN 2+ (NEGATIVE); URINE RBC 8 /hpf (0-4); URINE UROBILINOGEN 0.2 mg/dL (0.2-1.0); URINE WBC 1 /hpf (0-5)
[2018-10-06] MEDS: LISINOPRIL 10 MG TABLET (FP) PO SCH (10:04)
[2018-10-06] MEDS: MEGESTROL ACETATE 400 MG/10 ML UNIT DOSE CUP PO SCH (10:04)
[2018-10-06] MEDS: BUDESONIDE/FORMETEROL FUMARATE 160/4.5 mcg INHALER IH SCH (10:05)
--- NOTE | 2018-10-06 11:22 | PN ---
Teaching Attending Note Name of Resident: Jose L Ribeiro ATTENDING PHYSICIAN STATEMENT I saw and evaluated the patient. I reviewed the resident's note and discussed the case with the resident. I agree with the resident's findings and plan as documented. SUBJECTIVE:GUNDERSON much improved today and mostly has dissipated since taking imitrex recently. neck pain has resolved. diarrhea resolved. eating well. denies Cp, SOB, fever, chills, N/V/C/D or dizzyness OBJECTIVE: Last Vital Signs Temp Pulse Resp BP Pulse Ox 98 F 80 20 138/88 100 10/06/18 06:00 10/06/18 06:00 10/06/18 06:00 10/06/18 06:00 10/05/18 20:57 General NAD bitemporal wasting, prominent clavicles, thin appearing CV S1 S2 RRR no murmur/rub/gallop Lungs CTA B/L no wheezing/rales/rhonchi ASSESSMENT AND PLAN: 63yo F wt PMH HIV on HARRT, HTN, COPD, RA, migraines, seizures, s/p thyroidectomy now hypothyroid presented to the ER with constellation of symptoms but mostly for GUNDERSON and dizzyness 1. GUNDERSON- with dizzyness. likely complex migraine with aura. imaging negative. resolved. started on depakote yesterday and imitrex prn workup. neuro on baord 2. L shoulder pain- seems muscular. pain resolved with flexeril. will give a few tabs on discharge and follow up [facility] orthopedic surgeon. 3. Diarrhea- now resolved. no fever or white count. can f/u wt PMD if returns. 4. malnutrition- BMI 17. evident by body habitus and reports of poor po intake. on megace. had 3 meals for dinner. encourage po intake 5. HIV on HARRT- VL undetectable and high CD4. cont home regimen 6. HTN- controlled. cont home medication. will adjust if needed to optimize control 7. RA- seen by rheum and states likely does not have RA. will get hand xr at his request and will f/u in his office for further testing 8. DVT ppx- EAM 9. d/c home. discussed in detail new medications and follow up required. verbalized understanding and agreement with plan
[2018-10-06 13:03] VITALS: BP 128/77; PULSE 84
--- NOTE | 2018-10-06 15:56 | CONSULT ---
Consult Consult Specialty:: Rheumatology - History of Present Illness History of Present Illness: 63 y/o female with PMHx. of HIV(CD4: 1,923; Viral Load: 0-last week), HTN, COPD , Hypothyroidism, Migraines, chronic pain syndrome and seizures, admitted for progressive left neck pain associated with dizziness, and anomic aphasia. 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 HPI. The patient reports a 2 year history of pain in hands, knees and ankles. The pain is worse in the morning and it is accompanied by 1 hour morning stiffness. She has flexion contracture of proximal interphalangeal joints in the right hands resulting in some limitation in her activities of daily living. Laboratory work-up from 08/15/18 in the hospital revealed a negative rheumatoid factor. X rays of the hands revealed normal carpus and MCPs. Degenerative changes in PIPs and DIPs. - History Source History Provided By: Patient, Medical Record - Past Medical History Cardio/Vascular: Yes: HTN, Hyperlipdemia Pulmonary: Yes: COPD ...: No Infectious Disease: Yes: HIV Endocrine: Yes: Hypothyroidism Additional Medical History: 1. HIV Positivity. 2. COPD/Emphysema. 3. HTN. 4. Seizure d/o. 5. Tobacco Abuse (Quit 6 months Ago). 6. h/o TB-treated in the past - Alcohol/Substance Use Hx Alcohol Use: No History of Substance Use: reports: None - Smoking History Smoking history: Current every day smoker Have you smoked in the past 12 months: Yes Aproximately how many cigarettes per day: 3 If you are a former smoker, when did you quit?: 8 months - Social History Usual Living Arrangement: Alone ADL: Independent History of Recent Travel: No Home Medications - Allergies Allergies/Adverse Reactions: Allergies Allergy/AdvReac Type Severity Reaction Status Date / Time strawberry Allergy Intermediate Hives Verified 10/04/18 10:17 Penicillins Allergy Unknown Hives Verified 10/04/18 10:17 Sulfa (Sulfonamide Allergy Unknown Hives Verified 10/04/18 10:17 Antibiotics) gabapentin AdvReac Intermediate Nausea Verified 10/04/18 10:17 topiramate [From Topamax] AdvReac Intermediate Nausea Verified 10/04/18 10:17 - Home Medications Home Medications: Ambulatory Orders Levothyroxine [Synthroid -] 25 mcg PO DAILY #30 tablet 09/30/17 Diclofenac Sodium [Voltaren] 2 gm TP TID PRN #3 tube 07/18/18 Ergocalciferol (Vitamin D2) [Vitamin D2] 50,000 unit PO Q7D #4 capsule 07/18/18 Albuterol Sulfate Inhaler - [Ventolin HFA Inhaler -] 2 inh PO Q4H PRN #1 inhaler 08/31/18 Bictegrav/Emtricit/Tenofov Ala [Biktarvy 50-200-25 mg Tablet] 1 each PO DAILY # 30 tablet 08/31/18 Budesonide/Formeterol Fumarate [SYMBICORT 160/4.5mcg -] 1 inh PO BID #1 inhaler 08/31/18 Lisinopril 10 mg PO DAILY #30 tablet 08/31/18 Megestrol Acetate Oral Susp [Megace Oral Suspension -] 400 mg PO DAILY 30 Days # 300 cup 09/12/18 Oxycodone HCl/Acetaminophen [Percocet 10-325 mg Tablet] 1 each PO TID PRN #90 tablet MDD 3 09/12/18 Umeclidinium [place] [Incruse Ellipta] 62.5 mcg IH DAILY 10/04/18 Cyclobenzaprine HCl [Flexeril -] 10 mg PO HS #7 tablet 10/06/18 Divalproex *ER* [Depakote *ER* -] 500 mg PO HS #30 tablet.sa 10/06/18 Miscellaneous Medical Supply [Outpatient Order] 1 each ASDIR #1 misc Ropinirole HCl [Requip -] 0.25 mg PO TID #90 tablet 10/06/18 Sumatriptan Succinate [Imitrex -] 50 mg PO PRN PRN #10 tablet 10/06/18 Family Disease History - Family Disease History Family Disease History: Heart Disease: Father (seizures), Mother (uterine cancer , seizure due to etoh), Brother, CA: Mother, Respiratory: Mother, Other: Father , Mother, Brother, Sister Review of Systems - Review of Systems Constitutional: reports: Malaise Eyes: reports: No Symptoms HENT: reports: No Symptoms Neck: reports: No Symptoms Cardiovascular: reports: No Symptoms Respiratory: reports: No Symptoms Gastrointestinal: reports: No Symptoms Musculoskeletal: reports: Other (See HPI) Physical Exam Vital Signs: Vital Signs Temperature 98 F 10/06/18 10:00 Pulse Rate 84 10/06/18 10:00 Respiratory Rate 20 10/06/18 10:00 Blood Pressure 128/77 10/06/18 10:00 O2 Sat by Pulse Oximetry (%) 100 10/06/18 10:00 Constitutional: Yes: Mild Distress Eyes: Yes: WNL HENT: Yes: WNL Neck: Yes: WNL Cardiovascular: Yes: WNL Respiratory: Yes: WNL Gastrointestinal: Yes: WNL Musculoskeletal: Yes: Other (No active joints. Tenderness in fibrositic tender points in chest, back and upper limbs. 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 She did not have synovitis in hands and recent rheumatoid factor was negatuve. She does not have rheumatoid arthritis or other inflammatory arthritis. Degenerative changes in hands. It is not clear why she has mild flexor contracture in PIPs in the right hand. She does not require treatment with DMARDsa. Code(s): M19.021 - PRIMARY OSTEOARTHRITIS, RIGHT ELBOW; M19.022 - PRIMARY OSTEOARTHRITIS, LEFT ELBOW
--- NOTE | 2018-10-07 04:20 | DS ---
Physical Exam: SUBJECTIVE: Patient seen and examined OBJECTIVE: Vital Signs Period Temp Pulse Resp BP Sys/Beasley Pulse Ox Last 24 Hr 98 F-98 F 80-84 20-20 128-138/77-88 100 PHYSICAL EXAM GENERAL: The patient is awake, alert, and fully oriented, in no acute distress. HEAD: Normal with no signs of trauma. EYES: PERRL, extraocular movements intact, sclera anicteric, conjunctiva clear. ENT: Ears normal, nares patent, oropharynx clear without exudates, moist mucous membranes. NECK: Trachea midline, full range of motion, supple. LUNGS: Breath sounds equal, clear to auscultation bilaterally, no wheezes, no crackles, no accessory muscle use. HEART: Regular rate and rhythm, S1, S2 without murmur, rub or gallop. ABDOMEN: Soft, nontender, nondistended, normoactive bowel sounds, no guarding, no rebound, no hepatosplenomegaly, no masses. EXTREMITIES: 2+ pulses, warm, well-perfused, no edema. NEUROLOGICAL: Cranial nerves II through XII grossly intact. Normal speech, gait not observed. PSYCH: Normal mood, normal affect. SKIN: Warm, dry, normal turgor, no rashes or lesions noted. Numbess in Lower extremities up to the knees. LABS Laboratory Results - last 24 hr 10/06/18 10/06/18 06:45 06:49 Sodium 141 Potassium 4.1 Chloride 117 H Carbon Dioxide 19 L Anion Gap 5 L BUN 16 Creatinine 0.7 Est GFR (CKD-EPI)AfAm 106.87 Est GFR (CKD-EPI)NonAf 92.21 Random Glucose 86 Calcium 8.7 Phosphorus 3.7 Magnesium 2.0 Urine Color Yellow Urine Appearance Clear Urine pH 6.0 Ur Specific Carver 1.031 Urine Protein 2+ H Urine Glucose (UA) Negative Urine Ketones Negative Urine Blood Trace Urine Nitrite Negative Urine Bilirubin Negative Urine Urobilinogen 0.2 Ur Leukocyte Esterase Negative Urine WBC (Auto) 1 Urine RBC (Auto) 8 Urine Casts (Auto) 8 U Epithel Cells (Auto) 3.0 Urine Bacteria (Auto) 27.3 HOSPITAL COURSE: Date of Admission:10/04/18 Date of Discharge: 10/07/18 Discharge Summary Reason For Visit: WORD FINDING DIFFICULTY,TIA,WEAKNESS Condition: Improved - Instructions Diet, Activity, Other Instructions: You came in for neck pain, leg pain, dizziness and migraine We believe the neck pain is from muscle spasms. We believe the leg pain is from restless leg syndrome We believe the migraine is related to your neck pain. We imaged your hands and did not find any thing immediately concerning on X-ray. We started you on new medications Please take Ropinorole 0.25mg THREE times a day Please take Depakote 500mg ONCE per Night If you realize that you are having or beginning to have a migraine, please take Sumatriptan 50mg ONCE to stop the migraine from developing. Please take Flexeril 10 mg when you are having increased neck pain. Do not drive or operate heavy machinery when taking this medication as it can cause lethargy. You were evaluated by Physical Therapy and it was determined that you need to rolling walker to improve your stability when walking. We have sent it to your pharmacy. Please STOP taking Fiorcet. Please follow up with your Primary Care Physician, within 1 week. Please follow up with your Neurologist, Dr. Ridley within 1 week. Please follow up with your Soft Sugar Cutter, Dr. Coffman within 1 week. Please follow up with your Orthopedic surgeon to evaluate your left shoulder. Please return to the ED if you are having worsening pain, worsening numbness. worsening weakness, falls or any other concerning symptoms. Referrals: Jose L Ridley MD [Staff Physician] - 1 Week Robbie Nieto MD [Staff Physician] - 1 Week ON STAFF,NOT [Non Staff, Medical] - 1 Week Disposition: HOME - Home Medications Comprehensive Discharge Medication List: Ambulatory Orders Levothyroxine [Synthroid -] 25 mcg PO DAILY #30 tablet 09/30/17 Diclofenac Sodium [Voltaren] 2 gm TP TID PRN #3 tube 07/18/18 Ergocalciferol (Vitamin D2) [Vitamin D2] 50,000 unit PO Q7D #4 capsule 07/18/18 Albuterol Sulfate Inhaler - [Ventolin HFA Inhaler -] 2 inh PO Q4H PRN #1 inhaler 08/31/18 Bictegrav/Emtricit/Tenofov Ala [Biktarvy 50-200-25 mg Tablet] 1 each PO DAILY # 30 tablet 08/31/18 Budesonide/Formeterol Fumarate [SYMBICORT 160/4.5mcg -] 1 inh PO BID #1 inhaler 08/31/18 Lisinopril 10 mg PO DAILY #30 tablet 08/31/18 Megestrol Acetate Oral Susp [Megace Oral Suspension -] 400 mg PO DAILY 30 Days # 300 cup 09/12/18 Oxycodone HCl/Acetaminophen [Percocet 10-325 mg Tablet] 1 each PO TID PRN #90 tablet MDD 3 09/12/18 Umeclidinium [place] [Incruse Ellipta] 62.5 mcg IH DAILY 10/04/18 Cyclobenzaprine HCl [Flexeril -] 10 mg PO HS #7 tablet 10/06/18 Divalproex *ER* [Depakote *ER* -] 500 mg PO HS #30 tablet.sa 10/06/18 Miscellaneous Medical Supply [Outpatient Order] 1 each ASDIR #1 misc Ropinirole HCl [Requip -] 0.25 mg PO TID #90 tablet 10/06/18 Sumatriptan Succinate [Imitrex -] 50 mg PO PRN PRN #10 tablet 10/06/18 - Discharge Referral Referred to [facility] No
== END 2018-10-06 13:13 | disposition home or self-care (01) ==
LOC: JER 09:23 → JERBED 11:43 → UNDODISOB 17:34 → J4W 21:49
PROVIDERS: ADMIT Internal Medicine; ATTEND Internal Medicine
PROC: 3E0234Z Introduction of Serum, Toxoid and Vaccine into Muscle, Percutaneous Approach (ICD-10-PCS; principal; 2018-10-04)
PROC: 3E0337Z Introduction of Electrolytic and Water Balance Substance into Peripheral Vein, Percutaneous Approach (ICD-10-PCS; 2018-10-04)
PROC: 3E033NZ Introduction of Analgesics, Hypnotics, Sedatives into Peripheral Vein, Percutaneous Approach (ICD-10-PCS; 2018-10-04)
PROC: 3E033GC Introduction of Other Therapeutic Substance into Peripheral Vein, Percutaneous Approach (ICD-10-PCS; 2018-10-04)
PROC: 3E0F7GC Introduction of Other Therapeutic Substance into Respiratory Tract, Via Natural or Artificial Opening (ICD-10-PCS; 2018-10-04)
DX: G43.909 Migraine, unspecified, not intractable, without status migrainosus (principal); R47.9 Unspecified speech disturbances; R53.1 Weakness; G40.909 Epilepsy, unspecified, not intractable, without status epilepticus; G93.89 Other specified disorders of brain; I10 Essential (primary) hypertension; E03.9 Hypothyroidism, unspecified; J44.9 Chronic obstructive pulmonary disease, unspecified; G89.4 Chronic pain syndrome; Z21 Asymptomatic human immunodeficiency virus [HIV] infection status; F41.9 Anxiety disorder, unspecified; M81.0 Age-related osteoporosis without current pathological fracture; F17.210 Nicotine dependence, cigarettes, uncomplicated; F68.11 Factitious disorder imposed on self, with predominantly psychological signs and symptoms; G62.9 Polyneuropathy, unspecified; Z85.41 Personal history of malignant neoplasm of cervix uteri; Z88.0 Allergy status to penicillin; Z88.2 Allergy status to sulfonamides; R42 Dizziness and giddiness; R47.01 Aphasia; M25.512 Pain in left shoulder; R19.7 Diarrhea, unspecified; E46 Unspecified protein-calorie malnutrition; Z68.1 Body mass index [BMI] 19.9 or less, adult; M06.9 Rheumatoid arthritis, unspecified; G25.81 Restless legs syndrome; D75.89 Other specified diseases of blood and blood-forming organs; M19.021 Primary osteoarthritis, right elbow; M19.022 Primary osteoarthritis, left elbow; Z23 Encounter for immunization
CPT/HCPCS: 36415; 70450-TC; 71045-TC-FY; 73110-TC-LT-FY; 73110-TC-RT-FY; 73130-TC-LT-FY; 73130-TC-RT-FY; 80048; 80053; 81003; 82465; 82550; 82607; 82746; 83540; 83550; 83718; 83721; 83735; 84100; 84443; 84478; 84484; 85025; 85610; 86593; 86850; 86870; 86900; 86901; 86902; 87086; 90688; 93005; 93010; 97116-GP; 97161-GP; 99284-25; G0378; J0131; J7030

== ENCOUNTER 2018-11-24 09:49 | Inpatient (IN) | payer OTHER ==
--- NOTE | 2018-11-24 11:01 | PDOC ---
History of Present Illness - General Chief Complaint: CVA/TIA Stated Complaint: DIFFICULTY SPEAKING Time Seen by Provider: 11/24/18 10:23 History Source: Patient Exam Limitations: No Limitations - History of Present Illness Initial Comments: 11/24/18 10:55 63 yo female pmh HIV (on HAART, last CD4 900s and non detectable viral load), osteoporosis, HTN, asthma, COPD, hypothyroidism, migraines, chronic pain syndrome, anxiety, and seizures presents to the ED with left upper and lower ext weakness, word finding difficulty, staggered gate worsening over the last 4 days. Of note, pt seen with similar complaints 09/2018, CT neg for stroke, pt admitted for TIA work up however, pt AMA. After AMA, pt states she got better without any new treatments however, over the last 4 days has noted worsening gait, weakness in the left upper and lower ext, worsening peripheral vision on the left and increased confusion/forgetfulness. Last known well 4 days, denies new GUNDERSON (admits to chronic migraines, todays GUNDERSON is no different than past) CP, SOB, abdominal pain, changes in bowel or bladder habits. NIH Stroke Scale - Last Known Well Date/Time & Onset Date Last Known Well: 11/20/18 - Initial Evaluation Level of consciousness: Alert Ask patient the month and their age: Answers both correctly Ask patient to open & close eyes; make fist and let go: Obeys both correctly Best gaze (horizontal eye movement): Normal Visual field testing: Partial hemianopia Facial paresis (Show teeth/raise eyebrows/close eyes tight): Normal symmetrical movement Motor Function: Left Arm: Some effort against gravity Motor Function: Right Arm: Normal (extends arm 90 (or 45) degrees for 10 seconds without drift Motor Function: Left Leg: Drift Motor Function: Right Leg: Normal (extends leg 30 degrees for 5 seconds without drift) Limb Ataxia: Present in one limb Sensory(Use pinprick test arms,legs,trunk,face/side to side): Mild to moderate decrease in sensation Best language (Describe picture, name items, read sentences): Mild to moderate aphasia Dysarthria (read several words): Mild to moderate slurring of words Extinction and Inattention: No abnormality - Total Score NIH Stroke Scale Score: 8 Past History - Past Medical History Allergies/Adverse Reactions: Allergies Allergy/AdvReac Type Severity Reaction Status Date / Time strawberry Allergy Intermediate Hives Verified 11/24/18 09:53 Penicillins Allergy Unknown Hives Verified 11/24/18 09:53 Sulfa (Sulfonamide Allergy Unknown Hives Verified 11/24/18 09:53 Antibiotics) gabapentin AdvReac Intermediate Nausea Verified 11/24/18 09:53 sumatriptan [From Imitrex] AdvReac Intermediate dizzy Verified 11/24/18 09:53 topiramate [From Topamax] AdvReac Intermediate Nausea Verified 11/24/18 09:53 Home Medications: Ambulatory Orders Levothyroxine [Synthroid -] 25 mcg PO DAILY #30 tablet 09/30/17 Diclofenac Sodium [Voltaren] 2 gm TP TID PRN #3 tube 07/18/18 Ergocalciferol (Vitamin D2) [Vitamin D2] 50,000 unit PO Q7D #4 capsule 07/18/18 Megestrol Acetate Oral Susp [Megace Oral Suspension -] 400 mg PO DAILY 30 Days # 300 cup 09/12/18 Umeclidinium [place] [Incruse Ellipta] 62.5 mcg IH DAILY 10/04/18 Cyclobenzaprine HCl [Flexeril -] 10 mg PO HS #7 tablet 10/06/18 Divalproex *ER* [Depakote *ER* -] 500 mg PO HS #30 tablet.sa 10/06/18 Miscellaneous Medical Supply [Outpatient Order] 1 each ASDIR #1 misc Ropinirole HCl [Requip -] 0.25 mg PO TID #90 tablet 10/06/18 Albuterol Sulfate Inhaler - [Ventolin HFA Inhaler -] 2 inh PO Q4H PRN #1 inhaler 10/24/18 Bictegrav/Emtricit/Tenofov Ala [Biktarvy 50-200-25 mg Tablet] 1 each PO DAILY # 30 tablet 10/24/18 Budesonide/Formeterol Fumarate [SYMBICORT 160/4.5mcg -] 1 inh PO BID #1 inhaler 10/24/18 Lisinopril 10 mg PO DAILY #30 tablet 10/24/18 Nutritional Supplement [Ensure] 113 gm PO BID #60 pudding 10/31/18 Docusate Sodium [Dulcolax Stool Softener] 100 mg PO DAILY #6 capsule 11/10/18 Oxycodone HCl/Acetaminophen [Percocet 10-325 mg Tablet] 1 each PO TID PRN #90 tablet MDD 3 11/10/18 Polyethylene Glycol 3350 [Miralax (For Bowel Prep) -] 255 gm PO ASDIR #1 btl 09/24 Anemia: Yes Asthma: Yes Cancer: Yes (cervical cancer- cone biopsy- 1970s) Cardiac Disorders: (afib paroxsmal) CVA: Yes (TIA) COPD: Yes CHF: No Dementia: No Diabetes: No GI Disorders: Yes (delayed gastric emptying, dysphagia) Disorders: No HTN: Yes Hypercholesterolemia: Yes Liver Disease: No Psychiatric Problems: Yes (anxeity) Seizures: No Thyroid Disease: Yes (hypothyroid) - Surgical History Abdominal Surgery: No Appendectomy: No Cardiac Surgery: No Cholecystectomy: No Lung Surgery: No Neurologic Surgery: No Orthopedic Surgery: Yes (neck , microdiscectomy L3,4,5 [facility] 11/25/16) - Immunization History Immunization Up to Date: No (no flu or pneumonia shot.) - Suicide/Smoking/Psychosocial Hx Smoking Status: Yes Smoking History: Current every day smoker Have you smoked in the past 12 months: Yes Number of Cigarettes Smoked Daily: 3 If you are a former smoker, when did you quit?: 8 months Cigars Per Day: 0 Information on smoking cessation initiated: No 'Breaking Loose' booklet given: 04/04/17 Hx Alcohol Use: No Drug/Substance Use Hx: No Substance Use Type: Cocaine Hx Substance Use Treatment: Yes (25YRS AGO) Review of Systems - Review of Systems Constitutional: No: Chills, Fever HEENTM: Yes: Recent change in vision. No: Eye Pain Respiratory: No: Shortness of Breath Cardiac (ROS): No: Chest Pain, Edema ABD/GI: No: Constipated, Diarrhea, Nausea, Vomiting : No: Burning, Dysuria, Flank Pain, Hematuria Musculoskeletal: No: Back Pain Neurological: Yes: Headache (chronic), Numbness, Paresthesia, Weakness, Unsteady Gait, Ataxia *Physical Exam - Vital Signs Last Vital Signs Temp Pulse Resp BP Pulse Ox 98.1 F 72 18 155/74 99 11/24/18 09:53 11/24/18 09:53 11/24/18 09:53 11/24/18 09:53 11/24/18 09:53 - Physical Exam General Appearance: Yes: Nourished, Appropriately Dressed. No: Apparent Distress HEENT: positive: EOMI, JO-ANN. negative: Photophobia Respiratory/Chest: positive: Lungs Clear, Normal Breath Sounds Cardiovascular: positive: Regular Rhythm, Regular Rate, S1, S2. negative: Edema , JVD, Murmur Vascular Pulses: Dorsalis-Pedis (R): 4+, Doralis-Pedis (L): 4+ Gastrointestinal/Abdominal: positive: Flat, Soft. negative: Pulsatile Mass, Distended, Guarding, Rebound, Tenderness Extremity: positive: Normal Capillary Refill, Normal Inspection Integumentary: positive: Normal Color, Dry, Warm Neurologic: positive: remotely operated vehicle II-XII NML intact, Fully Oriented, Alert, Normal Mood/ Affect, Normal Response, Numbness, Sensory Deficit, Finger to Nose (abn), Confused. negative: Motor Strength 5/5, Facial Droop, Disoriented ED Treatment Course - LABORATORY CBC & Chemistry Diagram: 11/24/18 11:45 11/24/18 11:45 - RADIOLOGY Radiology Studies Ordered: Category Date Time Status HEAD CT (STROKE) [CT] Stat CT Scan 11/24/18 10:38 Ordered Medical Decision Making - Medical Decision Making 11/24/18 13:39 63 yo female pmh HIV (on HAART, last CD4 900s and non detectable viral load), osteoporosis, HTN, asthma, COPD, hypothyroidism, migraines, chronic pain syndrome, anxiety, and seizures presents to the ED with left upper and lower ext weakness, word finding difficulty, staggered gate worsening over the last 4 days. Of note, pt seen with similar complaints 09/2018, CT neg for stroke, pt admitted for TIA work up however, pt AMA. After AMA, pt states she got better without any new treatments however, over the last 4 days has noted worsening gait, weakness in the left upper and lower ext, worsening peripheral vision on the left and increased confusion/forgetfulness. Last known well 4 days, denies new GUNDERSON (admits to chronic migraines, todays GUNDERSON is no different than past) CP, SOB, abdominal pain, changes in bowel or bladder habits. vitals wnl see PE and stroke scale when comparing head CT from 09/2018 to todays, noted obvious acute vs subacute stroke Dr. Betty consulted, states admission to stroke unit with full ASA dose and high dose statin indicated along with brain and C spine CTA Discussed case with hospitalist, agree to admission *DC/Admit/Observation/Transfer Diagnosis at time of Disposition: Cerebrovascular accident (CVA) - Discharge Dispostion Disposition: HOME Condition at time of disposition: Stable Decision to Admit order: Yes - Referrals - Patient Instructions - Post Discharge Activity
[2018-11-24] MEDS ORDERED: ASPIRIN 325 MG TABLET PO ONE (12:03)
[2018-11-24] MEDS ORDERED: ATORVASTATIN CA 40 MG TABLET (FP) PO ONE (12:03)
[2018-11-24 12:14] LABS: BASO % 1.1 % (0-2.0); EOS % 0.9 % (0-4.5); HEMATOCRIT 33.9 % (32.4-45.2); HEMOGLOBIN 11.6 GM/dL (10.7-15.3); LYMPH % 31.7 % (8-40); MCH 36.7 pg (25.7-33.7); MCHC 34.1 g/dl (32.0-36.0); MEAN CELL VOLUME 107.4 fl (80-96); MEAN PLT VOLUME 8.5 fl (7.5-11.1); MONO % 9.8 % (3.8-10.2); NEUT % 56.5 % (42.8-82.8); PLATELET COUNT 200 K/MM3 (134-434); RBC 3.15 M/mm3 (3.60-5.2); WHITE BLOOD COUNT 7.5 K/mm3 (4.0-10.0)
[2018-11-24 12:31] LABS: INR 1.08 (0.83-1.09); PROTHROMBIN TIME (PATIENT) 12.8 SEC (9.7-13.0)
[2018-11-24] MEDS ORDERED: ASPIRIN 325 MG TABLET ONE (12:35)
[2018-11-24] MEDS ORDERED: ATORVASTATIN CA 40 MG TABLET (FP) ONE (12:36)
[2018-11-24] MEDS ORDERED: ACETAMINOPHEN 325 MG TABLET (FP) PO ONE (12:41)
[2018-11-24 12:45] LABS: ALBUMIN 3.8 g/dl (3.4-5.0); BILIRUBIN,TOTAL 0.3 mg/dL (0.2-1); BLOOD UREA NITROGEN 11.7 mg/dL (7-18); CALCIUM 8.8 mg/dL (8.5-10.1); CREATININE 0.9 mg/dL (0.55-1.3); POTASSIUM 4.2 mmol/L (3.5-5.1); TOT PROT 6.8 g/dl (6.4-8.2)
[2018-11-24 13:16] LABS: ANISOCYTOSIS 1+; MACROCYTOSIS 2+; PLATELET ESTIMATE NORMAL
[2018-11-24] MEDS ORDERED: ACETAMINOPHEN 325 MG TABLET (FP) ONE (13:28)
--- NOTE | 2018-11-24 14:40 | PDOC ---
Documentation entered by Sara Jefferson SCRIBE, acting as scribe for Da Montague MD. Da Montague MD: This documentation has been prepared by the Ronny pickens Xhesika, SCRIBE, under my direction and personally reviewed by me in its entirety. I confirm that the documentation accurately reflects all work, treatment, procedures, and medical decision making performed by me. Attending Attestation - Resident Resident Name: Husam Christianson - ED Attending Attestation I have performed the following: I have examined & evaluated the patient, The case was reviewed & discussed with the resident, I agree w/resident's findings & plan, Exceptions are as noted - HPI HPI: 11/24/18 11:26 The patient is a 63-year-old female with a past medical history of HIV (on HAART ), osteoporosis, HTN, asthma, COPD, hypothyroidism, migraines, chronic pain syndrome, anxiety, chronic migraines, and seizures, who presents to the ED with 4 days of L arm weakness and numbness associated with decreased motor skills L> R. The patient notes she has been endorsing difficulty speaking, peripheral vision loss, subjective decreased sensation on bilateral upper extremities, and feels uncoordinated, however, as per the symptoms aren't new but they have been progressively getting worse. The patient states she is unable to pick anything up or hold anything and has been endorsing new onset chest pain described as someone is pressing on her chest. The patient notes she saw her eye doctor on Tuesday and was told she had a retina problem. Patient was admitted here at [facility] on 10/04/18 for similar symptoms and patient AMA without getting an MRI. Patient states her last MRI was 6 months ago. The patient denies any shortness of breath, abdominal pain, fever, chills, cough , nausea, or vomiting. Denies any frequency, urgency, hesitancy, dysuria, or hematuria. Denies any chest pain or shortness of breath. Allergies: Barrett, Penicillins, Sulfa. Social History: 3 cigarettes daily x 30 yrs, cocaine use 25 years ago. Denies alcohol use. Surgical History: Microdiscectomy in cervical spine (11/2016 at [facility]), thyroidectomy 06/2016 interstim neuromodulator placement by Dg at [facility] in 03/2017 PCP: Merle Castro Physicial Exam PE: 11/24/18 11:27 Vitals: Triage Vital signs reviewed General Appearance: no acute distress, well nourished well developed, Head: Atraumatic, normocephalic Eyes: Pupils equal reactive round, extraocular movement intact Neck: Supple;No Nuchal rigidity Chest Wall: Nontender Cardiac: Regular rate and rhythm, no murmurs, no rubs, no gallops, Lungs: Clear to auscultation bilateral, good air movement bilaterally, Abdomen: Soft, nondistended, normal bowel sounds, nontender to palpation Extremities: Full range of motion to all extremities, no cyanosis, clubbing, or edema Skin: Warm and dry, no rashes or lesions, no petechiae Neuro: (+) decreased cosmetic maker of upper extremities L >R. (+) Generalized weakness of upper extremities L>R. (+) decreased sensation L>R. AOX3; Cranial Nerves 2- 12 grossly c intact. Psych: normal mood, normal affect - Medical Decision Making 11/24/18 16:21 CT with evidence of multiple subacute infarcts Neurology aware Unable to obtain an MRI second secondary to questionable metallic object in brain Full dose aspirin given. We'll admit to medicine for further neurologic workup for CVA Heart Score/ECG Review - ECG Impressions Comment:: 11/24/18 16:21 EKG performed at 1102 demonstrates normal sinus rhythm [address] elevations or T-wave inversions. Interpreted by me.
[2018-11-24] MEDS ORDERED: METOCLOPRAMIDE HCL INJECTION 10 MG/2 ML VIAL IVPUSH ONE (15:31)
[2018-11-24] MEDS ORDERED: ACETAMINOPHEN 1000 MG/100 ML VIAL (NON FORMULARY) IVPB ONE (15:32)
[2018-11-24] MEDS ORDERED: SUMAtriptan SUCCINATE 25 MG TABLET PO ONE (15:47)
--- NOTE | 2018-11-24 15:48 | HP ---
CHIEF COMPLAINT:left arm and leg weakness PCP:Dr. Song HISTORY OF PRESENT ILLNESS: Patient is a 63 year old female with past medical history of HIV (on HAART), migraines, seizures, asthma, COPD, hypothyroidism, chronic pain and insomnia, presented to the ED due to worsening left arm and leg weakness with associated confusion and reported dysarthria in the last 4 days. Patient was admitted 2 months ago due to difficulty word finding, headache and left sided weakness. Head CT was negative at that time. Patient signed out AMA, and further work-up was not completed. During the last 2 months, patient noted persistence of the left arm and leg weakness, and reported that in the last 4 days, she feels "not being connected to her body". PAtient also reported loss of peripheral vision, worse on her left eye that she noted started about 2 months ago. Patient denies any fever, chills, headache, dizziness, chest pain, SOB, abdominal pain, diarrhea, urinary symptoms. ER course was notable for: (1)Head CT: Acute/early subacute cortical infarct is seen in the right middle frontal gyrus. Acute, early subacute cortical infarct with loss of differentiation between the white and barr matter is seen in the right posterior temporal lobe, inferior parietal lobule right, right precentral gyrus. No evidence of acute intracranial hemorrhage. (2)Trop 0.19, EKG: NSR, no acute ST-T wave changes, similar to prior (3) Recent Travel:denies PAST MEDICAL HISTORY: HIV (on HAART) migraines seizures asthma COPD hypothyroidism chronic pain insomnia PAST SURGICAL HISTORY: Anterior cervical discectomy (2017) Thyroidectomy Neuromodulator placement Left shoulder surgery Social History: Smokin cigs/ day x 30 years Alcohol: Denies Drugs: Cocaine use 25 years ago Family History:noncontributory Allergies strawberry Allergy (Intermediate, Verified 11/24/18 09:53) Hives PATIENT STATED SHE GETS HIVES Penicillins Allergy (Unknown, Verified 11/24/18 09:53) Hives Sulfa (Sulfonamide Antibiotics) Allergy (Unknown, Verified 11/24/18 09:53) Hives gabapentin Adverse Reaction (Intermediate, Verified 11/24/18 09:53) Nausea sumatriptan [From Imitrex] Adverse Reaction (Intermediate, Verified 11/24/18 09: 53) dizzy topiramate [From Topamax] Adverse Reaction (Intermediate, Verified 11/24/18 09: 53) Nausea HOME MEDICATIONS: Home Medications Medication Instructions Recorded Levothyroxine [Synthroid -] 25 mcg PO DAILY #30 tablet 09/30/17 Diclofenac Sodium [Voltaren] 2 gm TP TID PRN #3 tube 07/18/18 Ergocalciferol (Vitamin D2) 50,000 unit PO Q7D #4 capsule 07/18/18 [Vitamin D2] Megestrol Acetate Oral Susp 400 mg PO DAILY 30 Days #300 cup 09/12/18 [Megace Oral Suspension -] Umeclidinium [place] [Incruse 62.5 mcg IH DAILY 10/04/18 Ellipta] Cyclobenzaprine HCl [Flexeril -] 10 mg PO HS #7 tablet 10/06/18 Divalproex *ER* [Depakote *ER* -] 500 mg PO HS #30 tablet.sa 10/06/18 Miscellaneous Medical Supply 1 each ASDIR #1 misc 10/06/18 [Outpatient Order] Ropinirole HCl [Requip -] 0.25 mg PO TID #90 tablet 10/06/18 Albuterol Sulfate Inhaler - 2 inh PO Q4H PRN #1 inhaler 10/24/18 [Ventolin HFA Inhaler -] Bictegrav/Emtricit/Tenofov Ala 1 each PO DAILY #30 tablet 10/24/18 [Biktarvy 50-200-25 mg Tablet] Budesonide/Formeterol Fumarate 1 inh PO BID #1 inhaler 10/24/18 [SYMBICORT 160/4.5mcg -] Lisinopril 10 mg PO DAILY #30 tablet 10/24/18 Nutritional Supplement [Ensure] 113 gm PO BID #60 pudding 10/31/18 Docusate Sodium [Dulcolax Stool 100 mg PO DAILY #6 capsule 11/10/18 Softener] Oxycodone HCl/Acetaminophen 1 each PO TID PRN #90 tablet MDD 3 11/10/18 [Percocet 10-325 mg Tablet] Polyethylene Glycol 3350 [Miralax 255 gm PO ASDIR #1 btl 11/10/18 (For Bowel Prep) -] REVIEW OF SYSTEMS CONSTITUTIONAL: Absent: fever, chills, diaphoresis, generalized weakness, malaise, loss of appetite, weight change HEENT: Absent: rhinorrhea, nasal congestion, throat pain, throat swelling, difficulty swallowing, mouth swelling, ear pain, eye pain, visual changes CARDIOVASCULAR: Absent: chest pain, syncope, palpitations, irregular heart rate, lightheadedness , peripheral edema RESPIRATORY: Absent: cough, shortness of breath, dyspnea with exertion, orthopnea, wheezing, stridor, hemoptysis GASTROINTESTINAL: Absent: abdominal pain, abdominal distension, nausea, vomiting, diarrhea, constipation, melena, hematochezia GENITOURINARY: Absent: dysuria, frequency, urgency, hesitancy, hematuria, flank pain, genital pain MUSCULOSKELETAL: Absent: myalgia, arthralgia, joint swelling, back pain, neck pain SKIN: Absent: rash, itching, pallor HEMATOLOGIC/IMMUNOLOGIC: Absent: easy bleeding, easy bruising, lymphadenopathy, frequent infections ENDOCRINE: Absent: unexplained weight gain, unexplained weight loss, heat intolerance, cold intolerance NEUROLOGIC: left arm and leg weakness or paresthesias Absent: headache, dizziness, unsteady gait, seizure, mental status changes, bladder or bowel incontinence PSYCHIATRIC: Absent: anxiety, depression, suicidal or homicidal ideation, hallucinations. PHYSICAL EXAMINATION Vital Signs - 24 hr 11/24/18 11/24/18 11/24/18 09:53 11:08 11:30 Temperature 98.1 F 98.5 F 98.5 F Pulse Rate 72 Pulse Rate [ 70 70 Left Radial] Respiratory 18 Rate Blood Pressure 155/74 Blood Pressure 159/96 159/96 [Right Arm] O2 Sat by Pulse 99 100 100 Oximetry (%) 11/24/18 14:30 Temperature 99.1 F Pulse Rate Pulse Rate [ 77 Left Radial] Respiratory 15 Rate Blood Pressure Blood Pressure 145/78 [Right Arm] O2 Sat by Pulse 99 Oximetry (%) GENERAL: Awake, alert, and fully oriented, in no acute distress. HEAD: Normal with no signs of trauma. EYES: PERRLA, EOMI, sclera anicteric, conjunctiva clear. EARS, NOSE, THROAT: Dry mucous membranes. NECK: Normal range of motion, supple. LUNGS: Breath sounds equal, clear to auscultation bilaterally. HEART: Regular rate and rhythm, normal S1 and S2 without murmur, rub or gallop. ABDOMEN: Soft, nontender, not distended, normoactive bowel sounds. MUSCULOSKELETAL: Normal range of motion at all joints. No bony deformities or tenderness. UPPER EXTREMITIES: 2+ pulses, warm, well-perfused. No peripheral edema. LOWER EXTREMITIES: 2+ pulses, warm, well-perfused. No peripheral edema. NEUROLOGICAL: AAOx3. Cranial nerves II-XII intact. Peripheral vision loss of left eye. Normal speech. B/L UE: Motor strength 4/5, sensation intact. B/L LE: motor strength 5/5, sensation intact. DTR +2. Walks with a cane. PSYCHIATRIC: Cooperative. Does not make eye contact. Gaze fixed to the right. SKIN: Warm, dry, normal turgor, no rashes or lesions noted, normal capillary refill. Laboratory Results - last 24 hr 11/24/18 11/24/18 11/24/18 11:45 11:45 11:45 WBC 7.5 RBC 3.15 L Hgb 11.6 Hct 33.9 MCV 107.4 H MCH 36.7 H MCHC 34.1 RDW 14.0 Plt Count 200 D MPV 8.5 Absolute Neuts (auto) 4.2 Neutrophils % 56.5 Lymphocytes % 31.7 Monocytes % 9.8 Eosinophils % 0.9 Basophils % 1.1 Nucleated RBC % 0 Hypochromia 0 Platelet Estimate Normal Polychromasia 0 Poikilocytosis 0 Anisocytosis 1+ Microcytosis 0 Macrocytosis 2+ PT with INR 12.80 INR 1.08 Sodium 146 H Potassium 4.2 Chloride 116 H Carbon Dioxide 24 Anion Gap 5 L BUN 11.7 Creatinine 0.9 Est GFR (CKD-EPI)AfAm 78.87 Est GFR (CKD-EPI)NonAf 68.05 Random Glucose 72 L Calcium 8.8 Total Bilirubin 0.3 AST 25 ALT 22 Alkaline Phosphatase 178 H Creatine Kinase 214 H Creatine Kinase Index 0.4 CK-MB (CK-2) 1.0 Troponin I 0.19 H Total Protein 6.8 Albumin 3.8 Triglycerides 103 Cholesterol 194 Total LDL Cholesterol 98 HDL Cholesterol 72 H Blood Type Antibody Screen 11/24/18 11:45 WBC RBC Hgb Hct MCV MCH MCHC RDW Plt Count MPV Absolute Neuts (auto) Neutrophils % Lymphocytes % Monocytes % Eosinophils % Basophils % Nucleated RBC % Hypochromia Platelet Estimate Polychromasia Poikilocytosis Anisocytosis Microcytosis Macrocytosis PT with INR INR Sodium Potassium Chloride Carbon Dioxide Anion Gap BUN Creatinine Est GFR (CKD-EPI)AfAm Est GFR (CKD-EPI)NonAf Random Glucose Calcium Total Bilirubin AST ALT Alkaline Phosphatase Creatine Kinase Creatine Kinase Index CK-MB (CK-2) Troponin I Total Protein Albumin Triglycerides Cholesterol Total LDL Cholesterol HDL Cholesterol Blood Type B NEGATIVE Antibody Screen Positive ASSESSMENT/PLAN: Patient is a 63 year old female with past medical history of HIV (on HAART), migraines, seizures, asthma, COPD, hypothyroidism, chronic pain and insomnia, presented to the ED due to worsening left arm and leg weakness with associated confusion and reported dysarthria in the last 4 days. #CVA -Head CT: Acute/early subacute cortical infarct is seen in the right middle frontal gyrus. Acute, early subacute cortical infarct with loss of differentiation between the white and barr matter is seen in the right posterior temporal lobe, inferior parietal lobule right, right precentral gyrus. No evidence of acute intracranial hemorrhage. -ASA 325mg given at the ED -Neurology (Dr. Hernández) consulted. Recommendations appreciated. -Continue ASA 81mg daily -Crestor 20mg PO HS -Brain CTA -Neck CTA -Echo -HbA1c -Lipid panel -physical therapy -tele monitoring -fall risk precautions #Elevated Troponin -Trop 0.19, will trend -EKG: NSR, no ST-T wave ischemic changes, similar to previous #Macrocytosis, chronic -Will order folate, Vit B12 #Hx of HIV -Continue HAART -ID (Dr. Song) consulted. #Hx of Migraines, Seizures -Patient was started on Depakote 500mg qHS last admission, but did not take it after discharge (AMA) -Sumatriptan 50-100mg PRN recommended on previous admission for migraine -patient currently asymptomatic, will monitor -seizure precautions #Asthma/COPD -Continue Symbicort BID -Duonebs q6h PRN for SOB #Hypothyroidism -Continue Synthroid 25mcg daily #Chronic pain -Continue home med percocet PRN #Underweight -Continue home Megestrol -Ensure added on diet #FEN -Not on any standing fluids -Electrolytes wnl, routine bmp monitoring -Sodium restricted, low fat diet #Prophylaxis -Lovenox 40mg sq daily #Disposition -full code -admit to tele Visit type - Emergency Visit Emergency Visit: Yes ED Registration Date: 11/24/18 Care time: The patient presented to the Emergency Department on the above date and was hospitalized for further evaluation of their emergent condition. - New Patient This patient is new to me today: Yes Date on this admission: 11/26/18 - Critical Care Critical Care patient: No ATTENDING PHYSICIAN STATEMENT I saw and evaluated the patient. I reviewed the resident's note and discussed the case with the resident. I agree with the resident's findings and plan as documented. SUBJECTIVE: OBJECTIVE: ASSESSMENT AND PLAN:
[2018-11-24] MEDS ORDERED: SUMATRIPTAN SUCCINATE 6 MG/0.5 ML VIAL SQ ONE (15:49)
[2018-11-24] MEDS ORDERED: PATIENT'S OWN MEDICATION (NON-FORMULARY) (Diclofenac Sodium [Voltaren] 2 GM) TP PRN (15:58)
--- NOTE | 2018-11-24 15:59 | ECHO ---
Name: REJI ANDERSON I Exam:Adult Echocardiogram Study Date: 11/24/2018 03:07 PM Age: 63 yrs Reason For Study: CVA Height: 67 in Weight: 114 lb BSA: 1.6 m2 MMode/2D Measurements & Calculations IVSd: 1.0 cm ACS: 2.0 cm LVIDd: 3.6 cm LVIDs: 2.8 cm LVPWd: 1.1 cm EDV(Teich): 53.0 ml LVOT diam: 2.0 cm ESV(Teich): 29.7 ml RV S Norm: 10.9 cm/sec Doppler Measurements & Calculations MV E max norm: 80.5 cm/sec MV A max norm: 99.9 cm/sec MV dec slope: 381.0 cm/sec2 MV E/A: 0.81 Ao V2 max: 159.0 cm/sec LV V1 max P.6 mmHg Ao max P.1 mmHg LV V1 mean P.2 mmHg Ao V2 mean: 106.3 cm/sec LV V1 max: 80.0 cm/sec Ao mean P.1 mmHg LV V1 mean: 51.8 cm/sec Ao V2 VTI: 32.2 cm LV V1 VTI: 19.3 cm WILLIAM(I,D): 1.9 cm2 WILLIAM(V,D): 1.6 cm2 SV(LVOT): 60.0 ml TR max norm: 235.6 cm/sec TR max P.2 mmHg Med Peak E' Norm: 8.7 cm/sec Med E/e': 9.2 Lat Peak E' Norm: 11.0 cm/sec Lat E/e': 7.3 Procedure The study was technically difficult with many images being suboptimal in quality. Left Ventricle Left ventricular systolic function is grossly normal. Regional wall motion abnormalities cannot be ex cluded due to limited visualization. Right Ventricle The right ventricle is normal in size and function. Atria Normal left and right atrial size and function. Mitral Valve The mitral valve is normal in structure and function. There is no mitral valve stenosis. There is mil d mitral regurgitation. Tricuspid Valve The tricuspid valve is normal in structure and function. There is mild tricuspid regurgitation. Aortic Valve The aortic valve opens well. No hemodynamically significant valvular aortic stenosis. No aortic regur gitation is present. Pulmonic Valve The pulmonic valve is not well seen, but is grossly normal. There is no pulmonic valvular stenosis. Great Vessels The aortic root is normal size. Pericardium/Pleura There is no pericardial effusion. Interpretation Summary The study was technically difficult with many images being suboptimal in quality. Regional wall motion abnormalities cannot be excluded due to limited visualization. Left ventricular systolic function is grossly normal. The right ventricle is normal in size and function. There is mild mitral regurgitation. There is mild tricuspid regurgitation. There is no pericardial effusion. MD Moralez *May 11/24/2018 03:58 PM
[2018-11-24] MEDS ORDERED: POLYETHYLENE GLYCOL 3350 255 GM BTL PO SCH (16:00)
[2018-11-24] MEDS ORDERED: ALBUTEROL SO4 2.5/IPRATROPIUM 0.5 INH SOL 3 ML VIAL.NEB. NEB PRN (16:44)
[2018-11-24] MEDS ORDERED: SUMATRIPTAN SUCCINATE 6 MG/0.5 ML VIAL ONE (16:56)
[2018-11-24] MEDS ORDERED: METOCLOPRAMIDE HCL INJECTION 10 MG/2 ML VIAL ONE (16:56)
[2018-11-24] MEDS ORDERED: POLYETHYLENE GLYCOL 3350 119 GM BTL PO PRN (17:23)
[2018-11-24] MEDS ORDERED: DOCUSATE SODIUM 100 MG CAPSULE (FP) PO PRN (17:24)
--- NOTE | 2018-11-24 18:00 | CON.NEURO ---
Consult - Past Medical History Cardio/Vascular: Yes: HTN, Hyperlipdemia Pulmonary: Yes: COPD Infectious Disease: Yes: HIV Endocrine: Yes: Hypothyroidism Additional Medical History: 1. HIV Positivity. 2. COPD/Emphysema. 3. HTN. 4. Seizure d/o. 5. Tobacco Abuse (Quit 6 months Ago). 6. h/o TB-treated in the past - Alcohol/Substance Use Hx Alcohol Use: No History of Substance Use: reports: None - Smoking History Smoking history: Current every day smoker Have you smoked in the past 12 months: Yes Aproximately how many cigarettes per day: 3 If you are a former smoker, when did you quit?: 8 months - Social History Usual Living Arrangement: Alone ADL: Independent History of Recent Travel: No Home Medications - Allergies Allergies/Adverse Reactions: Allergies Allergy/AdvReac Type Severity Reaction Status Date / Time strawberry Allergy Intermediate Hives Verified 11/24/18 09:53 Penicillins Allergy Unknown Hives Verified 11/24/18 09:53 Sulfa (Sulfonamide Allergy Unknown Hives Verified 11/24/18 09:53 Antibiotics) gabapentin AdvReac Intermediate Nausea Verified 11/24/18 09:53 sumatriptan [From Imitrex] AdvReac Intermediate dizzy Verified 11/24/18 09:53 topiramate [From Topamax] AdvReac Intermediate Nausea Verified 11/24/18 09:53 - Home Medications Home Medications: Ambulatory Orders Levothyroxine [Synthroid -] 25 mcg PO DAILY #30 tablet 09/30/17 Diclofenac Sodium [Voltaren] 2 gm TP TID PRN #3 tube 07/18/18 Ergocalciferol (Vitamin D2) [Vitamin D2] 50,000 unit PO Q7D #4 capsule 07/18/18 Umeclidinium [place] [Incruse Ellipta] 62.5 mcg IH DAILY 10/04/18 Bictegrav/Emtricit/Tenofov Ala [Biktarvy 50-200-25 mg Tablet] 1 each PO DAILY # 30 tablet 10/24/18 Lisinopril 10 mg PO DAILY #30 tablet 10/24/18 Nutritional Supplement [Ensure] 113 gm PO BID #60 pudding 10/31/18 Docusate Sodium [Dulcolax Stool Softener] 100 mg PO DAILY #6 capsule 11/10/18 Oxycodone HCl/Acetaminophen [Percocet 10-325 mg Tablet] 1 each PO TID PRN #90 tablet MDD 3 11/10/18 Budesonide/Formeterol Fumarate [SYMBICORT 160/4.5mcg -] 2 inh PO BID 11/24/18 Megestrol Acetate Oral Susp [Megace Oral Suspension -] 400 mg PO DAILY 11/24/18 Polyethylene Glycol 3350 [Miralax 119 gm Btl -] 17 gm PO DAILY PRN 11/24/18 Family Disease History - Family Disease History Family Disease History: Heart Disease: Father (seizures), Mother (uterine cancer , seizure due to etoh), Brother, [place]: Mother, Respiratory: Mother, Other: Father , Mother, Brother, Sister Physical Exam-Neuro Vital Signs: Vital Signs Temperature 99.1 F 11/24/18 14:30 Pulse Rate 77 11/24/18 14:30 Respiratory Rate 15 11/24/18 14:30 Blood Pressure 145/78 11/24/18 14:30 O2 Sat by Pulse Oximetry (%) 99 11/24/18 14:30 Labs: CBC, BMP 11/24/18 11:45 11/24/18 11:45 INR, PTT INR 1.08 (0.83-1.09) 11/24/18 11:45 Assessment/Plan cc Acute stroke HPI 63 year old female history of HIV( CD4 in 900s), Migraines, Seizure, Asthma , COPD, Hypothyroidism. Patient came to hospital for left arm and leg weakness. Patient also ahve dysarthria for last four days, and it seems to be getting better. Patient has ct head done and showed right frontal lobe subacute /acute infarct. Patient denies any other focal neurological symptoms. She also complain of left eye peripheral los sof vision. PAST MEDICAL HISTORY: HIV (on HAART) migraines seizures asthma COPD hypothyroidism chronic pain insomnia PAST SURGICAL HISTORY: Anterior cervical discectomy (2017) Thyroidectomy Neuromodulator placement Left shoulder surgery Social History: Smokin cigs/ day x 30 years Alcohol: Denies Drugs: Cocaine use 25 years ago Family History:noncontributory Allergies strawberry Allergy (Intermediate, Verified 11/24/18 09:53) Hives PATIENT STATED SHE GETS HIVES Penicillins Allergy (Unknown, Verified 11/24/18 09:53) Hives Sulfa (Sulfonamide Antibiotics) Allergy (Unknown, Verified 11/24/18 09:53) Hives gabapentin Adverse Reaction (Intermediate, Verified 11/24/18 09:53) Nausea sumatriptan [From Imitrex] Adverse Reaction (Intermediate, Verified 11/24/18 09: 53) dizzy topiramate [From Topamax] Adverse Reaction (Intermediate, Verified 11/24/18 09: 53) Nausea HOME MEDICATIONS: Home Medications Medication Instructions Recorded Levothyroxine [Synthroid -] 25 mcg PO DAILY #30 tablet 09/30/17 Diclofenac Sodium [Voltaren] 2 gm TP TID PRN #3 tube 07/18/18 Ergocalciferol (Vitamin D2) 50,000 unit PO Q7D #4 capsule 07/18/18 [Vitamin D2] Megestrol Acetate Oral Susp 400 mg PO DAILY 30 Days #300 cup 09/12/18 [Megace Oral Suspension -] Umeclidinium [place] [Incruse 62.5 mcg IH DAILY 10/04/18 Ellipta] Cyclobenzaprine HCl [Flexeril -] 10 mg PO HS #7 tablet 10/06/18 Divalproex *ER* [Depakote *ER* -] 500 mg PO HS #30 tablet.sa 10/06/18 Miscellaneous Medical Supply 1 each ASDIR #1 misc 10/06/18 [Outpatient Order] Ropinirole HCl [Requip -] 0.25 mg PO TID #90 tablet 10/06/18 Albuterol Sulfate Inhaler - 2 inh PO Q4H PRN #1 inhaler 10/24/18 [Ventolin HFA Inhaler -] Bictegrav/Emtricit/Tenofov Ala 1 each PO DAILY #30 tablet 10/24/18 [Biktarvy 50-200-25 mg Tablet] Budesonide/Formeterol Fumarate 1 inh PO BID #1 inhaler 10/24/18 [SYMBICORT 160/4.5mcg -] Lisinopril 10 mg PO DAILY #30 tablet 10/24/18 Nutritional Supplement [Ensure] 113 gm PO BID #60 pudding 10/31/18 Docusate Sodium [Dulcolax Stool 100 mg PO DAILY #6 capsule 11/10/18 Softener] Oxycodone HCl/Acetaminophen 1 each PO TID PRN #90 tablet MDD 3 11/10/18 [Percocet 10-325 mg Tablet] Polyethylene Glycol 3350 [Miralax 255 gm PO ASDIR #1 btl 11/10/18 (For Bowel Prep) -] NEUROLOGICAL EXAMINATION Alert oriented x 3, speech is normal, slight difficulty repetetion eomi, pupils reactive, no face asymmetry Left arm is grade 4/5 left lower extremity is minimalkly weak she is able to walk around with cane ct head showed right frontal lobe acute /sub acute stroke ASSESSMENT/PLAN 1. Right mca stroke, unliklely to be hiv related infection, patient has sudden onset symptoms, and left arm and leg weakness with right mca ischecmic lesion on ct head Plan: speech, pt and dvt prophylaxis - continue aspirin adn statin - carotid ultrasound, echo - mri of brain - cta of neck and brain reviewed - will continue to follow with primary Thanking you so much Yehuda Hernández MD
--- NOTE | 2018-11-24 20:14 | PN ---
Teaching Attending Note Name of Resident: Angelina Cerrato ATTENDING PHYSICIAN STATEMENT I saw and evaluated the patient. I reviewed the resident's note and discussed the case with the resident. I agree with the resident's findings and plan as documented. SUBJECTIVE: Patient is a 63 year old female with PMhx of HIV (on HAART), migraines, seizures, asthma, COPD, hypothyroidism, chronic pain and insomnia, presented to the ED with worsening left arm and leg weakness , associated with confusion and dysarthria for 4 days. OBJECTIVE: Vital Signs Temperature 98.7 F 11/24/18 18:30 Pulse Rate 65 11/24/18 18:30 Respiratory Rate 18 11/24/18 18:30 Blood Pressure 142/79 11/24/18 18:30 O2 Sat by Pulse Oximetry (%) 99 11/24/18 14:30 GENERAL: Awake, alert, and fully oriented, in no acute distress. HEAD: Normal with no signs of trauma. EYES: PERRLA, EOMI, sclera anicteric, conjunctiva clear. EARS, NOSE, THROAT: Dry mucous membranes. NECK: Normal range of motion, supple. LUNGS: Breath sounds equal, clear to auscultation bilaterally. HEART: Regular rate and rhythm, normal S1 and S2 without murmur, rub or gallop. ABDOMEN: Soft, nontender, not distended, normoactive bowel sounds. EXTREMITIES: 2+ pulses, warm, well-perfused. No peripheral edema. NEUROLOGICAL: AAOx3. Cranial nerves II-XII intact. Peripheral vision loss of left eye with gaze to the right . Normal speech. B/L UE: Motor strength 4/5, sensation intact. B/L LE: motor strength 5/5, sensation intact. DTR +2. SKIN: Warm, dry, normal turgor, no rashes or lesions noted, normal capillary refill.CBCD WBC 7.5 K/mm3 (4.0-10.0) 11/24/18 11:45 RBC 3.15 M/mm3 (3.60-5.2) L 11/24/18 11:45 Hgb 11.6 GM/dL (10.7-15.3) 11/24/18 11:45 Hct 33.9 % (32.4-45.2) 11/24/18 11:45 MCV 107.4 fl (80-96) H 11/24/18 11:45 MCHC 34.1 g/dl (32.0-36.0) 11/24/18 11:45 RDW 14.0 % (11.6-15.6) 11/24/18 11:45 Plt Count 200 K/MM3 (134-434) D 11/24/18 11:45 MPV 8.5 fl (7.5-11.1) 11/24/18 11:45 CMP Sodium 146 mmol/L (136-145) H 11/24/18 11:45 Potassium 4.2 mmol/L (3.5-5.1) 11/24/18 11:45 Chloride 116 mmol/L (98-107) H 11/24/18 11:45 Carbon Dioxide 24 mmol/L (21-32) 11/24/18 11:45 Anion Gap 5 MMOL/L (8-16) L 11/24/18 11:45 BUN 11.7 mg/dL (7-18) 11/24/18 11:45 Creatinine 0.9 mg/dL (0.55-1.3) 11/24/18 11:45 Random Glucose 72 mg/dL (74-106) L 11/24/18 11:45 Calcium 8.8 mg/dL (8.5-10.1) 11/24/18 11:45 Total Bilirubin 0.3 mg/dL (0.2-1) 11/24/18 11:45 AST 25 U/L (15-37) 11/24/18 11:45 ALT 22 U/L (13-61) 11/24/18 11:45 Alkaline Phosphatase 178 U/L (45-117) H 11/24/18 11:45 Total Protein 6.8 g/dl (6.4-8.2) 11/24/18 11:45 Albumin 3.8 g/dl (3.4-5.0) 11/24/18 11:45 CARDIAC ENZYMES Creatine Kinase 214 U/L (26-192) H 11/24/18 11:45 Troponin I 0.19 ng/ml (0.00-0.05) H 11/24/18 11:45 Current Medications Generic Name Dose Route Start Last Admin Trade Name Freq PRN Reason Stop Dose Admin Acetaminophen 325 mg 11/24/18 18:45 Tylenol - PO TID PRN PAIN LEVEL 1-5 Albuterol/Ipratropium 1 amp 11/24/18 16:44 Duoneb - NEB Q6H PRN SHORTNESS OF BREATH Aspirin 81 mg 11/25/18 10:00 Ecotrin - PO DAILY [facility] Budesonide/Formoterol Fumarate 2 puff 11/24/18 22:00 Symbicort 160/4.5mcg - IH BID [facility] Docusate Sodium 100 mg 11/24/18 17:24 Colace - PO Q24H PRN CONSTIPATION Enoxaparin Sodium 40 mg 11/25/18 10:00 Lovenox - SQ DAILY [facility] Levothyroxine Sodium 25 mcg 11/25/18 10:00 Synthroid - PO DAILY [facility] Lisinopril 10 mg 11/25/18 10:00 Prinivil PO DAILY [facility] Megestrol Acetate 400 mg 11/25/18 10:00 Megace Oral Suspension - PO DAILY [facility] Non-Formulary Medication 1 each 11/25/18 10:00 Bictegrav/Emtricit/Tenofov Ala PO DAILY [facility] Non-Formulary Medication 2 gm 11/24/18 15:58 Diclofenac Sodium [Voltaren] TP TID PRN PAIN Oxycodone HCl 5 mg 11/24/18 18:44 Roxicodone - PO TID PRN PAIN LEVEL 1-5 Polyethylene Glycol 17 gm 11/24/18 17:23 Miralax (For Daily Use) - PO Q24H PRN CONSTIPATION Rosuvastatin Calcium 20 mg 11/24/18 22:00 Crestor - PO [facility] Home Medications Medication Instructions Recorded Levothyroxine [Synthroid -] 25 mcg PO DAILY #30 tablet 09/30/17 Diclofenac Sodium [Voltaren] 2 gm TP TID PRN #3 tube 07/18/18 Ergocalciferol (Vitamin D2) 50,000 unit PO Q7D #4 capsule 07/18/18 [Vitamin D2] Umeclidinium [place] [Incruse 62.5 mcg IH DAILY 10/04/18 Ellipta] Bictegrav/Emtricit/Tenofov Ala 1 each PO DAILY #30 tablet 10/24/18 [Biktarvy 50-200-25 mg Tablet] Lisinopril 10 mg PO DAILY #30 tablet 10/24/18 Nutritional Supplement [Ensure] 113 gm PO BID #60 pudding 10/31/18 Docusate Sodium [Dulcolax Stool 100 mg PO DAILY #6 capsule 11/10/18 Softener] Oxycodone HCl/Acetaminophen 1 each PO TID PRN #90 tablet MDD 3 11/10/18 [Percocet 10-325 mg Tablet] Budesonide/Formeterol Fumarate 2 inh PO BID 11/24/18 [SYMBICORT 160/4.5mcg -] Megestrol Acetate Oral Susp 400 mg PO DAILY 11/24/18 [Megace Oral Suspension -] Polyethylene Glycol 3350 [Miralax 17 gm PO DAILY PRN 11/24/18 119 gm Btl -] ct head showed right frontal lobe acute /sub acute stroke ECHO: reviewed Neck CTA: reviewed ASSESSMENT/PLAN: Patient is a 63 year old female with PMhx of HIV (on HAART), migraines, seizures, asthma, COPD, hypothyroidism, chronic pain and insomnia, presented to the ED with worsening left arm and leg weakness , associated with confusion and dysarthria for 4 days. # Acute CVA ; Right mca stroke ; left arm and leg weakness : on aspirin and statin; carotid ultrasound, echo, mri of brain; cta of neck and brain reviewed #Elevated Troponin possible demand ischemia with Trop 0.19, will trend; EKG: NSR , no ST-T wave ischemic changes, similar to previous #Hx of HIV on HAART; ID (Dr. Song) consulted. #chronic macrocytosis: folate, Vit B12 level #Hx of Migraines : continue Depakote 500mg/Sumatriptan 50-100mg #Asthma/COPD: Continue Symbicort BID, Duonebs q6h PRN for SOB #Hypothyroidism: continue Synthroid 25mcg daily #Chronic pain: percocet PRN #Underweight: on Megestrol will hold DVT Px: Lovenox
[2018-11-24] MEDS: BUDESONIDE/FORMETEROL FUMARATE 160/4.5 mcg INHALER IH SCH (22:35)
[2018-11-24] MEDS: ROSUVASTATIN CA 20 MG TABLET (FP) PO SCH (22:35)
[2018-11-24] MEDS ORDERED: oxyCODONE HCL 5 MG TABLET ONE (23:41)
[2018-11-24] MEDS: oxyCODONE HCL 5 MG TABLET PO PRN (23:44)
[2018-11-25] MEDS: LEVOTHYROXINE NA 25 MCG TABLET (FP) PO SCH (06:02)
[2018-11-25 06:48] LABS: HEMATOCRIT 33.5 % (32.4-45.2); HEMOGLOBIN 11.5 GM/dL (10.7-15.3); LYMPH % 30.6 % (8-40); MCH 36.9 pg (25.7-33.7); MCHC 34.4 g/dl (32.0-36.0); MEAN CELL VOLUME 107.3 fl (80-96); MEAN PLT VOLUME 8.8 fl (7.5-11.1); NEUT % 59.1 % (42.8-82.8); PLATELET COUNT 200 K/MM3 (134-434); RBC 3.12 M/mm3 (3.60-5.2); RDW 13.7 % (11.6-15.6); WHITE BLOOD COUNT 7.4 K/mm3 (4.0-10.0)
[2018-11-25 06:49] LABS: BASO % 0.8 % (0-2.0); EOS % 1.1 % (0-4.5); MONO % 8.4 % (3.8-10.2)
[2018-11-25] MEDS: ACETAMINOPHEN 325 MG TABLET (FP) PO PRN ×2 (06:52→21:28)
[2018-11-25] MEDS: oxyCODONE HCL 5 MG TABLET PO PRN ×3 (06:52→21:29)
[2018-11-25 07:21] LABS: ALBUMIN 3.6 g/dl (3.4-5.0); BILIRUBIN,TOTAL 0.4 mg/dL (0.2-1); BLOOD UREA NITROGEN 7.6 mg/dL (7-18); CALCIUM 8.4 mg/dL (8.5-10.1); CREATININE 0.6 mg/dL (0.55-1.3); PHOSPHOROUS 3.4 mg/dL (2.5-4.9); POTASSIUM 3.5 mmol/L (3.5-5.1); TOT PROT 6.2 g/dl (6.4-8.2)
[2018-11-25] MEDS: LISINOPRIL 10 MG TABLET (FP) PO SCH (09:30)
[2018-11-25] MEDS: ENOXAPARIN NA (PORCINE) 40 MG/0.4 ML DISP.SYRIN SQ SCH (09:30)
[2018-11-25] MEDS ORDERED: PATIENT'S OWN MEDICATION (NON-FORMULARY) (Bictegrav/Emtricit/Tenofov Ala 1 EACH) PO SCH (10:00)
[2018-11-25] MEDS ORDERED: MEGESTROL ACETATE 400 MG/10 ML UNIT DOSE CUP PO SCH (10:00)
[2018-11-25] MEDS ORDERED: DOCUSATE SODIUM 100 MG CAPSULE (FP) PO SCH (10:00)
[2018-11-25] MEDS ORDERED: ASPIRIN COATED 81 MG TABLET.EC PO SCH (10:00)
[2018-11-25 10:27] LABS: ERYTHROCYTE SEDIMENTATION RATE 14 mm/hr (0-30)
[2018-11-25] MEDS: ASPIRIN 325 MG ENTERIC COATED TABLET (FP) PO SCH (10:33)
[2018-11-25] MEDS: BUDESONIDE/FORMETEROL FUMARATE 160/4.5 mcg INHALER IH SCH ×2 (10:34→21:29)
--- NOTE | 2018-11-25 15:19 | PN ---
Progress Note (short form) - Note Progress Note: 63 year old female history of HIV( CD4 in 900s), Migraines, Seizure, Asthma, COPD, Hypothyroidism. Patient came to hospital for left arm and leg weakness. Patient also ahve dysarthria for last four days, and it seems to be getting better. Patient has ct head done and showed right frontal lobe subacute /acute infarct. Patient denies any other focal neurological symptoms. Patient is feeling much better and she is able to speak better NEUROLOGICAL EXAMINATION Alert oriented x 3, speech is normal, slight difficulty repetetion eomi, pupils reactive, no face asymmetry Left arm is grade 4/5 left lower extremity is minimalkly weak she is able to walk around with cane ct head showed right frontal lobe acute /sub acute stroke, repeat one showed there is evolution of stroke mri of brain pending carotid ultraosund is unremarkable ASSESSMENT/PLAN 1. Right mca stroke, unliklely to be hiv related infection, patient has sudden onset symptoms, and left arm and leg weakness with right mca ischecmic lesion on ct head( evolved on second ct head ) Plan: speech, pt and dvt prophylaxis - continue aspirin and statin - - mri of brain pending - cta of neck and brain reviewed - will continue to follow with primary Thanking you so much Yehuda Hernández MD
--- NOTE | 2018-11-25 18:07 | PN ---
Progress Note (short form) - Note Progress Note: Patient feels better today. Vital Signs Temperature 98.7 F 11/25/18 16:09 Pulse Rate 93 H 11/25/18 16:09 Respiratory Rate 20 11/25/18 16:09 Blood Pressure 147/74 11/25/18 16:09 O2 Sat by Pulse Oximetry (%) 98 11/25/18 09:00 GENERAL: Awake, alert, and fully oriented, in no acute distress. HEAD: Normal with no signs of trauma. EYES: PERRLA, EOMI, sclera anicteric, conjunctiva clear. EARS, NOSE, THROAT: Dry mucous membranes. NECK: Normal range of motion, supple. LUNGS: Breath sounds equal, clear to auscultation bilaterally. HEART: Regular rate and rhythm, normal S1 and S2 without murmur, rub or gallop. ABDOMEN: Soft, nontender, not distended, normoactive bowel sounds. MUSCULOSKELETAL: Normal range of motion at all joints. No bony deformities or tenderness. EXTREMITIES: 2+ pulses, warm, well-perfused. No peripheral edema. NEUROLOGICAL: AAOx3. Cranial nerves II-XII intact. Peripheral vision loss of left eye with fixed gaxe to the right . Normal speech. B/L UE: Motor strength 4/ 5, sensation intact. B/L LE: motor strength 5/5, sensation intact. DTR +2. SKIN: Warm, dry, normal turgor, no rashes or lesions noted, normal capillary refill. CBCD WBC 7.4 K/mm3 (4.0-10.0) 11/25/18 05:25 RBC 3.12 M/mm3 (3.60-5.2) L 11/25/18 05:25 Hgb 11.5 GM/dL (10.7-15.3) 11/25/18 05:25 Hct 33.5 % (32.4-45.2) 11/25/18 05:25 MCV 107.3 fl (80-96) H 11/25/18 05:25 MCHC 34.4 g/dl (32.0-36.0) 11/25/18 05:25 RDW 13.7 % (11.6-15.6) 11/25/18 05:25 Plt Count 200 K/MM3 (134-434) 11/25/18 05:25 MPV 8.8 fl (7.5-11.1) 11/25/18 05:25 CMP Sodium 142 mmol/L (136-145) 11/25/18 05:25 Potassium 3.5 mmol/L (3.5-5.1) 11/25/18 05:25 Chloride 112 mmol/L (98-107) H 11/25/18 05:25 Carbon Dioxide 23 mmol/L (21-32) 11/25/18 05:25 Anion Gap 7 MMOL/L (8-16) L 11/25/18 05:25 BUN 7.6 mg/dL (7-18) 11/25/18 05:25 Creatinine 0.6 mg/dL (0.55-1.3) 11/25/18 05:25 Random Glucose 75 mg/dL (74-106) 11/25/18 05:25 Calcium 8.4 mg/dL (8.5-10.1) L 11/25/18 05:25 Total Bilirubin 0.4 mg/dL (0.2-1) 11/25/18 05:25 AST 22 U/L (15-37) 11/25/18 05:25 ALT 22 U/L (13-61) 11/25/18 05:25 Alkaline Phosphatase 173 U/L (45-117) H 11/25/18 05:25 Total Protein 6.2 g/dl (6.4-8.2) L 11/25/18 05:25 Albumin 3.6 g/dl (3.4-5.0) 11/25/18 05:25 CARDIAC ENZYMES Creatine Kinase 214 U/L (26-192) H 11/24/18 11:45 Troponin I 0.20 ng/ml (0.00-0.05) H 11/24/18 22:50 Current Medications Generic Name Dose Route Start Last Admin Trade Name Freq PRN Reason Stop Dose Admin Acetaminophen 325 mg 11/24/18 18:45 11/25/18 06:52 Tylenol - PO 325 mg TID PRN Administration PAIN LEVEL 1-5 Albuterol/Ipratropium 1 amp 11/24/18 16:44 Duoneb - NEB Q6H PRN SHORTNESS OF BREATH Aspirin 325 mg 11/25/18 10:00 11/25/18 10:33 Ecotrin - PO 325 mg DAILY OSBALDO Administration Budesonide/Formoterol Fumarate 2 puff 11/24/18 22:00 11/25/18 10:34 Symbicort 160/4.5mcg - IH 2 puff BID OSBALDO Administration Docusate Sodium 100 mg 11/24/18 17:24 Colace - PO Q24H PRN CONSTIPATION Enoxaparin Sodium 40 mg 11/25/18 10:00 11/25/18 09:30 Lovenox - SQ 40 mg DAILY [facility] Administration Levothyroxine Sodium 25 mcg 11/25/18 07:00 11/25/18 06:02 Synthroid - PO 25 mcg AM OSBALDO Administration Lisinopril 10 mg 11/25/18 10:00 11/25/18 09:30 Prinivil PO 10 mg DAILY [facility] Administration Non-Formulary Medication 1 each 11/25/18 10:00 Bictegrav/Emtricit/Tenofov Ala PO DAILY [facility] Non-Formulary Medication 2 gm 11/24/18 15:58 Diclofenac Sodium [Voltaren] TP TID PRN PAIN Oxycodone HCl 5 mg 11/24/18 18:44 11/25/18 14:05 Roxicodone - PO 5 mg TID PRN Administration PAIN LEVEL 1-5 Polyethylene Glycol 17 gm 11/24/18 17:23 Miralax (For Daily Use) - PO Q24H PRN CONSTIPATION Rosuvastatin Calcium 20 mg 11/24/18 22:00 11/24/18 22:35 Crestor - PO 20 mg HS [facility] Administration Home Medications Medication Instructions Recorded Levothyroxine [Synthroid -] 25 mcg PO DAILY #30 tablet 09/30/17 Diclofenac Sodium [Voltaren] 2 gm TP TID PRN #3 tube 07/18/18 Ergocalciferol (Vitamin D2) 50,000 unit PO Q7D #4 capsule 07/18/18 [Vitamin D2] Umeclidinium [place] [Incruse 62.5 mcg IH DAILY 10/04/18 Ellipta] Bictegrav/Emtricit/Tenofov Ala 1 each PO DAILY #30 tablet 10/24/18 [Biktarvy 50-200-25 mg Tablet] Lisinopril 10 mg PO DAILY #30 tablet 10/24/18 Nutritional Supplement [Ensure] 113 gm PO BID #60 pudding 10/31/18 Docusate Sodium [Dulcolax Stool 100 mg PO DAILY #6 capsule 11/10/18 Softener] Oxycodone HCl/Acetaminophen 1 each PO TID PRN #90 tablet MDD 3 11/10/18 [Percocet 10-325 mg Tablet] Budesonide/Formeterol Fumarate 2 inh PO BID 11/24/18 [SYMBICORT 160/4.5mcg -] Megestrol Acetate Oral Susp 400 mg PO DAILY 11/24/18 [Megace Oral Suspension -] Polyethylene Glycol 3350 [Miralax 17 gm PO DAILY PRN 11/24/18 119 gm Btl -] ct head showed right frontal lobe acute /sub acute stroke ECHO: reviewed Neck CTA: reviewed ASSESSMENT/PLAN: Patient is a 63 year old female with PMhx of HIV (on HAART), migraines, seizures, asthma, COPD, hypothyroidism, chronic pain and insomnia, presented to the ED with worsening left arm and leg weakness , associated with confusion and dysarthria for 4 days. # Acute CVA ; Right mca stroke ; left arm and leg weakness : on aspirin and statin; carotid ultrasound, echo, mri of brain; cta of neck and brain reviewed #Elevated Troponin possible demand ischemia with Trop 0.19, will trend; EKG: NSR , no ST-T wave ischemic changes, similar to previous #Hx of HIV on HAART; ID (Dr. Song) consulted. #chronic macrocytosis: folate, Vit B12 level #Hx of Migraines : continue Depakote 500mg/Sumatriptan 50-100mg #Asthma/COPD: Continue Symbicort BID, Duonebs q6h PRN for SOB #Hypothyroidism: continue Synthroid 25mcg daily #Chronic pain: percocet PRN #Underweight: on Megestrol will hold DVT Px: Lovenox continue Aspirin 325mg po daily continue crestor 20mg daily, mri of the brain is pending held megace Visit type - Emergency Visit Emergency Visit: Yes ED Registration Date: 11/24/18 Care time: The patient presented to the Emergency Department on the above date and was hospitalized for further evaluation of their emergent condition. - New Patient This patient is new to me today: No - Critical Care Critical Care patient: No - Discharge Referral Referred to [facility] Med [facility] No
[2018-11-25] MEDS: ROSUVASTATIN CA 20 MG TABLET (FP) PO SCH (21:28)
--- NOTE | 2018-11-26 00:17 | EKG ---
Test Reason : Blood Pressure : / mmHG Vent. Rate : 064 BPM Atrial Rate : 064 BPM P-R Int : 130 ms QRS Dur : 074 ms QT Int : 406 ms P-R-T Axes : 057 059 077 degrees QTc Int : 418 ms POOR DATA QUALITY, INTERPRETATION MAY BE ADVERSELY AFFECTED SINUS RHYTHM WITH PREMATURE ATRIAL COMPLEXES POSSIBLE LEFT ATRIAL ENLARGEMENT BORDERLINE ECG WHEN COMPARED WITH ECG OF 04-OCT-2018 10:20, NO SIGNIFICANT CHANGE WAS FOUND Confirmed by GUS RUBIO MD ([id number]) on 11/26/2018 12:17:31 AM Referred By: Confirmed By:GUS RUBIO MD
[2018-11-26] MEDS: oxyCODONE HCL 5 MG TABLET PO PRN (05:03)
[2018-11-26] MEDS: ACETAMINOPHEN 325 MG TABLET (FP) PO PRN ×2 (05:03→11:22)
[2018-11-26] MEDS: LEVOTHYROXINE NA 25 MCG TABLET (FP) PO SCH (06:23)
--- NOTE | 2018-11-26 08:43 | PN ---
Teaching Attending Note Name of Resident: Angelina Cerrato ATTENDING PHYSICIAN STATEMENT I saw and evaluated the patient. I reviewed the resident's note and discussed the case with the resident. I agree with the resident's findings and plan as documented. SUBJECTIVE: OBJECTIVE: Vital Signs Temperature 98.3 F 11/26/18 05:08 Pulse Rate 77 11/26/18 05:08 Respiratory Rate 18 11/26/18 05:08 Blood Pressure 117/67 11/26/18 05:08 O2 Sat by Pulse Oximetry (%) 97 11/25/18 21:00 GENERAL: Awake, alert, and fully oriented, in no acute distress. HEAD: Normal with no signs of trauma. EYES: PERRLA, EOMI, sclera anicteric, conjunctiva clear. EARS, NOSE, THROAT: Dry mucous membranes. NECK: Normal range of motion, supple. LUNGS: Breath sounds equal, clear to auscultation bilaterally. HEART: Regular rate and rhythm, normal S1 and S2 without murmur, rub or gallop. ABDOMEN: Soft, nontender, not distended, normoactive bowel sounds. MUSCULOSKELETAL: Normal range of motion at all joints. No bony deformities or tenderness. EXTREMITIES: 2+ pulses, warm, well-perfused. No peripheral edema. NEUROLOGICAL: AAOx3. Cranial nerves II-XII intact. Peripheral vision loss of left eye with fixed gaxe to the right . Normal speech. B/L UE: Motor strength 4/ 5, sensation intact. B/L LE: motor strength 5/5, sensation intact. DTR +2. SKIN: Warm, dry, normal turgor, no rashes or lesions noted, normal capillary refill. CBCD WBC 7.4 K/mm3 (4.0-10.0) 11/25/18 05:25 RBC 3.12 M/mm3 (3.60-5.2) L 11/25/18 05:25 Hgb 11.5 GM/dL (10.7-15.3) 11/25/18 05:25 Hct 33.5 % (32.4-45.2) 11/25/18 05:25 MCV 107.3 fl (80-96) H 11/25/18 05:25 MCHC 34.4 g/dl (32.0-36.0) 11/25/18 05:25 RDW 13.7 % (11.6-15.6) 11/25/18 05:25 Plt Count 200 K/MM3 (134-434) 11/25/18 05:25 MPV 8.8 fl (7.5-11.1) 11/25/18 05:25 CMP Sodium 142 mmol/L (136-145) 11/25/18 05:25 Potassium 3.5 mmol/L (3.5-5.1) 11/25/18 05:25 Chloride 112 mmol/L (98-107) H 11/25/18 05:25 Carbon Dioxide 23 mmol/L (21-32) 11/25/18 05:25 Anion Gap 7 MMOL/L (8-16) L 11/25/18 05:25 BUN 7.6 mg/dL (7-18) 11/25/18 05:25 Creatinine 0.6 mg/dL (0.55-1.3) 11/25/18 05:25 Random Glucose 75 mg/dL (74-106) 11/25/18 05:25 Calcium 8.4 mg/dL (8.5-10.1) L 11/25/18 05:25 Total Bilirubin 0.4 mg/dL (0.2-1) 11/25/18 05:25 AST 22 U/L (15-37) 11/25/18 05:25 ALT 22 U/L (13-61) 11/25/18 05:25 Alkaline Phosphatase 173 U/L (45-117) H 11/25/18 05:25 Total Protein 6.2 g/dl (6.4-8.2) L 11/25/18 05:25 Albumin 3.6 g/dl (3.4-5.0) 11/25/18 05:25 CARDIAC ENZYMES Creatine Kinase 214 U/L (26-192) H 11/24/18 11:45 Troponin I 0.19 ng/ml (0.00-0.05) H 11/25/18 17:15 Current Medications Generic Name Dose Route Start Last Admin Trade Name Freq PRN Reason Stop Dose Admin Acetaminophen 325 mg 11/24/18 18:45 11/26/18 05:03 Tylenol - PO 325 mg TID PRN Administration PAIN LEVEL 1-5 Albuterol/Ipratropium 1 amp 11/24/18 16:44 Duoneb - NEB Q6H PRN SHORTNESS OF BREATH Aspirin 325 mg 11/25/18 10:00 11/25/18 10:33 Ecotrin - PO 325 mg DAILY OSBALDO Administration Budesonide/Formoterol Fumarate 2 puff 11/24/18 22:00 11/25/18 21:29 Symbicort 160/4.5mcg - IH 2 puff BID OSBALDO Administration Docusate Sodium 100 mg 11/24/18 17:24 Colace - PO Q24H PRN CONSTIPATION Enoxaparin Sodium 40 mg 11/25/18 10:00 11/25/18 09:30 Lovenox - SQ 40 mg DAILY OSBALDO Administration Levothyroxine Sodium 25 mcg 11/25/18 07:00 11/26/18 06:23 Synthroid - PO 25 mcg AM OSBALDO Administration Lisinopril 10 mg 11/25/18 10:00 11/25/18 09:30 Prinivil PO 10 mg DAILY [facility] Administration Non-Formulary Medication 1 each 11/25/18 10:00 Bictegrav/Emtricit/Tenofov Ala PO DAILY [facility] Non-Formulary Medication 2 gm 11/24/18 15:58 Diclofenac Sodium [Voltaren] TP TID PRN PAIN Oxycodone HCl 5 mg 11/24/18 18:44 11/26/18 05:03 Roxicodone - PO 5 mg TID PRN Administration PAIN LEVEL 1-5 Polyethylene Glycol 17 gm 11/24/18 17:23 Miralax (For Daily Use) - PO Q24H PRN CONSTIPATION Rosuvastatin Calcium 20 mg 11/24/18 22:00 11/25/18 21:28 Crestor - PO 20 mg HS OSBALDO Administration Home Medications Medication Instructions Recorded Levothyroxine [Synthroid -] 25 mcg PO DAILY #30 tablet 09/30/17 Diclofenac Sodium [Voltaren] 2 gm TP TID PRN #3 tube 07/18/18 Ergocalciferol (Vitamin D2) 50,000 unit PO Q7D #4 capsule 07/18/18 [Vitamin D2] Umeclidinium [place] [Incruse 62.5 mcg IH DAILY 10/04/18 Ellipta] Bictegrav/Emtricit/Tenofov Ala 1 each PO DAILY #30 tablet 10/24/18 [Biktarvy 50-200-25 mg Tablet] Lisinopril 10 mg PO DAILY #30 tablet 10/24/18 Nutritional Supplement [Ensure] 113 gm PO BID #60 pudding 10/31/18 Docusate Sodium [Dulcolax Stool 100 mg PO DAILY #6 capsule 11/10/18 Softener] Oxycodone HCl/Acetaminophen 1 each PO TID PRN #90 tablet MDD 3 11/10/18 [Percocet 10-325 mg Tablet] Budesonide/Formeterol Fumarate 2 inh PO BID 11/24/18 [SYMBICORT 160/4.5mcg -] Megestrol Acetate Oral Susp 400 mg PO DAILY 11/24/18 [Megace Oral Suspension -] Polyethylene Glycol 3350 [Miralax 17 gm PO DAILY PRN 11/24/18 119 gm Btl -] ct head showed right frontal lobe acute /sub acute stroke ECHO: reviewed Neck CTA: reviewed ASSESSMENT/PLAN: Patient is a 63 year old female with PMhx of HIV (on HAART), migraines, seizures, asthma, COPD, hypothyroidism, chronic pain and insomnia, presented to the ED with worsening left arm and leg weakness , associated with confusion and dysarthria for 4 days. # Acute CVA ; Right mca stroke ; left arm and leg weakness : on aspirin and statin; carotid ultrasound, echo, mri of brain; cta of neck and brain reviewed #Elevated Troponin possible demand ischemia with Trop 0.19, will trend; EKG: NSR , no ST-T wave ischemic changes, similar to previous #Hx of HIV on HAART; ID (Dr. Song) consulted. #chronic macrocytosis: folate, Vit B12 level #Hx of Migraines : continue Depakote 500mg/Sumatriptan 50-100mg #Asthma/COPD: Continue Symbicort BID, Duonebs q6h PRN for SOB #Hypothyroidism: continue Synthroid 25mcg daily #Chronic pain: percocet PRN #Underweight: on Megestrol and periactin continue continue Aspirin 325mg po daily continue crestor 20mg daily will increase to 40mg , mri of the brain reviewed -BP goal < 130/80, may benefit from halfway B-Blockade. 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 Defer further reccs for intervention to Neurology. -Complete smoking cessation recommended. -high intensity statin , LDL is 90 now -BL CVAs reported , patient might need JONY inpatient vs outpatient. will check wiht cardio, -will continue her megace and periactin , patient is asking for it. DVT Px: Raffaele need to check with her outpatient apprenticeship training representative Dr. Gonzalez. If she indeed has PAF, this would likely explain her b/l CVAs. -Cont telemetry. -JONY may be helpful, depending on confirmation of PAF history. Starting 11/27, [facility] will follow patient and try to verify history.
[2018-11-26] MEDS ORDERED: MEGESTROL ACETATE 40 MG TABLET PO SCH (10:00)
[2018-11-26] MEDS ORDERED: oxyCODONE HCL 5 MG TABLET PO PRN (10:13)
--- NOTE | 2018-11-26 10:38 | PN ---
Progress Note (short form) - Note Progress Note: 63 year old female history of HIV( CD4 in 900s), Migraines, Seizure, Asthma, COPD, Hypothyroidism. Patient came to hospital for left arm and leg weakness. Patient also ahve dysarthria for last four days, and it seems to be getting better. Patient has ct head done and showed right frontal lobe subacute /acute infarct. Patient denies any other focal neurological symptoms. Patient is feeling much better and she is able to speak better NEUROLOGICAL EXAMINATION Alert oriented x 3, speech is normal, slight difficulty repetetion eomi, pupils reactive, no face asymmetry Left arm is grade 4/5 left lower extremity is minimalkly weak she is able to walk around with cane ct head showed right frontal lobe acute /sub acute stroke, repeat one showed there is evolution of stroke mri of brain showed right frontal, parietal infacrt carotid ultraosund is unremarkable ASSESSMENT/PLAN 1. Right mca stroke, unliklely to be hiv related infection, patient has sudden onset symptoms, and left arm and leg weakness with right mca ischecmic lesion on ct head( evolved on second ct head ) Plan: speech, pt and dvt prophylaxis - continue aspirin and statin - acid mixer consult for bihemispheric stroke for possible JONY and bubble study - spoke to primary team regarding giving percocet for her migraine headahce - cta of neck and brain reviewed - will continue to follow with primary Thanking you so much Yehuda Hernández MD
--- NOTE | 2018-11-26 10:48 | CON.CARD ---
Consult Consult Specialty:: Cardiology Referred by:: Dr. Byrnes Reason for Consultation:: Stroke - History of Present Illness Chief Complaint: Bilateral CVAs on MRI History of Present Illness: The patient is a 63-year-old female with a past medical history of HIV (on HAART ), osteoporosis, HTN, asthma, COPD, hypothyroidism, migraines, chronic pain syndrome, anxiety, chronic migraines, and seizures, who presents to the ED with 4 days of L arm weakness and numbness associated with decreased motor skills L> R. The patient notes she has been endorsing difficulty speaking, peripheral vision loss, subjective decreased sensation on bilateral upper extremities, and felt uncoordinated. She was seen by Neuro and MRI confirmed b/l CVAs. Patient reports seeing Dr. Leta Gonzalez ([facility]) and was told she had PAF in past, but is not on AC because of "bleeding ulcer". 2 weeks ago, she reports having BRBPR and an upper endo and colonoscopy were planned as outpt. (Dr. Doyle). On Cardiac ROS, denies CP. +chronic GANNON she attributes to COPD, + Palpitations. No prior IN or PCI. TELE: NSR, PACs, occ PVCs. No AF noted. - History Source History Provided By: Patient - Past Medical History Cardio/Vascular: Yes: HTN, Hyperlipdemia Pulmonary: Yes: COPD Infectious Disease: Yes: HIV Endocrine: Yes: Hypothyroidism Additional Medical History: 1. HIV Positivity. 2. COPD/Emphysema. 3. HTN. 4. Seizure d/o. 5. Tobacco Abuse (Quit 6 months Ago). 6. h/o TB-treated in the past - Alcohol/Substance Use Hx Alcohol Use: No History of Substance Use: reports: None - Smoking History Smoking history: Current every day smoker Have you smoked in the past 12 months: Yes Aproximately how many cigarettes per day: 1 If you are a former smoker, when did you quit?: 8 months - Social History Usual Living Arrangement: Alone ADL: Independent History of Recent Travel: No Home Medications - Allergies Allergies/Adverse Reactions: Allergies Allergy/AdvReac Type Severity Reaction Status Date / Time strawberry Allergy Intermediate Hives Verified 11/24/18 09:53 Penicillins Allergy Unknown Hives Verified 11/24/18 09:53 Sulfa (Sulfonamide Allergy Unknown Hives Verified 11/24/18 09:53 Antibiotics) gabapentin AdvReac Intermediate Nausea Verified 11/24/18 09:53 sumatriptan [From Imitrex] AdvReac Intermediate dizzy Verified 11/24/18 09:53 topiramate [From Topamax] AdvReac Intermediate Nausea Verified 11/24/18 09:53 - Home Medications Home Medications: Ambulatory Orders Levothyroxine [Synthroid -] 25 mcg PO DAILY #30 tablet 09/30/17 Diclofenac Sodium [Voltaren] 2 gm TP TID PRN #3 tube 07/18/18 Ergocalciferol (Vitamin D2) [Vitamin D2] 50,000 unit PO Q7D #4 capsule 07/18/18 Umeclidinium [place] [Incruse Ellipta] 62.5 mcg IH DAILY 10/04/18 Bictegrav/Emtricit/Tenofov Ala [Biktarvy 50-200-25 mg Tablet] 1 each PO DAILY # 30 tablet 10/24/18 Lisinopril 10 mg PO DAILY #30 tablet 10/24/18 Nutritional Supplement [Ensure] 113 gm PO BID #60 pudding 10/31/18 Docusate Sodium [Dulcolax Stool Softener] 100 mg PO DAILY #6 capsule 11/10/18 Oxycodone HCl/Acetaminophen [Percocet 10-325 mg Tablet] 1 each PO TID PRN #90 tablet MDD 3 11/10/18 Budesonide/Formeterol Fumarate [SYMBICORT 160/4.5mcg -] 2 inh PO BID 11/24/18 Megestrol Acetate Oral Susp [Megace Oral Suspension -] 400 mg PO DAILY 11/24/18 Polyethylene Glycol 3350 [Miralax 119 gm Btl -] 17 gm PO DAILY PRN 11/24/18 Family Disease History - Family Disease History Family Disease History: Heart Disease: Father (seizures), Mother (uterine cancer , seizure due to etoh), Brother, CA: Mother, Respiratory: Mother, Other: Father , Mother, Brother, Sister Review of Systems - Review of Systems Constitutional: reports: No Symptoms Eyes: reports: No Symptoms Cardiovascular: reports: Palpitations Respiratory: reports: No Symptoms Gastrointestinal: reports: No Symptoms Genitourinary: reports: No Symptoms Musculoskeletal: reports: No Symptoms Neurological: reports: Dizziness, Incoordination, Unsteady Gait Endocrine: reports: No Symptoms Hematology/Lymphatic: reports: No Symptoms - Risk Factors Known Risk Factors: Yes: Hypercholesterolemia, Hypertension, Smoking Vital Signs: Vital Signs Temperature 98.3 F 11/26/18 05:08 Pulse Rate 77 11/26/18 05:08 Respiratory Rate 18 11/26/18 05:08 Blood Pressure 117/67 11/26/18 05:08 O2 Sat by Pulse Oximetry (%) 97 11/25/18 21:00 Constitutional: Yes: No Distress, Calm Eyes: Yes: Conjunctiva Clear, EOM Intact Respiratory: Yes: CTA Bilaterally, Other (decreased breath sounds b/l c/w COPD, no active wheezing.) Gastrointestinal: Yes: Soft Cardiovascular: Yes: Regular Rate and Rhythm JVD: No Carotid Bruit: No Heart Sounds: Yes: S1, S2 Edema: No Neurological: Yes: Alert, Oriented - Other Data Labs, Other Data: CBC, BMP 11/25/18 05:25 11/25/18 05:25 INR, PTT INR 1.08 (0.83-1.09) 11/24/18 11:45 Troponin, BNP 11/25/18 17:15 Troponin I 0.19 H Troponin, BNP 11/25/18 17:15 Troponin I 0.19 H Laboratory Tests 11/24/18 11/24/18 11/25/18 11:45 22:50 05:25 WBC 7.4 Hgb 11.5 Plt Count 200 Sodium Potassium Creatinine AST ALT Troponin I 0.19 H 0.20 H 11/25/18 11/25/18 05:25 17:15 WBC Hgb Plt Count Sodium 142 Potassium 3.5 Creatinine 0.6 AST 22 ALT 22 Troponin I 0.19 H Echo: Report Reviewed Ejection Fraction %: LVEF > or = 40 % Imaging - Results Chest X-ray: Image Reviewed MRI: Image Reviewed EKG: Image Reviewed Assessment/Plan IMP: 1. Acute b/l CVAs 2. Reported h/o of PAF, no on chronic AC due prior GI bleeds 3. Chronic HTN 4. Hyperlipidemia 5. HIV+ 6. Chronic COPD, active smoker 7. Peptic ulcer disease (patient report). 8. PRESIDING JUDGE aneurysm REC: 1. Need to confirm reported h/o PAF with her outpatient data steward Dr. Gonzalez. Starting 11/27, [facility] will follow patient and try to verify history. If she indeed has PAF, this would likely explain her b/l CVAs. The issue of initiating AC will then need to be addressed with GI given the reported h/o PUD and recent accounts of BRBPR (Dr. Doyle is her GI). -For now, on ASA. -Cont telemetry. -JONY may be helpful, depending on confirmation of PAF history. 2. Agree w/ high intensity statin for LDL goal 7mg/dl, LDL currently 90s. 3. BP currently well controlled, cont. MAGDY-I. 4. Complete smoking cessation recommended. 5. Cont HAART as per primary team. 6. 1.4 cm PRESIDING JUDGE aneurysm on Head/Neck CTA. Defer further reccs re surveillance imaging and indication for intervention to Neurology. BP goal < 130/80, may benefit from skilled nursing B-Blockade. Coverage for Dr. Adams/Stephany
[2018-11-26] MEDS ORDERED: PT OWN MED DRAWER 7, Y5N ONE ×3 (11:02→16:02)
[2018-11-26] MEDS: LISINOPRIL 10 MG TABLET (FP) PO SCH (11:21)
[2018-11-26] MEDS: ASPIRIN 325 MG ENTERIC COATED TABLET (FP) PO SCH (11:21)
[2018-11-26] MEDS: ENOXAPARIN NA (PORCINE) 40 MG/0.4 ML DISP.SYRIN SQ SCH (11:22)
[2018-11-26] MEDS: CYPROHEPTADINE HCL 4 MG TABLET PO SCH ×2 (11:33→16:02)
[2018-11-26] MEDS: BUDESONIDE/FORMETEROL FUMARATE 160/4.5 mcg INHALER IH SCH (11:40)
--- NOTE | 2018-11-26 14:17 | PN ---
Progress Note (short form) - Note Progress Note: ID CONSULT DICTATED S/P CVA HIV + STABLE CONTINUE BIKTARVY (PT HAS OWN MEDS)
--- NOTE | 2018-11-26 14:50 | PN ---
Physical Exam: SUBJECTIVE: Patient seen and examined at bedside this morning. No acute events overnight. Patient reports feeling better and denies any fever, chills, headache , chest pain, SOB, abdominal pain, diarrhea, urinary symptoms. OBJECTIVE: Vital Signs Temperature 98.4 F 11/26/18 10:00 Pulse Rate 91 H 11/26/18 10:00 Respiratory Rate 18 11/26/18 10:00 Blood Pressure 123/84 11/26/18 10:00 O2 Sat by Pulse Oximetry (%) 99 11/26/18 09:00 GENERAL: Awake, alert, and fully oriented, in no acute distress. HEAD: Normal with no signs of trauma. EYES: PERRLA, EOMI, sclera anicteric, conjunctiva clear. EARS, NOSE, THROAT: Dry mucous membranes. NECK: Normal range of motion, supple. LUNGS: Breath sounds equal, clear to auscultation bilaterally. HEART: Regular rate and rhythm, normal S1 and S2 without murmur, rub or gallop. ABDOMEN: Soft, nontender, not distended, normoactive bowel sounds. MUSCULOSKELETAL: Normal range of motion at all joints. No bony deformities or tenderness. UPPER EXTREMITIES: 2+ pulses, warm, well-perfused. No peripheral edema. LOWER EXTREMITIES: 2+ pulses, warm, well-perfused. No peripheral edema. NEUROLOGICAL: AAOx3. Cranial nerves II-XII intact. Normal speech. B/L UE: Motor strength 4/5, sensation intact. B/L LE: motor strength 5/5, sensation intact. DTR +2. Walks with a cane. PSYCHIATRIC: Cooperative. Does not make eye contact. Gaze fixed to the right. SKIN: Warm, dry, normal turgor, no rashes or lesions noted, normal capillary refill. Laboratory Results - last 24 hr 11/25/18 17:15 Troponin I 0.19 H Active Medications Generic Name Dose Route Start Last Admin Trade Name Freq PRN Reason Stop Dose Admin Acetaminophen 325 mg 11/24/18 18:45 11/26/18 11:22 Tylenol - PO 325 mg TID PRN Administration PAIN LEVEL 1-5 Albuterol/Ipratropium 1 amp 11/24/18 16:44 Duoneb - NEB Q6H PRN SHORTNESS OF BREATH Aspirin 325 mg 11/25/18 10:00 11/26/18 11:21 Ecotrin - PO 325 mg DAILY OSBALDO Administration Budesonide/Formoterol Fumarate 2 puff 11/24/18 22:00 11/26/18 11:40 Symbicort 160/4.5mcg - IH 2 puff BID OSBALDO Administration Cyproheptadine HCl 4 mg 11/26/18 11:00 11/26/18 11:33 Periactin - PO 4 mg TIDAC OSBALDO Administration Docusate Sodium 100 mg 11/24/18 17:24 Colace - PO Q24H PRN CONSTIPATION Enoxaparin Sodium 40 mg 11/25/18 10:00 11/26/18 11:22 Lovenox - SQ 40 mg DAILY OSBALDO Administration Levothyroxine Sodium 25 mcg 11/25/18 07:00 11/26/18 06:23 Synthroid - PO 25 mcg AM OSBALDO Administration Lisinopril 10 mg 11/25/18 10:00 11/26/18 11:21 Prinivil PO 10 mg DAILY OSBALDO Administration Megestrol Acetate 40 mg 11/26/18 10:00 11/26/18 11:32 Megace - PO 40 mg DAILY OSBALDO Administration Non-Formulary Medication 1 each 11/25/18 10:00 Bictegrav/Emtricit/Tenofov Ala PO DAILY OSBALDO Non-Formulary Medication 2 gm 11/24/18 15:58 Diclofenac Sodium [Voltaren] TP TID PRN PAIN Oxycodone HCl 10 mg 11/26/18 10:13 11/26/18 11:22 Roxicodone - PO 10 mg TID PRN Administration PAIN LEVEL 7 - 10 Polyethylene Glycol 17 gm 11/24/18 17:23 Miralax (For Daily Use) - PO Q24H PRN CONSTIPATION Rosuvastatin Calcium 20 mg 11/24/18 22:00 11/25/18 21:28 Crestor - PO 20 mg HS OSBALDO Administration ASSESSMENT/PLAN: Patient is a 63 year old female with past medical history of HIV (on HAART), migraines, seizures, asthma, COPD, hypothyroidism, chronic pain and insomnia, presented to the ED due to worsening left arm and leg weakness with associated confusion and reported dysarthria in the last 4 days. #CVA -Head CT: Acute/early subacute cortical infarct is seen in the right middle frontal gyrus. Acute, early subacute cortical infarct with loss of differentiation between the white and barr matter is seen in the right posterior temporal lobe, inferior parietal lobule right, right precentral gyrus. No evidence of acute intracranial hemorrhage. -Brain CTA - Moderate to marked focal luminal narrowing is seen along the middle third of the right MCA which may be on the basis of stenosis vs localized spasm. 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 -Neck CTA - No extracranial carotid artery stenosis identified. -Brain MRI - Generalized volume loss with multiple acute infarcts in the right frontoparietal and occipital lobes with foci of acute small vessel infarction deep in the right periventricular white matter. There are 2 small foci of subacute infarction in the left parietal lobe. There are a few foci of chronic small vessel infarction in the periventricular white matter basal ganglia and thalami. Minimal hemorrhage is seen of the cortex of the largest infarct of the right parieto-occipital region. -Neurology (Dr. Hernández) consulted. Recommendations appreciated. -Continue ASA 81mg daily -Crestor 20mg PO HS -cardiology consult for bihemispheric stroke for possible JONY and bubble study -Echo done -physical therapy -tele monitoring -fall risk precautions -Cardiology consulted. REcommendations appreciated. -reported hx of paroxysmal A.fib -Seen by Dr. Gonzalez as outpatient -Would benefit from JONY, depending on confirmation of PAF history #Elevated Troponin -likely demand, peaked at 0.20 -EKG: NSR, no ST-T wave ischemic changes, similar to previous #Macrocytosis, chronic -Folate -B12 - 1299 #Hx of HIV -Continue HAART -ID (Dr. Song) consulted. #Hx of Migraines, Seizures -Patient was started on Depakote 500mg qHS last admission, but did not take it after discharge (AMA) -Sumatriptan 50-100mg PRN recommended on previous admission for migraine -Will give percocet PRN (home med) -seizure precautions #Asthma/COPD -Continue Symbicort BID -Duonebs q6h PRN for SOB #Hypothyroidism -Continue Synthroid 25mcg daily #Chronic pain -Continue home med percocet PRN #Underweight -Continue home Megestrol -Ensure added on diet #FEN -Not on any standing fluids -Electrolytes wnl, routine bmp monitoring -Sodium restricted, low fat diet #Prophylaxis -Lovenox 40mg sq daily #Disposition -full code -admit to tele Visit type - Emergency Visit Emergency Visit: Yes ED Registration Date: 11/24/18 Care time: The patient presented to the Emergency Department on the above date and was hospitalized for further evaluation of their emergent condition. - New Patient This patient is new to me today: Yes Date on this admission: 11/26/18 - Critical Care Critical Care patient: No ATTENDING PHYSICIAN STATEMENT I saw and evaluated the patient. I reviewed the resident's note and discussed the case with the resident. I agree with the resident's findings and plan as documented. SUBJECTIVE: OBJECTIVE: ASSESSMENT AND PLAN:
[2018-11-26 15:36] VITALS: BMI 16.7
[2018-11-26 19:05] VITALS: BP 110/54; PULSE 73; TEMP 98.3
--- NOTE | 2018-11-26 19:53 | PN ---
Progress Note (short form) - Note Progress Note: Was paged by nurse at 7:25 PM in regards to patient wanting to leave AMA. Spoke with patient about the risks of not completing work-up of cause of stroke including the risks of new stroke, weakness and tiredness from possible Afib, and risk of . Patient was competent and understood the risks of leaving and chose to leave despite risks.
--- NOTE | 2018-11-27 10:39 | PN ---
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 2 small foci of subacute infarct left parietal lobe 1. Acute b/l CVAs 2. Reported h/o of PAF, no on chronic AC due prior GI bleeds 3. Chronic HTN 4. Hyperlipidemia 5. HIV+ 6. Chronic COPD, active smoker 7. Peptic ulcer disease (patient report). 8. FISH SALTER aneurysm REC: 1. Need to confirm reported h/o PAF with her outpatient spoilage worker Dr. Gonzalez. Starting 11/27, [facility] will follow patient and try to verify history. If she indeed has PAF, this would likely explain her b/l CVAs. The issue of initiating AC will then need to be addressed with GI given the reported h/o PUD and recent accounts of [facility] (Dr. Doyle is her GI). -For now, on ASA. -Cont telemetry. -JONY may be helpful, depending on confirmation of PAF history. 2. Agree w/ high intensity statin for LDL goal 7mg/dl, LDL currently 90s. 3. BP currently well controlled, cont. MAGDY-I. 4. Complete smoking cessation recommended. 5. Cont HAART as per primary team. 6. 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 Defer further reccs re surveillance imaging and indication for intervention to Neurology. BP goal < 130/80, may benefit from moth exterminator B-Blockade. ASSESSMENT/PLAN 1. Right mca stroke, unliklely to be hiv related infection, patient has sudden onset symptoms, and left arm and leg weakness with right mca ischecmic lesion on ct head( evolved on second ct head ) Plan: speech, pt and dvt prophylaxis - continue aspirin and statin - spoilage worker consult for bihemispheric stroke for possible JONY and bubble study - spoke to primary team regarding giving percocet for her migraine headahce - cta of neck and brain reviewed - will continue to follow with primary
--- NOTE | 2018-11-27 17:32 | DS ---
Physical Exam: SUBJECTIVE: Please see previous notes. Patient signed out AMA overnight. -Head CT: Acute/early subacute cortical infarct is seen in the right middle frontal gyrus. Acute, early subacute cortical infarct with loss of differentiation between the white and barr matter is seen in the right posterior temporal lobe, inferior parietal lobule right, right precentral gyrus. No evidence of acute intracranial hemorrhage. -Brain CTA - Moderate to marked focal luminal narrowing is seen along the middle third of the right MCA which may be on the basis of stenosis vs localized spasm. 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 -Neck CTA - No extracranial carotid artery stenosis identified. -Brain MRI - Generalized volume loss with multiple acute infarcts in the right frontoparietal and occipital lobes with foci of acute small vessel infarction deep in the right periventricular white matter. There are 2 small foci of subacute infarction in the left parietal lobe. There are a few foci of chronic small vessel infarction in the periventricular white matter basal ganglia and thalami. Minimal hemorrhage is seen of the cortex of the largest infarct of the right parieto-occipital region. HOSPITAL COURSE: Date of Admission:11/24/18 Date of Discharge: 11/27/18 Patient is a 63 year old female with past medical history of HIV (on HAART), migraines, seizures, asthma, COPD, hypothyroidism, chronic pain and insomnia, presented to the ED due to worsening left arm and leg weakness with associated confusion and reported dysarthria in the last [address] revealed Right MCA stroke. Neurology was consulted. Patient started on ASA and Crestor. Brain MRI was done which revealed bihemispheric stroke. Cardiology was consulted for possible JONY with bubble study. Work-up was not completed as patient signed out AMA. Minutes to complete discharge: 35 Discharge Summary Reason For Visit: CVA Condition: Stable - Instructions Referrals: Merle Song MD [Primary Care Provider] - Disposition: AGAINST MEDICAL ADVICE - Home Medications Comprehensive Discharge Medication List: Ambulatory Orders Levothyroxine [Synthroid -] 25 mcg PO DAILY #30 tablet 09/30/17 Diclofenac Sodium [Voltaren] 2 gm TP TID PRN #3 tube 07/18/18 Ergocalciferol (Vitamin D2) [Vitamin D2] 50,000 unit PO Q7D #4 capsule 07/18/18 Umeclidinium Pelzer [Incruse Ellipta] 62.5 mcg IH DAILY 10/04/18 Bictegrav/Emtricit/Tenofov Ala [Biktarvy 50-200-25 mg Tablet] 1 each PO DAILY # 30 tablet 10/24/18 Lisinopril 10 mg PO DAILY #30 tablet 10/24/18 Nutritional Supplement [Ensure] 113 gm PO BID #60 pudding 10/31/18 Docusate Sodium [Dulcolax Stool Softener] 100 mg PO DAILY #6 capsule 11/10/18 Oxycodone HCl/Acetaminophen [Percocet 10-325 mg Tablet] 1 each PO TID PRN #90 tablet MDD 3 11/10/18 Budesonide/Formeterol Fumarate [SYMBICORT 160/4.5mcg -] 2 inh PO BID 11/24/18 Megestrol Acetate Oral Susp [Megace Oral Suspension -] 400 mg PO DAILY 11/24/18 Polyethylene Glycol 3350 [Miralax 119 gm Btl -] 17 gm PO DAILY PRN 11/24/18 This patient is new to me today: Yes Date on this admission: 11/29/18 Emergency Visit: Yes ED Registration Date: 11/24/18 Care time: The patient presented to the Emergency Department on the above date and was hospitalized for further evaluation of their emergent condition. Critical Care patient: No - Discharge Referral Referred to [facility] Med [facility] No ATTENDING PHYSICIAN STATEMENT I saw and evaluated the patient. I reviewed the resident's note and discussed the case with the resident. I agree with the resident's findings and plan as documented. SUBJECTIVE: OBJECTIVE: ASSESSMENT AND PLAN:
== END 2018-11-26 19:45 | disposition left against medical advice (07) | DRG 45 ==
LOC: JER 09:49 → JERBED 13:50 → J4S 11-25 00:36
PROVIDERS: ADMIT Internal Medicine; ATTEND Internal Medicine
DX: I63.89 Other cerebral infarction (principal); I67.1 Cerebral aneurysm, nonruptured; I69.354 Hemiplegia and hemiparesis following cerebral infarction affecting left non-dominant side; I24.8 Other forms of acute ischemic heart disease; I10 Essential (primary) hypertension; J44.9 Chronic obstructive pulmonary disease, unspecified; E03.9 Hypothyroidism, unspecified; G89.4 Chronic pain syndrome; F41.9 Anxiety disorder, unspecified; G43.909 Migraine, unspecified, not intractable, without status migrainosus; R56.9 Unspecified convulsions; Z21 Asymptomatic human immunodeficiency virus [HIV] infection status; M81.0 Age-related osteoporosis without current pathological fracture; Z88.0 Allergy status to penicillin; Z85.41 Personal history of malignant neoplasm of cervix uteri; I48.0 Paroxysmal atrial fibrillation; R13.10 Dysphagia, unspecified; E78.5 Hyperlipidemia, unspecified; F17.210 Nicotine dependence, cigarettes, uncomplicated; E43 Unspecified severe protein-calorie malnutrition; R26.81 Unsteadiness on feet; H54.7 Unspecified visual loss; G47.00 Insomnia, unspecified; R29.708 NIHSS score 8; D75.89 Other specified diseases of blood and blood-forming organs; Z68.1 Body mass index [BMI] 19.9 or less, adult; Z87.11 Personal history of peptic ulcer disease; Z86.11 Personal history of tuberculosis
CPT/HCPCS: 36415; 70450-TC; 70496-TC; 70498-TC; 70551-TC; 71045-TC-FY; 80053; 80061; 82550; 82553; 82607; 82747; 82977; 83036; 83721; 83735; 84100; 84484; 85014; 85025; 85610; 85651; 86850; 86870; 86900; 86901; 86902; 93005; 93010; 93306-TC; 93880-TC; 99285-25; J8999

== ENCOUNTER 2018-12-12 08:35 | Day surgery (SDC) | payer OTHER ==
[2018-12-11 15:08] VITALS: BMI 18.1
[2018-12-12 11:38] VITALS: TEMP 98.8
[2018-12-12 12:49] VITALS: BP 165/74; PULSE 61
== END 2018-12-12 12:00 | disposition home or self-care (01) ==
LOC: JASU-ENDO 08:35
PROVIDERS: ATTEND Internal Medicine Gastroenterology
PROC: 0DJD8ZZ Inspection of Lower Intestinal Tract, Via Natural or Artificial Opening Endoscopic (ICD-10-PCS; principal; 2018-12-12 10:45)
DX: K59.00 Constipation, unspecified (principal); Z21 Asymptomatic human immunodeficiency virus [HIV] infection status; J44.9 Chronic obstructive pulmonary disease, unspecified; I48.0 Paroxysmal atrial fibrillation; I10 Essential (primary) hypertension; Z86.73 Personal history of transient ischemic attack (TIA), and cerebral infarction without residual deficits; Z72.0 Tobacco use; C55 Malignant neoplasm of uterus, part unspecified

== ENCOUNTER → 2019-01-12 | Outpatient (CLI) | payer OTHER | LOC: YHH 11:07 ==

== ENCOUNTER 2019-10-26 05:25 | Inpatient (IN) | payer OTHER ==
--- NOTE | 2019-10-26 05:32 | PDOC ---
History of Present Illness - General Chief Complaint: Migraine Headache Stated Complaint: MIGRAINE Time Seen by Provider: 10/26/19 05:31 NIH Stroke Scale - Last Known Well Date/Time & Onset Date Last Known Well: 10/25/19 Time Last Known Well: 21:00 - Initial Evaluation Level of consciousness: Alert Ask patient the month and their age: Answers both correctly Ask patient to open & close eyes; make fist and let go: Obeys both correctly Best gaze (horizontal eye movement): Normal Visual field testing: No visual field loss Facial paresis (Show teeth/raise eyebrows/close eyes tight): Normal symmetrical movement Motor Function: Left Arm: Some effort against gravity Motor Function: Right Arm: Normal (extends arm 90 (or 45) degrees for 10 seconds without drift Motor Function: Left Leg: Some effort against gravity Motor Function: Right Leg: Normal (extends leg 30 degrees for 5 seconds without drift) Limb Ataxia: Untestable (Joint fused or limb amputated), explain: (L-sided ataxia untestable due to weakness) Sensory(Use pinprick test arms,legs,trunk,face/side to side): Normal Best language (Describe picture, name items, read sentences): No Aphasia Dysarthria (read several words): Normal articulation Extinction and Inattention: No abnormality - Total Score NIH Stroke Scale Score: 4 Past History - Medical History Allergies/Adverse Reactions: Allergies Allergy/AdvReac Type Severity Reaction Status Date / Time strawberry Allergy Intermediate Hives Verified 10/26/19 05:28 Penicillins Allergy Unknown Hives Verified 10/26/19 05:28 Sulfa (Sulfonamide Allergy Unknown Hives Verified 10/26/19 05:28 Antibiotics) gabapentin AdvReac Intermediate Nausea Verified 10/26/19 05:28 sumatriptan [From Imitrex] AdvReac Intermediate dizzy Verified 10/26/19 05:28 topiramate [From Topamax] AdvReac Intermediate Nausea Verified 10/26/19 05:28 Home Medications: Ambulatory Orders Aspirin [ASA -] 81 mg PO DAILY #30 tab 11/30/18 Levothyroxine [Synthroid -] 25 mcg PO DAILY #30 tablet 12/11/18 Multivitamin [Multiple Vitamins] 1 each PO DAILY 12/11/18 Albuterol Sulfate Inhaler - [Ventolin HFA Inhaler -] 1 puff IH DAILY 12/12/18 Butalb/Acetaminophen/Caffeine [Jiluyk-Ulmghhzz-Item 50-325-40] 1 each PO DAILY 12/12/18 Diltiazem HCl [Diltiazem 24Hr ER] 120 mg PO DAILY 12/12/18 Lisinopril 40 mg PO DAILY 12/12/18 Ondansetron [Zuplenz] 8 mg PO DAILY 12/12/18 Topiramate 25 mg PO DAILY 12/12/18 Umeclidinium [place] [Incruse Ellipta] 62.5 mcg IH DAILY 12/12/18 Ergocalciferol (Vitamin D2) [Vitamin D2] 50,000 unit PO Q7D #4 capsule 02/07/19 Bictegrav/Emtricit/Tenofov Ala [Biktarvy 50-200-25 mg Tablet] 1 each PO DAILY #30 tablet 03/22/19 Lactose-Reduced Food [Ensure Plus] 237 ml PO BID #60 liquid 03/22/19 Cyanocobalamin [Vitamin B12 -] 1,000 mcg PO DAILY #30 tablet 04/03/19 Diclofenac Sodium [Voltaren] 2 gm TP TID PRN #3 tube 04/03/19 Melatonin/Pyridoxine HCl (B6) [Melatonin 5 mg Tablet] 1 each PO HS #30 tablet 04/03/19 Multivitamin [Multiple Vitamins] 1 each PO DAILY #30 tablet 04/03/19 Baclofen 10 mg PO BID PRN #60 tablet 05/04/19 Oxycodone HCl/Acetaminophen [Endocet 10-325 mg Tablet] 1 each PO TID PRN #90 tablet MDD 3 05/04/19 Anemia: Yes Asthma: Yes Cancer: Yes (cervical cancer- cone biopsy- 1970s) Cardiac Disorders: Yes (afib paroxsmal) CVA: Yes (TIA) COPD: Yes CHF: No Dementia: No Diabetes: No GI Disorders: Yes (delayed gastric emptying, dysphagia) Disorders: No HTN: Yes Hypercholesterolemia: Yes Liver Disease: Yes (elevated GGT) Psychiatric Problems: Yes (anxeity) Seizures: Yes Thyroid Disease: Yes (hypothyroid s/p partial thyroidectomy) - Surgical History Abdominal Surgery: No Appendectomy: No Cardiac Surgery: No Cholecystectomy: No Lung Surgery: No Neurologic Surgery: No Orthopedic Surgery: Yes (neck , microdiscectomy L3,4,5 [facility] 11/25/16) - Immunization History Immunization Up to Date: No (no flu or pneumonia shot.) - Psycho-Social/Smoking History Smoking Status: Yes Smoking History: Former smoker Have you smoked in the past 12 months: Yes Number of Cigarettes Smoked Daily: 1 If you are a former smoker, when did you quit?: 8 months Cigars Per Day: 0 'Breaking Loose' booklet given: 11/25/18 ED Treatment Course - LABORATORY CBC & Chemistry Diagram: 10/26/19 06:00 10/26/19 06:00 Medical Decision Making - Medical Decision Making 10/26/19 05:36 HPI: 64yo F hx HIV (on HAART, last CD4 900s and non detectable viral load), osteoporosis, HLD, HTN, asthma, COPD, hypothyroidism, migraines, chronic pain syndrome, anxiety, seizures, and multiple ED visits for stroke like sx (last on 11/2018 for LUE/LLE weakness and staggered gait, prior on 09/2009) BIBA from home for collapse 2/2 L-sided weakness this AM. USOH yesterday, LKN last PM. Woke up at 0500, getting out of bed L-sided weakness caused her to collapse. Endorses lightheadedness prior to collapse and currently but denies this causing her collapse. Denies preceding chest pain or SOB or vision changes, head injury, LOC, seizure-like activity. Endorses R hip pain and L foot tingling since collapse. Pt poor historian and continuously changes story. States stroke 2 months ago with residual LUE and LLE weakness. Endorses chronic migraines usually bitemporal pressure type but now has one that's occipital pounding type. Usually takes percocet for migraines, none taken today, no pain meds taken today. Denies COVID contacts, sick contacts, travel, URI-like sx. PCP: Merle Castro ROS: Constitutional: Negative for chills, fever, fatigue, diaphoresis. HENT: Negative for sore throat, rhinorrhea, congestion. Eyes: Negative for visual disturbance. Respiratory: Negative for shortness of breath, cough, and wheezing. Cardiovascular: Negative for chest pain, palpitations, and leg swelling. Gastrointestinal: Negative for abdominal pain, blood in stool, constipation, diarrhea, nausea, and vomiting. Genitourinary: Negative for dysuria, flank pain, and hematuria. Musculoskeletal: Positive for R hip pain. Negative for myalgias, back pain, and neck pain. Skin: Negative for rash. Neurological: Positive for L-sided weakness, migraines, headache, light-hea dedness, L foot tingling. Negative for vertigo, syncope, weakness. Psychiatric/Behavioral: Negative for behavioral problems and confusion. PE: Gen: Alert, NAD, comfortable-appearing. HEENT: PERRL, EOMI, MMM, NCAT. No conjunctival pallor. Sclera are non-icteric. CV: Regular rate and rhythm. No murmurs, rubs, or gallops. PULM: No resp distress. CTAB, no wheezes, rales, or rhonchi. ABD: soft, NT/ND, no rebound tenderness or guarding, no CVA tenderness. BACK: No TTP of c/t/l-spine. No step-offs or deformities. MSK: Pelvis stable, intact. No bony deformities. 2+ pulses in all extremities. NEURO: AAOx3. PERRL. CN 2-12 intact. 3/5 strength in LLE/LUE, 5/5 strength in RLE/RUE. Sensation to light touch intact in all extremities. No R-sided dysmetria. No R-sided dysdiadochokinesia. No abnormal nystagmus. EXTREMITIES: No cyanosis. No clubbing. No edema. No calf tenderness. PSYCH: Poor historian. Normal mood and tangential thought pattern. SKIN: Warm and dry. Normal capillary refill. No rashes. No jaundice. MDM: 64yo F hx HIV (on HAART, last CD4 900s and non detectable viral load), osteoporosis, HLD, HTN, asthma, COPD, hypothyroidism, migraines, chronic pain syndrome, anxiety, seizures, and multiple ED visits for stroke like sx (last on 11/2018 for LUE/LLE weakness and staggered gait, prior on 09/2009) BIBA from home for collapse 2/2 L-sided weakness this AM. Hemodynamically stable, afebrile, 3/5 strength in LUE/LLE but otherwise neurol ogically intact, NIHSS [address] Ddx: TIA/CVA, tension headache, complex migraine, seizure, anxiety, ACS/MN, arrhythmia, infection, metabolic derangement, anemia -Stroke w/u -Pelvic/chest XR -Pain management: ofirmev -Dispo: likely admit stroke unit 10/26/19 06:29 EKG reviewed: NSR w/frequent PVCs, 73bpm, normal intervals, normal axis, no e/o acute ischemia CXR reviewed: No acute pathology Pelvic XR reviewed: No acute pathology CTH - call received from radiologist: old R-sided infarct, new L-sided mastoiditis -Vanc, Cefepime Labs reviewed. Notable for trop elevation 0.12 (lower than baseline). Pt signed out to Dr Chin. Pending CTA, likely admit stroke unit for CVA r/o and mastoiditis. Discharge - Discharge Information Problems reviewed: Yes Clinical Impression/Diagnosis: Mastoiditis, Left-sided weakness, Troponin level elevated, Migraine Condition: Stable - Admission Yes - Follow up/Referral - Patient Discharge Instructions - Post Discharge Activity
[2019-10-26] MEDS ORDERED: ACETAMINOPHEN 1000 MG/100 ML VIAL (NON FORMULARY) IVPB ONE (05:34)
[2019-10-26] MEDS ORDERED: ACETAMINOPHEN INJECTION 100 ML IVPB ONE (05:44)
--- NOTE | 2019-10-26 05:52 | PDOC ---
Attending Attestation - Resident Resident Name: BuckMary Alice - ED Attending Attestation I have performed the following: I have examined & evaluated the patient, The case was reviewed & discussed with the resident, I agree w/resident's findings & plan, Exceptions are as noted - HPI HPI: 10/26/19 07:22 See resident HPI - Physicial Exam PE: 10/26/19 07:23 Agree with documented exam - Medical Decision Making 10/26/19 07:23 USOH at bedtime, upon waking to go to the bathroom early this morning, Pt fell 2/2 L sided weakness, unclear if worsening of existing symptom, patient is poor historian. Will need to be evaluated for cva/tia, ?pre-syncope f/u labs, ekg, cxr, ct h dispo per clinical course, likely admission elevated trop, consistent with her baseline CT H: prior R MCA stroke, L mastoiditis? No clinical signs of mastoiditis, no TTP, erythema, edema, pinna unremarkable, TM unremarkable Discharge - Discharge Information Problems reviewed: Yes Clinical Impression/Diagnosis: Mastoiditis, Left-sided weakness, Troponin level elevated, Migraine Condition: Stable - Follow up/Referral - Patient Discharge Instructions - Post Discharge Activity
[2019-10-26 06:11] LABS: BASO % 0.6 % (0-2.0); EOS % 0.3 % (0-4.5); LYMPH % 17.3 % (8-40); MCH 34.9 pg (25.7-33.7); MCHC 33.3 g/dl (32.0-36.0); MEAN CELL VOLUME 104.8 fl (80-96); MEAN PLT VOLUME 7.4 fl (7.5-11.1); MONO % 7.6 % (3.8-10.2); NEUT % 74.2 % (42.8-82.8); PLATELET COUNT 211 K/MM3 (134-434); RBC 3.44 M/mm3 (3.60-5.2); RDW 14.8 % (11.6-15.6); WHITE BLOOD COUNT 9.3 K/mm3 (4.0-10.0)
[2019-10-26 06:23] LABS: INR 0.95 (0.83-1.09); PROTHROMBIN TIME (PATIENT) 11.2 SEC (9.7-13.0)
[2019-10-26 06:26] LABS: ACTIVATED PTT 22.6 SECONDS (25.2-36.5)
[2019-10-26 06:33] LABS: CHOLESTEROL 191 mg/dL (50-200); HDL CHOLESTEROL 82 mg/dL (40-60); LDL CHOLESTEROL (ONLY SJRH) 71 mg/dL (5-100); TRIGLYCERIDES 76 mg/dL (0-150)
[2019-10-26 06:36] LABS: ALBUMIN 3.6 g/dl (3.4-5.0); BILIRUBIN,TOTAL 0.3 mg/dL (0.2-1); BLOOD UREA NITROGEN 18.3 mg/dL (7-18); CALCIUM 8.6 mg/dL (8.5-10.1); CREATININE 0.9 mg/dL (0.55-1.3); POTASSIUM 4.3 mmol/L (3.5-5.1); TOT PROT 6.5 g/dl (6.4-8.2)
[2019-10-26] MEDS ORDERED: CEFEPIME HCL/D5W 1 GM/50 ML BAG IVPB ONE (06:38)
[2019-10-26] MEDS ORDERED: VANCOMYCIN 1 GM in D5W (PRE-DOCKED) 1,000 MG/250 ML IVPB ONE (06:38)
[2019-10-26] MEDS ORDERED: CEFEPIME 1 GM/100 ML BAG IVPB ONE (06:56)
[2019-10-26] MEDS ORDERED: ASPIRIN 81 MG CHEWABLE TABLETS PO ONE (07:02)
[2019-10-26] MEDS ORDERED: VANCOMYCIN 1 GRAM (PRE-DOCKED) 1,000 MG/250 ML BAG IVPB ONE (07:22)
[2019-10-26] MEDS ORDERED: ASPIRIN 325 MG ENTERIC COATED TABLET (FP) ONE (07:22)
--- NOTE | 2019-10-26 07:34 | PDOC ---
*Physical Exam - Vital Signs Last Vital Signs Temp Pulse Resp BP Pulse Ox 98.6 F 68 18 150/87 100 10/26/19 05:31 10/26/19 05:31 10/26/19 05:31 10/26/19 05:31 10/26/19 05:31 ED Treatment Course - LABORATORY CBC & Chemistry Diagram: 10/26/19 06:00 10/26/19 06:00 - ADDITIONAL ORDERS Additional order review: Laboratory Results 10/26/19 10/26/19 10/26/19 06:00 06:00 06:00 PT with INR 11.20 INR 0.95 PTT (Actin FS) 22.6 L Sodium 142 Potassium 4.3 Chloride 112 H Carbon Dioxide 25 Anion Gap 5 L BUN 18.3 H Creatinine 0.9 Est GFR (CKD-EPI)AfAm 78.32 Est GFR (CKD-EPI)NonAf 67.57 Random Glucose 110 H Calcium 8.6 Total Bilirubin 0.3 AST 17 ALT 21 Alkaline Phosphatase 140 H Creatine Kinase 125 Troponin I 0.12 H Total Protein 6.5 Albumin 3.6 Triglycerides 76 Cholesterol 191 Total LDL Cholesterol 71 HDL Cholesterol 82 H 10/26/19 06:00 RBC 3.44 L MCV 104.8 H MCHC 33.3 RDW 14.8 MPV 7.4 L D Neutrophils % 74.2 D Lymphocytes % 17.3 D Monocytes % 7.6 Eosinophils % 0.3 Basophils % 0.6 - Medications Given in the ED: ED Medications Discontinued Medications Generic Name Dose Route Start Last Admin Trade Name Freq PRN Reason Stop Dose Admin Acetaminophen 1,000 mg 10/26/19 05:34 10/26/19 06:54 Ofirmev Injection - IVPB 10/26/19 05:35 Not Given ONCE ONE Aspirin 324 mg 10/26/19 07:02 10/26/19 07:24 Asa - PO 10/26/19 07:03 324 mg ONCE ONE Administration Cefepime HCl 1 gm in 50 mls @ 100 mls/hr 10/26/19 06:38 10/26/19 07:21 Maxipime 1 Gm Premix Ivpb IVPB 10/26/19 07:07 100 mls/hr ONCE ONE Administration Protocol Medical Decision Making - Medical Decision Making Patient signed out to me from night team pending admission to hospital for stroke rule out from left arm and leg weakness as well as Abx treatment for possible mastoiditis based on CT scan however patient is not tender in the mastoid region -Neuro Consult placed to Dr. Hernández as he has seen patient in the past 10/26/19 07:34 Microblogged for admission to hospitalist 10/26/19 08:[address] Lynne who accepted patient onto her hospital service Discharge - Discharge Information Problems reviewed: Yes Clinical Impression/Diagnosis: Mastoiditis, Left-sided weakness, Troponin level elevated, Migraine Condition: Stable - Admission Yes - Follow up/Referral Referrals: ON STAFF,NOT [Primary Care Provider] - - Patient Discharge Instructions - Post Discharge Activity tPA Exclusion checklist 3-4.5h - Time Elapsed Date last known well: 10/25/19 Time last known well: 22:00 Elaspsed time: Day(s) and 10 Hour(s) and 5 Minutes - Thrombolytic Therapy Candidate Is patient eligible for thrombolytic therapy: No - Exclusion Criteria 3-4.5 hr SBP greater than 185 or DBP greater than 110mmHg despite tx: No Recent IC/spinal surgery,head trauma or stroke<3mos.: No Hx IC hemorrhage, IC neoplasm, AV malformation or aneurysm: No Active internal bleeding: No Blding diathesis(low plt ct, inc PTT,INR>1.7 or use of NOAC): No Symptoms suggest subarachnoid hemorrhage: No CT demonstrates multilobar infarct(>1/3 cerebral hemiphere): No Arterial puncture at noncompressible site in previous 7 days: No Blood glucose concentration less than 50mg/dL (2.7mmol/L): No - Relative Exclusion Criteria 3-4.5 hr Care team unable to determine eligibility: No IV/IA thrombolysis/thrombectomy @ another hosp prior arrival: No Life expectancy <1 yr or severe co-morbid illness: No : No Patient/family refused: No Stroke severity too mild (non-disabling): Yes Recent acute ID (w/in previous 3 months): Yes Seizure at onset with postictal residual neuro impairments: No Major surgery or serious trauma w/in previous 14 days: No Recent GI or hemorrhage (w/in previous 21 days): No - Add'l Relative Exclusion 3-4.5 hr Age > 80: No Hx of both diabetes AND prior ischemic stroke: Yes Taking an oral anticoagulant regardless of INR: Yes Severe Stroke (NIHSS >25): No - Ineligibility reason(s) Reasons No tPA given: Outside of window - delayed arrival
--- NOTE | 2019-10-26 08:57 | HP ---
Admitting History and Physical - Primary Care Physician PCP: Marisela Lynne - Admission Chief Complaint: weakness L side since am History of Present Illness: 64yo F hx HIV (on HAART, last CD4 900s and non detectable viral load), osteoporosis, HLD, HTN, asthma, COPD, hypothyroidism, migraines, chronic pain syndrome, anxiety, seizures, and multiple ED visits for stroke like sx (last on 11/2018 for LUE/LLE weakness and staggered gait, prior on 09/2009) BIBA from home for collapse 2/2 L-sided weakness this AM. USOH yesterday, LKN last PM. Woke up at 0500, getting out of bed L-sided weakness caused her to collapse. Endorses lightheadedness prior to collapse and currently but denies this causing her collapse. Denies preceding chest pain or SOB or vision changes, head injury, LOC, seizure-like activity. Endorses R hip pain and L foot tingling since collapse. Pt poor historian and continuously changes story. States stroke 2 months ago with residual LUE and LLE weakness. Endorses chronic migraines usually bitemporal pressure type but now has one that's occipital pounding type. Usually takes percocet for migraines, none taken today, no pain meds taken t mario. Denies COVID contacts, sick contacts, travel, URI-like sx. 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 Cardiovascular: Yes: HTN, Hyperlipdemia Pulmonary: Yes: COPD Infectious Disease: Yes: HIV Endocrine: Yes: Hypothyroidism - Past Surgical History Past Surgical History: Yes: AICD - Smoking History Smoking history: Former smoker Have you smoked in the past 12 months: Yes Aproximately how many cigarettes per day: 1 If you are a former smoker, when did you quit?: 8 months - Alcohol/Substance Use Hx Alcohol Use: No History of Substance Use: reports: None - Social History ADL: Independent History of Recent Travel: No Home Medications - Allergies Allergies/Adverse Reactions: Allergies Allergy/AdvReac Type Severity Reaction Status Date / Time strawberry Allergy Intermediate Hives Verified 10/26/19 05:28 Penicillins Allergy Unknown Hives Verified 10/26/19 05:28 Sulfa (Sulfonamide Allergy Unknown Hives Verified 10/26/19 05:28 Antibiotics) gabapentin AdvReac Intermediate Nausea Verified 10/26/19 05:28 sumatriptan [From Imitrex] AdvReac Intermediate dizzy Verified 10/26/19 05:28 topiramate [From Topamax] AdvReac Intermediate Nausea Verified 10/26/19 05:28 - Home Medications Home Medications: Ambulatory Orders Bictegrav/Emtricit/Tenofov Ala [Biktarvy 50-200-25 mg Tablet] 1 each PO DAILY #30 tablet 03/22/19 Cyanocobalamin [Vitamin B12 -] 1,000 mcg PO DAILY #30 tablet 04/03/19 Multivitamin [Multiple Vitamins] 1 each PO DAILY #30 tablet 04/03/19 Butalb/Acetaminophen/Caffeine [Fioricet 50-300-40 mg Capsule] 1 each PO QID PRN 10/27/19 Cyanocobalamin [Vitamin B12 -] 1,000 mcg PO DAILY 10/27/19 Lactose-Reduced Food [Ensure Liquid] 237 ml PO TID 10/27/19 Megestrol Acetate Oral Susp [Megace Oral Suspension -] 1 tsp PO DAILY 10/27/19 Oxycodone HCl/Acetaminophen [Percocet 10-325 mg Tablet] 1 each PO TID PRN 10/27/19 Atorvastatin Ca [Lipitor] 40 mg PO HS #30 tablet 10/31/19 Diltiazem Cd [Cardizem Cd -] 120 mg PO DAILY cap.cd.24h 10/31/19 Enoxaparin [Lovenox -] 60 mg SQ BID disp.syrin 10/31/19 Levothyroxine [Synthroid -] 12.5 mcg PO DAILY@0700 #0 tablet 10/31/19 Lisinopril [Prinivil] 10 mg PO DAILY #0 tablet 10/31/19 Warfarin Na [Coumadin -] 5 mg PO DAILY@1800 tablet 10/31/19 Family Medical History Family History: Unremarkable Review of Systems - Review of Systems Constitutional: reports: Malaise Eyes: reports: No Symptoms HENT: reports: No Symptoms Neck: reports: No Symptoms Cardiovascular: reports: No Symptoms Respiratory: reports: No Symptoms Gastrointestinal: reports: No Symptoms Musculoskeletal: reports: Muscle Weakness Neurological: reports: Seizure, Unsteady Gait, Weakness Psychiatric: reports: Anxiety Physical Examination Vital Signs: Vital Signs Temperature 98.6 F 10/26/19 05:31 Pulse Rate 71 10/26/19 07:15 Respiratory Rate 21 H 10/26/19 07:15 Blood Pressure 175/93 H 10/26/19 07:15 O2 Sat by Pulse Oximetry (%) 98 10/26/19 07:15 Constitutional: Yes: Well Nourished, No Distress, Calm Eyes: Yes: Conjunctiva Clear, EOM Intact HENT: Yes: Atraumatic, Normocephalic Neck: Yes: Supple, Trachea Midline Cardiovascular: Yes: Regular Rate and Rhythm Respiratory: Yes: Regular, CTA Bilaterally Gastrointestinal: Yes: Normal Bowel Sounds, Soft Extremities: Yes: WNL Edema: No Peripheral Pulses WNL: Yes Neurological: Yes: Alert, Oriented (no aphasia, no dysarthria, no sensory deficit, no dysdiodokokinesia,) ...Motor Strength: LUE (3/5), LLE (3/5), RUE (5/5), RLE (5/5) Psychiatric: Yes: WNL Labs: CBC, BMP 10/26/19 06:00 10/26/19 06:00 Imaging - Results Chest X-ray: Report Reviewed EKG: Report Reviewed, Image Reviewed (nsr, no acute st t changes,) Assessment/Plan HPI: 64yo F hx HIV (on HAART, last CD4 900s and non detectable viral load), oste oporosis, HLD, HTN, asthma, COPD, hypothyroidism, migraines, chronic pain syndrome, anxiety, seizures, and multiple ED visits for stroke like sx (last on 11/2018 for LUE/LLE weakness and staggered gait, prior on 09/2009) BIBA from home for collapse 2/2 L-sided weakness this AM. CVA. L sided weakness, worse than before new, out of the window for the TPA, received asa swallowing eval. and Neuro eval awaiting for MRA and MRI of the head and neck, was supposed to be on coumadin, had Recent blood in stool, stopped on her own, no h/p GI briseno recently, no GI fu, will get stool Ob and GI h/O PAF on A/C coumadin, not taking, slightly high troponin, see the cardiology consult, Essential Htn continue amlodipine, and also losartan H/o HIV get viral load and cd4, on Biktarvy, see ID, h/o seizures, not on any meds, monitor, last attack few yrs ago, not on meds, H/o hypothyroidsm not on meds, will check tsh, not on meds called [facility], and got the list of meds, Visit type - Emergency Visit Emergency Visit: Yes ED Registration Date: 10/26/19 Care time: The patient presented to the Emergency Department on the above date and was hospitalized for further evaluation of their emergent condition. - New Patient This patient is new to me today: Yes Date on this admission: 11/04/19 - Critical Care Critical Care patient: No
[2019-10-26 09:13] LABS: EPI CELLS 15 /uL (0-25.1); HYALINE CASTS 1 /uL (0-3.1); PH,URINE 6.5 (5.0-8.0); URINE APPEARANCE CLEAR; URINE BACTERIA 229 /uL (0-1359); URINE BILIRUBIN NEGATIVE (NEGATIVE); URINE COLOR DK YELLOW; URINE GLUCOSE (UA) NEGATIVE (NEGATIVE); URINE KETONE NEGATIVE (NEGATIVE); URINE LEUK ESTERASE NEGATIVE (NEGATIVE); URINE NITRITE NEGATIVE (NEGATIVE); URINE PROTEIN 3+ (NEGATIVE); URINE WBC 8 /uL (0-25.8)
[2019-10-26 09:29] LABS: URINE CRYSTALS NON SEEN /hpf
[2019-10-26] MEDS ORDERED: HEPARIN NA (PORCINE) 5,000 UNITS/ML 1ML VIAL SQ SCH (10:00)
[2019-10-26] MEDS: ASPIRIN COATED 81 MG TABLET.EC PO SCH (10:06)
[2019-10-26] MEDS ORDERED: amLODIPine BESYLATE 5 MG TABLET (FP) ONE (10:09)
[2019-10-26] MEDS ORDERED: LOSARTAN POTASSIUM 50 MG TABLET (FP) ONE (10:09)
[2019-10-26] MEDS ORDERED: HEPARIN NA (PORCINE) 5,000 UNITS/ML 1ML VIAL ONE (10:10)
[2019-10-26] MEDS: amLODIPine BESYLATE 10 MG TABLET (FP) PO SCH (10:15)
[2019-10-26] MEDS: LOSARTAN POTASSIUM 25 MG TABLET PO SCH (10:15)
--- NOTE | 2019-10-26 10:21 | EKG ---
Test Reason : Blood Pressure : / mmHG Vent. Rate : 073 BPM Atrial Rate : 073 BPM P-R Int : 132 ms QRS Dur : 074 ms QT Int : 386 ms P-R-T Axes : 056 050 072 degrees QTc Int : 425 ms SINUS RHYTHM WITH FREQUENT PREMATURE ATRIAL COMPLEXES Confirmed by KILLIAN CHAMBERS MD ([id number]) on 10/26/2019 10:21:11 AM Referred By: Confirmed By:KILLIAN CHAMBERS MD
--- NOTE | 2019-10-26 11:06 | CONSULT ---
Admitting History and Physical - Primary Care Physician PCP: Marisela Lynne - Admission History of Present Illness: Per admission note-64yo F hx HIV (on HAART, last CD4 900s and non detectable viral load), osteoporosis, HLD, HTN, asthma, COPD, hypothyroidism, migraines, chronic pain syndrome, anxiety, seizures, and multiple ED visits for stroke like sx (last on 11/2018 for LUE/LLE weakness and staggered gait, prior on 09/2009) BIBA from home for collapse 2/2 L-sided weakness this AM. USOH yesterday, LKN last PM. Woke up at 0500, getting out of bed L-sided weakness caused her to collapse. Endorses lightheadedness prior to collapse and currently but denies this causing her collapse. Denies preceding chest pain or SOB or vision changes, head injury, LOC, seizure-like activity. Endorses R hip pain and L foot tingling since collapse. Pt poor historian and continuously changes story. States stroke 2 months ago with residual LUE and LLE weakness. Endorses chronic migraines usually bitemporal pressure type but now has one that's occipital pounding type. Usually takes percocet for migraines, none taken today, no pain meds taken today. Denies COVID contacts, sick contacts, travel, URI-like sx. Selected Entries 10/26/19 10/26/19 05:31 07:15 Temperature 98.6 F Blood Pressure 150/87 Blood Pressure 175/93 H [Left Arm] Laboratory Tests 10/26/19 10/26/19 06:00 07:25 WBC 9.3 COVID-19 ([facility]) Pending NPO. Passed Dysphagia screen. CT head- Chronic infarcts on right. Appreciate Neuro input- Alert oriented x 3, speech is slightly dysarthric mild elft facial palsy left sided hemiparesis ct head is pending, suggestive of left mastoid and abx started by ED cta of neck and brain pending( as per pateint she has small aneurysm ) no p rocedure was done 1. Worsening of left sided weakness rule out stroke, suggest to repeat mri and follow up on ct head 2. Mastoid abx as per ID 3. ? seizure , plan: - follow up on ct head and cta of neck and brain - continue apsirin and statin pt, dvt prophylaxis - mri ofbrain - eeg Seen in ED. 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 Cardiovascular: Yes: HTN, Hyperlipdemia Pulmonary: Yes: COPD Infectious Disease: Yes: HIV Endocrine: Yes: Hypothyroidism - Past Surgical History Past Surgical History: Yes: AICD - Smoking History Smoking history: Former smoker Have you smoked in the past 12 months: Yes Aproximately how many cigarettes per day: 1 If you are a former smoker, when did you quit?: 8 months - Alcohol/Substance Use Hx Alcohol Use: No History of Substance Use: reports: None - Social History ADL: Independent History of Recent Travel: No History - Admission Reason For Visit: MIGRAINE;MASTOIDITIS;WEAKNESS OF LEFT SIDE OF - Diagnostics X-ray: Report Reviewed CT Scan: Report Reviewed - General Mental Status: Alert and Oriented, Awake and Alert, Able to Follow Commands Attention: Intact Ability to Follow Directions: Excellent Head/Neck Control: WFL - Hearing Hearing: Functional Speech Evaluation - Communication Primary Language: MONG[place] Communication: Yes: Dysarthria Oral Expression Ability: Yes: Mild Impairment - Speech Production Able to Make Needs Known: Yes: WNL Intelligibility: Yes: Mildly Impaired - Speech Characteristics Voice Loudness: Normal Voice Pitch: Yes: Normal Voice Phonatory-based Quality: Yes: Normal Speech Clarity: < 100% Nasal Resonance: Normal Articulation: Yes: Imprecise (mild) Rate of Speech: Intact - Language/Auditory Comprehension Follows: Yes: 2 Stage Simple Commands Observation: Able to respond to yes/no queries: Yes, Yes/No Confusion: No, Comprehends Conversational Speech: Yes - Language/Verbal Expression Able to Respond to Simple Queries: Yes: WNL Able to Communicate Wants and Needs: Yes: WNL Functional Communication Status: Yes: WNL - Swallow Evaluation/Bedside Assessment Current Nutritional Intake: NPO Oral Secretions: Yes: WFL Dentition: Yes: Adequate Facial Symmetry at Rest: Facial Droop Left Facial Symmetry on Retraction: Facial Droop Left Against Resistance Opening: Normal Against Resistance Closing: Normal Pucker Lips: Normal Smile: Normal, Droops Left Lingual Movement: Deviates Left Lingual Speed of Movement: Reduced Lingual Movement Strgth Against Opposition: Reduced Lingual Movement Characteristics: Normal Velopharyngeal Movement: Normal Laryngeal Elevation: Impaired Laryngeal Movement: Labored,delay initiation Rate of Intake: WFL Bolus Size: WFL Labial Seal: WFL Timing of Swallow: Delayed Coughing/Throat Clear: Yes (thin liquid . (+) 3 oz water test) Recommendations - Speech Evaluation, Impression/Plan Impression: Verbal. Mild Dysarthria. Cough response on 3 oz water test. Seemed oriented/appropriate. Sleepy but arousable in ED. Pt reports h/o coughing on thin liquids since "Thyroid surgery on right side because it was diseased". S aid she "needs to have left side done"? - Dysphagia Impressions/Plan Swallowing Skills: Impaired Dysphagia Impressions: Mild Impairment, Suspect Aspiration *Silent aspiration: cannot be R/O at bedside Dysphagia Treatment Plan: Chin Tuck/Down, Trial Feedings, Safe Rate, 1/2 tsp. at a time, Elevate HOB during feed, OOB for meals, OOB for 1 h. after meals Recommendations: Modified Barium Swallow - Recommendations Diet Consistency: Other (chopped) Liquids: [place] Thick Supplement: Magic Cup, Ensure Pudding
--- NOTE | 2019-10-26 11:17 | PN ---
Progress Note (short form) - Note Progress Note: 64yo F hx HIV (on HAART, last CD4 900s and non detectable viral load), osteoporosis, CVAs bilaterally, PAFb was supposed to be on coumadin, had Recent blood in stool, stopped on her own, no h/p GI brisneo recently, no GI fuHLD, HTN, asthma, COPD, hypothyroidism, migraines, chronic pain syndrome, anxiety, seizures, and multiple ED visits for stroke like sx (last on 11/2018 for LUE/LLE weakness and staggered gait, prior on 09/2009) BIBA from home for collapse 2/2 L-sided weakness this AM. states 3 weeks ago d/c'ed AC " I had urinary bleeding" and started ASA instead; was supposed to see Dr Gonzalez this month; felt palpitations including this am with the above sx; states has "atrial fibrillation", no stress test in past as per pt. No CP/SOB; Trop 0.12; ECG: NSR, APC Patient reports seeing Dr. Leta Gonzalez ([facility]) and was told she had PAF in past, but is not on AC because of "bleeding ulcer". 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 Cardiovascular: Yes: HTN, Hyperlipdemia Pulmonary: Yes: COPD Infectious Disease: Yes: HIV Endocrine: Yes: Hypothyroidism - Past Surgical History Past Surgical History: Yes: AICD - Smoking History Smoking history: Former smoker Have you smoked in the past 12 months: Yes Aproximately how many cigarettes per day: 1 If you are a former smoker, when did you quit?: 8 months - Alcohol/Substance Use Hx Alcohol Use: No History of Substance Use: reports: None - Social History ADL: Independent History of Recent Travel: No Home Medications - Allergies Allergies/Adverse Reactions: Allergies Allergy/AdvReac Type Severity Reaction Status Date / Time strawberry Allergy Intermediate Hives Verified 10/26/19 05:28 Penicillins Allergy Unknown Hives Verified 10/26/19 05:28 Sulfa (Sulfonamide Allergy Unknown Hives Verified 10/26/19 05:28 Antibiotics) gabapentin AdvReac Intermediate Nausea Verified 10/26/19 05:28 sumatriptan [From Imitrex] AdvReac Intermediate dizzy Verified 10/26/19 05:28 topiramate [From Topamax] AdvReac Intermediate Nausea Verified 10/26/19 05:28 - Home Medications Home Medications: Ambulatory Orders Aspirin [ASA -] 81 mg PO DAILY #30 tab 11/30/18 Levothyroxine [Synthroid -] 25 mcg PO DAILY #30 tablet 12/11/18 Multivitamin [Multiple Vitamins] 1 each PO DAILY 12/11/18 Albuterol Sulfate Inhaler - [Ventolin HFA Inhaler -] 1 puff IH DAILY 12/12/18 Butalb/Acetaminophen/Caffeine [Tydzpl-Bslivnsi-Ekvg 50-325-40] 1 each PO DAILY 12/12/18 Diltiazem HCl [Diltiazem 24Hr ER] 120 mg PO DAILY 12/12/18 Lisinopril 40 mg PO DAILY 12/12/18 Ondansetron [Zuplenz] 8 mg PO DAILY 12/12/18 Topiramate 25 mg PO DAILY 12/12/18 Umeclidinium [place] [Incruse Ellipta] 62.5 mcg IH DAILY 12/12/18 Ergocalciferol (Vitamin D2) [Vitamin D2] 50,000 unit PO Q7D #4 capsule 02/07/19 Bictegrav/Emtricit/Tenofov Ala [Biktarvy 50-200-25 mg Tablet] 1 each PO DAILY #30 tablet 03/22/19 Lactose-Reduced Food [Ensure Plus] 237 ml PO BID #60 liquid 03/22/19 Cyanocobalamin [Vitamin B12 -] 1,000 mcg PO DAILY #30 tablet 04/03/19 Diclofenac Sodium [Voltaren] 2 gm TP TID PRN #3 tube 04/03/19 Melatonin/Pyridoxine HCl (B6) [Melatonin 5 mg Tablet] 1 each PO HS #30 tablet 04/03/19 Multivitamin [Multiple Vitamins] 1 each PO DAILY #30 tablet 04/03/19 Baclofen 10 mg PO BID PRN #60 tablet 05/04/19 Oxycodone HCl/Acetaminophen [Endocet 10-325 mg Tablet] 1 each PO TID PRN #90 tablet MDD 3 05/04/19 Family Medical History Family History: Unremarkable Review of Systems - Review of Systems Constitutional: reports: Malaise Eyes: reports: No Symptoms HENT: reports: No Symptoms Neck: reports: No Symptoms Cardiovascular: reports: No Symptoms Respiratory: reports: No Symptoms Gastrointestinal: reports: No Symptoms Musculoskeletal: reports: Muscle Weakness Neurological: reports: Seizure, Unsteady Gait, Weakness Psychiatric: reports: Anxiety Physical Examination Vital Signs: Vital Signs Temperature 98.6 F 10/26/19 05:31 Pulse Rate 71 10/26/19 07:15 Respiratory Rate 21 H 10/26/19 07:15 Blood Pressure 175/93 H 10/26/19 07:15 O2 Sat by Pulse Oximetry (%) 98 10/26/19 07:15 Constitutional: Yes:lean, No Distress, Calm HEENT: Yes: Conjunctiva Clear, Neck: Yes: no JVP, bruit Cardiovascular: Yes: Regular Rate and Rhythm Respiratory: Yes: Regular, CTA Bilaterally Gastrointestinal: Yes: Normal Bowel Sounds, Soft Extremities: Yes: WNL Edema: No Peripheral Pulses WNL: Yes Troponin, BNP 10/26/19 06:00 Troponin I 0.12 H WBC 9.3 K/mm3 (4.0-10.0) 10/26/19 06:00 RBC 3.44 M/mm3 (3.60-5.2) L 10/26/19 06:00 Hgb 12.0 GM/dL (10.7-15.3) 10/26/19 06:00 Hct 36.0 % (32.4-45.2) 10/26/19 06:00 MCV 104.8 fl (80-96) H 10/26/19 06:00 MCH 34.9 pg (25.7-33.7) H 10/26/19 06:00 MCHC 33.3 g/dl (32.0-36.0) 10/26/19 06:00 RDW 14.8 % (11.6-15.6) 10/26/19 06:00 Plt Count 211 K/MM3 (134-434) 10/26/19 06:00 MPV 7.4 fl (7.5-11.1) L D 10/26/19 06:00 Absolute Neuts (auto) 6.9 K/mm3 (1.5-8.0) 10/26/19 06:00 Neutrophils % 74.2 % (42.8-82.8) D 10/26/19 06:00 Lymphocytes % 17.3 % (8-40) D 10/26/19 06:00 Monocytes % 7.6 % (3.8-10.2) 10/26/19 06:00 Eosinophils % 0.3 % (0-4.5) 10/26/19 06:00 Basophils % 0.6 % (0-2.0) 10/26/19 06:00 Nucleated RBC % 0 % (0-0) 10/26/19 06:00 Sodium 142 mmol/L (136-145) 10/26/19 06:00 Potassium 4.3 mmol/L (3.5-5.1) 10/26/19 06:00 Chloride 112 mmol/L (98-107) H 10/26/19 06:00 Carbon Dioxide 25 mmol/L (21-32) 10/26/19 06:00 Anion Gap 5 MMOL/L (8-16) L 10/26/19 06:00 BUN 18.3 mg/dL (7-18) H 10/26/19 06:00 Creatinine 0.9 mg/dL (0.55-1.3) 10/26/19 06:00 Est GFR (CKD-EPI)AfAm 78.32 10/26/19 06:00 Est GFR (CKD-EPI)NonAf 67.57 10/26/19 06:00 Random Glucose 110 mg/dL (74-106) H 10/26/19 06:00 Calcium 8.6 mg/dL (8.5-10.1) 10/26/19 06:00 Total Bilirubin 0.3 mg/dL (0.2-1) 10/26/19 06:00 AST 17 U/L (15-37) 10/26/19 06:00 ALT 21 U/L (13-61) 10/26/19 06:00 Alkaline Phosphatase 140 U/L (45-117) H 10/26/19 06:00 Creatine Kinase 125 U/L (26-192) 10/26/19 06:00 Troponin I 0.12 ng/ml (0.00-0.05) H 10/26/19 06:00 Total Protein 6.5 g/dl (6.4-8.2) 10/26/19 06:00 Albumin 3.6 g/dl (3.4-5.0) 10/26/19 06:00 Triglycerides 76 mg/dL (0-150) 10/26/19 06:00 Cholesterol 191 mg/dL (50-200) 10/26/19 06:00 Total LDL Cholesterol 71 mg/dL (5-100) 10/26/19 06:00 HDL Cholesterol 82 mg/dL (40-60) H 10/26/19 06:00 Active Medications Amlodipine Besylate (Norvasc -) 10 mg PO DAILY [facility] Last Admin: 10/26/19 10:15 Dose: 10 mg Documented by: Aspirin (Ecotrin -) 81 mg PO DAILY [facility] Last Admin: 10/26/19 10:06 Dose: Not Given Documented by: Cefepime HCl 1 gm/ Dextrose 100 mls @ 200 mls/hr IVPB BID [facility]; Protocol Cefepime HCl 1 gm/ Dextrose 100 mls @ 200 mls/hr IVPB BID [facility]; Protocol Stop: 10/27/19 10:29 Losartan Potassium (Cozaar -) 25 mg PO DAILY [facility] Last Admin: 10/26/19 10:15 Dose: 25 mg Documented by: Zolpidem Tartrate (Ambien -) 5 mg PO HS PRN PRN Reason: INSOMNIA Ejection Fraction %: LVEF > or = 40 % Imaging - Results Chest X-ray: report Reviewed EKG: Image Reviewed: NSR, APC Assessment/Plan IMP: 1. Acute CVAs 2. Reported h/o of PAF, no on chronic AC due prior GI bleeds/urinary bleeding 3. Chronic HTN 4. Hyperlipidemia 5. HIV+ 6. Chronic COPD, active smoker 7. Peptic ulcer disease (patient report). 8. DIRECTOR PHONE aneurysm 9.Elevated troponin: Plan:: - Troponin: NSTEMI vs post ? tachycardia: trend;Monitor -Cont ASA, ARB; add low dose BB -HDL 82, LDL71 -CVA management as per primary team: -Echo - lexiscan-nuclear stress test when neuroligically stable -If source of CVA is in fact thromboembolism due to PAFb and if intolerant to chronic AC then AWILDA occlusion should be considered
--- NOTE | 2019-10-26 11:44 | CON.NEURO ---
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 HIV Positivity. 2. COPD/Emphysema. 3. HTN. 4. Seizure d/o. 5. Tobacco Abuse (Quit 6 months Ago). 6. h/o TB-treated in the past - Past Surgical History Past Surgical History: Yes: AICD - Alcohol/Substance Use Hx Alcohol Use: No History of Substance Use: reports: None - Smoking History Smoking history: Former smoker Have you smoked in the past 12 months: Yes Aproximately how many cigarettes per day: 1 If you are a former smoker, when did you quit?: 8 months - Social History Usual Living Arrangement: Alone ADL: Independent History of Recent Travel: No Home Medications - Allergies Allergies/Adverse Reactions: Allergies Allergy/AdvReac Type Severity Reaction Status Date / Time strawberry Allergy Intermediate Hives Verified 10/26/19 05:28 Penicillins Allergy Unknown Hives Verified 10/26/19 05:28 Sulfa (Sulfonamide Allergy Unknown Hives Verified 10/26/19 05:28 Antibiotics) gabapentin AdvReac Intermediate Nausea Verified 10/26/19 05:28 sumatriptan [From Imitrex] AdvReac Intermediate dizzy Verified 10/26/19 05:28 topiramate [From Topamax] AdvReac Intermediate Nausea Verified 10/26/19 05:28 - Home Medications Home Medications: Ambulatory Orders Aspirin [ASA -] 81 mg PO DAILY #30 tab 11/30/18 Levothyroxine [Synthroid -] 25 mcg PO DAILY #30 tablet 12/11/18 Multivitamin [Multiple Vitamins] 1 each PO DAILY 12/11/18 Albuterol Sulfate Inhaler - [Ventolin HFA Inhaler -] 1 puff IH DAILY 12/12/18 Butalb/Acetaminophen/Caffeine [Nectst-Sinsqovr-Atic 50-325-40] 1 each PO DAILY 12/12/18 Diltiazem HCl [Diltiazem 24Hr ER] 120 mg PO DAILY 12/12/18 Lisinopril 40 mg PO DAILY 12/12/18 Ondansetron [Zuplenz] 8 mg PO DAILY 12/12/18 Topiramate 25 mg PO DAILY 12/12/18 Umeclidinium [place] [Incruse Ellipta] 62.5 mcg IH DAILY 12/12/18 Ergocalciferol (Vitamin D2) [Vitamin D2] 50,000 unit PO Q7D #4 capsule 02/07/19 Bictegrav/Emtricit/Tenofov Ala [Biktarvy 50-200-25 mg Tablet] 1 each PO DAILY #30 tablet 03/22/19 Lactose-Reduced Food [Ensure Plus] 237 ml PO BID #60 liquid 03/22/19 Cyanocobalamin [Vitamin B12 -] 1,000 mcg PO DAILY #30 tablet 04/03/19 Diclofenac Sodium [Voltaren] 2 gm TP TID PRN #3 tube 04/03/19 Melatonin/Pyridoxine HCl (B6) [Melatonin 5 mg Tablet] 1 each PO HS #30 tablet 04/03/19 Multivitamin [Multiple Vitamins] 1 each PO DAILY #30 tablet 04/03/19 Baclofen 10 mg PO BID PRN #60 tablet 05/04/19 Oxycodone HCl/Acetaminophen [Endocet 10-325 mg Tablet] 1 each PO TID PRN #90 tablet MDD 3 05/04/19 Physical Exam-Neuro Vital Signs: Vital Signs Temperature 98.6 F 10/26/19 05:31 Pulse Rate 71 10/26/19 07:15 Respiratory Rate 21 H 10/26/19 07:15 Blood Pressure 175/93 H 10/26/19 07:15 O2 Sat by Pulse Oximetry (%) 98 10/26/19 07:15 Labs: CBC, BMP 10/26/19 06:00 INR, PTT INR 0.95 (0.83-1.09) 10/26/19 06:00 Assessment/Plan CC LEFT sided hemiparesis HPI 64 Year old female history of HIV( CD4 9SS WITH NO detectable vl), osteoporosis, HLD,HTN,Asthma, COPD, Hypothyroidism, migraine, anxiety and seizure. Pateint was admitted to hospital at [facility], pateint has residual left arm and elg weakness. Patient has falled yesterday and came with worsening of left sided weakness. There isno seizure like activty, headhace. Patient emmanuel any history of covid or febrile illness PMH as above - Allergies/Adverse Reactions: Allergies Allergy/AdvReac Type Severity Reaction Status Date / Time strawberry Allergy Intermediate Hives Verified 10/26/19 05:28 Penicillins Allergy Unknown Hives Verified 10/26/19 05:28 Sulfa (Sulfonamide Allergy Unknown Hives Verified 10/26/19 05:28 Antibiotics) gabapentin AdvReac Intermediate Nausea Verified 10/26/19 05:28 sumatriptan [From Imitrex] AdvReac Intermediate dizzy Verified 10/26/19 05:28 topiramate [From Topamax] AdvReac Intermediate Nausea Verified 10/26/19 05:28 Home Medications: Aspirin [ASA -] 81 mg PO DAILY #30 tab 11/30/18 Levothyroxine [Synthroid -] 25 mcg PO DAILY #30 tablet 12/11/18 Multivitamin [Multiple Vitamins] 1 each PO DAILY 12/11/18 Albuterol Sulfate Inhaler - [Ventolin HFA Inhaler -] 1 puff IH DAILY 12/12/18 Butalb/Acetaminophen/Caffeine [Vruhde-Zrdmvkfo-Ebmi 50-325-40] 1 each PO DAILY 12/12/18 Diltiazem HCl [Diltiazem 24Hr ER] 120 mg PO DAILY 12/12/18 Lisinopril 40 mg PO DAILY 12/12/18 Ondansetron [Zuplenz] 8 mg PO DAILY 12/12/18 Topiramate 25 mg PO DAILY 12/12/18 Umeclidinium [place] [Incruse Ellipta] 62.5 mcg IH DAILY 12/12/18 Ergocalciferol (Vitamin D2) [Vitamin D2] 50,000 unit PO Q7D #4 capsule 02/07/19 Bictegrav/Emtricit/Tenofov [place] [Biktarvy 50-200-25 mg Tablet] 1 each PO DAILY #30 tablet 03/22/19 Lactose-Reduced Food [Ensure Plus] 237 ml PO BID #60 liquid 03/22/19 Cyanocobalamin [Vitamin B12 -] 1,000 mcg PO DAILY #30 tablet 04/03/19 Diclofenac Sodium [Voltaren] 2 gm TP TID PRN #3 tube 04/03/19 Melatonin/Pyridoxine HCl (B6) [Melatonin 5 mg Tablet] 1 each PO HS #30 tablet 04/03/19 Multivitamin [Multiple Vitamins] 1 each PO DAILY #30 tablet 04/03/19 Baclofen 10 mg PO BID PRN #60 tablet 05/04/19 Oxycodone HCl/Acetaminophen [Endocet 10-325 mg Tablet] 1 each PO TID PRN #90 tablet MDD 3 05/04/19 ROS,FH,SH reviewed in chart NEUROLOGICAL EXAMINATION Alert oriented x 3, speech is slightly dysarthric neck is supple, VSS Eomi , pupils reactive, mild elft facial palsy left sided hemiparesis ct head is pending, suggestive of left mastoid and abx started by ED cta of neck and brain pending( as per pateint she has small aneurysm ) no procedure was done 1. Worsening of left sided weakness rule out stroke, suggest to repeat mri and follow up on ct head 2. Mastoid abx as per ID 3. ? seizure , plan: - follow up on ct head and cta of neck and brain - continue apsirin and statin - speech consult appreciated - pt, dvt prophylaxis - mri ofbrain - eeg - WILL FOLLOW Thanking you so much Yehuda Hernández MD
--- NOTE | 2019-10-26 13:52 | PN ---
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, neurologist, and ID doc remains on bictarvy- reports tcells over 1000 she reports having had a stroke in June and 2 small ones last week- was planning to see her neurologist today developed rectal bleeding last week - was told to hole coumadin and continue baby asa now with worsening left sided weakness stable HIV- continue biktarvy ?new CVA- per neurology history of paf no clinical signs of mastoiditis or otitis-can d/c antibiotics Problem List - Problems (1) HIV (human immunodeficiency virus infection) Code(s): Z21 - ASYMPTOMATIC HUMAN IMMUNODEFICIENCY VIRUS INFECTION STATUS (2) Cerebrovascular accident (CVA) Code(s): I63.9 - CEREBRAL INFARCTION, UNSPECIFIED (3) Paroxysmal A-fib Code(s): I48.0 - PAROXYSMAL ATRIAL FIBRILLATION
[2019-10-26] MEDS: BICTEGRAV/EMTRICIT/TENOFOV (BIKTARVY) 50-200-25 MG TABLET PO SCH (16:06)
[2019-10-26] MEDS ORDERED: oxyCODONE HCL 5 MG TABLET PO ONE (20:10)
[2019-10-26] MEDS: ATORVASTATIN CA 80 MG TABLET (FP) PO SCH (21:05)
[2019-10-26] MEDS: ZOLPIDEM TARTRATE 5 MG TABLET PO PRN (21:52)
[2019-10-26] MEDS ORDERED: CEFEPIME 1 GM in DEXTROSE 5%-WATER 100 ML IVPB SCH (22:00)
[2019-10-26] MEDS ORDERED: CEFEPIME HCL/D5W 1 GM/50 ML BAG IVPB SCH (22:00)
--- NOTE | 2019-10-26 23:52 | CONS ---
DATE OF CONSULTATION: DATE OF DICTATION: 10/26/2019 INFECTIOUS DISEASE CONSULTATION HISTORY OF PRESENT ILLNESS: This is a 64-year-old woman who I know from the [facility]. She has a history of prior CVA, very stable HIV, paroxysmal atrial fibrillation. Last fall she transferred all her medical care to [facility]. 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 Hamilton; a neurologist there, Dr. Cochran; a floor waxer, Dr. Bernabe; and she also has a PCP, and she tells me she has just switched her ID care there. She is still taking Biktarvy. She reports about a week ago she developed some blood in her stool. She spoke with her doctors, who advised her to hold her Coumadin and continue baby aspirin, which she did. She had an appointment today to see her neurologist, but overnight she developed worsening weakness of the left side of her body, and she came to the ER. She thinks she had 2 mini strokes last week and reports that she had one she thinks in June as well. She was not hospitalized for any of these events. She has no fevers or chills. No nausea, vomiting, diarrhea, dysuria. She otherwise feels well. ALLERGIES: She is allergic to STRAWBERRIES, PENICILLIN, SULFA MEDICATIONS, GABAPENTIN, IMITREX, and TOPAMAX. MEDICATION: Her medications at home include: 1. Incruse Ellipta. 2. Topamax. 3. Endocet. 4. Zofran. 5. Multivitamins. 6. Levothyroxine. 7. Vitamin D. 8. Diltiazem. 9. Voltaren 10. Vitamin B12. 11. Biktarvy. 12. Aspirin. 13. Albuterol inhaler. SOCIAL HISTORY: She resides at home. She is a former smoker. She denies any alcohol or illicit drug use. PAST MEDICAL HISTORY: Notable for history of CVA in the past multiple, hypertension, hyperlipidemia, paroxysmal atrial fibrillation, COPD, HIV, hypothyroidism. REVIEW OF SYSTEMS: Notable for she has no ear pain. She has had no fevers or chills. She has had no nausea, vomiting, diarrhea, or dysuria. PHYSICAL EXAMINATION: General: She is a thin woman in no acute distress. She has been afebrile. Vital Signs: Temperature 98.7, pulse is 75, blood pressure 158/90, respiratory rate 18, she is saturating 99% on room air. She has a left-sided weakness on exam. HEENT: Normocephalic. Eyes are anicteric. Neck: Supple. She has no mastoid pain. She denies any ear pain, and there is no pain on palpating her tragus, tugging on her ears, or palpating her mastoid. She has no thrush. Lungs: Clear to auscultation. Heart: Regular rate and rhythm. Abdomen: Soft, nontender. Extremities: Without edema. LABORATORY: Her white count 9.3, hemoglobin 12, platelets 211, INR is 0.9, BUN and creatinine are 18 and 0.9, alkaline phosphatase is 140. Urinalysis has 8 white cells. Urine toxicology screen was not done. Her last T-cells in January 2016, T-cells were 1076. She reports as an outpatient at [facility] they are all over 1000 as well. Her viral load was undetectable. She had a head CT done in the ER that showed chronic infarct right frontal lobe, interval focal low density in the right basal ganglia compatible with an infarct of indeterminate age. Possible left mastoiditis correlate clinically. IMPRESSION: In summary, this is a 64-year-old woman with stable human immunodeficiency virus. I would continue her Biktarvy. Possibly new cerebrovascular accident, follow up with neurology. History of paroxysmal atrial fibrillation, currently on Coumadin. No signs of mastoiditis or otitis. Can stop the broad-spectrum antibiotics. As an outpatient, she can follow up with Ears, Nose, and Throat . WILMER SALMON M.D. JO [id number]
[2019-10-27 07:58] LABS: BASO % 0.9 % (0-2.0); EOS % 0.9 % (0-4.5); HEMATOCRIT 39.9 % (32.4-45.2); HEMOGLOBIN 13.3 GM/dL (10.7-15.3); LYMPH % 16.2 % (8-40); MCH 34.7 pg (25.7-33.7); MCHC 33.3 g/dl (32.0-36.0); MEAN CELL VOLUME 104.3 fl (80-96); MEAN PLT VOLUME 8.6 fl (7.5-11.1); MONO % 8.2 % (3.8-10.2); NEUT % 73.8 % (42.8-82.8); PLATELET COUNT 211 K/MM3 (134-434); RBC 3.83 M/mm3 (3.60-5.2); RDW 14.9 % (11.6-15.6); WHITE BLOOD COUNT 9.4 K/mm3 (4.0-10.0)
[2019-10-27 08:08] LABS: ALBUMIN 3.7 g/dl (3.4-5.0); ALK PHOS 164 U/L (45-117); ANION GAP 11 MMOL/L (8-16); BILIRUBIN,TOTAL 0.5 mg/dL (0.2-1); BLOOD UREA NITROGEN 12.7 mg/dL (7-18); CALCIUM 8.8 mg/dL (8.5-10.1); CHLORIDE 109 mmol/L (98-107); CO2 22 mmol/L (21-32); CREATININE 0.8 mg/dL (0.55-1.3); GLUCOSE,RANDOM 75 mg/dL (74-106); POTASSIUM 3.6 mmol/L (3.5-5.1); SGOT/AST 24 U/L (15-37); SGPT/ALT 23 U/L (13-61); SODIUM 141 mmol/L (136-145); TOT PROT 6.7 g/dl (6.4-8.2)
--- NOTE | 2019-10-27 08:16 | PN ---
Teaching Attending Note Name of Resident: Camryn Barrientos ATTENDING PHYSICIAN STATEMENT I saw and evaluated the patient. I reviewed the resident's note and discussed the case with the resident. I agree with the resident's findings and plan as documented. SUBJECTIVE: Patient states that feels Left LE weakness is new. dyarthria is not new, had it before and LUE is slightely weak. OBJECTIVE: Vital Signs Temperature 98.4 F 10/27/19 05:00 Pulse Rate 68 10/27/19 05:00 Respiratory Rate 20 10/27/19 05:00 Blood Pressure 161/80 10/27/19 05:00 O2 Sat by Pulse Oximetry (%) 98 10/26/19 20:15 PE: per resident's note LUE: 4/5 LLE: 0/5 CBCD WBC 9.3 K/mm3 (4.0-10.0) 10/26/19 06:00 RBC 3.44 M/mm3 (3.60-5.2) L 10/26/19 06:00 Hgb 12.0 GM/dL (10.7-15.3) 10/26/19 06:00 Hct 36.0 % (32.4-45.2) 10/26/19 06:00 MCV 104.8 fl (80-96) H 10/26/19 06:00 MCHC 33.3 g/dl (32.0-36.0) 10/26/19 06:00 RDW 14.8 % (11.6-15.6) 10/26/19 06:00 Plt Count 211 K/MM3 (134-434) 10/26/19 06:00 MPV 7.4 fl (7.5-11.1) L D 10/26/19 06:00 CMP Sodium 142 mmol/L (136-145) 10/26/19 06:00 Potassium 4.3 mmol/L (3.5-5.1) 10/26/19 06:00 Chloride 112 mmol/L (98-107) H 10/26/19 06:00 Carbon Dioxide 25 mmol/L (21-32) 10/26/19 06:00 Anion Gap 5 MMOL/L (8-16) L 10/26/19 06:00 BUN 18.3 mg/dL (7-18) H 10/26/19 06:00 Creatinine 0.9 mg/dL (0.55-1.3) 10/26/19 06:00 Random Glucose 110 mg/dL (74-106) H 10/26/19 06:00 Calcium 8.6 mg/dL (8.5-10.1) 10/26/19 06:00 Total Bilirubin 0.3 mg/dL (0.2-1) 10/26/19 06:00 AST 17 U/L (15-37) 10/26/19 06:00 ALT 21 U/L (13-61) 10/26/19 06:00 Alkaline Phosphatase 140 U/L (45-117) H 10/26/19 06:00 Total Protein 6.5 g/dl (6.4-8.2) 10/26/19 06:00 Albumin 3.6 g/dl (3.4-5.0) 10/26/19 06:00 CARDIAC ENZYMES Creatine Kinase 107 U/L (26-192) 10/26/19 18:20 Troponin I 0.12 ng/ml (0.00-0.05) H 10/26/19 18:20 Current Medications Generic Name Dose Route Start Last Admin Trade Name Freq PRN Reason Stop Dose Admin Amlodipine Besylate 10 mg 10/26/19 10:00 10/26/19 10:15 Norvasc - PO 10 mg DAILY OSBALDO Administration Aspirin 81 mg 10/26/19 10:15 10/26/19 10:06 Ecotrin - PO Not Given DAILY OSBALDO Atorvastatin Calcium 80 mg 10/26/19 22:00 10/26/19 21:05 Lipitor - PO 80 mg HS OSBALDO Administration Bictegravir/Emtricitabine/Tenofovir 1 each 10/26/19 14:00 10/26/19 16:06 Biktarvy 50-200-25 Mg Tablet PO 1 each DAILY OSBALDO Administration Losartan Potassium 25 mg 10/26/19 10:15 10/26/19 10:15 Cozaar - PO 25 mg DAILY OSBALDO Administration Zolpidem Tartrate 5 mg 10/26/19 09:13 10/26/19 21:52 Ambien - PO 5 mg HS PRN Administration INSOMNIA Home Medications Medication Instructions Recorded Aspirin [ASA -] 81 mg PO DAILY #30 tab 11/30/18 Levothyroxine [Synthroid -] 25 mcg PO DAILY #30 tablet 12/11/18 Multivitamin [Multiple Vitamins] 1 each PO DAILY 12/11/18 Albuterol Sulfate Inhaler - 1 puff IH DAILY 12/12/18 [Ventolin HFA Inhaler -] Butalb/Acetaminophen/Caffeine 1 each PO DAILY 12/12/18 [Svdqlw-Oyfvmxzv-Rkad 50-325-40] Diltiazem HCl [Diltiazem 24Hr ER] 120 mg PO DAILY 12/12/18 Lisinopril 40 mg PO DAILY 12/12/18 Ondansetron [Zuplenz] 8 mg PO DAILY 12/12/18 Topiramate 25 mg PO DAILY 12/12/18 Umeclidinium [place] [Incruse 62.5 mcg IH DAILY 12/12/18 Ellipta] Ergocalciferol (Vitamin D2) 50,000 unit PO Q7D #4 capsule 02/07/19 [Vitamin D2] Bictegrav/Emtricit/Tenofov Ala 1 each PO DAILY #30 tablet 03/22/19 [Biktarvy 50-200-25 mg Tablet] Lactose-Reduced Food [Ensure Plus] 237 ml PO BID #60 liquid 03/22/19 Cyanocobalamin [Vitamin B12 -] 1,000 mcg PO DAILY #30 tablet 04/03/19 Diclofenac Sodium [Voltaren] 2 gm TP TID PRN #3 tube 04/03/19 Melatonin/Pyridoxine HCl (B6) 1 each PO HS #30 tablet 04/03/19 [Melatonin 5 mg Tablet] Multivitamin [Multiple Vitamins] 1 each PO DAILY #30 tablet 04/03/19 Baclofen 10 mg PO BID PRN #60 tablet 05/04/19 Oxycodone HCl/Acetaminophen 1 each PO TID PRN #90 tablet MDD 3 05/04/19 [Endocet 10-325 mg Tablet] Laboratory Tests 10/27/19 10/27/19 05:44 08:43 TSH 4.43 H Free T4 Pending Free T3 Pending CT scan of the head: chronic infarct involving the right frontal lobe, superiorly/posteriorly as well as the right occipital and parietal lobe. interval focal low attenuation density in the right basal ganglia compatible with an infarct of indeterminate age. Possible left mastoiditis. CT angiopram of the head and neck: no evidence of an aneurysm, major artery cutoff, focal hemodynamically significant stenosis or vascular malformation within the central intracranial circulation. CXR: portable: borderline CM, mild bl increased interstitial lung markings without evidence of focal infiltrate. ASSESSMENT AND PLAN: This patient is a 64yof with PMhx of HIV (on HAART, last CD4 900s and non detectable viral load), osteoporosis, HLD, HTN, asthma, COPD, hypothyroidism, migraines, chronic pain syndrome, anxiety, seizures, with multiple ED visits for having stroke like symptoms. the last admission was on 11/2018. Admitted for left sided weakness. Patient was out of TPA window. #Hx of CVA presented with L sided weakness, Neuro seen the patient and ordered MRA/MRI of the brain, pending. #Hx of P-Afib: on coumadin, but patient stopped taking it since experienced rectal bleed at home, decided to stop by her own. Cardio and neuro on the case. #HTN: on amlodipine,and losartan continue #Hx of HIV: on Biktarvy , viral load and cd4, ID on the case. #Hx of seizures: not on any meds, #H/x of hypothyroidism: not on any meds. pending thyroid panel. DVT Px: INR is 0.96, was on coumadin as an outpatient stopped for possible rectal bleed,will place her on Lovenox 40mg sq now as per neuro , we can place her on Lovenox once MRI resulted
--- NOTE | 2019-10-27 08:55 | PN ---
Physical Exam: SUBJECTIVE: Patient seen and examined at bedside. Per nurse, pt complaining of headache. Otherwise, no acute other events overnight. Denies f/c, cp, sob, abd pain, urinary/bowel symptoms. Admits to L sided weakness. OBJECTIVE: Vital Signs Period Temp Pulse Resp BP Sys/Beasley Pulse Ox Last 24 Hr 98.1 F-98.9 F 68-91 18-20 105-161/67-90 98-100 GENERAL: NAD. AAOx3. Cooperative. HEENT: AT/NC. EOMI. MMM. Speech slightly dysarthric. Slight L sided facial weakness. NECK: Trachea midline, full range of motion, supple. LUNGS: CTA B/L. No wheezes or rales noted. HEART: RRR. Normal S1, S2. ABDOMEN: Soft, NT/ND. Normoactive bowel sounds in all 4Qs. EXTREMITIES: 2+ pulses, warm, well-perfused, no edema. NEUROLOGICAL: Slightly dysarthric speech. Facial muscles intact. 3/5 LUE strength (elbow flexion/extension, shoulder flexion/extension, hand groundsman), 2/5 LLE strength (knee flexion/extension, dorsiflexion/plantarflexion). B/l knee reflexes intact. Sensation intact throughout. PSYCH: Normal mood, normal affect. SKIN: Warm, dry, normal turgor, no rashes or lesions noted CBCD WBC 9.4 K/mm3 (4.0-10.0) 10/27/19 05:44 RBC 3.83 M/mm3 (3.60-5.2) 10/27/19 05:44 Hgb 13.3 GM/dL (10.7-15.3) 10/27/19 05:44 Hct 39.9 % (32.4-45.2) 10/27/19 05:44 MCV 104.3 fl (80-96) H 10/27/19 05:44 MCHC 33.3 g/dl (32.0-36.0) 10/27/19 05:44 RDW 14.9 % (11.6-15.6) 10/27/19 05:44 Plt Count 211 K/MM3 (134-434) 10/27/19 05:44 MPV 8.6 fl (7.5-11.1) D 10/27/19 05:44 CMP Sodium 141 mmol/L (136-145) 10/27/19 05:44 Potassium 3.6 mmol/L (3.5-5.1) 10/27/19 05:44 Chloride 109 mmol/L (98-107) H 10/27/19 05:44 Carbon Dioxide 22 mmol/L (21-32) 10/27/19 05:44 Anion Gap 11 MMOL/L (8-16) 10/27/19 05:44 BUN 12.7 mg/dL (7-18) 10/27/19 05:44 Creatinine 0.8 mg/dL (0.55-1.3) 10/27/19 05:44 Calcium 8.8 mg/dL (8.5-10.1) 10/27/19 05:44 Total Bilirubin 0.5 mg/dL (0.2-1) 10/27/19 05:44 AST 24 U/L (15-37) 10/27/19 05:44 ALT 23 U/L (13-61) 10/27/19 05:44 Alkaline Phosphatase 164 U/L (45-117) H 10/27/19 05:44 Total Protein 6.7 g/dl (6.4-8.2) 10/27/19 05:44 Albumin 3.7 g/dl (3.4-5.0) 10/27/19 05:44 Active Medications Generic Name Dose Route Start Last Admin Trade Name Ronaldoq PRN Reason Stop Dose Admin Amlodipine Besylate 10 mg 10/26/19 10:00 10/26/19 10:15 Norvasc - PO 10 mg DAILY OSBALDO Administration Aspirin 81 mg 10/26/19 10:15 10/26/19 10:06 Ecotrin - PO Not Given DAILY OSBALDO Atorvastatin Calcium 80 mg 10/26/19 22:00 10/26/19 21:05 Lipitor - PO 80 mg HS OSBALDO Administration Bictegravir/Emtricitabine/Tenofovir 1 each 10/26/19 14:00 10/26/19 16:06 Biktarvy 50-200-25 Mg Tablet PO 1 each DAILY OSBALDO Administration Losartan Potassium 25 mg 10/26/19 10:15 10/26/19 10:15 Cozaar - PO 25 mg DAILY OSBALDO Administration Zolpidem Tartrate 5 mg 10/26/19 09:13 06/19/20 21:52 Ambien - PO 5 mg HS PRN Administration INSOMNIA IMAGING: * Head CT: Chronic infarct involving the right frontal lobe, superiorly/posteriorly as well as the right occipital and parietal lobe. Interval focal low-attenuation density in the right basal ganglia compatible with an infarct, of indeterminate age. Possible left mastoiditis * CTA Neck/Brain: No evidence of HD significant stenosis at the common carotid bifurcation, bilaterally. No evidence of an aneurysm, major artery cutoff, focal hemodynamically significant stenosis or vascular malformation within the central intracranial arterial circulation. On the postcontrast delayed 1 minute images of the brain, no abnormal intracranial enhancement is identified * Pelvis xray: No gross acute fracture or dislocation are identified. * CXR: Borderline cardiomegaly. Mild bilateral increased interstitial lung markings without evidence of focal infiltrates ASSESSMENT/PLAN: 64yo F hx HIV (on HAART, last CD4 900s and non detectable viral load), osteoporosis, HLD, HTN, asthma, COPD, hypothyroidism, migraines, chronic pain syndrome, anxiety, seizures, and multiple ED visits for stroke like sx (last on 11/2018 for LUE/LLE weakness and staggered gait, prior on 09/2009) BIBA from home for collapse 2/2 L-sided weakness this AM. #Worsening L sided weakness; w/ known history of cryptogenic strokes, r/o CVA -Head CT and CTA neck/brain neg -Neuro following, brain MRI pending, EEG pending. -Per swallow eval, MBS scheduled for this Tuesday; can give chopped diet for now with nectar thick liquid -PT eval #Hx of Paroxysmal Afib; Currently rate-controlled now in NSR with HR ~60s. -Supposed to be on Warfarin 5 mg QD at home, but had recent episodes of bloody urine after which she stopped taking it on her own; INR 0.95 -Spoke to PCP at [facility]-- [employer] Linq loop recorder recently placed ~Jun 2019, last checked at PCP's office on 09/27/19 showing NSR with PVCs; has loop recorder checked monthly at office -Pending MRI results and FOBT, will consider starting on full AC - discussed with neuro #HTN; Cont home meds: Amlodipine 10, Losartan 25 #HIV; Cont home meds: Biktarvy -Viral load and CD4 pending -ID following #Chronic Pain Syndrome; Cont home med: Percocet 10-325 TID PRN #Hx of Seizures; Stable. Not currently on meds. #Hypothyroidism; TSH 4.43. Will obtain T3/T4. Not currently on meds. #Prophylaxis DVT: Prophylactic dose of Lovenox for now #FEN -PO hydration -recheck lytes in AM -Chopped diet Dispo -Cont to monitor on tele Visit type - Emergency Visit Emergency Visit: Yes ED Registration Date: 10/26/19 Care time: The patient presented to the Emergency Department on the above date and was hospitalized for further evaluation of their emergent condition. - New Patient This patient is new to me today: Yes Date on this admission: 10/27/19 - Critical Care Critical Care patient: No ATTENDING PHYSICIAN STATEMENT I saw and evaluated the patient. I reviewed the resident's note and discussed the case with the resident. I agree with the resident's findings and plan as documented. SUBJECTIVE: OBJECTIVE: ASSESSMENT AND PLAN:
[2019-10-27] MEDS ORDERED: PT OWN MED DRAWER 7, Y5N ONE ×2 (08:56→11:59)
[2019-10-27] MEDS ORDERED: oxyCODONE HCL 5 MG TABLET ONE (09:09)
[2019-10-27] MEDS: amLODIPine BESYLATE 10 MG TABLET (FP) PO SCH (09:14)
[2019-10-27] MEDS: LOSARTAN POTASSIUM 25 MG TABLET PO SCH (09:14)
[2019-10-27] MEDS: ASPIRIN COATED 81 MG TABLET.EC PO SCH (09:14)
[2019-10-27] MEDS ORDERED: oxyCODONE HCL 5 MG TABLET PO ONE (09:15)
[2019-10-27] MEDS: BICTEGRAV/EMTRICIT/TENOFOV (BIKTARVY) 50-200-25 MG TABLET PO SCH (09:15)
--- NOTE | 2019-10-27 10:00 | PN ---
Progress Note, Physician History of Present Illness: 64yo F hx HIV (on HAART, last CD4 900s and non detectable viral load), osteoporosis, CVAs bilaterally, PAFb was supposed to be on coumadin, had Recent blood in stool, stopped on her own, no h/p GI briseno recently, no GI fuHLD, HTN, asthma, COPD, hypothyroidism, migraines, chronic pain syndrome, anxiety, seizures, and multiple ED visits for stroke like sx (last on 11/2018 for LUE/LLE weakness and staggered gait, prior on 09/2009) BIBA from home for collapse 2/2 L-sided weakness this AM. states 3 weeks ago d/c'ed AC " I had urinary bleeding" and started ASA instead; was supposed to see Dr Gonzalez this month; felt palpitations including this am with the above sx; states has "atrial fibrillation", no stress test in past as per pt. No CP/SOB; Trop 0.12; ECG: NSR, APC Patient reports seeing Dr. Leta Gonzalez ([facility]) and was told she had PAF in past, but is not on AC because of "bleeding ulcer". - Current Medication List Current Medications: Active Medications Amlodipine Besylate (Norvasc -) 10 mg PO DAILY [facility] Last Admin: 10/27/19 09:14 Dose: 10 mg Documented by: Aspirin (Ecotrin -) 81 mg PO DAILY [facility] Last Admin: 10/27/19 09:14 Dose: 81 mg Documented by: Atorvastatin Calcium (Lipitor -) 80 mg PO HS [facility] Last Admin: 10/26/19 21:05 Dose: 80 mg Documented by: Bictegravir/Emtricitabine/Tenofovir (Biktarvy 50-200-25 Mg Tablet) 1 each PO DAILY [facility] Last Admin: 10/27/19 09:15 Dose: 1 each Documented by: Enoxaparin Sodium (Lovenox -) 40 mg SQ DAILY [facility] Losartan Potassium (Cozaar -) 25 mg PO DAILY [facility] Last Admin: 10/27/19 09:14 Dose: 25 mg Documented by: Zolpidem Tartrate (Ambien -) 5 mg PO HS PRN PRN Reason: INSOMNIA Last Admin: 10/26/19 21:52 Dose: 5 mg Documented by: - Objective Vital Signs: Vital Signs Temperature 98.4 F 10/27/19 05:00 Pulse Rate 68 10/27/19 05:00 Respiratory Rate 20 10/27/19 05:00 Blood Pressure 161/80 10/27/19 05:00 O2 Sat by Pulse Oximetry (%) 98 10/26/19 20:15 Eyes: Yes: WNL, Conjunctiva Clear, EOM Intact HENT: Yes: WNL, Atraumatic, Normocephalic Neck: Yes: WNL, Supple, Trachea Midline Cardiovascular: Yes: WNL, Regular Rate and Rhythm Respiratory: Yes: WNL, Regular, CTA Bilaterally Gastrointestinal: Yes: WNL, Normal Bowel Sounds Genitourinary: Yes: WNL Musculoskeletal: Yes: WNL Extremities: Yes: WNL Edema: No Integumentary: Yes: WNL ...Motor Strength: WNL Psychiatric: Yes: WNL Labs: CBC, BMP 10/27/19 05:44 10/27/19 05:44 INR, PTT INR 0.95 (0.83-1.09) 10/26/19 06:00 Problem List - Problems (1) Atrial fibrillation, transient Code(s): I48.91 - UNSPECIFIED ATRIAL FIBRILLATION (2) Left-sided weakness Code(s): R53.1 - WEAKNESS (3) Mastoiditis Code(s): H70.90 - UNSPECIFIED MASTOIDITIS, UNSPECIFIED EAR (4) Paroxysmal A-fib Code(s): I48.0 - PAROXYSMAL ATRIAL FIBRILLATION (5) Troponin level elevated Code(s): R74.8 - ABNORMAL LEVELS OF OTHER SERUM ENZYMES (6) Migraine Code(s): G43.909 - MIGRAINE, UNSP, NOT INTRACTABLE, WITHOUT STATUS MIGRAINOSUS (7) Abnormal Pap smear of cervix Code(s): R87.619 - UNSP ABNORMAL CYTOLOG FINDINGS IN SPECMN FROM CERVIX UTERI (8) Healthcare maintenance Code(s): Z00.00 - ENCNTR FOR GENERAL ADULT MEDICAL EXAM W/O ABNORMAL FINDINGS (9) Left shoulder pain Code(s): M25.512 - PAIN IN LEFT SHOULDER (10) Nausea & vomiting Code(s): R11.2 - NAUSEA WITH VOMITING, UNSPECIFIED (11) Pain and swelling of toe of left foot Code(s): M79.675 - PAIN IN LEFT TOE(S); M79.89 - OTHER SPECIFIED SOFT TISSUE DISORDERS (12) Rib pain on right side Code(s): R07.81 - PLEURODYNIA (13) Asthma Code(s): J45.909 - UNSPECIFIED ASTHMA, UNCOMPLICATED (14) Bilateral hand pain Code(s): M79.641 - PAIN IN RIGHT HAND; M79.642 - PAIN IN LEFT HAND (15) COPD (chronic obstructive pulmonary disease) Code(s): J44.9 - CHRONIC OBSTRUCTIVE PULMONARY DISEASE, UNSPECIFIED (16) COPD (chronic obstructive pulmonary disease) with chronic bronchitis Code(s): J44.9 - CHRONIC OBSTRUCTIVE PULMONARY DISEASE, UNSPECIFIED (17) Cataract Code(s): H26.9 - UNSPECIFIED CATARACT (18) Cervical spine disease Code(s): M48.9 - SPONDYLOPATHY, UNSPECIFIED (19) Chronic neck pain Code(s): M54.2 - CERVICALGIA; G89.29 - OTHER CHRONIC PAIN (20) Chronic use of opiate drugs therapeutic purposes Code(s): Z79.899 - OTHER NURSING HOME (CURRENT) DRUG THERAPY (21) Essential hypertension Code(s): I10 - ESSENTIAL (PRIMARY) HYPERTENSION (22) Glaucoma Code(s): H40.9 - UNSPECIFIED GLAUCOMA (23) H/O laminectomy Code(s): Z98.890 - OTHER SPECIFIED POSTPROCEDURAL STATES (24) HIV (human immunodeficiency virus infection) Code(s): Z21 - ASYMPTOMATIC HUMAN IMMUNODEFICIENCY VIRUS INFECTION STATUS (25) HTN (hypertension) Code(s): I10 - ESSENTIAL (PRIMARY) HYPERTENSION (26) Headache Code(s): R51 - HEADACHE (27) Hypothyroid Code(s): E03.9 - HYPOTHYROIDISM, UNSPECIFIED Qualifiers: Hypothyroidism type: unspecified Qualified Code(s): E03.9 - Hypothyroidism, unspecified (28) Insomnia Code(s): G47.00 - INSOMNIA, UNSPECIFIED (29) Knee pain, bilateral Code(s): M25.561 - PAIN IN RIGHT KNEE; M25.562 - PAIN IN LEFT KNEE (30) Left hip pain Code(s): M25.552 - PAIN IN LEFT HIP (31) Low back pain Code(s): M54.5 - LOW BACK PAIN (32) Neck pain Code(s): M54.2 - CERVICALGIA (33) Osteoporosis Code(s): M81.0 - AGE-RELATED OSTEOPOROSIS W/O CURRENT PATHOLOGICAL FRACTURE (34) Restless leg syndrome Code(s): G25.81 - RESTLESS LEGS SYNDROME (35) Underweight Code(s): R63.6 - UNDERWEIGHT (36) Weakness Code(s): R53.1 - WEAKNESS (37) Cerebrovascular accident (CVA) Code(s): I63.9 - CEREBRAL INFARCTION, UNSPECIFIED (38) Word finding difficulty Code(s): R47.89 - OTHER SPEECH DISTURBANCES Assessment/Plan IMP: 1. Acute CVAs 2. Reported h/o of PAF, no on chronic AC due prior GI bleeds/urinary bleeding 3. Chronic HTN 4. Hyperlipidemia 5. HIV+ 6. Chronic COPD, active smoker 7. Peptic ulcer disease (patient report). 8. CASHIER aneurysm 9.Elevated troponin: Plan:: - Troponin: NSTEMI vs post ? tachycardia: trend;Monitor -Cont ASA, ARB; add low dose BB -HDL 82, LDL71 -CVA management as per primary team: -Echo - lexiscan-nuclear stress test when neuroligically stable -If source of CVA is in fact thromboembolism due to PAFb and if intolerant to chronic AC then AWILDA occlusion should be considered Coverage for dr. Adams
[2019-10-27] MEDS: ENOXAPARIN NA (PORCINE) 40 MG/0.4 ML DISP.SYRIN SQ SCH (12:23)
[2019-10-27] MEDS ORDERED: PATIENT'S OWN MEDICATION (NON-FORMULARY) (Butalb/Acetaminophen/Caffeine [Fioricet 50-300-4 PO PRN (14:54)
[2019-10-27] MEDS ORDERED: oxyCODONE HCL 5 MG TABLET PO PRN (14:56)
--- NOTE | 2019-10-27 20:50 | PN ---
Progress Note (short form) - Note Progress Note: CC LEFT sided hemiparesis HPI 64 Year old female history of HIV( CD4 9SS WITH NO detectable vl), osteoporosis, HLD,HTN,Asthma, COPD, Hypothyroidism, migraine, anxiety and seizure. [facility], pateint has residual left arm and elg weakness. Patient has falled yesterday and came with worsening of left sided weakness. There isno seizure like activty, headhace. Patient emmanuel any history of covid or febrile illness, no new symptoms, and mri of brain pending NEUROLOGICAL EXAMINATION Alert oriented x 3, speech is slightly dysarthric neck is supple, VSS Eomi , pupils reactive, mild elft facial palsy left sided hemiparesis ct head is pending, suggestive of left mastoid and abx started by ED cta of neck and brain pending( as per pateint she has small aneurysm ) no procedure was done 1. Worsening of left sided weakness rule out stroke, most likely lacunar stroke. cta of neck and brain did not show any aneurysm 3. ? seizure , plan: - waiting for mri of brain - continue apsirin and statin - anticoagulation can be resumed if needed, once mri confirmed this is not a large stroke - pt, dvt prophylaxis Thanking you so much Yehuda Hernández MD
[2019-10-27] MEDS: ATORVASTATIN CA 80 MG TABLET (FP) PO SCH (21:41)
[2019-10-27] MEDS ORDERED: CEFEPIME 1 GM in DEXTROSE 5%-WATER 100 ML IVPB SCH (22:00)
--- NOTE | 2019-10-27 22:16 | RAPID ---
Physical Examination Vital Signs: Vital Signs Temperature 98.5 F 10/27/19 17:49 Pulse Rate 75 10/27/19 17:49 Respiratory Rate 20 10/27/19 17:49 Blood Pressure 118/65 10/27/19 17:49 O2 Sat by Pulse Oximetry (%) 96 10/27/19 09:00 Labs: CBC, BMP 10/27/19 05:44 10/27/19 05:44 Rapid Response - Rapid Response Assessment: Rapid response called overhead and team attended. Pt reports generalized pain and is requesting home dose of Percocet 10mg. VS stable Combative Pt given home dose of Percocet.
[2019-10-27] MEDS: oxyCODONE HCL 5 MG TABLET PO PRN (22:37)
[2019-10-28] MEDS ORDERED: KETOROLAC TROMETHAMINE 30 MG/1 ML VIAL IM ONE (00:53)
[2019-10-28] MEDS ORDERED: PT OWN MED DRAWER 7, Y5N ONE (08:55)
[2019-10-28] MEDS: oxyCODONE HCL 5 MG TABLET PO PRN ×2 (08:59→18:01)
[2019-10-28] MEDS: amLODIPine BESYLATE 10 MG TABLET (FP) PO SCH (09:00)
[2019-10-28] MEDS: LOSARTAN POTASSIUM 25 MG TABLET PO SCH (09:00)
[2019-10-28] MEDS: BICTEGRAV/EMTRICIT/TENOFOV (BIKTARVY) 50-200-25 MG TABLET PO SCH (09:00)
[2019-10-28] MEDS: MULTIVITAMINS (DAILY MVI) TABLET (FP) PO SCH (09:00)
[2019-10-28] MEDS: ENOXAPARIN NA (PORCINE) 40 MG/0.4 ML DISP.SYRIN SQ SCH (09:00)
[2019-10-28] MEDS: ASPIRIN COATED 81 MG TABLET.EC PO SCH (09:00)
[2019-10-28] MEDS: CYANOCOBALAMIN 1,000 MCG TABLET (FP) PO SCH (09:01)
[2019-10-28 09:02] LABS: HEMATOCRIT 38.4 % (32.4-45.2); HEMOGLOBIN 12.9 GM/dL (10.7-15.3); MCH 35.3 pg (25.7-33.7); MCHC 33.6 g/dl (32.0-36.0); MEAN CELL VOLUME 104.9 fl (80-96); MEAN PLT VOLUME 7.7 fl (7.5-11.1); PLATELET COUNT 203 K/MM3 (134-434); RBC 3.66 M/mm3 (3.60-5.2); RDW 14.8 % (11.6-15.6); WHITE BLOOD COUNT 7.7 K/mm3 (4.0-10.0)
--- NOTE | 2019-10-28 09:11 | PN ---
Progress Note, Physician History of Present Illness: 64yo F hx HIV (on HAART, last CD4 900s and non detectable viral load), osteoporosis, CVAs bilaterally, PAFb was supposed to be on coumadin, had Recent blood in stool, stopped on her own, no h/p GI briseno recently, no GI fuHLD, HTN, asthma, COPD, hypothyroidism, migraines, chronic pain syndrome, anxiety, seizures, and multiple ED visits for stroke like sx (last on 11/2018 for LUE/LLE weakness and staggered gait, prior on 09/2009) BIBA from home for collapse 2/2 L-sided weakness this AM. states 3 weeks ago d/c'ed AC " I had urinary bleeding" and started ASA instead; was supposed to see Dr Gonzalez this month; felt palpitations including this am with the above sx; states has "atrial fibrillation", no stress test in past as per pt. No CP/SOB; Trop 0.12; ECG: NSR, APC Patient reports seeing Dr. Leta Gonzalez ([facility]) and was told she had PAF in past, but is not on AC because of "bleeding ulcer". - Current Medication List Current Medications: Active Medications Acetaminophen (Tylenol -) 325 mg PO TID PRN PRN Reason: FEVER Acetaminophen (Tylenol -) 650 mg PO Q8H PRN PRN Reason: PAIN LEVEL 7-10 Acetaminophen/Butalbital/Caffeine (Fioricet -) 1 tablet PO Q6H PRN PRN Reason: HEADACHE Amlodipine Besylate (Norvasc -) 10 mg PO DAILY [facility] Last Admin: 10/28/19 09:00 Dose: 10 mg Documented by: Aspirin (Ecotrin -) 81 mg PO DAILY [facility] Last Admin: 10/28/19 09:00 Dose: 81 mg Documented by: Atorvastatin Calcium (Lipitor -) 80 mg PO HS [facility] Last Admin: 10/27/19 21:41 Dose: 80 mg Documented by: Bictegravir/Emtricitabine/Tenofovir (Biktarvy 50-200-25 Mg Tablet) 1 each PO DAILY [facility] Last Admin: 10/28/19 09:00 Dose: 1 each Documented by: Cyanocobalamin (Vitamin B12 -) 1,000 mcg PO DAILY [facility] Last Admin: 10/28/19 09:01 Dose: 1,000 mcg Documented by: Enoxaparin Sodium (Lovenox -) 40 mg SQ DAILY [facility] Last Admin: 10/28/19 09:00 Dose: 40 mg Documented by: Losartan Potassium (Cozaar -) 25 mg PO DAILY [facility] Last Admin: 10/28/19 09:00 Dose: 25 mg Documented by: Multivitamins/Minerals/Vitamin C (Tab-A-Vit -) 1 tab PO DAILY [facility] Last Admin: 10/28/19 09:00 Dose: 1 tab Documented by: Oxycodone HCl (Roxicodone -) 10 mg PO Q8H PRN PRN Reason: PAIN LEVEL 7-10 Last Admin: 10/28/19 08:59 Dose: 10 mg Documented by: Zolpidem Tartrate (Ambien -) 5 mg PO HS PRN PRN Reason: INSOMNIA Last Admin: 10/26/19 21:52 Dose: 5 mg Documented by: - Objective Vital Signs: Vital Signs Temperature 97.8 F 10/28/19 02:19 Pulse Rate 111 H 10/28/19 02:19 Respiratory Rate 20 10/28/19 02:19 Blood Pressure 148/75 10/28/19 06:00 O2 Sat by Pulse Oximetry (%) 96 10/27/19 09:00 Eyes: Yes: WNL, Conjunctiva Clear, EOM Intact HENT: Yes: WNL, Atraumatic, Normocephalic Neck: Yes: WNL, Supple, Trachea Midline Cardiovascular: Yes: WNL, Regular Rate and Rhythm Respiratory: Yes: WNL, Regular, CTA Bilaterally Gastrointestinal: Yes: WNL, Normal Bowel Sounds Genitourinary: Yes: WNL Musculoskeletal: Yes: WNL Extremities: Yes: WNL Edema: No Integumentary: Yes: WNL Neurological: Yes: Alert, Oriented ...Motor Strength: WNL Psychiatric: Yes: WNL Labs: INR, PTT INR 0.95 (0.83-1.09) 10/26/19 06:00 Problem List - Problems (1) Atrial fibrillation, transient Code(s): I48.91 - UNSPECIFIED ATRIAL FIBRILLATION (2) Left-sided weakness Code(s): R53.1 - WEAKNESS (3) Mastoiditis Code(s): H70.90 - UNSPECIFIED MASTOIDITIS, UNSPECIFIED EAR (4) Paroxysmal A-fib Code(s): I48.0 - PAROXYSMAL ATRIAL FIBRILLATION (5) Troponin level elevated Code(s): R74.8 - ABNORMAL LEVELS OF OTHER SERUM ENZYMES (6) Migraine Code(s): G43.909 - MIGRAINE, UNSP, NOT INTRACTABLE, WITHOUT STATUS MIGRAINOSUS (7) Abnormal Pap smear of cervix Code(s): R87.619 - UNSP ABNORMAL CYTOLOG FINDINGS IN SPECMN FROM CERVIX UTERI (8) Healthcare maintenance Code(s): Z00.00 - ENCNTR FOR GENERAL ADULT MEDICAL EXAM W/O ABNORMAL FINDINGS (9) Left shoulder pain Code(s): M25.512 - PAIN IN LEFT SHOULDER (10) Nausea & vomiting Code(s): R11.2 - NAUSEA WITH VOMITING, UNSPECIFIED (11) Pain and swelling of toe of left foot Code(s): M79.675 - PAIN IN LEFT TOE(S); M79.89 - OTHER SPECIFIED SOFT TISSUE DISORDERS (12) Rib pain on right side Code(s): R07.81 - PLEURODYNIA (13) Asthma Code(s): J45.909 - UNSPECIFIED ASTHMA, UNCOMPLICATED (14) Bilateral hand pain Code(s): M79.641 - PAIN IN RIGHT HAND; M79.642 - PAIN IN LEFT HAND (15) COPD (chronic obstructive pulmonary disease) Code(s): J44.9 - CHRONIC OBSTRUCTIVE PULMONARY DISEASE, UNSPECIFIED (16) COPD (chronic obstructive pulmonary disease) with chronic bronchitis Code(s): J44.9 - CHRONIC OBSTRUCTIVE PULMONARY DISEASE, UNSPECIFIED (17) Cataract Code(s): H26.9 - UNSPECIFIED CATARACT (18) Cervical spine disease Code(s): M48.9 - SPONDYLOPATHY, UNSPECIFIED (19) Chronic neck pain Code(s): M54.2 - CERVICALGIA; G89.29 - OTHER CHRONIC PAIN (20) Chronic use of opiate drugs therapeutic purposes Code(s): Z79.899 - OTHER REMOTE RECRUITER (CURRENT) DRUG THERAPY (21) Essential hypertension Code(s): I10 - ESSENTIAL (PRIMARY) HYPERTENSION (22) Glaucoma Code(s): H40.9 - UNSPECIFIED GLAUCOMA (23) H/O laminectomy Code(s): Z98.890 - OTHER SPECIFIED POSTPROCEDURAL STATES (24) HIV (human immunodeficiency virus infection) Code(s): Z21 - ASYMPTOMATIC HUMAN IMMUNODEFICIENCY VIRUS INFECTION STATUS (25) HTN (hypertension) Code(s): I10 - ESSENTIAL (PRIMARY) HYPERTENSION (26) Headache Code(s): R51 - HEADACHE (27) Hypothyroid Code(s): E03.9 - HYPOTHYROIDISM, UNSPECIFIED Qualifiers: Hypothyroidism type: unspecified Qualified Code(s): E03.9 - Hypothyroidism, unspecified (28) Insomnia Code(s): G47.00 - INSOMNIA, UNSPECIFIED (29) Knee pain, bilateral Code(s): M25.561 - PAIN IN RIGHT KNEE; M25.562 - PAIN IN LEFT KNEE (30) Left hip pain Code(s): M25.552 - PAIN IN LEFT HIP (31) Low back pain Code(s): M54.5 - LOW BACK PAIN (32) Neck pain Code(s): M54.2 - CERVICALGIA (33) Osteoporosis Code(s): M81.0 - AGE-RELATED OSTEOPOROSIS W/O CURRENT PATHOLOGICAL FRACTURE (34) Restless leg syndrome Code(s): G25.81 - RESTLESS LEGS SYNDROME (35) Underweight Code(s): R63.6 - UNDERWEIGHT (36) Weakness Code(s): R53.1 - WEAKNESS (37) Cerebrovascular accident (CVA) Code(s): I63.9 - CEREBRAL INFARCTION, UNSPECIFIED (38) Word finding difficulty Code(s): R47.89 - OTHER SPEECH DISTURBANCES Assessment/Plan IMP: 1. Acute CVAs 2. Reported h/o of PAF, no on chronic AC due prior GI bleeds/urinary bleeding 3. Chronic HTN 4. Hyperlipidemia 5. HIV+ 6. Chronic COPD, active smoker 7. Peptic ulcer disease (patient report). 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 tachycardia: trend;Monitor -Cont ASA, ARB; add low dose BB -HDL 82, LDL71 -CVA management as per primary team: -Echo - lexiscan-nuclear stress test when neuroligically stable -If source of CVA is in fact thromboembolism due to PAFb and if intolerant to chronic AC then AWILDA occlusion should be considered Coverage for dr. Adams
[2019-10-28 09:32] LABS: BLOOD UREA NITROGEN 18.6 mg/dL (7-18); CALCIUM 8.7 mg/dL (8.5-10.1); CREATININE 0.8 mg/dL (0.55-1.3); POTASSIUM 3.9 mmol/L (3.5-5.1)
--- NOTE | 2019-10-28 14:31 | PN ---
Physical Exam: SUBJECTIVE: Patient seen and examined at bedside. Had pain last night, but medicated with good relief. Still with LLE weakness. Denies bryson/d, n/v, chest pain, sob, abd pain. No other complaints. OBJECTIVE: Vital Signs Period Temp Pulse Resp BP Sys/Beasley Pulse Ox Last 24 Hr 97.8 F-98.5 F 75-111 20-22 115-149/60-86 95 GENERAL: NAD. AAOx3. Cooperative. HEENT: AT/NC. EOMI. MMM. Speech slightly dysarthric. Slight L sided facial weakness. NECK: Trachea midline, full range of motion, supple. LUNGS: CTA B/L. No wheezes or rales noted. HEART: RRR. Normal S1, S2. ABDOMEN: Soft, NT/ND. Normoactive bowel sounds in all 4Qs. EXTREMITIES: 2+ pulses, warm, well-perfused, no edema. NEUROLOGICAL: Slightly dysarthric speech. Facial muscles intact. 3/5 LUE strength (elbow flexion/extension, shoulder flexion/extension, hand staff command and control officer), 2/5 LLE strength (knee flexion/extension, dorsiflexion/plantarflexion). B/l knee reflexes intact. Sensation intact throughout. PSYCH: Normal mood, normal affect. SKIN: Warm, dry, normal turgor, no rashes or lesions noted Laboratory Results - last 24 hr 10/27/19 10/27/19 10/27/19 08:43 15:00 17:44 WBC RBC Hgb Hct MCV MCH MCHC RDW Plt Count MPV Sodium Potassium Chloride Carbon Dioxide Anion Gap BUN Creatinine Est GFR (CKD-EPI)AfAm Est GFR (CKD-EPI)NonAf Random Glucose Calcium Creatine Kinase 208 H Creatine Kinase Index 0.6 CK-MB (CK-2) 1.4 Troponin I 0.07 H Free T3 1.7 L Stool Occult Blood Negative 10/28/19 10/28/19 08:52 08:52 WBC 7.7 RBC 3.66 Hgb 12.9 Hct 38.4 MCV 104.9 H MCH 35.3 H MCHC 33.6 RDW 14.8 Plt Count 203 MPV 7.7 D Sodium 142 Potassium 3.9 Chloride 110 H Carbon Dioxide 23 Anion Gap 9 BUN 18.6 H Creatinine 0.8 Est GFR (CKD-EPI)AfAm 90.30 Est GFR (CKD-EPI)NonAf 77.91 Random Glucose 88 Calcium 8.7 Creatine Kinase Creatine Kinase Index CK-MB (CK-2) Troponin I Free T3 Stool Occult Blood Active Medications Generic Name Dose Route Start Last Admin Trade Name Freq PRN Reason Stop Dose Admin Acetaminophen 325 mg 10/27/19 15:02 Tylenol - PO TID PRN FEVER Acetaminophen 650 mg 10/27/19 22:22 Tylenol - PO Q8H PRN PAIN LEVEL 7-10 Acetaminophen/Butalbital/Caffeine 1 tablet 10/27/19 15:51 Fioricet - PO Q6H PRN HEADACHE Amlodipine Besylate 10 mg 10/26/19 10:00 10/28/19 09:00 Norvasc - PO 10 mg DAILY [facility] Administration Aspirin 81 mg 10/26/19 10:15 10/28/19 09:00 Ecotrin - PO 81 mg DAILY [facility] Administration Atorvastatin Calcium 80 mg 10/26/19 22:00 10/27/19 21:41 Lipitor - PO 80 mg HS [facility] Administration Bictegravir/Emtricitabine/Tenofovir 1 each 10/26/19 14:00 10/28/19 09:00 Biktarvy 50-200-25 Mg Tablet PO 1 each DAILY [facility] Administration Cyanocobalamin 1,000 mcg 10/28/19 10:00 10/28/19 09:01 Vitamin B12 - PO 1,000 mcg DAILY [facility] Administration Enoxaparin Sodium 40 mg 10/27/19 10:00 10/28/19 09:00 Lovenox - SQ 40 mg DAILY [facility] Administration Losartan Potassium 25 mg 10/26/19 10:15 10/28/19 09:00 Cozaar - PO 25 mg DAILY [facility] Administration Multivitamins/Minerals/Vitamin C 1 tab 10/28/19 10:00 10/28/19 09:00 Tab-A-Vit - PO 1 tab DAILY [facility] Administration Oxycodone HCl 10 mg 10/27/19 22:22 10/28/19 08:59 Roxicodone - PO 10 mg Q8H PRN Administration PAIN LEVEL 7-10 Zolpidem Tartrate 5 mg 10/26/19 09:13 10/26/19 21:52 Ambien - PO 5 mg HS PRN Administration INSOMNIA ASSESSMENT/PLAN: IMAGING: * Head CT: Chronic infarct involving the right frontal lobe, superiorly/posteriorly as well as the right occipital and parietal lobe. Interval focal low-attenuation density in the right basal ganglia compatible with an infarct, of indeterminate age. Possible left mastoiditis * CTA Neck/Brain: No evidence of HD significant stenosis at the common carotid bifurcation, bilaterally. No evidence of an aneurysm, major artery cutoff, focal hemodynamically significant stenosis or vascular malformation within the central intracranial arterial circulation. On the postcontrast delayed 1 minute images of the brain, no abnormal intracranial enhancement is identified * Pelvis xray: No gross acute fracture or dislocation are identified. * CXR: Borderline cardiomegaly. Mild bilateral increased interstitial lung markings without evidence of focal infiltrates ASSESSMENT/PLAN: 64yo F hx HIV (on HAART, last CD4 900s and non detectable viral load), osteoporosis, HLD, HTN, asthma, COPD, hypothyroidism, migraines, chronic pain syndrome, anxiety, seizures, and multiple ED visits for stroke like sx (last on 11/2018 for LUE/LLE weakness and staggered gait, prior on 09/2009) BIBA from home for collapse 2/2 L-sided weakness this AM. #Worsening L sided weakness; w/ known history of cryptogenic strokes, r/o CVA -Head CT and CTA neck/brain neg -Neuro following, brain MRI pending - pt's brother will bring [employer] card today -Per swallow eval, MBS scheduled for this Tuesday; can give chopped diet for now with nectar thick liquid -PT eval #Hx of Paroxysmal Afib; Currently rate-controlled now in NSR with HR ~60s. -Supposed to be on Warfarin 5 mg QD at home, but had recent episodes of bloody urine after which she stopped taking it on her own; INR 0.95 -Spoke to PCP at [facility]-- [employer] loop recorder recently placed ~Jun 2019, last checked at PCP's office on 09/27/19 showing NSR with PVCs; has loop recorder checked monthly at office -Pending MRI results to start AC #HTN; Cont home meds: Amlodipine 10, Losartan 25 #HIV; Cont home meds: Biktarvy -Viral load and CD4 pending -ID following #Chronic Pain Syndrome; Cont home med: Percocet 10-325 TID PRN #Hx of Seizures; Stable. Not currently on meds. #Hypothyroidism; TSH 4.43. Will obtain T3/T4. Not currently on meds. #Prophylaxis DVT: Prophylactic dose of Lovenox for now #FEN -PO hydration -recheck lytes in AM -Chopped diet Dispo -Cont to monitor on tele Visit type - Emergency Visit Emergency Visit: Yes ED Registration Date: 10/26/19 Care time: The patient presented to the Emergency Department on the above date and was hospitalized for further evaluation of their emergent condition. - New Patient This patient is new to me today: No - Critical Care Critical Care patient: No ATTENDING PHYSICIAN STATEMENT I saw and evaluated the patient. I reviewed the resident's note and discussed the case with the resident. I agree with the resident's findings and plan as documented. SUBJECTIVE: OBJECTIVE: ASSESSMENT AND PLAN:
--- NOTE | 2019-10-28 18:11 | PN ---
Teaching Attending Note Name of Resident: Camryn Barrientos ATTENDING PHYSICIAN STATEMENT I saw and evaluated the patient. I reviewed the resident's note and discussed the case with the resident. I agree with the resident's findings and plan as documented. SUBJECTIVE: Patient is feeling better, LUE is better as per patient, and able to move LLE slightly. OBJECTIVE: Vital Signs Temperature 98.4 F 10/28/19 18:05 Pulse Rate 82 10/28/19 18:05 Respiratory Rate 20 10/28/19 18:05 Blood Pressure 134/72 10/28/19 18:05 O2 Sat by Pulse Oximetry (%) 95 10/28/19 09:00 PE:per resident's note LUE 4.5/5 LLE 1/5 CBCD WBC 7.7 K/mm3 (4.0-10.0) 10/28/19 08:52 RBC 3.66 M/mm3 (3.60-5.2) 10/28/19 08:52 Hgb 12.9 GM/dL (10.7-15.3) 10/28/19 08:52 Hct 38.4 % (32.4-45.2) 10/28/19 08:52 MCV 104.9 fl (80-96) H 10/28/19 08:52 MCHC 33.6 g/dl (32.0-36.0) 10/28/19 08:52 RDW 14.8 % (11.6-15.6) 10/28/19 08:52 Plt Count 203 K/MM3 (134-434) 10/28/19 08:52 MPV 7.7 fl (7.5-11.1) D 10/28/19 08:52 CMP Sodium 142 mmol/L (136-145) 10/28/19 08:52 Potassium 3.9 mmol/L (3.5-5.1) 10/28/19 08:52 Chloride 110 mmol/L (98-107) H 10/28/19 08:52 Carbon Dioxide 23 mmol/L (21-32) 10/28/19 08:52 Anion Gap 9 MMOL/L (8-16) 10/28/19 08:52 BUN 18.6 mg/dL (7-18) H 10/28/19 08:52 Creatinine 0.8 mg/dL (0.55-1.3) 10/28/19 08:52 Random Glucose 88 mg/dL (74-106) 10/28/19 08:52 Calcium 8.7 mg/dL (8.5-10.1) 10/28/19 08:52 Total Bilirubin 0.5 mg/dL (0.2-1) 10/27/19 05:44 AST 24 U/L (15-37) 10/27/19 05:44 ALT 23 U/L (13-61) 10/27/19 05:44 Alkaline Phosphatase 164 U/L (45-117) H 10/27/19 05:44 Total Protein 6.7 g/dl (6.4-8.2) 10/27/19 05:44 Albumin 3.7 g/dl (3.4-5.0) 10/27/19 05:44 CARDIAC ENZYMES Creatine Kinase 208 U/L (26-192) H 10/27/19 17:44 Troponin I 0.07 ng/ml (0.00-0.05) H 10/27/19 17:44 Current Medications Generic Name Dose Route Start Last Admin Trade Name Freq PRN Reason Stop Dose Admin Acetaminophen 325 mg 10/27/19 15:02 Tylenol - PO TID PRN FEVER Acetaminophen 650 mg 10/27/19 22:22 Tylenol - PO Q8H PRN PAIN LEVEL 7-10 Acetaminophen/Butalbital/Caffeine 1 tablet 10/27/19 15:51 Fioricet - PO Q6H PRN HEADACHE Amlodipine Besylate 10 mg 10/26/19 10:00 10/28/19 09:00 Norvasc - PO 10 mg DAILY OSBALDO Administration Aspirin 81 mg 10/26/19 10:15 10/28/19 09:00 Ecotrin - PO 81 mg DAILY OSBALDO Administration Atorvastatin Calcium 80 mg 10/26/19 22:00 10/27/19 21:41 Lipitor - PO 80 mg HS OSBALDO Administration Bictegravir/Emtricitabine/Tenofovir 1 each 10/26/19 14:00 10/28/19 09:00 Biktarvy 50-200-25 Mg Tablet PO 1 each DAILY OSBALDO Administration Cyanocobalamin 1,000 mcg 10/28/19 10:00 10/28/19 09:01 Vitamin B12 - PO 1,000 mcg DAILY OSBALDO Administration Enoxaparin Sodium 40 mg 10/27/19 10:00 10/28/19 09:00 Lovenox - SQ 40 mg DAILY OSBALDO Administration Losartan Potassium 25 mg 10/26/19 10:15 10/28/19 09:00 Cozaar - PO 25 mg DAILY OSBALDO Administration Multivitamins/Minerals/Vitamin C 1 tab 10/28/19 10:00 10/28/19 09:00 Tab-A-Vit - PO 1 tab DAILY OSBALDO Administration Oxycodone HCl 10 mg 10/27/19 22:22 10/28/19 18:01 Roxicodone - PO 10 mg Q8H PRN Administration PAIN LEVEL 7-10 Zolpidem Tartrate 5 mg 10/26/19 09:13 10/26/19 21:52 Ambien - PO 5 mg HS PRN Administration INSOMNIA Home Medications Medication Instructions Recorded Aspirin [ASA -] 81 mg PO DAILY #30 tab 11/30/18 Bictegrav/Emtricit/Tenofov Ala 1 each PO DAILY #30 tablet 03/22/19 [Biktarvy 50-200-25 mg Tablet] Cyanocobalamin [Vitamin B12 -] 1,000 mcg PO DAILY #30 tablet 04/03/19 Multivitamin [Multiple Vitamins] 1 each PO DAILY #30 tablet 04/03/19 Amlodipine Besylate 10 mg PO DAILY 10/27/19 Butalb/Acetaminophen/Caffeine 1 each PO QID PRN 10/27/19 [Fioricet 50-300-40 mg Capsule] Cyanocobalamin [Vitamin B12 -] 1,000 mcg PO DAILY 10/27/19 Lactose-Reduced Food [Ensure 237 ml PO TID 10/27/19 Liquid] Losartan Potassium 25 mg PO DAILY 10/27/19 Megestrol Acetate Oral Susp 1 tsp PO DAILY 10/27/19 [Megace Oral Suspension -] Oxycodone HCl/Acetaminophen 1 each PO TID PRN 10/27/19 [Percocet 10-325 mg Tablet] Warfarin Na [Coumadin] 5 mg PO DAILY 10/27/19 CT scan of the head: chronic infarct involving the right frontal lobe, superiorly/posteriorly as well as the right occipital and parietal lobe. interval focal low attenuation density in the right basal ganglia compatible with an infarct of indeterminate age. Possible left mastoiditis. CT angiopram of the head and neck: no evidence of an aneurysm, major artery cutoff, focal hemodynamically significant stenosis or vascular malformation within the central intracranial circulation. CXR: portable: borderline CM, mild bl increased interstitial lung markings without evidence of focal infiltrate. ASSESSMENT AND PLAN: This patient is a 64yof with PMhx of HIV (on HAART, last CD4 900s and non detectable viral load), osteoporosis, HLD, HTN, asthma, COPD, hypothyroidism, migraines, chronic pain syndrome, anxiety, seizures, with multiple ED visits for having stroke like symptoms. the last admission was on 11/2018. Admitted for left sided weakness. Patient was out of TPA window. #Hx of CVA presented with L sided weakness, Neuro seen the patient and ordered MRA/MRI of the brain, pending, not done yet since patient has a loop recorder and waiting for the clearance if safe for mRI #Hx of P-Afib: on coumadin, but patient stopped taking it since experienced rectal bleed at home, decided to stop by her own. Cardio and neuro on the case. H/H is stable #HTN: on amlodipine,and losartan continue #Hx of HIV: on Biktarvy , viral load and cd4, ID on the case. #Hx of seizures: not on any meds, #H/x of hypothyroidism: not on any meds. pending thyroid panel. DVT Px: Lovenox , INR is 0.96, was on coumadin as an outpatient stopped for possible rectal bleed,will place her on full dose Lovenox once we get the mri result that this is not a large stroke. As per neuro , we can place her on Lovenox once MRI resulted waiting for mri of brain: continue continue apsirin and statin as per Neuro: anticoagulation can be resumed, once mri confirmed that this is is not a large stroke
[2019-10-28] MEDS: ACETAMINOPHEN/CAFFEINE/BUTALBITAL 1 TAB PO PRN (19:01)
[2019-10-28] MEDS: ACETAMINOPHEN 325 MG TABLET (FP) PO PRN (20:18)
--- NOTE | 2019-10-28 21:33 | PN ---
Progress Note (short form) - Note Progress Note: 64 Year old female history of HIV( CD4 9SS WITH NO detectable vl), os teoporosis, HLD,HTN,Asthma, COPD, Hypothyroidism, migraine, anxiety and seizure. Pateint was admitted to hospital at [facility], pateint has residual left arm and elg weakness. Patient has falled yesterday and came with worsening of left sided weakness. There isno seizure like activty, headhace. Patient emmanuel any history of covid or febrile illness, no new symptoms, and mri of brain pending NEUROLOGICAL EXAMINATION Alert oriented x 3, speech is normal neck is supple, VSS Eomi , pupils reactive, left sided hemiparesis ct head is pending, suggestive of left mastoid and abx started by ED cta of neck and brain pending( as per pateint she has small aneurysm ) no procedure was done 1. Worsening of left sided weakness rule out stroke, most likely lacunar stroke. cta of neck and brain did not show any aneurysm 3. ? seizure , plan: - waiting for mri of brain - continue apsirin and statin - anticoagulation can be resumed if needed, once mri confirmed this is not a lar ge stroke - pt, dvt prophylaxis Thanking you so much Yehuda Hernández MD
[2019-10-28] MEDS: ATORVASTATIN CA 80 MG TABLET (FP) PO SCH (21:46)
[2019-10-28] MEDS: ZOLPIDEM TARTRATE 5 MG TABLET PO PRN (21:46)
[2019-10-29] MEDS: ACETAMINOPHEN/CAFFEINE/BUTALBITAL 1 TAB PO PRN ×3 (02:26→16:30)
[2019-10-29] MEDS: oxyCODONE HCL 5 MG TABLET PO PRN ×2 (03:48→19:29)
[2019-10-29 07:46] LABS: HEMATOCRIT 40.3 % (32.4-45.2); HEMOGLOBIN 13.4 GM/dL (10.7-15.3); MCHC 33.2 g/dl (32.0-36.0); MEAN CELL VOLUME 105.4 fl (80-96); MEAN PLT VOLUME 8.1 fl (7.5-11.1); PLATELET COUNT 215 K/MM3 (134-434); RBC 3.82 M/mm3 (3.60-5.2); RDW 14.7 % (11.6-15.6); WHITE BLOOD COUNT 7.4 K/mm3 (4.0-10.0)
[2019-10-29 08:06] LABS: ALBUMIN 3.7 g/dl (3.4-5.0); BILIRUBIN,TOTAL 0.5 mg/dL (0.2-1); BLOOD UREA NITROGEN 17.4 mg/dL (7-18); CALCIUM 9.1 mg/dL (8.5-10.1); CREATININE 0.8 mg/dL (0.55-1.3); POTASSIUM 4.5 mmol/L (3.5-5.1)
[2019-10-29] MEDS: ASPIRIN COATED 81 MG TABLET.EC PO SCH (09:06)
[2019-10-29] MEDS: MULTIVITAMINS (DAILY MVI) TABLET (FP) PO SCH (09:06)
[2019-10-29] MEDS: LOSARTAN POTASSIUM 25 MG TABLET PO SCH (09:06)
[2019-10-29] MEDS: amLODIPine BESYLATE 10 MG TABLET (FP) PO SCH (09:06)
[2019-10-29] MEDS: CYANOCOBALAMIN 1,000 MCG TABLET (FP) PO SCH (09:06)
[2019-10-29] MEDS: ENOXAPARIN NA (PORCINE) 40 MG/0.4 ML DISP.SYRIN SQ SCH (09:07)
--- NOTE | 2019-10-29 09:51 | PN ---
Progress Note, Physician History of Present Illness: 64yo F hx HIV (on HAART, last CD4 900s and non detectable viral load), osteoporosis, CVAs bilaterally, PAFb was supposed to be on coumadin, had Recent blood in stool, stopped on her own, no h/p GI briseno recently, no GI fuHLD, HTN, asthma, COPD, hypothyroidism, migraines, chronic pain syndrome, anxiety, seizures, and multiple ED visits for stroke like sx (last on 11/2018 for LUE/LLE weakness and staggered gait, prior on 09/2009) BIBA from home for collapse 2/2 L-sided weakness this AM. states 3 weeks ago d/c'ed AC " I had urinary bleeding" and started ASA instead; was supposed to see Dr Gonzalez this month; felt palpitations including this am with the above sx; states has "atrial fibrillation", no stress test in past as per pt. No CP/SOB; Trop 0.12; ECG: NSR, APC Patient reports seeing Dr. Leta Gonzalez ([facility]) and was told she had PAF in past, but is not on AC because of "bleeding ulcer". Off floor for MRI, EEG - Current Medication List Current Medications: Active Medications Acetaminophen (Tylenol -) 325 mg PO TID PRN PRN Reason: FEVER Acetaminophen (Tylenol -) 650 mg PO Q8H PRN PRN Reason: PAIN LEVEL 7-10 Last Admin: 10/28/19 20:18 Dose: 650 mg Documented by: Acetaminophen/Butalbital/Caffeine (Fioricet -) 1 tablet PO Q6H PRN PRN Reason: HEADACHE Last Admin: 10/29/19 09:07 Dose: 1 tablet Documented by: Amlodipine Besylate (Norvasc -) 10 mg PO DAILY [facility] Last Admin: 10/29/19 09:06 Dose: 10 mg Documented by: Aspirin (Ecotrin -) 81 mg PO DAILY [facility] Last Admin: 10/29/19 09:06 Dose: 81 mg Documented by: Atorvastatin Calcium (Lipitor -) 80 mg PO HS [facility] Last Admin: 10/28/19 21:46 Dose: 80 mg Documented by: Bictegravir/Emtricitabine/Tenofovir (Biktarvy 50-200-25 Mg Tablet) 1 each PO DAILY [facility] Last Admin: 10/28/19 09:00 Dose: 1 each Documented by: Cyanocobalamin (Vitamin B12 -) 1,000 mcg PO DAILY [facility] Last Admin: 10/29/19 09:06 Dose: 1,000 mcg Documented by: Enoxaparin Sodium (Lovenox -) 40 mg SQ DAILY [facility] Last Admin: 10/29/19 09:07 Dose: 40 mg Documented by: Losartan Potassium (Cozaar -) 25 mg PO DAILY [facility] Last Admin: 10/29/19 09:06 Dose: 25 mg Documented by: Multivitamins/Minerals/Vitamin C (Tab-A-Vit -) 1 tab PO DAILY [facility] Last Admin: 10/29/19 09:06 Dose: 1 tab Documented by: Oxycodone HCl (Roxicodone -) 10 mg PO Q8H PRN PRN Reason: PAIN LEVEL 7-10 Last Admin: 10/29/19 03:48 Dose: 10 mg Documented by: Zolpidem Tartrate (Ambien -) 5 mg PO HS PRN PRN Reason: INSOMNIA Last Admin: 10/28/19 21:46 Dose: 5 mg Documented by: - Objective Vital Signs: Vital Signs Temperature 98.1 F 10/29/19 06:00 Pulse Rate 81 10/29/19 06:00 Respiratory Rate 16 10/29/19 06:00 Blood Pressure 123/72 10/29/19 06:00 O2 Sat by Pulse Oximetry (%) 98 10/28/19 21:00 Labs: CBC, BMP 10/29/19 05:32 10/29/19 05:32 INR, PTT INR 0.95 (0.83-1.09) 10/26/19 06:00 Problem List - Problems (1) HTN (hypertension) Code(s): I10 - ESSENTIAL (PRIMARY) HYPERTENSION (2) Hypothyroid Code(s): E03.9 - HYPOTHYROIDISM, UNSPECIFIED Qualifiers: Hypothyroidism type: unspecified Qualified Code(s): E03.9 - Hypothyroidism, unspecified (3) Cerebrovascular accident (CVA) Code(s): I63.9 - CEREBRAL INFARCTION, UNSPECIFIED Qualifiers: CVA mechanism: unspecified Qualified Code(s): I63.9 - Cerebral infarction, unspecified Assessment/Plan 11/24/2018 Echo: Normal LV and RV size and fxn, mild MR, TR 01/18/2019 Holter Monitor: Sarah PAC, occ PVC, single beat VT, no PAF ct head is pending, suggestive of left mastoid and abx started by ED cta of neck and brain pending( as per pateint she has small aneurysm ) no procedure was done IMP: 1. Acute CVAs most likely lacunar 2. Reported h/o of PAF, no on chronic AC due prior GI bleeds/urinary bleeding 3. Chronic HTN 4. Hyperlipidemia 5. HIV+ 6. Chronic COPD, active smoker 7. Peptic ulcer disease (patient report). 8. NURSE CASE MANAGEMENT aneurysm 9. Demand ischemia Plan:: - Troponins downtrending -Cont ASA 81 qd, change Norvasc 10 qd to Cardizem CD 120 qd (home med), Lipitor 80 qd, change Losartan 25 qd to lisinopril 10 qd (home med lisinopril 40 qd) -HDL 82, LDL71 -CVA management as per primary team -F/u Echo -If source of CVA is in fact thromboembolism due to PAFb and if intolerant to chronic AC then AWILDA occlusion should be considered -waiting for mri of brain, EEG
--- NOTE | 2019-10-29 11:04 | PN ---
Progress Note, SCENE PAINTER - Note Progress Note: chopped diet with nectar thick liquid Selected Entries 10/27/19 10/27/19 10/27/19 01:00 05:00 09:00 Breakfast Diet Tolerated Supper Temperature 98.2 F 98.4 F 97.9 F 10/27/19 10/27/19 10/27/19 10:41 13:53 17:49 Breakfast 0 Diet Tolerated Refused Supper Temperature 98.3 F 98.5 F 10/27/19 10/28/19 10/28/19 22:01 02:19 09:58 Breakfast Diet Tolerated Refused Supper 0 Temperature 97.8 F 98.4 F 10/28/19 10/28/19 10/28/19 10:23 15:43 18:05 Breakfast 25% Diet Tolerated Fair Supper Temperature 98.0 F 98.4 F 10/28/19 10/28/19 10/29/19 19:30 22:00 01:21 Breakfast Diet Tolerated Refused Supper 0 Temperature 98.1 F 98 F 10/29/19 10/29/19 06:00 10:00 Breakfast Diet Tolerated Supper Temperature 98.1 F 98.0 F Laboratory Tests 10/29/19 05:[address]: Chronic infarct involving the right frontal lobe, superiorly/posteriorly as well as the right occipital and parietal lobe. Interval focal low-attenuation density in the right basal ganglia compatible with an infarct, of indeterminate age. Possible left mastoiditis * CTA Neck/Brain: No evidence of HD significant stenosis at the common carotid bifurcation, bilaterally. No evidence of an aneurysm, major artery cutoff, focal hemodynamically significant stenosis or vascular malformation within the central intracranial arterial circulation. On the postcontrast delayed 1 minute images of the brain, no abnormal intracranial enhancement is identified * Pelvis xray: No gross acute fracture or dislocation are identified. * CXR: Borderline cardiomegaly. Mild bilateral increased interstitial lung markings without evidence of focal infiltrates * MRI resulty pending * * For MBS * * * Reviewed case with nursing. mbs completed with risk of aspiration but none demonstrated For diet upgrade Verbal, Inconsistencies in giving her hx. Suspect memory/insight deficits Pt would benefit from acute rehab, if insurance allows
[2019-10-29] MEDS ORDERED: ENOXAPARIN NA (PORCINE) 60 MG/0.6 ML DISP.SYRIN SQ SCH ×3 (13:00→14:00)
[2019-10-29] MEDS ORDERED: ENOXAPARIN NA (PORCINE) 40 MG/0.4 ML DISP.SYRIN SQ SCH (13:00)
--- NOTE | 2019-10-29 13:01 | PN ---
Physical Exam: SUBJECTIVE: Patient seen and examined at bedside. No acute events overnight. Wants to do physical therapy and try to walk. Denies any worsening weakness. Per nurse, has some difficulty swallowing. Denies chest pain, sob, n/v, abd pain, urinary/bowel symptoms. OBJECTIVE: Vital Signs Period Temp Pulse Resp BP Sys/Beasley Pulse Ox Last 24 Hr 98 F-98.4 F 67-87 16-20 115-141/67-77 98-98 GENERAL: NAD. AAOx3. Cooperative. HEENT: AT/NC. EOMI. MMM. Speech slightly dysarthric. Slight L sided facial weakness. NECK: Trachea midline, full range of motion, supple. LUNGS: CTA B/L. No wheezes or rales noted. HEART: RRR. Normal S1, S2. ABDOMEN: Soft, NT/ND. Normoactive bowel sounds in all 4Qs. EXTREMITIES: 2+ pulses, warm, well-perfused, no edema. NEUROLOGICAL: Slightly dysarthric speech. Facial muscles intact. 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 B/l knee reflexes intact. Sensation intact throughout. PSYCH: Normal mood, normal affect. SKIN: Warm, dry, normal turgor, no rashes or lesions noted Laboratory Results - last 24 hr 10/29/19 10/29/19 05:32 05:32 WBC 7.4 RBC 3.82 Hgb 13.4 Hct 40.3 MCV 105.4 H MCH 35.0 H MCHC 33.2 RDW 14.7 Plt Count 215 MPV 8.1 Sodium 142 Potassium 4.5 Chloride 107 Carbon Dioxide 27 Anion Gap 9 BUN 17.4 Creatinine 0.8 Est GFR (CKD-EPI)AfAm 90.30 Est GFR (CKD-EPI)NonAf 77.91 Random Glucose 84 Calcium 9.1 Total Bilirubin 0.5 AST 34 ALT 39 Alkaline Phosphatase 164 H Total Protein 7.0 Albumin 3.7 Active Medications Generic Name Dose Route Start Last Admin Trade Name Freq PRN Reason Stop Dose Admin Acetaminophen 325 mg 10/27/19 15:02 Tylenol - PO TID PRN FEVER Acetaminophen 650 mg 10/27/19 22:22 10/28/19 20:18 Tylenol - PO 650 mg Q8H PRN Administration PAIN LEVEL 7-10 Acetaminophen/Butalbital/Caffeine 1 tablet 10/27/19 15:51 10/29/19 09:07 Fioricet - PO 1 tablet Q6H PRN Administration HEADACHE Amlodipine Besylate 10 mg 10/26/19 10:00 10/29/19 09:06 Norvasc - PO 10 mg DAILY OSBALDO Administration Aspirin 81 mg 10/26/19 10:15 10/29/19 09:06 Ecotrin - PO 81 mg DAILY OSBALDO Administration Atorvastatin Calcium 80 mg 10/26/19 22:00 10/28/19 21:46 Lipitor - PO 80 mg HS OSBALDO Administration Bictegravir/Emtricitabine/Tenofovir 1 each 10/26/19 14:00 10/28/19 09:00 Biktarvy 50-200-25 Mg Tablet PO 1 each DAILY OSBALDO Administration Cyanocobalamin 1,000 mcg 10/28/19 10:00 10/29/19 09:06 Vitamin B12 - PO 1,000 mcg DAILY OSBALDO Administration Enoxaparin Sodium 40 mg 10/29/19 13:00 Lovenox - SQ DAILY OSBALDO Losartan Potassium 25 mg 10/26/19 10:15 10/29/19 09:06 Cozaar - PO 25 mg DAILY OSBALDO Administration Multivitamins/Minerals/Vitamin C 1 tab 10/28/19 10:00 10/29/19 09:06 Tab-A-Vit - PO 1 tab DAILY OSBALDO Administration Oxycodone HCl 10 mg 10/27/19 22:22 10/29/19 03:48 Roxicodone - PO 10 mg Q8H PRN Administration PAIN LEVEL 7-10 Zolpidem Tartrate 5 mg 10/26/19 09:13 10/28/19 21:46 Ambien - PO 5 mg HS PRN Administration INSOMNIA IMAGING: * Head CT: Chronic infarct involving the right frontal lobe, superiorly/posteriorly as well as the right occipital and parietal lobe. Interval focal low-attenuation density in the right basal ganglia compatible with an infarct, of indeterminate age. Possible left mastoiditis * CTA Neck/Brain: No evidence of HD significant stenosis at the common carotid bifurcation, bilaterally. No evidence of an aneurysm, major artery cutoff, focal hemodynamically significant stenosis or vascular malformation within the central intracranial arterial circulation. On the postcontrast delayed 1 minute images of the brain, no abnormal intracranial enhancement is identified * Pelvis xray: No gross acute fracture or dislocation are identified. * CXR: Borderline cardiomegaly. Mild bilateral increased interstitial lung markings without evidence of focal infiltrates * Brain MRI: Encephalomalacia in the right posterior frontal and parietal lobe extending to the parieto- occipital junction and likely involving posterior aspect of the right temporal lobe is again seen. There is also a small focal area of encephalomalacia in the right temporal lobe, anterolaterally and in the right frontal high convexity. Focal encephalomalacia in the right periventricular white matter is again seen. There is suggestion of a tiny acute/subacute lacunar infarct in the left cerebellum, superiorly and in the right basal ganglia. There is a focal acute/subacute infarct in the right periventricular white matter, posteriorly. There is moderate atrophy, ventricular dilatation and periventricular chronic microvascular ischemic dise ase changes. No suspicious bone marrow abnormal signal is identified. There is no shift of the midline structures. Both orbits appear unremarkable. ASSESSMENT/PLAN: 64yo F hx HIV (on HAART, last CD4 900s and non detectable viral load), osteoporosis, HLD, HTN, asthma, COPD, hypothyroidism, migraines, chronic pain syndrome, anxiety, seizures, and multiple ED visits for stroke like sx (last on 11/2018 for LUE/LLE weakness and staggered gait, prior on 09/2009) BIBA from home for collapse 2/2 L-sided weakness this AM. #L sided weakness; w/ known history of cryptogenic strokes, r/o CVA -Symptoms started 2 weeks ago, was progressively getting worse - came to ED because of inability to ambulate on her own and unable to stand -Head CT and CTA neck/brain neg -Neuro following; brain MRI results noted above. Discussed with neuro - agree to start AC at this time as patient's symptoms started -MBS done; recommend trial of soft diet, sips of thin liquids. Keep HOB elevated during meals and 1 hr afterwards -PT eval #Hx of Paroxysmal Afib; Currently rate-controlled now in NSR with HR ~70s. -Supposed to be on Warfarin 5 mg QD at home, but had recent episodes of bloody urine after which she stopped taking it on her own; INR 0.95 -Spoke to PCP at [facility]-- [employer] loop recorder recently placed ~Jun 2019, last checked at PCP's office on 09/27/19 showing NSR with PVCs; has loop recorder checked monthly at office -brain MRI results noted above; Will start AC, Lovenox 56 BID, Coumadin 5 and continue to bridge until INR is therapeutic -INR ordered for AM #HTN; Cont home meds: Amlodipine 10, Losartan 25 #HIV; Cont home meds: Biktarvy -ID following #Chronic Pain Syndrome; Cont home med: Percocet 10-325 TID PRN #Hx of Seizures; Stable. Not currently on meds. #Hypothyroidism; TSH 4.43. Will obtain T3/T4. Not currently on meds. #Prophylaxis DVT: Full dose Lovenox + Coumadin (bridge until INR is therapeutic) #FEN -PO hydration -recheck lytes in AM -Soft diet, sips with thin liquids Dispo -Cont to monitor on tele Visit type - Emergency Visit Emergency Visit: Yes ED Registration Date: 10/26/19 Care time: The patient presented to the Emergency Department on the above date and was hospitalized for further evaluation of their emergent condition. - New Patient This patient is new to me today: No - Critical Care Critical Care patient: No ATTENDING PHYSICIAN STATEMENT I saw and evaluated the patient. I reviewed the resident's note and discussed the case with the resident. I agree with the resident's findings and plan as documented. SUBJECTIVE: OBJECTIVE: ASSESSMENT AND PLAN:
--- NOTE | 2019-10-29 13:13 | PN ---
Teaching Attending Note Name of Resident: Camryn Barrientos ATTENDING PHYSICIAN STATEMENT I saw and evaluated the patient. I reviewed the resident's note and discussed the case with the resident. I agree with the resident's findings and plan as documented. SUBJECTIVE: Patient is feeling better. OBJECTIVE: Vital Signs Temperature 98.0 F 10/29/19 10:00 Pulse Rate 67 10/29/19 10:00 Respiratory Rate 16 10/29/19 10:00 Blood Pressure 131/71 10/29/19 10:00 O2 Sat by Pulse Oximetry (%) 98 10/29/19 09:00 PE: per resident's note CBCD WBC 7.4 K/mm3 (4.0-10.0) 10/29/19 05:32 RBC 3.82 M/mm3 (3.60-5.2) 10/29/19 05:32 Hgb 13.4 GM/dL (10.7-15.3) 10/29/19 05:32 Hct 40.3 % (32.4-45.2) 10/29/19 05:32 MCV 105.4 fl (80-96) H 10/29/19 05:32 MCHC 33.2 g/dl (32.0-36.0) 10/29/19 05:32 RDW 14.7 % (11.6-15.6) 10/29/19 05:32 Plt Count 215 K/MM3 (134-434) 10/29/19 05:32 MPV 8.1 fl (7.5-11.1) 10/29/19 05:32 CMP Sodium 142 mmol/L (136-145) 10/29/19 05:32 Potassium 4.5 mmol/L (3.5-5.1) 10/29/19 05:32 Chloride 107 mmol/L (98-107) 10/29/19 05:32 Carbon Dioxide 27 mmol/L (21-32) 10/29/19 05:32 Anion Gap 9 MMOL/L (8-16) 10/29/19 05:32 BUN 17.4 mg/dL (7-18) 10/29/19 05:32 Creatinine 0.8 mg/dL (0.55-1.3) 10/29/19 05:32 Random Glucose 84 mg/dL (74-106) 10/29/19 05:32 Calcium 9.1 mg/dL (8.5-10.1) 10/29/19 05:32 Total Bilirubin 0.5 mg/dL (0.2-1) 10/29/19 05:32 AST 34 U/L (15-37) 10/29/19 05:32 ALT 39 U/L (13-61) 10/29/19 05:32 Alkaline Phosphatase 164 U/L (45-117) H 10/29/19 05:32 Total Protein 7.0 g/dl (6.4-8.2) 10/29/19 05:32 Albumin 3.7 g/dl (3.4-5.0) 10/29/19 05:32 CARDIAC ENZYMES Creatine Kinase 208 U/L (26-192) H 10/27/19 17:44 Troponin I 0.07 ng/ml (0.00-0.05) H 10/27/19 17:44 Current Medications Generic Name Dose Route Start Last Admin Trade Name Freq PRN Reason Stop Dose Admin Acetaminophen 325 mg 10/27/19 15:02 Tylenol - PO TID PRN FEVER Acetaminophen 650 mg 10/27/19 22:22 10/28/19 20:18 Tylenol - PO 650 mg Q8H PRN Administration PAIN LEVEL 7-10 Acetaminophen/Butalbital/Caffeine 1 tablet 10/27/19 15:51 10/29/19 09:07 Fioricet - PO 1 tablet Q6H PRN Administration HEADACHE Amlodipine Besylate 10 mg 10/26/19 10:00 10/29/19 09:06 Norvasc - PO 10 mg DAILY OSBALDO Administration Aspirin 81 mg 10/26/19 10:15 10/29/19 09:06 Ecotrin - PO 81 mg DAILY OSBALDO Administration Atorvastatin Calcium 80 mg 10/26/19 22:00 10/28/19 21:46 Lipitor - PO 80 mg HS OSBALDO Administration Bictegravir/Emtricitabine/Tenofovir 1 each 10/26/19 14:00 10/28/19 09:00 Biktarvy 50-200-25 Mg Tablet PO 1 each DAILY OSBALDO Administration Cyanocobalamin 1,000 mcg 10/28/19 10:00 10/29/19 09:06 Vitamin B12 - PO 1,000 mcg DAILY OSBALDO Administration Enoxaparin Sodium 40 mg 10/29/19 13:00 Lovenox - SQ DAILY OSBALDO Losartan Potassium 25 mg 10/26/19 10:15 10/29/19 09:06 Cozaar - PO 25 mg DAILY OSBALDO Administration Multivitamins/Minerals/Vitamin C 1 tab 10/28/19 10:00 10/29/19 09:06 Tab-A-Vit - PO 1 tab DAILY OSBALDO Administration Oxycodone HCl 10 mg 10/27/19 22:22 10/29/19 03:48 Roxicodone - PO 10 mg Q8H PRN Administration PAIN LEVEL 7-10 Zolpidem Tartrate 5 mg 10/26/19 09:13 10/28/19 21:46 Ambien - PO 5 mg HS PRN Administration INSOMNIA Home Medications Medication Instructions Recorded Aspirin [ASA -] 81 mg PO DAILY #30 tab 11/30/18 Bictegrav/Emtricit/Tenofov Ala 1 each PO DAILY #30 tablet 03/22/19 [Biktarvy 50-200-25 mg Tablet] Cyanocobalamin [Vitamin B12 -] 1,000 mcg PO DAILY #30 tablet 04/03/19 Multivitamin [Multiple Vitamins] 1 each PO DAILY #30 tablet 04/03/19 Amlodipine Besylate 10 mg PO DAILY 10/27/19 Butalb/Acetaminophen/Caffeine 1 each PO QID PRN 10/27/19 [Fioricet 50-300-40 mg Capsule] Cyanocobalamin [Vitamin B12 -] 1,000 mcg PO DAILY 10/27/19 Lactose-Reduced Food [Ensure 237 ml PO TID 10/27/19 Liquid] Losartan Potassium 25 mg PO DAILY 10/27/19 Megestrol Acetate Oral Susp 1 tsp PO DAILY 10/27/19 [Megace Oral Suspension -] Oxycodone HCl/Acetaminophen 1 each PO TID PRN 10/27/19 [Percocet 10-325 mg Tablet] Warfarin Na [Coumadin] 5 mg PO DAILY 10/27/19 CT scan of the head: chronic infarct involving the right frontal lobe, superiorly/posteriorly as well as the right occipital and parietal lobe. interval focal low attenuation density in the right basal ganglia compatible with an infarct of indeterminate age. Possible left mastoiditis. CT angiopram of the head and neck: no evidence of an aneurysm, major artery cutoff, focal hemodynamically significant stenosis or vascular malformation within the central intracranial circulation. CXR: portable: borderline CM, mild bl increased interstitial lung markings without evidence of focal infiltrate. Modified barium swallow: s/p fluoroscopy MRI Brain: multiple area of encephalomalacia as described compatible with chronic infarcts. Focal acute/subacute infarct in the right periventricular white matter,posteriorly and likely acute/subacute lacunar infarct in the right right basal ganglia and left aspect of the cerebellum. ASSESSMENT AND PLAN: This patient is a 64yof with PMhx of HIV (on HAART, last CD4 900s and non detectable viral load), osteoporosis, HLD, HTN, asthma, COPD, hypothyroidism, migraines, chronic pain syndrome, anxiety, seizures, with multiple ED visits for having stroke like symptoms. the last admission was on 11/2018. Admitted for left sided weakness. Patient was out of TPA window. #Hx of CVA presented with L sided weakness, Neuro seen the patient and ordered MRA/MRI of the brain, the result is as above, no bleed. will continue Lovenox with coumadin daily #Hx of P-Afib: on coumadin, but patient stopped taking it since experienced rectal bleed at home, decided to stop by her own. Cardio and neuro on the case. H/H is stable, will continue with lovenox bridging with warfarin , daily PT/INR #HTN: on amlodipine, and losartan continue #Hx of HIV: on Biktarvy , viral load and cd4, ID on the case. #Hx of seizures: not on any meds, #H/x of hypothyroidism: not on any meds. pending thyroid panel. DVT Px: Lovenox , INR is 0.96, was on coumadin as an outpatient stopped for possible rectal bleed,but h/h is stable, will start full dose Lovenox since MRI has no large Bleed or large stroke . As per neuro. ok to start warfarin and lovenox
--- NOTE | 2019-10-29 13:40 | PN ---
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 mbs completed with risk of aspiration but none demonstrated For diet upgrade Verbal, Inconsistencies in giving her hx. Suspect memory/insight deficits Pt would benefit from acute rehab, if insurance allows
[2019-10-29] MEDS: BICTEGRAV/EMTRICIT/TENOFOV (BIKTARVY) 50-200-25 MG TABLET PO SCH (13:46)
[2019-10-29] MEDS ORDERED: WARFARIN NA 5 MG TABLET PO SCH (18:00)
[2019-10-29] MEDS: WARFARIN NA 5 MG TABLET PO SCH (18:12)
[2019-10-29] MEDS: ACETAMINOPHEN 325 MG TABLET (FP) PO PRN (19:31)
[2019-10-29] MEDS: ZOLPIDEM TARTRATE 5 MG TABLET PO PRN (21:35)
[2019-10-29] MEDS: ATORVASTATIN CA 80 MG TABLET (FP) PO SCH (21:35)
--- NOTE | 2019-10-29 22:05 | PN ---
Progress Note (short form) - Note Progress Note: 64 Year old female history of HIV( CD4 9SS WITH NO detectable vl), o steoporosis, HLD,HTN,Asthma, COPD, Hypothyroidism, migraine, anxiety and seizure. Pateint was admitted to hospital at [facility], pateint has residual left arm and elg weakness. Patient has falled yesterday and came with worsening of left sided weakness. There isno seizure like activty, headhace. Patient emmanuel any history of covid or febrile illness, no new symptoms . NEUROLOGICAL EXAMINATION Alert oriented x 3, speech is normal neck is supple, VSS Eomi , pupils reactive, left sided hemiparesis ct head is pending, suggestive of left mastoid and abx started by ED cta of neck and brain pending( as per pateint she has small aneurysm ) no procedure was done mri confirmed two ischemic stroke on right hemisphere 1. Worsening of left sided weakness , mri of brain confirmed recurrent stroke cta of neck and brain did not show any aneurysm 3. ? seizure , not on any AED Given that patient has symtpms few days ( confirmed with pateint), it would ok to resume antocoagulation, discussed with primary team plan: -mri results discussed with primary team, would be ok to resume anticoagulation - patient would need short term rehab - pt, dvt prophylaxis Thanking you so much Yehuda Hernández MD
[2019-10-30] MEDS: oxyCODONE HCL 5 MG TABLET PO PRN ×3 (03:01→21:12)
[2019-10-30 06:23] LABS: BASO % 0.8 % (0-2.0); EOS % 1.1 % (0-4.5); HEMATOCRIT 36.9 % (32.4-45.2); HEMOGLOBIN 12.3 GM/dL (10.7-15.3); LYMPH % 32.5 % (8-40); MCHC 33.3 g/dl (32.0-36.0); MEAN CELL VOLUME 105.4 fl (80-96); MEAN PLT VOLUME 8.2 fl (7.5-11.1); MONO % 9.5 % (3.8-10.2); NEUT % 56.1 % (42.8-82.8); PLATELET COUNT 204 K/MM3 (134-434); RDW 14.7 % (11.6-15.6); WHITE BLOOD COUNT 7.4 K/mm3 (4.0-10.0)
[2019-10-30] MEDS: ACETAMINOPHEN/CAFFEINE/BUTALBITAL 1 TAB PO PRN ×2 (06:25→21:22)
[2019-10-30 06:27] LABS: INR 1.01 (0.83-1.09); PROTHROMBIN TIME (PATIENT) 11.9 SEC (9.7-13.0)
[2019-10-30 06:49] LABS: ALBUMIN 3.4 g/dl (3.4-5.0); BILIRUBIN,TOTAL 0.2 mg/dL (0.2-1); BLOOD UREA NITROGEN 21.9 mg/dL (7-18); CALCIUM 8.5 mg/dL (8.5-10.1); CREATININE 0.9 mg/dL (0.55-1.3); POTASSIUM 4.3 mmol/L (3.5-5.1); TOT PROT 6.4 g/dl (6.4-8.2)
[2019-10-30] MEDS: MULTIVITAMINS (DAILY MVI) TABLET (FP) PO SCH (09:33)
[2019-10-30] MEDS: ASPIRIN COATED 81 MG TABLET.EC PO SCH (09:33)
[2019-10-30] MEDS: ENOXAPARIN NA (PORCINE) 60 MG/0.6 ML DISP.SYRIN SQ SCH ×2 (09:34→21:11)
[2019-10-30] MEDS: LISINOPRIL 10 MG TABLET (FP) PO SCH (09:34)
[2019-10-30] MEDS: BICTEGRAV/EMTRICIT/TENOFOV (BIKTARVY) 50-200-25 MG TABLET PO SCH (09:34)
[2019-10-30] MEDS: CYANOCOBALAMIN 1,000 MCG TABLET (FP) PO SCH (09:34)
[2019-10-30] MEDS ORDERED: ENOXAPARIN NA (PORCINE) 60 MG/0.6 ML DISP.SYRIN SQ SCH (10:00)
[2019-10-30 10:11] LABS: ANISOCYTOSIS 1+; MACROCYTOSIS 1+; PLATELET ESTIMATE NORMAL
--- NOTE | 2019-10-30 10:54 | PN ---
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 Selected Entries 10/28/19 10/28/19 10/29/19 10:23 19:30 01:21 Breakfast 25% Diet Tolerated Lunch Supper 0 Temperature 98 F Pulse Rate 87 Blood Pressure 141/77 Oxygen Delivery Method 10/29/19 10/29/19 10/29/19 06:00 10:00 11:20 Breakfast 25% Diet Tolerated Lunch Supper Temperature 98.1 F 98.0 F Pulse Rate 81 67 Blood Pressure 123/72 131/71 Oxygen Delivery Method 10/29/19 10/29/19 10/29/19 14:15 16:30 18:30 Breakfast Diet Tolerated Well Well Lunch 100% Supper 75% Temperature 98.6 F 98.3 F Pulse Rate 87 85 Blood Pressure 125/65 126/70 Oxygen Delivery Method 10/29/19 10/30/19 10/30/19 20:00 01:30 06:00 Breakfast Diet Tolerated Lunch Supper Temperature 98.2 F 98.3 F 98.1 F Pulse Rate 85 87 76 Blood Pressure 120/65 127/64 104/70 Oxygen Delivery Method 10/30/19 10/30/19 10/30/19 07:34 07:35 10:39 Breakfast 75% Diet Tolerated Well Lunch Supper Temperature 98 F Pulse Rate 69 Blood Pressure 125/66 Oxygen Delivery Room Air Method Laboratory Tests 10/29/19 10/30/19 05:32 05:40 WBC 7.4 7.4 Good acceptance and tolerance Accepted at [facility], pending acceptance of insurance.
--- NOTE | 2019-10-30 12:06 | PN ---
Progress Note, Physician Chief Complaint: Events noted Complains of headache History of Present Illness: Patient was seen and examined. Awake and alert. Chart was reviewed Denies chest pain, SOB or palpitations Weakness left side - Current Medication List Current Medications: Active Medications Acetaminophen (Tylenol -) 325 mg PO TID PRN PRN Reason: FEVER Acetaminophen (Tylenol -) 650 mg PO Q8H PRN PRN Reason: PAIN LEVEL 7-10 Last Admin: 10/29/19 19:31 Dose: 650 mg Documented by: Acetaminophen/Butalbital/Caffeine (Fioricet -) 1 tablet PO Q6H PRN PRN Reason: HEADACHE Last Admin: 10/30/19 06:25 Dose: 1 tablet Documented by: Aspirin (Ecotrin -) 81 mg PO DAILY [facility] Last Admin: 10/30/19 09:33 Dose: 81 mg Documented by: Atorvastatin Calcium (Lipitor -) 80 mg PO HS [facility] Last Admin: 10/29/19 21:35 Dose: 80 mg Documented by: Bictegravir/Emtricitabine/Tenofovir (Biktarvy 50-200-25 Mg Tablet) 1 each PO DAILY [facility] Last Admin: 10/30/19 09:34 Dose: 1 each Documented by: Cyanocobalamin (Vitamin B12 -) 1,000 mcg PO DAILY [facility] Last Admin: 10/30/19 09:34 Dose: 1,000 mcg Documented by: Diltiazem HCl (Cardizem Cd -) 120 mg PO DAILY [facility] Last Admin: 10/30/19 09:34 Dose: 120 mg Documented by: Enoxaparin Sodium (Lovenox -) 60 mg SQ BID [facility] Last Admin: 10/30/19 09:34 Dose: 60 mg Documented by: Lisinopril (Prinivil) 10 mg PO DAILY [facility] Last Admin: 10/30/19 09:34 Dose: 10 mg Documented by: Multivitamins/Minerals/Vitamin C (Tab-A-Vit -) 1 tab PO DAILY [facility] Last Admin: 10/30/19 09:33 Dose: 1 tab Documented by: Oxycodone HCl (Roxicodone -) 10 mg PO Q8H PRN PRN Reason: PAIN LEVEL 7-10 Last Admin: 10/30/19 11:15 Dose: 10 mg Documented by: Warfarin Sodium (Coumadin -) 5 mg PO DAILY@1800 [facility] Last Admin: 10/29/19 18:12 Dose: 5 mg Documented by: Zolpidem Tartrate (Ambien -) 5 mg PO HS PRN PRN Reason: INSOMNIA Last Admin: 10/29/19 21:35 Dose: 5 mg Documented by: - Objective Vital Signs: Vital Signs Temperature 98 F 10/30/19 07:35 Pulse Rate 69 10/30/19 07:35 Respiratory Rate 20 10/30/19 07:35 Blood Pressure 125/66 10/30/19 07:35 O2 Sat by Pulse Oximetry (%) 99 10/30/19 07:34 Eyes: Yes: PERRL HENT: Yes: Atraumatic Neck: Yes: Supple Cardiovascular: Yes: Regular Rate and Rhythm, S1, S2. No: Murmur Respiratory: Yes: CTA Bilaterally Gastrointestinal: Yes: Normal Bowel Sounds, Soft. No: Tenderness Edema: No Labs: CBC, BMP 10/30/19 05:40 10/30/19 05:35 INR, PTT INR 1.01 (0.83-1.09) 10/30/19 05:40 Problem List - Problems (1) Paroxysmal A-fib Code(s): I48.0 - PAROXYSMAL ATRIAL FIBRILLATION (2) Troponin level elevated Code(s): R74.8 - ABNORMAL LEVELS OF OTHER SERUM ENZYMES (3) Migraine Code(s): G43.909 - MIGRAINE, UNSP, NOT INTRACTABLE, WITHOUT STATUS MIGRAINOSUS (4) COPD (chronic obstructive pulmonary disease) Code(s): J44.9 - CHRONIC OBSTRUCTIVE PULMONARY DISEASE, UNSPECIFIED (5) HIV (human immunodeficiency virus infection) Code(s): Z21 - ASYMPTOMATIC HUMAN IMMUNODEFICIENCY VIRUS INFECTION STATUS (6) HTN (hypertension) Code(s): I10 - ESSENTIAL (PRIMARY) HYPERTENSION (7) Headache Code(s): R51 - HEADACHE (8) Cerebrovascular accident (CVA) Code(s): I63.9 - CEREBRAL INFARCTION, UNSPECIFIED Qualifiers: CVA mechanism: unspecified Qualified Code(s): I63.9 - Cerebral infarction, unspecified Assessment/Plan 1. Acute CVA/lacunar infarct 2. History of PAF, but not on anticoagulation due prior GI bleeds/urinary bleeding 3. HTN 4. Hyperlipidemia 5. HIV+ 6. COPD 7. Peptic ulcer disease 8. IN PROCESS INSPECTOR aneurysm 9. Demand ischemia PLAN: 1. Trend troponin 2. Continue ASA 81 mg QD, Cardizem CD 120 mg QD, Lipitor 80 mg QHS and Lisinopril 10 mg QD 3. CVA management per Neuro 4. Echocardiography to assess LV/RV and valvular function if not done recently 5. If source of CVA is thromboembolism and PAF is documented, she will need either anticoagulation or if that is contraindicated, may need LA appendage occlusion device such as Watchman Further plans are to follow Genaro Hammond MD
--- NOTE | 2019-10-30 16:26 | PN ---
Physical Exam: SUBJECTIVE: Patient seen and examined. She reports headache which is typical for her as she has chronic migraines. She is asking for Fioricet as needed. She reports continued left side weakness. OBJECTIVE: Vital Signs Period Temp Pulse Resp BP Sys/Beasley Pulse Ox Last 24 Hr 97.8 F-98.3 F 69-87 18-20 104-127/64-85 98-99 GENERAL: The patient is awake, alert, and fully oriented, in no acute distress. HEAD: Normal with no signs of trauma. EYES: PERRL, extraocular movements intact, conjunctiva clear. ENT: Ears normal, nares patent, moist mucous membranes. NECK: Trachea midline. LUNGS: Clear to auscultation bilaterally, no wheezes, no crackles. HEART: Regular rate and rhythm, no murmur. ABDOMEN: Soft, nontender, nondistended, normoactive bowel sounds. EXTREMITIES: Warm, well-perfused, no edema. NEUROLOGICAL: Cranial nerves II through XII grossly intact. Normal speech. Decreased sensation in CN VII, left upper and lower extremities decreased sensation, decreased strength. PSYCH: Normal mood, normal affect. SKIN: Warm, dry, normal turgor. Laboratory Results - last 24 hr 10/30/19 10/30/19 10/30/19 05:35 05:40 05:40 WBC 7.4 RBC 3.50 L Hgb 12.3 Hct 36.9 MCV 105.4 H MCH 35.0 H MCHC 33.3 RDW 14.7 Plt Count 204 MPV 8.2 Absolute Neuts (auto) 4.1 Neutrophils % 56.1 D Lymphocytes % 32.5 D Monocytes % 9.5 Eosinophils % 1.1 Basophils % 0.8 Nucleated RBC % 0 Hypochromia 1+ Platelet Estimate Normal Polychromasia 0 Poikilocytosis 0 Anisocytosis 1+ Microcytosis 1+ Macrocytosis 1+ PT with INR 11.90 INR 1.01 Sodium 141 Potassium 4.3 Chloride 108 H Carbon Dioxide 23 Anion Gap 9 BUN 21.9 H Creatinine 0.9 Est GFR (CKD-EPI)AfAm 78.32 Est GFR (CKD-EPI)NonAf 67.57 Random Glucose 94 Calcium 8.5 Total Bilirubin 0.2 AST 35 ALT 41 Alkaline Phosphatase 144 H Total Protein 6.4 Albumin 3.4 Active Medications Generic Name Dose Route Start Last Admin Trade Name Freq PRN Reason Stop Dose Admin Acetaminophen 325 mg 10/27/19 15:02 Tylenol - PO TID PRN FEVER Acetaminophen 650 mg 10/27/19 22:22 10/29/19 19:31 Tylenol - PO 650 mg Q8H PRN Administration PAIN LEVEL 7-10 Acetaminophen/Butalbital/Caffeine 1 tablet 10/27/19 15:51 10/30/19 06:25 Fioricet - PO 1 tablet Q6H PRN Administration HEADACHE Aspirin 81 mg 10/26/19 10:15 10/30/19 09:33 Ecotrin - PO 81 mg DAILY OSBALDO Administration Atorvastatin Calcium 80 mg 10/26/19 22:00 10/29/19 21:35 Lipitor - PO 80 mg HS [facility] Administration Bictegravir/Emtricitabine/Tenofovir 1 each 10/26/19 14:00 10/30/19 09:34 Biktarvy 50-200-25 Mg Tablet PO 1 each DAILY OSBALDO Administration Cyanocobalamin 1,000 mcg 10/28/19 10:00 10/30/19 09:34 Vitamin B12 - PO 1,000 mcg DAILY [facility] Administration Diltiazem HCl 120 mg 10/30/19 10:00 10/30/19 09:34 Cardizem Cd - PO 120 mg DAILY OSBALDO Administration Enoxaparin Sodium 60 mg 10/30/19 10:00 10/30/19 09:34 Lovenox - SQ 60 mg BID OSBALDO Administration Levothyroxine Sodium 12.5 mcg 10/31/19 07:00 Synthroid - PO DAILY@0700 [facility] Lisinopril 10 mg 10/30/19 10:00 10/30/19 09:34 Prinivil PO 10 mg DAILY OSBALDO Administration Multivitamins/Minerals/Vitamin C 1 tab 10/28/19 10:00 10/30/19 09:33 Tab-A-Vit - PO 1 tab DAILY [facility] Administration Oxycodone HCl 10 mg 10/27/19 22:22 10/30/19 11:15 Roxicodone - PO 10 mg Q8H PRN Administration PAIN LEVEL 7-10 Warfarin Sodium 5 mg 10/29/19 18:00 10/29/19 18:12 Coumadin - PO 5 mg DAILY@1800 OSBALDO Administration ASSESSMENT/PLAN: 64yo F hx HIV (on HAART, last CD4 900s and non detectable viral load), osteoporosis, HLD, HTN, asthma, COPD, hypothyroidism, migraines, chronic pain syndrome, anxiety, seizures, and multiple ED visits for stroke like sx (last on 11/2018 for LUE/LLE weakness and staggered gait, prior on 09/2009) BIBA from home for collapse 2/2 L-sided weakness this AM. #L sided weakness -hx CVA -MRI shows subacute/acute left cerebellar and right basal ganglia, with right temporal encephalomalacia -Neuro following -MBS done; recommend trial of soft diet, sips of thin liquids. Keep HOB elevated during meals and 1 hr afterwards. -PT eval -plans for rehab -atrovastatin 80mg HS #Hx of Paroxysmal Afib -rate controlled -INR 1.01 today -restarted coumadin 5mg -continue Lovenox 60mg BID -follow INR #HTN -Cont home meds: Amlodipine 10, Losartan 25 #HIV -Cont home meds: Biktarvy -ID following #Chronic Pain Syndrome -Cont home med: Percocet 10-325 TID PRN #Hx of Seizures -stable #Hypothyroidism -TSH 4.43, T3 1.7 -start low dose Synthroid as pt was on it in the past -will need f/u labs outpt #Prophylaxis DVT: Full dose Lovenox + Coumadin (bridge until INR is therapeutic) FEN PO fluids monitor labs soft diet, sips with thin liquids Dispo tele anticipate d/c to rehab FULL CODE Visit type - Emergency Visit Emergency Visit: Yes ED Registration Date: 10/26/19 Care time: The patient presented to the Emergency Department on the above date and was hospitalized for further evaluation of their emergent condition. - New Patient This patient is new to me today: Yes Date on this admission: 10/30/19 - Critical Care Critical Care patient: No ATTENDING PHYSICIAN STATEMENT I saw and evaluated the patient. I reviewed the resident's note and discussed the case with the resident. I agree with the resident's findings and plan as documented. SUBJECTIVE: OBJECTIVE: ASSESSMENT AND PLAN:
[2019-10-30] MEDS: WARFARIN NA 5 MG TABLET PO SCH (17:14)
[2019-10-30] MEDS: ACETAMINOPHEN 325 MG TABLET (FP) PO PRN ×2 (18:16→22:58)
--- NOTE | 2019-10-30 19:24 | PN ---
Teaching Attending Note Name of Resident: Nita Best ATTENDING PHYSICIAN STATEMENT I saw and evaluated the patient. I reviewed the resident's note and discussed the case with the resident. I agree with the resident's findings and plan as documented. SUBJECTIVE: cont to have weakness in LLUE and LLE. no cp or SOB . has GUNDERSON . OBJECTIVE: NAD, awake, alert, cooperative CV: RRR, no MRG Lungs: CTAB Abd: NT, Nd Ext : no edema or erytehma Neuro : . decreased sensation to light touch in R sided face , EOMI, tongue at mid line . 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 LLE: hip flexion 1/5, knee 0/5, ankle dorsiflexion /plantar flexion 0/5 RUE: shoulder shrug 5/5, shoulder flexion 5/5, biceps /triceps 5/5 RLE: 5/5 hip flexion , ankle dorsiflexion/plantar flexiona nd knee flexion /extension reflexes: L knee jerk 2+ , R knee jerk and biceps b/l 0. ASSESSMENT AND PLAN: 64 y/o lady with h/o HIV, Osteoporosis, HLP, HTN, asthma, migraines , anxiety, seizures, lower GI bleed , who presented with worsening L sided weakness and was found to have acute stroke Acute stroke Worsening L sided weakness h/o PAF HTN Microscopic hematuria hypothyroidism . stoped her out pt synthroid plan : - cont lovenox to coumadin - cont lisinopril and cardizem - repeat UA to evaluate microscopic hematuria - if GI bleed recur , then will readdress AC and Watchman procedure will need to be considered - Cont HIV meds - start low dose synthroid . repeat TFTs in 6 week DVT Px: Lovenox ,
[2019-10-30] MEDS: ATORVASTATIN CA 80 MG TABLET (FP) PO SCH (21:11)
[2019-10-30 21:35] LABS: EPI CELLS 21 /uL (0-25.1); HYALINE CASTS 2 /uL (0-3.1); URINE APPEARANCE CLEAR; URINE BACTERIA 11 /uL (0-1359); URINE BILIRUBIN NEGATIVE (NEGATIVE); URINE COLOR YELLOW; URINE GLUCOSE (UA) NEGATIVE (NEGATIVE); URINE KETONE TRACE (NEGATIVE); URINE LEUK ESTERASE NEGATIVE (NEGATIVE); URINE NITRITE NEGATIVE (NEGATIVE); URINE PROTEIN 1+ (NEGATIVE); URINE RBC 218 /uL (0-23.9); URINE WBC 23 /uL (0-25.8)
--- NOTE | 2019-10-30 22:04 | PN ---
Progress Note (short form) - Note Progress Note: 64 Year old female history of HIV( CD4 9SS WITH NO detectable vl), o steoporosis, HLD,HTN,Asthma, COPD, Hypothyroidism, migraine, anxiety and seizure. Pateint was admitted to hospital at [facility], pateint has residual left arm and leg weakness. Patient has fall on day before admission and came with worsening of left sided weakness. There is no seizure like activty or headhace. no new complain mri of brain reviewed NEUROLOGICAL EXAMINATION Alert oriented x 3, speech is normal neck is supple, VSS Eomi , pupils reactive, left sided hemiparesis ct head is pending, suggestive of left mastoid and abx started by ED cta of neck and brain pending( as per pateint she has small aneurysm ) no procedure was done mri confirmed acute / subacurte ischemic stroke on right periventricular area, BG and left cerebellar area 1. Worsening of left sided weakness , mri of brain confirmed recurrent stroke cta of neck and brain did not show any aneurysm 3. ? seizure , not on any AED Given that patient has symtpms few days ( confirmed with pateint), it would ok to resume antocoagulation, discussed with primary team plan: -mri results discussed with primary team, would be ok to resume anticoagulation - patient would need short term rehab - pt, dvt prophylaxis Thanking you so much Yehuda Hernández MD
[2019-10-30] MEDS ORDERED: MELATONIN 5 MG TABLETS PO ONE (23:46)
[2019-10-30 23:59] VITALS: BMI 19.4
[2019-10-31] MEDS: oxyCODONE HCL 5 MG TABLET PO PRN ×2 (06:18→13:39)
[2019-10-31] MEDS: ACETAMINOPHEN 325 MG TABLET (FP) PO PRN (06:20)
[2019-10-31] MEDS: ACETAMINOPHEN/CAFFEINE/BUTALBITAL 1 TAB PO PRN ×2 (06:59→13:39)
[2019-10-31] MEDS ORDERED: LEVOTHYROXINE NA 25 MCG TABLET (FP) PO SCH (07:00)
[2019-10-31] MEDS ORDERED: PT OWN MED DRAWER 7, Y5N ONE (09:30)
[2019-10-31] MEDS: ASPIRIN COATED 81 MG TABLET.EC PO SCH (09:40)
[2019-10-31] MEDS: MULTIVITAMINS (DAILY MVI) TABLET (FP) PO SCH (09:40)
[2019-10-31] MEDS: ENOXAPARIN NA (PORCINE) 60 MG/0.6 ML DISP.SYRIN SQ SCH (09:40)
[2019-10-31] MEDS: LISINOPRIL 10 MG TABLET (FP) PO SCH (09:41)
[2019-10-31] MEDS: BICTEGRAV/EMTRICIT/TENOFOV (BIKTARVY) 50-200-25 MG TABLET PO SCH (09:41)
[2019-10-31] MEDS: CYANOCOBALAMIN 1,000 MCG TABLET (FP) PO SCH (09:41)
--- NOTE | 2019-10-31 11:38 | PN ---
Progress Note, Physician History of Present Illness: 64yo F hx HIV (on HAART, last CD4 900s and non detectable viral load), osteoporosis, CVAs bilaterally, PAFb was supposed to be on coumadin, had Recent blood in stool, stopped on her own, no h/p GI briseno recently, no GI fuHLD, HTN, asthma, COPD, hypothyroidism, migraines, chronic pain syndrome, anxiety, seizures, and multiple ED visits for stroke like sx (last on 11/2018 for LUE/LLE weakness and staggered gait, prior on 09/2009) BIBA from home for collapse 2/2 L-sided weakness this AM. states 3 weeks ago d/c'ed AC " I had urinary bleeding" and started ASA instead; was supposed to see Dr Gonzalez this month; felt palpitations including this am with the above sx; states has "atrial fibrillation", no stress test in past as per pt. No CP/SOB; Trop 0.12; ECG: NSR, APC Patient reports seeing Dr. Leta Gonzalez ([facility]) and was told she had PAF in past, but is not on AC because of "bleeding ulcer". Left-sided weakness persists, states that Dr. Hamilton at [facility] monitors her ILR and told her she had PAF. - Current Medication List Current Medications: Active Medications Acetaminophen (Tylenol -) 325 mg PO TID PRN PRN Reason: FEVER Last Admin: 10/31/19 06:20 Dose: 325 mg Documented by: Acetaminophen (Tylenol -) 650 mg PO Q8H PRN PRN Reason: PAIN LEVEL 7-10 Last Admin: 10/30/19 22:58 Dose: 650 mg Documented by: Acetaminophen/Butalbital/Caffeine (Fioricet -) 1 tablet PO Q6H PRN PRN Reason: HEADACHE Last Admin: 10/31/19 06:59 Dose: 1 tablet Documented by: Aspirin (Ecotrin -) 81 mg PO DAILY [facility] Last Admin: 10/31/19 09:40 Dose: 81 mg Documented by: Atorvastatin Calcium (Lipitor -) 80 mg PO HS [facility] Last Admin: 10/30/19 21:11 Dose: 80 mg Documented by: Bictegravir/Emtricitabine/Tenofovir (Biktarvy 50-200-25 Mg Tablet) 1 each PO DAILY [facility] Last Admin: 06/24/20 09:41 Dose: 1 each Documented by: Cyanocobalamin (Vitamin B12 -) 1,000 mcg PO DAILY [facility] Last Admin: 10/31/19 09:41 Dose: 1,000 mcg Documented by: Diltiazem HCl (Cardizem Cd -) 120 mg PO DAILY [facility] Last Admin: 10/31/19 09:40 Dose: 120 mg Documented by: Enoxaparin Sodium (Lovenox -) 60 mg SQ BID [facility] Last Admin: 10/31/19 09:40 Dose: 60 mg Documented by: Levothyroxine Sodium (Synthroid -) 12.5 mcg PO DAILY@0700 [facility] Last Admin: 10/31/19 06:21 Dose: 12.5 mcg Documented by: Lisinopril (Prinivil) 10 mg PO DAILY [facility] Last Admin: 10/31/19 09:41 Dose: 10 mg Documented by: Multivitamins/Minerals/Vitamin C (Tab-A-Vit -) 1 tab PO DAILY [facility] Last Admin: 10/31/19 09:40 Dose: 1 tab Documented by: Oxycodone HCl (Roxicodone -) 10 mg PO Q8H PRN PRN Reason: PAIN LEVEL 7-10 Last Admin: 10/31/19 06:18 Dose: 10 mg Documented by: Warfarin Sodium (Coumadin -) 5 mg PO DAILY@1800 [facility] Last Admin: 10/30/19 17:14 Dose: 5 mg Documented by: - Objective Vital Signs: Vital Signs Temperature 98.2 F 10/31/19 08:05 Pulse Rate 70 10/31/19 08:05 Respiratory Rate 18 10/31/19 08:05 Blood Pressure 128/79 10/31/19 08:05 O2 Sat by Pulse Oximetry (%) 96 10/31/19 08:01 Constitutional: Yes: No Distress, Calm, Thin Neck: Yes: Supple Cardiovascular: Yes: Regular Rate and Rhythm Respiratory: Yes: Regular, Diminished Gastrointestinal: Yes: Soft, Hypoactive Bowel Sounds Edema: No Labs: CBC, BMP 10/30/19 05:40 10/30/19 05:35 INR, PTT INR 1.01 (0.83-1.09) 10/30/19 05:40 Problem List - Problems (1) HTN (hypertension) Code(s): I10 - ESSENTIAL (PRIMARY) HYPERTENSION (2) Hypothyroid Code(s): E03.9 - HYPOTHYROIDISM, UNSPECIFIED Qualifiers: Hypothyroidism type: unspecified Qualified Code(s): E03.9 - Hypothyroidism, unspecified (3) Cerebrovascular accident (CVA) Code(s): I63.9 - CEREBRAL INFARCTION, UNSPECIFIED Qualifiers: CVA mechanism: unspecified Qualified Code(s): I63.9 - Cerebral infarction, unspecified Assessment/Plan 11/24/2018 Echo: Normal LV and RV size and fxn, mild MR, TR 01/18/2019 Holter Monitor: Sarah PAC, occ PVC, single beat VT, no PAF cta of neck and brain did not show any aneurysm mri confirmed acute / subacurte ischemic stroke on right periventricular area, BG and left cerebellar area IMP: 1. Acute CVAs most likely lacunar 2. Reported h/o of PAF, no on chronic AC due prior GI bleeds/urinary bleeding 3. Chronic HTN 4. Hyperlipidemia 5. HIV+ 6. Chronic COPD, active smoker 7. Peptic ulcer disease (patient report). 8. INGOT WEIGHER aneurysm 9. Demand ischemia Plan:: - Troponins downtrending -Cont ASA 81 qd, Cardizem CD 120 qd (home med), Lipitor 80 qd, lisinopril 10 qd, Lovenox->coumadin per INR -HDL 82, LDL71 -CVA management as per primary team -F/u Echo -If source of CVA is in fact thromboembolism due to PAFb and if intolerant to chronic AC then AWILDA occlusion should be considered -waiting for EEG, obtain records from [facility]
[2019-10-31 14:11] LABS: INR 1.93 (0.83-1.09); PROTHROMBIN TIME (PATIENT) 22.9 SEC (9.7-13.0)
--- NOTE | 2019-10-31 14:43 | DS ---
Physical Exam: SUBJECTIVE: Patient seen and examined OBJECTIVE: Vital Signs Period Temp Pulse Resp BP Sys/Beasley Pulse Ox Last 24 Hr 98.1 F-98.4 F 66-75 18-20 101-135/54-79 96 PHYSICAL EXAM GENERAL: The patient is awake, alert, and fully oriented, in no acute distress. HEAD: Normal with no signs of trauma. EYES: PERRL, extraocular movements intact, sclera anicteric, conjunctiva clear. ENT: Ears normal, nares patent, oropharynx clear without exudates, moist mucous membranes. NECK: Trachea midline, full range of motion, supple. LUNGS: Breath sounds equal, clear to auscultation bilaterally, no wheezes, no crackles, no accessory muscle use. HEART: Regular rate and rhythm, S1, S2 without murmur, rub or gallop. ABDOMEN: Soft, nontender, nondistended, normoactive bowel sounds, no guarding, no rebound, no hepatosplenomegaly, no masses. EXTREMITIES: 2+ pulses, warm, well-perfused, no edema. NEUROLOGICAL: Cranial nerves II through XII grossly intact. Normal speech, gait not observed. PSYCH: Normal mood, normal affect. SKIN: Warm, dry, normal turgor, no rashes or lesions noted. LABS Laboratory Results - last 24 hr 10/30/19 10/31/19 20:00 13:37 PT with INR 22.90 H INR 1.93 H Urine Color Yellow Urine Appearance Clear Urine pH 6.0 Ur Specific [place] 1.028 Urine Protein 1+ H Urine Glucose (UA) Negative Urine Ketones Trace H Urine Blood 3+ H Urine Nitrite Negative Urine Bilirubin Negative Urine Urobilinogen 1.0 Ur Leukocyte Esterase Negative Urine WBC (Auto) 23 Urine RBC (Auto) 218 Urine Casts (Auto) 2 U Epithel Cells (Auto) 21 Urine Bacteria (Auto) 11 HOSPITAL COURSE: ASSESSMENT/PLAN: 64yo F hx HIV (on HAART, last CD4 900s and non detectable viral load), osteoporosis, HLD, HTN, asthma, COPD, hypothyroidism, migraines, chronic pain syndrome, anxiety, seizures, and multiple ED visits for stroke like sx (last on 11/2018 for LUE/LLE weakness and staggered gait, prior on 09/2009) BIBA from home for collapse 2/2 L-sided weakness this AM. #L sided weakness -hx CVA -MRI shows subacute/acute left cerebellar and right basal ganglia, with right temporal encephalomalacia -Neuro following -MBS done; recommend trial of soft diet, sips of thin liquids. Keep HOB elevated during meals and 1 hr afterwards. -PT eval -plans for rehab -atrovastatin 80mg HS #Hx of Paroxysmal Afib -rate controlled -INR 1.01 today -restarted coumadin 5mg -continue Lovenox 60mg BID -follow INR #HTN -Cont home meds: Amlodipine 10, Losartan 25 #HIV -Cont home meds: Biktarvy -ID following #Chronic Pain Syndrome -Cont home med: Percocet 10-325 TID PRN #Hx of Seizures -stable #Hypothyroidism -TSH 4.43, T3 1.7 -start low dose Synthroid as pt was on it in the past -will need f/u labs outpt #Prophylaxis DVT: Full dose Lovenox + Coumadin (bridge until INR is therapeutic) FEN PO fluids monitor labs soft diet, sips with thin liquids Dispo tele anticipate d/c to rehab FULL CODE Date of Admission:10/26/19 Date of Discharge: 10/31/19 Discharge Summary Problems reviewed: Yes Reason For Visit: MIGRAINE;MASTOIDITIS;WEAKNESS OF LEFT SIDE OF Current Active Problems Left-sided weakness (Acute) Hypothyroid (Chronic) Migraine (Chronic) Paroxysmal A-fib (Chronic) Condition: Stable - Instructions Diet, Activity, Other Instructions: Your Visit: You were admitted to the hospital for left-sided weakness. You were found to have a couple areas in your brain where you had a small stroke. You will benefit from intense physical therapy, so you are being sent to [facility] for rehabilitation. Your thyroid level (TSH) was a little high, so you were restarted on medication (Synthroid/levothyroxine) and will need to have labs drawn again in 2 weeks to make medication adjustments. Medications: CONTINUE taking your home medications: Aspirin Biktarvy Fioricet Percocet Vitamin B12 STOP taking: Amlodipine Losartan START taking: Diltiazem 120mg daily Lisinopril 10mg daily Atorvastatin 80mg at bedtime Warfarin 5 mg daily Synthroid (levothyroxine) 12.5mcg in the morning on an empty stomach Follow Up: Your primary care doctor, in 2 weeks, to check a TSH level. Dr. Gonzalez, cardiology, in 1 month. Other instructions: Watch for dark stool or red blood in the stool or vomit. If you notice this, call your primary care doctor or go to the emergency room. Call 911 or return to the emergency room if you develop worsening weakness, extreme headache or dizziness, difficulty speaking, or chest pain. Facility instructions: Administer Lovenox 60mg twice a day until daily INR is between 2-3. Please check INR everyday. Referrals: Denver Gonzalez [Non Staff, Medical] - 1 Month ON STAFF,NOT [Primary Care Provider] - Disposition: [facility] - Home Medications Comprehensive Discharge Medication List: Ambulatory Orders Aspirin [ASA -] 81 mg PO DAILY #30 tab 11/30/18 Bictegrav/Emtricit/Tenofov Ala [Biktarvy 50-200-25 mg Tablet] 1 each PO DAILY #30 tablet 03/22/19 Cyanocobalamin [Vitamin B12 -] 1,000 mcg PO DAILY #30 tablet 04/03/19 Multivitamin [Multiple Vitamins] 1 each PO DAILY #30 tablet 04/03/19 Butalb/Acetaminophen/Caffeine [Fioricet 50-300-40 mg Capsule] 1 each PO QID PRN 10/27/19 Cyanocobalamin [Vitamin B12 -] 1,000 mcg PO DAILY 10/27/19 Lactose-Reduced Food [Ensure Liquid] 237 ml PO TID 10/27/19 Megestrol Acetate Oral Susp [Megace Oral Suspension -] 1 tsp PO DAILY 10/27/19 Oxycodone HCl/Acetaminophen [Percocet 10-325 mg Tablet] 1 each PO TID PRN 10/27/19 Aspirin Coated [Ecotrin -] 81 mg PO DAILY tablet.ec 10/31/19 Atorvastatin Ca [Lipitor] 80 mg PO HS tablet 10/31/19 Bictegrav/Emtricit/Tenofov Ala [Biktarvy 50-200-25 mg Tablet] 1 each PO DAILY tablet 10/31/19 Diltiazem Cd [Cardizem Cd -] 120 mg PO DAILY cap.cd.24h 10/31/19 Enoxaparin [Lovenox -] 60 mg SQ BID disp.syrin 10/31/19 Levothyroxine [Synthroid -] 12.5 mcg PO DAILY@0700 #0 tablet 10/31/19 Lisinopril [Prinivil] 10 mg PO DAILY #0 tablet 10/31/19 Warfarin Na [Coumadin -] 5 mg PO DAILY@1800 tablet 10/31/19 oxyCODONE HCL [Roxicodone -] 10 mg PO Q8H PRN tablet 10/31/19 ATTENDING PHYSICIAN STATEMENT I saw and evaluated the patient. I reviewed the resident's note and discussed the case with the resident. I agree with the resident's findings and plan as documented. SUBJECTIVE: OBJECTIVE: ASSESSMENT AND PLAN:
[2019-10-31 14:52] VITALS: BP 141/64; PULSE 88; TEMP 98.6
--- NOTE | 2019-10-31 15:11 | PN ---
Teaching Attending Note Name of Resident: Ramona Coleman ATTENDING PHYSICIAN STATEMENT I saw and evaluated the patient. I reviewed the resident's note and discussed the case with the resident. I agree with the resident's findings and plan as documented. SUBJECTIVE: No fever or chills. cont to be weak on L side. b/l knee bother her. no CP or SOB OBJECTIVE: NAD, awake, alert, cooperative CV: RRR, no MRG Lungs: CTAB Ext : no edema or erytehma on upper or lower extremities Neuro: decreased sensation to light touch in R sided face, EOMI, tongue at mid line . 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 LLE: hip flexion 1/5, knee 0/5, ankle dorsiflexion /plantar flexion 0/5 RUE: shoulder shrug 5/5, shoulder flexion 5/5, biceps /triceps 5/5. weak hand computer network and systems engineer RLE: 5/5 hip flexion , ankle dorsiflexion/plantar flexiona nd knee flexion /extension reflexes: knee jerk and biceps b/l 1+ . ASSESSMENT AND PLAN: 64 y/o lady with h/o HIV, Osteoporosis, HLP, HTN, asthma, migraines , CVA, anxiety, seizures, lower GI bleed , who presented with worsening L sided weakness and was found to have acute stroke. Acute stroke Worsening L sided weakness H/o PAF HTN Microscopic hematuria. hypothyroidism . stopped her out pt synthroid Plan: - upper ext strength has improved - cont lovenox to coumadin . INR 1.9 today, hopefully tomorrow INR will be 2-3 and lovenox can be stopped - cont lisinopril and cardizem - decrease dose of lipitor . dc on 40 instead of 80 mg - repeat UA to evaluate microscopic hematuria as out pt , and f.u with urology - dc aspirin ( she was placed on Aspirin after she stopped coumadin as out pt ) . spoke to Dr. Adams who agrees with stopping asa - if GI bleed recur , then will readdress AC and Watchman procedure will need to be considered - Cont HIV meds - cont low dose synthroid. repeat TFTs in 6 week dc to rehab
--- NOTE | 2019-10-31 16:35 | DS ---
Physical Exam: SUBJECTIVE: Patient seen and examined. She reports continued back pain. OBJECTIVE: Vital Signs Period Temp Pulse Resp BP Sys/Beasley Pulse Ox Last 24 Hr 98.1 F-98.6 F 66-88 18-20 101-141/54-79 96 PHYSICAL EXAM GENERAL: The patient is awake, alert, and fully oriented, in no acute distress. Cachectic. HEAD: Normal with no signs of trauma. EYES: PERRL, extraocular movements intact, conjunctiva clear. ENT: Ears normal, nares patent, moist mucous membranes. NECK: Trachea midline. LUNGS: Clear to auscultation bilaterally, no wheezes, no crackles. HEART: Regular rate and rhythm, no murmur. ABDOMEN: Soft, nontender, nondistended, normoactive bowel sounds. EXTREMITIES: Warm, well-perfused, no edema. NEUROLOGICAL: Cranial nerves II through XII grossly intact. Normal speech. PSYCH: Normal mood, normal affect. SKIN: Warm, dry, normal turgor. LABS Laboratory Results - last 24 hr 10/30/19 10/31/19 20:00 13:37 PT with INR 22.90 H INR 1.93 H Urine Color Yellow Urine Appearance Clear Urine pH 6.0 Ur Specific [place] 1.028 Urine Protein 1+ H Urine Glucose (UA) Negative Urine Ketones Trace H Urine Blood 3+ H Urine Nitrite Negative Urine Bilirubin Negative Urine Urobilinogen 1.0 Ur Leukocyte Esterase Negative Urine WBC (Auto) 23 Urine RBC (Auto) 218 Urine Casts (Auto) 2 U Epithel Cells (Auto) 21 Urine Bacteria (Auto) 11 HOSPITAL COURSE: 64yo F hx HIV (on HAART, last CD4 900s and non detectable viral load), hx CVA with left residual deficits, osteoporosis, HLD, HTN, asthma, COPD, hypothyroidism, migraines, chronic pain syndrome, anxiety, seizures, and multiple ED visits for stroke like sx (last on 11/2018 for LUE/LLE weakness and staggered gait, prior on 09/2009) BIBA from home for collapse 2/2 L-sided weakness. MRI showed subacute/acute left cerebellar and right basal ganglia, with right temporal encephalomalacia. Pt also had not been taking home Coumadin and had subtherapeutic INR and was restarted on Coumadin with Lovenox. INR was therapeutic at discharge and Lovenox was discontinued. She also had not been taking Synthroid for her hypothyroidism (TSH 4.43, T3 1.7) and was started on low-dose with instructions to follow up for both Synthroid and Coumadin. No other changes were made to home meds for HTN and HIV. Pt appears moderately malnourished and cachectic. Date of Admission:10/26/19 Date of Discharge: 10/31/19 Minutes to complete discharge: 35 Discharge Summary Problems reviewed: Yes Reason For Visit: MIGRAINE;MASTOIDITIS;WEAKNESS OF LEFT SIDE OF Condition: Stable - Instructions Diet, Activity, Other Instructions: Your Visit: You were admitted to the hospital for left-sided weakness. You were found to have a couple areas in your brain where you had a small stroke. You will benefit from intense physical therapy, so you are being sent to [place] for rehabilitation. Your thyroid level (TSH) was a little high, so you were restarted on medication (Synthroid/levothyroxine) and will need to have labs drawn again in 6 weeks to make medication adjustments. Medications: CONTINUE taking your home medications Biktarvy Fioricet Percocet Vitamin B12 STOP taking: Amlodipine Losartan aspirin START taking: Diltiazem 120mg daily Lisinopril 10mg daily Atorvastatin 40mg at bedtime Warfarin 5 mg daily Synthroid (levothyroxine) 12.5mcg in the morning on an empty stomach Follow Up: Your primary care doctor, in 2 weeks, to check a TSH level. Dr. Gonzalez, cardiology, in 1 month. Need follow up with urology to evaluate fro microscopic hematuria ( work up ) . dr. Daigle or any doctor you choose Other instructions: Watch for dark stool or red blood in the stool or vomit. If you notice this, call your primary care doctor or go to the emergency room. Call 911 or return to the emergency room if you develop worsening weakness, extreme headache or dizziness, difficulty speaking, or chest pain. Facility instructions: Administer Lovenox 60mg twice a day until daily INR is between 2-3. Please check INR everyday. next one is on 11/01/19. continue and adjust coumadin dose after INR reaches goal Referrals: Nate Daigle MD [Staff Physician] - Denver Gonzalez [Non Staff, Medical] - 1 Month ON STAFF,NOT [Primary Care Provider] - [facility]position[facility] - Home Medications Comprehensive Discharge Medication List: Ambulatory Orders Bictegrav/Emtricit/Tenofov Ala [Biktarvy 50-200-25 mg Tablet] 1 each PO DAILY #30 tablet 03/22/19 Cyanocobalamin [Vitamin B12 -] 1,000 mcg PO DAILY #30 tablet 04/03/19 Multivitamin [Multiple Vitamins] 1 each PO DAILY #30 tablet 04/03/19 Butalb/Acetaminophen/Caffeine [Fioricet 50-300-40 mg Capsule] 1 each PO QID PRN 10/27/19 Cyanocobalamin [Vitamin B12 -] 1,000 mcg PO DAILY 10/27/19 Lactose-Reduced Food [Ensure Liquid] 237 ml PO TID 10/27/19 Megestrol Acetate Oral Susp [Megace Oral Suspension -] 1 tsp PO DAILY 10/27/19 Oxycodone HCl/Acetaminophen [Percocet 10-325 mg Tablet] 1 each PO TID PRN 10/27/19 Atorvastatin Ca [Lipitor] 40 mg PO HS #30 tablet 10/31/19 Diltiazem Cd [Cardizem Cd -] 120 mg PO DAILY cap.cd.24h 10/31/19 Enoxaparin [Lovenox -] 60 mg SQ BID disp.syrin 10/31/19 Levothyroxine [Synthroid -] 12.5 mcg PO DAILY@0700 #0 tablet 10/31/19 Lisinopril [Prinivil] 10 mg PO DAILY #0 tablet 10/31/19 Warfarin Na [Coumadin -] 5 mg PO DAILY@1800 tablet 10/31/19 This patient is new to me today: No Emergency Visit: Yes ED Registration Date: 10/26/19 Care time: The patient presented to the Emergency Department on the above date and was hospitalized for further evaluation of their emergent condition. Critical Care patient: No - Discharge Referral Referred to [facility] Med P.C.: No ATTENDING PHYSICIAN STATEMENT I saw and evaluated the patient. I reviewed the resident's note and discussed the case with the resident. I agree with the resident's findings and plan as documented. SUBJECTIVE: OBJECTIVE: ASSESSMENT AND PLAN:
--- NOTE | 2019-10-31 22:37 | PN ---
Progress Note (short form) - Note Progress Note: 64 Year old female history of HIV( CD4 9SS WITH NO detectable vl), o steoporosis, HLD,HTN,Asthma, COPD, Hypothyroidism, migraine, anxiety and seizure. Pateint was admitted to hospital at [facility], pateint has residual left arm and leg weakness. Patient has fall on day before admission and came with worsening of left sided weakness. There is no seizure like activty or headhace. no new complain, pateint is feeling better and going to rehab mri of brain reviewed NEUROLOGICAL EXAMINATION Alert oriented x 3, speech is normal neck is supple, VSS Eomi , pupils reactive, left sided hemiparesis ct head is pending, suggestive of left mastoid and abx started by ED cta of neck and brain pending( as per pateint she has small aneurysm ) no procedure was done mri confirmed acute / subacurte ischemic stroke on right periventricular area, BG and left cerebellar area 1. Worsening of left sided weakness , mri of brain confirmed recurrent stroke cta of neck and brain did not show any aneurysm 3. ? seizure , not on any AED Given that patient has symtpms few days ( confirmed with pateint), it would ok to resume antocoagulation, discussed with primary team plan: -mri results discussed with primary team, continue anticoagulation cardiology note appreciated, benefit outweights risk of bleed - pt, dvt prophylaxis Thanking you so much Yehuda Hernández MD
== END 2019-10-31 15:08 | DRG 45 ==
LOC: JER 05:25 → JERBED 06:47 → J4W 14:03
PROVIDERS: ADMIT Internal Medicine; ATTEND Internal Medicine
DX: I63.81 Other cerebral infarction due to occlusion or stenosis of small artery (principal); E44.0 Moderate protein-calorie malnutrition; G81.94 Hemiplegia, unspecified affecting left nondominant side; Z68.1 Body mass index [BMI] 19.9 or less, adult; E78.5 Hyperlipidemia, unspecified; J44.9 Chronic obstructive pulmonary disease, unspecified; F17.210 Nicotine dependence, cigarettes, uncomplicated; G89.4 Chronic pain syndrome; R29.704 NIHSS score 4; E03.9 Hypothyroidism, unspecified; Z21 Asymptomatic human immunodeficiency virus [HIV] infection status; I10 Essential (primary) hypertension; I69.393 Ataxia following cerebral infarction; I69.322 Dysarthria following cerebral infarction; I24.8 Other forms of acute ischemic heart disease; R31.29 Other microscopic hematuria; I48.0 Paroxysmal atrial fibrillation
CPT/HCPCS: 36415; 70450-TC; 70496-TC; 70498-TC; 70551-TC; 71045-TC-FY; 72170-TC-FY; 74230-TC-FY; 80048; 80053; 80061; 81003; 82272; 82550; 82553; 83036; 83721; 84439; 84443; 84481; 84484; 85025; 85027; 85610; 85730; 86359; 86360; 86850; 86870; 86900; 86901; 86902; 92611-GN; 93005; 93010; 95816; 97116-GP; 97162-GP; 99285-25; J1644; Q9967; U0003

== ENCOUNTER 2020-06-11 12:59 | Emergency (ER) | payer OTHER ==
[2020-06-11 13:23] VITALS: TEMP 98.7; BMI 17.0
[2020-06-11] MEDS ORDERED: KETOROLAC TROMETHAMINE 15 MG/ML VIAL IVPUSH ONE (13:56)
[2020-06-11] MEDS ORDERED: KETOROLAC TROMETHAMINE 15 MG/ML VIAL ONE (14:00)
[2020-06-11 14:37] LABS: BASO % 1.2 % (0-2.0); EOS % 0.6 % (0-4.5); HEMATOCRIT 34.9 % (32.4-45.2); HEMOGLOBIN 11.9 GM/dL (10.7-15.3); LYMPH % 28.9 % (8-40); MCH 36.4 pg (25.7-33.7); MCHC 34.2 g/dl (32.0-36.0); MEAN CELL VOLUME 106.5 fl (80-96); MEAN PLT VOLUME 8.2 fl (7.5-11.1); MONO % 6.7 % (3.8-10.2); NEUT % 62.6 % (42.8-82.8); PLATELET COUNT 274 K/MM3 (134-434); RBC 3.27 M/mm3 (3.60-5.2); WHITE BLOOD COUNT 8.2 K/mm3 (4.0-10.0)
[2020-06-11 15:04] LABS: POTASSIUM 4.3 mmol/L (3.5-5.1)
[2020-06-11 15:07] LABS: ALBUMIN 3.6 g/dl (3.4-5.0); BLOOD UREA NITROGEN 18.9 mg/dL (7-18); CALCIUM 8.9 mg/dL (8.5-10.1)
[2020-06-11 15:13] LABS: BILIRUBIN,TOTAL 0.4 mg/dL (0.2-1); TOT PROT 6.5 g/dl (6.4-8.2)
[2020-06-11 16:28] VITALS: BP 168/76; PULSE 76
[2020-06-11 16:55] LABS: ANISOCYTOSIS 2+; MACROCYTOSIS 2+; PLATELET ESTIMATE NORMAL
== END 2020-06-11 16:26 | disposition left against medical advice (07) ==
LOC: JER 12:59
PROC: 3E0333Z Introduction of Anti-inflammatory into Peripheral Vein, Percutaneous Approach (ICD-10-PCS; principal; 2020-06-11)
DX: R07.9 Chest pain, unspecified (principal)
CPT/HCPCS: 36415; 71045-TC-FY; 80053; 82550; 84484; 85025; 93005; 93010; 99285-25

== ENCOUNTER 2020-09-03 15:47 | Emergency (ER) | payer OTHER ==
[2020-09-03 16:03] VITALS: BMI 21.1
[2020-09-03] MEDS ORDERED: ENOXAPARIN NA (PORCINE) 60 MG/0.6 ML DISP.SYRIN SQ SCH (17:15)
[2020-09-03 18:03] VITALS: BP 161/94; PULSE 88; TEMP 97.2
[2020-09-03] MEDS ORDERED: ENOXAPARIN NA (PORCINE) 60 MG/0.6 ML DISP.SYRIN SQ ONE (18:21)
[2020-09-03 19:14] LABS: BASO % 0.8 % (0-2.0); EOS % 0.4 % (0-4.5); HEMOGLOBIN 13.7 GM/dL (10.7-15.3); LYMPH % 27.9 % (8-40); MCH 35.8 pg (25.7-33.7); MCHC 32.5 g/dl (32.0-36.0); MEAN CELL VOLUME 110.1 fl (80-96); MEAN PLT VOLUME 8.4 fl (7.5-11.1); MONO % 5.7 % (3.8-10.2); NEUT % 65.2 % (42.8-82.8); PLATELET COUNT 296 K/MM3 (134-434); RBC 3.82 M/mm3 (3.60-5.2); RDW 15.2 % (11.6-15.6); WHITE BLOOD COUNT 7.8 K/mm3 (4.0-10.0)
[2020-09-03 19:25] LABS: INR 0.86 (0.83-1.09); PROTHROMBIN TIME (PATIENT) 10.6 SEC (9.7-13.0)
[2020-09-03 19:28] LABS: ACTIVATED PTT 19.1 SECONDS (25.2-36.5)
[2020-09-03 19:35] LABS: ALBUMIN 3.8 g/dl (3.4-5.0); BLOOD UREA NITROGEN 12.4 mg/dL (7-18); CALCIUM 9.2 mg/dL (8.5-10.1)
[2020-09-03 19:39] LABS: CREATININE 0.9 mg/dL (0.55-1.3)
[2020-09-03 19:41] LABS: BILIRUBIN,TOTAL 0.4 mg/dL (0.2-1); TOT PROT 7.4 g/dl (6.4-8.2)
[2020-09-03 20:22] LABS: ANISOCYTOSIS 1+; MACROCYTOSIS 2+; PLATELET ESTIMATE NORMAL
== END 2020-09-03 21:00 | disposition left against medical advice (07) ==
LOC: JER 15:47
DX: I82.412 Acute embolism and thrombosis of left femoral vein (principal)
CPT/HCPCS: 36415; 71045-TC-FY; 80053; 85025; 85610; 85730; 86850; 86870; 86900; 86901; 86902; 93005; 93010; 99284-25

== ENCOUNTER 2020-09-22 14:21 | Inpatient (IN) | payer OTHER ==
[2020-09-22 14:55] VITALS: BMI 19.4
[2020-09-22] MEDS ORDERED: ALBUTEROL SO4 2.5/IPRATROPIUM 0.5 INH SOL 3 ML VIAL.NEB. NEB ONE ×2 (16:17→17:58)
[2020-09-22] MEDS ORDERED: methylPREDNISolone NA SUCC 125 MG/2 ML VIAL IVPB ONE (16:17)
[2020-09-22] MEDS ORDERED: ONDANSETRON 4 MG/2 ML VIAL IVPUSH ONE (16:17)
[2020-09-22 17:01] LABS: BASO % 1.1 % (0-2.0); EOS % 2.1 % (0-4.5); HEMATOCRIT 36.9 % (32.4-45.2); HEMOGLOBIN 12.4 GM/dL (10.7-15.3); LYMPH % 15.9 % (8-40); MCH 35.9 pg (25.7-33.7); MCHC 33.6 g/dl (32.0-36.0); MEAN CELL VOLUME 106.7 fl (80-96); MEAN PLT VOLUME 8.2 fl (7.5-11.1); MONO % 6.8 % (3.8-10.2); NEUT % 74.1 % (42.8-82.8); PLATELET COUNT 320 K/MM3 (134-434); RBC 3.46 M/mm3 (3.60-5.2); RDW 14.2 % (11.6-15.6)
[2020-09-22 17:12] LABS: CHLORIDE 113 mmol/L (98-107); SODIUM 141 mmol/L (136-145)
[2020-09-22 17:14] LABS: CALCIUM 8.6 mg/dL (8.5-10.1); CO2 21 mmol/L (21-32)
[2020-09-22 17:15] LABS: GLUCOSE,RANDOM 69 mg/dL (74-106)
[2020-09-22 17:19] LABS: INR 1.15 (0.83-1.09); PROTHROMBIN TIME (PATIENT) 13.8 SEC (9.7-13.0)
[2020-09-22 17:20] LABS: ANION GAP 7 MMOL/L (8-16)
[2020-09-22 17:22] LABS: ACTIVATED PTT 27.6 SECONDS (25.2-36.5)
[2020-09-22] MEDS ORDERED: methylPREDNISolone NA SUCC 125 MG/2 ML VIAL ONE (17:59)
[2020-09-22] MEDS ORDERED: ONDANSETRON 4 MG/2 ML VIAL ONE (17:59)
[2020-09-22] MEDS ORDERED: AZITHROMYCIN IVPB 500 MG in DEXTROSE 5%-WATER - 250 ML IVPB ONE (19:08)
[2020-09-22] MEDS ORDERED: ENOXAPARIN NA (PORCINE) 40 MG/0.4 ML DISP.SYRIN SQ ONE (19:08)
[2020-09-22] MEDS ORDERED: CEFTRIAXONE 1,000 MG in DEXTROSE 5%-WATER - 50 ML IVPB ONE (19:08)
[2020-09-22] MEDS ORDERED: CEFTRIAXONE 1 GM/50 ML BAG ONE (20:14)
[2020-09-22] MEDS ORDERED: ENOXAPARIN NA (PORCINE) 60 MG/0.6 ML DISP.SYRIN SQ ONE (20:14)
[2020-09-22] MEDS ORDERED: AZITHROMYCIN IVPB 500 MG/250 ML BAG IVPB ONE (20:14)
[2020-09-22 20:18] LABS: BLOOD UREA NITROGEN 14.4 mg/dL (7-18)
[2020-09-22 20:20] LABS: CREATININE 1.1 mg/dL (0.55-1.3)
[2020-09-22] MEDS ORDERED: SODIUM CHLORIDE 0.9% 500 ML INFUS.BAG IV ONE (23:29)
[2020-09-22] MEDS ORDERED: SODIUM CHLORIDE 1,000 ML IV SCH (23:30)
[2020-09-23] MEDS ORDERED: ALBUTEROL SO4 2.5/IPRATROPIUM 0.5 INH SOL 3 ML VIAL.NEB. NEB PRN (01:36)
[2020-09-23] MEDS ORDERED: ACETAMINOPHEN 500 MG TABLET (FP) PO PRN (01:36)
[2020-09-23] MEDS ORDERED: LISINOPRIL 10 MG TABLET PO ONE (03:24)
[2020-09-23] MEDS: ASPIRIN COATED 81 MG TABLET.EC PO SCH (09:48)
[2020-09-23] MEDS: ENOXAPARIN NA (PORCINE) 60 MG/0.6 ML DISP.SYRIN SQ SCH ×2 (09:48→21:51)
[2020-09-23] MEDS ORDERED: LISINOPRIL 10 MG TABLET PO SCH (10:00)
[2020-09-23 10:19] LABS: HEMOGLOBIN 11.3 GM/dL (10.7-15.3); MCH 35.8 pg (25.7-33.7); MCHC 33.4 g/dl (32.0-36.0); MEAN CELL VOLUME 107.3 fl (80-96); MEAN PLT VOLUME 8.3 fl (7.5-11.1); PLATELET COUNT 291 K/MM3 (134-434); RBC 3.17 M/mm3 (3.60-5.2); RDW 13.8 % (11.6-15.6); WHITE BLOOD COUNT 9.9 K/mm3 (4.0-10.0)
[2020-09-23 10:43] LABS: CALCIUM 8.6 mg/dL (8.5-10.1)
[2020-09-23 10:44] LABS: BLOOD UREA NITROGEN 18.7 mg/dL (7-18); MAGNESIUM 1.8 mg/dL (1.8-2.4)
[2020-09-23 10:47] LABS: CREATININE 1.2 mg/dL (0.55-1.3)
[2020-09-23] MEDS ORDERED: LISINOPRIL 20 MG TABLET PO SCH (11:50)
[2020-09-23] MEDS: ACETAMINOPHEN/CAFFEINE/BUTALBITAL 1 TAB PO PRN (12:10)
[2020-09-23] MEDS: METOPROLOL TARTRATE 25 MG TABLET (FP) PO SCH ×2 (14:33→21:50)
[2020-09-23] MEDS ORDERED: PT OWN MED DRAWER 7, Y5N ONE (14:34)
[2020-09-23] MEDS: BICTEGRAV/EMTRICIT/TENOFOV (BIKTARVY) 50-200-25 MG TABLET PO SCH (14:38)
[2020-09-23] MEDS ORDERED: amLODIPine BESYLATE 5 MG TABLET (FP) PO ONE (16:10)
[2020-09-23] MEDS ORDERED: amLODIPine BESYLATE 10 MG TABLET (FP) PO SCH (16:15)
[2020-09-23 19:37] LABS: EPI CELLS 17 /uL (0-25.1); HYALINE CASTS 3 /uL (0-3.1); PH,URINE 5.5 (5.0-8.0); URINE APPEARANCE CLOUDY; URINE BACTERIA 3 /uL (0-1359); URINE BILIRUBIN NEGATIVE (NEGATIVE); URINE COLOR RED; URINE GLUCOSE (UA) NEGATIVE (NEGATIVE); URINE KETONE NEGATIVE (NEGATIVE); URINE LEUK ESTERASE 1+ (NEGATIVE); URINE NITRITE NEGATIVE (NEGATIVE); URINE PROTEIN 3+ (NEGATIVE); URINE RBC 16441 /uL (0-23.9); URINE UROBILINOGEN 0.2 mg/dL (0.2-1.0); URINE WBC 151 /uL (0-25.8)
[2020-09-23] MEDS: MIRTAZAPINE 15 MG TABLET (FP) PO SCH (21:50)
[2020-09-23] MEDS: ATORVASTATIN CA 40 MG TABLET (FP) PO SCH (21:50)
[2020-09-24] MEDS ORDERED: amLODIPine BESYLATE 10 MG TABLET (FP) PO SCH (06:00)
[2020-09-24] MEDS ORDERED: PT OWN MED DRAWER 7, Y5N ONE (08:59)
[2020-09-24] MEDS ORDERED: LOSARTAN POTASSIUM 25 MG TABLET PO SCH (10:00)
[2020-09-24] MEDS: ENOXAPARIN NA (PORCINE) 60 MG/0.6 ML DISP.SYRIN SQ SCH (10:02)
[2020-09-24] MEDS: METOPROLOL TARTRATE 25 MG TABLET (FP) PO SCH ×2 (10:03→21:17)
[2020-09-24] MEDS: ASPIRIN COATED 81 MG TABLET.EC PO SCH (10:03)
[2020-09-24] MEDS: BICTEGRAV/EMTRICIT/TENOFOV (BIKTARVY) 50-200-25 MG TABLET PO SCH (10:03)
[2020-09-24] MEDS: amLODIPine BESYLATE 10 MG TABLET (FP) PO SCH (10:03)
[2020-09-24] MEDS: ACETAMINOPHEN/CAFFEINE/BUTALBITAL 1 TAB PO PRN ×2 (10:05→16:05)
[2020-09-24 11:52] LABS: BASO % 0.9 % (0-2.0); EOS % 0.8 % (0-4.5); HEMATOCRIT 32.8 % (32.4-45.2); HEMOGLOBIN 11.1 GM/dL (10.7-15.3); LYMPH % 21.4 % (8-40); MCH 36.1 pg (25.7-33.7); MCHC 33.9 g/dl (32.0-36.0); MEAN CELL VOLUME 106.5 fl (80-96); MEAN PLT VOLUME 8.1 fl (7.5-11.1); MONO % 9.1 % (3.8-10.2); NEUT % 67.8 % (42.8-82.8); PLATELET COUNT 267 K/MM3 (134-434); RBC 3.08 M/mm3 (3.60-5.2); RDW 13.6 % (11.6-15.6)
[2020-09-24 12:22] LABS: ALBUMIN 2.8 g/dl (3.4-5.0); BLOOD UREA NITROGEN 17.4 mg/dL (7-18); CALCIUM 8.2 mg/dL (8.5-10.1)
[2020-09-24 12:25] LABS: BILIRUBIN,TOTAL 0.3 mg/dL (0.2-1); CREATININE 1.1 mg/dL (0.55-1.3)
[2020-09-24 12:26] LABS: TOT PROT 5.6 g/dl (6.4-8.2)
[2020-09-24] MEDS ORDERED: HEPARIN NA (PORCINE) 5,000 UNITS/ML 1ML VIAL IVPUSH PRN (16:01)
[2020-09-24] MEDS ORDERED: FLU VACCINE (FLULAVAL) PF 60 MCG/0.5 ML SYRINGE 2020-2021 IM ONE (17:00)
[2020-09-24] MEDS ORDERED: ACETAMINOPHEN 325 MG TABLET (FP) PO PRN (17:15)
[2020-09-24] MEDS ORDERED: PATIENT'S OWN MEDICATION (NON-FORMULARY) (Oxycodone Hcl/Acetaminophen [Oxycodone-Acetamino PO PRN (17:15)
[2020-09-24] MEDS: oxyCODONE HCL 5 MG TABLET PO PRN (17:28)
[2020-09-24 18:45] LABS: INR 1.17 (0.83-1.09); PROTHROMBIN TIME (PATIENT) 14.1 SEC (9.7-13.0)
[2020-09-24 18:48] LABS: ACTIVATED PTT 40.6 SECONDS (25.2-36.5)
[2020-09-24] MEDS: HEPARIN NA (PORCINE) 5,000 UNITS/ML 1ML VIAL IVPUSH PRN (19:58)
[2020-09-24] MEDS: HEPARIN - 25,000 UNIT in SODIUM CHLORIDE 495 ML IV SCH (20:14)
[2020-09-24] MEDS: MIRTAZAPINE 15 MG TABLET (FP) PO SCH (21:17)
[2020-09-24] MEDS: ATORVASTATIN CA 40 MG TABLET (FP) PO SCH (21:17)
[2020-09-25 02:57] LABS: INR 1.15 (0.83-1.09); PROTHROMBIN TIME (PATIENT) 13.9 SEC (9.7-13.0)
[2020-09-25 03:16] LABS: ACTIVATED PTT 134.6 SECONDS (25.2-36.5)
[2020-09-25 08:26] LABS: HEMATOCRIT 33.2 % (32.4-45.2); HEMOGLOBIN 11.4 GM/dL (10.7-15.3); MCH 36.3 pg (25.7-33.7); MCHC 34.4 g/dl (32.0-36.0); MEAN CELL VOLUME 105.5 fl (80-96); MEAN PLT VOLUME 8.2 fl (7.5-11.1); PLATELET COUNT 238 K/MM3 (134-434); RBC 3.14 M/mm3 (3.60-5.2); RDW 13.6 % (11.6-15.6); WHITE BLOOD COUNT 6.1 K/mm3 (4.0-10.0)
[2020-09-25 08:59] LABS: CALCIUM 7.9 mg/dL (8.5-10.1); CREATININE 1.1 mg/dL (0.55-1.3)
[2020-09-25] MEDS: ACETAMINOPHEN/CAFFEINE/BUTALBITAL 1 TAB PO PRN (09:41)
[2020-09-25] MEDS: amLODIPine BESYLATE 10 MG TABLET (FP) PO SCH (09:45)
[2020-09-25] MEDS: LOSARTAN POTASSIUM 25 MG TABLET PO SCH (09:45)
[2020-09-25] MEDS: BICTEGRAV/EMTRICIT/TENOFOV (BIKTARVY) 50-200-25 MG TABLET PO SCH (09:47)
[2020-09-25] MEDS: METOPROLOL TARTRATE 25 MG TABLET (FP) PO SCH ×2 (09:47→21:06)
[2020-09-25] MEDS: ASPIRIN COATED 81 MG TABLET.EC PO SCH (09:47)
[2020-09-25 10:43] LABS: INR 1.16 (0.83-1.09); PROTHROMBIN TIME (PATIENT) 14.2 SEC (9.7-13.0)
[2020-09-25] MEDS ORDERED: POTASSIUM CHLORIDE TABS 20 MEQ TABLET.ER (FP) PO ONE (13:53)
[2020-09-25] MEDS: oxyCODONE HCL 5 MG TABLET PO PRN ×2 (13:55→21:10)
[2020-09-25] MEDS: HEPARIN - 25,000 UNIT in SODIUM CHLORIDE 495 ML IV SCH (19:43)
[2020-09-25] MEDS: ATORVASTATIN CA 40 MG TABLET (FP) PO SCH (21:06)
[2020-09-25] MEDS: MEGESTROL ACETATE 40 MG TABLET PO SCH (21:06)
[2020-09-25] MEDS: MIRTAZAPINE 15 MG TABLET (FP) PO SCH (21:06)
[2020-09-26] MEDS: HEPARIN - 25,000 UNIT in SODIUM CHLORIDE 495 ML IV SCH ×3 (05:00→16:15)
[2020-09-26] MEDS: ACETAMINOPHEN/CAFFEINE/BUTALBITAL 1 TAB PO PRN (08:17)
[2020-09-26] MEDS: amLODIPine BESYLATE 10 MG TABLET (FP) PO SCH (10:18)
[2020-09-26] MEDS: METOPROLOL TARTRATE 25 MG TABLET (FP) PO SCH ×2 (10:18→21:15)
[2020-09-26] MEDS: ASPIRIN COATED 81 MG TABLET.EC PO SCH (10:19)
[2020-09-26] MEDS: MEGESTROL ACETATE 40 MG TABLET PO SCH (10:19)
[2020-09-26] MEDS: LOSARTAN POTASSIUM 25 MG TABLET PO SCH (10:19)
[2020-09-26] MEDS: BICTEGRAV/EMTRICIT/TENOFOV (BIKTARVY) 50-200-25 MG TABLET PO SCH (10:26)
[2020-09-26] MEDS: oxyCODONE HCL 5 MG TABLET PO PRN (11:40)
[2020-09-26 11:56] LABS: HEMATOCRIT 32.9 % (32.4-45.2); HEMOGLOBIN 11.2 GM/dL (10.7-15.3); MCH 35.9 pg (25.7-33.7); MCHC 33.9 g/dl (32.0-36.0); MEAN CELL VOLUME 105.7 fl (80-96); MEAN PLT VOLUME 8.3 fl (7.5-11.1); PLATELET COUNT 216 K/MM3 (134-434); RBC 3.11 M/mm3 (3.60-5.2); RDW 13.5 % (11.6-15.6); WHITE BLOOD COUNT 5.7 K/mm3 (4.0-10.0)
[2020-09-26 12:24] LABS: ALBUMIN 2.5 g/dl (3.4-5.0); BLOOD UREA NITROGEN 15.7 mg/dL (7-18); MAGNESIUM 1.7 mg/dL (1.8-2.4)
[2020-09-26 12:27] LABS: CREATININE 1.3 mg/dL (0.55-1.3); PHOSPHOROUS 2.4 mg/dL (2.5-4.9)
[2020-09-26 12:28] LABS: BILIRUBIN,TOTAL 0.2 mg/dL (0.2-1)
[2020-09-26 12:29] LABS: TOT PROT 5.5 g/dl (6.4-8.2)
[2020-09-26] MEDS: HEPARIN NA (PORCINE) 5,000 UNITS/ML 1ML VIAL IVPUSH PRN (12:48)
[2020-09-26] MEDS ORDERED: ALPRAZolam 0.25 MG TABLET PO PRN (17:07)
[2020-09-26] MEDS: MIRTAZAPINE 15 MG TABLET (FP) PO SCH (21:15)
[2020-09-26] MEDS: ATORVASTATIN CA 40 MG TABLET (FP) PO SCH (21:15)
[2020-09-26] MEDS ORDERED: PT OWN MED DRAWER 7, Y5N ONE (21:24)
[2020-09-27] MEDS: oxyCODONE HCL 5 MG TABLET PO PRN ×2 (07:12→18:04)
[2020-09-27] MEDS ORDERED: PT OWN MED DRAWER 7, Y5N ONE (09:59)
[2020-09-27] MEDS: amLODIPine BESYLATE 10 MG TABLET (FP) PO SCH (10:05)
[2020-09-27] MEDS: ASPIRIN COATED 81 MG TABLET.EC PO SCH (10:05)
[2020-09-27] MEDS: MEGESTROL ACETATE 40 MG TABLET PO SCH (10:05)
[2020-09-27] MEDS: BICTEGRAV/EMTRICIT/TENOFOV (BIKTARVY) 50-200-25 MG TABLET PO SCH (10:05)
[2020-09-27] MEDS: LOSARTAN POTASSIUM 25 MG TABLET PO SCH (10:05)
[2020-09-27] MEDS: METOPROLOL TARTRATE 25 MG TABLET (FP) PO SCH (10:05)
[2020-09-27] MEDS: ACETAMINOPHEN/CAFFEINE/BUTALBITAL 1 TAB PO PRN (10:06)
[2020-09-27] MEDS ORDERED: APIXABAN 2.5 MG TABLET PO ONE (16:06)
[2020-09-27] MEDS: HEPARIN - 25,000 UNIT in SODIUM CHLORIDE 495 ML IV SCH (16:16)
[2020-09-27 18:28] VITALS: BP 144/78; PULSE 84; TEMP 99
[2020-09-27] MEDS ORDERED: APIXABAN 2.5 MG TABLET PO SCH (22:00)
[2020-09-29 00:06] LABS: DRVVT - 60.1 sec (0.0-47.0); DRVVT CONFIRM SECONDS 1.1 ratio (0.8-1.2); dRVVT MIX 44.9 sec (0.0-40.4)
== END 2020-09-27 19:03 | disposition home health service (06) | DRG 300 ==
LOC: JER 14:21 → JERBED 20:25 → J5S 09-23 01:55
PROVIDERS: ADMIT Hospitalist
DX: I82.412 Acute embolism and thrombosis of left femoral vein (principal); I69.354 Hemiplegia and hemiparesis following cerebral infarction affecting left non-dominant side; N13.30 Unspecified hydronephrosis; N13.2 Hydronephrosis with renal and ureteral calculous obstruction; I10 Essential (primary) hypertension; I48.0 Paroxysmal atrial fibrillation; E03.9 Hypothyroidism, unspecified; D64.9 Anemia, unspecified; E78.5 Hyperlipidemia, unspecified; F41.9 Anxiety disorder, unspecified; G43.909 Migraine, unspecified, not intractable, without status migrainosus; J44.9 Chronic obstructive pulmonary disease, unspecified; I67.1 Cerebral aneurysm, nonruptured; Z21 Asymptomatic human immunodeficiency virus [HIV] infection status; E78.00 Pure hypercholesterolemia, unspecified; G40.909 Epilepsy, unspecified, not intractable, without status epilepticus; I16.0 Hypertensive urgency; F32.9 Major depressive disorder, single episode, unspecified; R31.0 Gross hematuria; E87.6 Hypokalemia; G89.29 Other chronic pain
CPT/HCPCS: 36415; 70450-TC; 71045-TC-FY; 71275-TC; 73523-TC-FY; 74018-TC-FY; 76775-TC; 76856-TC; 80048; 80053; 81003; 81240; 81241; 82272; 82550; 82553; 83735; 84100; 84484; 85025; 85027; 85610; 85613; 85730; 85732; 87086; 93005; 93010; 93971-TC; 97116-GP; 97161-GP; 99285-25; C9803; G0008; J1644; J8999; Q2036; Q9967; U0003; U0005

== ENCOUNTER 2021-02-17 04:58 | Inpatient (IN) | payer OTHER ==
[2021-02-17] MEDS ORDERED: ALBUTEROL SO4 2.5/IPRATROPIUM 0.5 INH SOL 3 ML VIAL.NEB. NEB ONE ×3 (05:10→06:00)
[2021-02-17] MEDS ORDERED: ACETAMINOPHEN 1000 MG/100 ML VIAL IVPB ONE (05:57)
[2021-02-17 06:00] LABS: BASO % 0.8 % (0-2.0); EOS % 1.7 % (0-4.5); HEMATOCRIT 29.9 % (32.4-45.2); HEMOGLOBIN 10.3 GM/dL (10.7-15.3); LYMPH % 18.9 % (8-40); MCH 36.3 pg (25.7-33.7); MCHC 34.5 g/dl (32.0-36.0); MEAN CELL VOLUME 105.2 fl (80-96); MEAN PLT VOLUME 7.9 fl (7.5-11.1); MONO % 9.2 % (3.8-10.2); NEUT % 69.4 % (42.8-82.8); PLATELET COUNT 272 10^3/uL (134-434); RBC 2.84 M/mm3 (3.60-5.2); RDW 14.1 % (11.6-15.6); VENOUS BASE EXCESS -9.4 mmol/L (-2-2); VENOUS PH 7.218 (7.310-7.410); WHITE BLOOD COUNT 8.5 K/mm3 (4.0-10.0)
[2021-02-17] MEDS ORDERED: ACETAMINOPHEN INJECTION 100 ML IVPB ONE (06:00)
[2021-02-17 06:09] LABS: INR 0.99 (0.83-1.09)
[2021-02-17 06:11] LABS: ACTIVATED PTT 28.4 SECONDS (25.2-36.5)
[2021-02-17 06:22] LABS: CALCIUM 8.3 mg/dL (8.5-10.1)
[2021-02-17 06:23] LABS: ALBUMIN 2.7 g/dl (3.4-5.0); BLOOD UREA NITROGEN 76.3 mg/dL (7-18)
[2021-02-17 06:26] LABS: CREATININE 3.1 mg/dL (0.55-1.3)
[2021-02-17 06:28] LABS: BILIRUBIN,TOTAL 0.2 mg/dL (0.2-1); TOT PROT 6.9 g/dl (6.4-8.2)
[2021-02-17 06:31] LABS: N-TERMINAL BNP 329.7 pg/ml (5-125)
[2021-02-17] MEDS ORDERED: SODIUM CHLORIDE 1,000 ML IV SCH (16:15)
[2021-02-17] MEDS ORDERED: ALBUTEROL SO4 HFA INHALER IH PRN ×2 (16:40→17:15)
[2021-02-17] MEDS ORDERED: ALBUTEROL SO4 0.083% IH SOL 2.5 MG/3 ML VIAL.NEB. NEB ONE (16:50)
[2021-02-17] MEDS: AZITHROMYCIN IVPB 250 MG in DEXTROSE 5%-WATER - 250 ML IVPB SCH (18:04)
[2021-02-17 18:08] LABS: EPI CELLS >36 /uL (0-25.1); HYALINE CASTS 14 /uL (0-3.1); URINE APPEARANCE TURBID; URINE BACTERIA >9,000 /uL (0-1359); URINE BILIRUBIN NEGATIVE (NEGATIVE); URINE COLOR RED; URINE GLUCOSE (UA) NEGATIVE (NEGATIVE); URINE KETONE NEGATIVE (NEGATIVE); URINE LEUK ESTERASE 3+ (NEGATIVE); URINE NITRITE NEGATIVE (NEGATIVE); URINE PROTEIN 3+ (NEGATIVE); URINE WBC 20348 /uL (0-25.8)
[2021-02-17 19:11] LABS: URINE RBC 5445.5 /uL (0-23.9); YEAST NEGATIVE (NEGATIVE)
[2021-02-17] MEDS: ALBUTEROL SO4 0.083% IH SOL 2.5 MG/3 ML VIAL.NEB. NEB SCH (20:00)
[2021-02-17] MEDS: HEPARIN NA (PORCINE) 5,000 UNITS/ML 1ML VIAL SQ SCH (23:57)
[2021-02-17] MEDS: ATORVASTATIN CA 40 MG TABLET (FP) PO SCH (23:57)
[2021-02-17] MEDS: MIRTAZAPINE 15 MG TABLET (FP) PO SCH (23:57)
[2021-02-17] MEDS: BUDESONIDE/FORMETEROL FUMARATE 80/4.5 mcg INHALER IH SCH (23:58)
[2021-02-18 02:49] VITALS: BMI 19.1
[2021-02-18] MEDS: methylPREDNISolone NA SUCC 40 MG/1 ML VIAL IVPUSH SCH ×4 (04:02→17:56)
[2021-02-18] MEDS: ALBUTEROL SO4 0.083% IH SOL 2.5 MG/3 ML VIAL.NEB. NEB SCH ×7 (04:30→23:41)
[2021-02-18] MEDS: HEPARIN NA (PORCINE) 5,000 UNITS/ML 1ML VIAL SQ SCH (06:30)
[2021-02-18 07:23] LABS: HEMATOCRIT 24.6 % (32.4-45.2); HEMOGLOBIN 8.4 GM/dL (10.7-15.3); MCH 35.7 pg (25.7-33.7); MCHC 34.2 g/dl (32.0-36.0); MEAN CELL VOLUME 104.4 fl (80-96); MEAN PLT VOLUME 7.8 fl (7.5-11.1); PLATELET COUNT 241 10^3/uL (134-434); RBC 2.36 M/mm3 (3.60-5.2); RDW 13.9 % (11.6-15.6)
[2021-02-18 08:14] LABS: ALBUMIN 2.2 g/dl (3.4-5.0); BLOOD UREA NITROGEN 83.2 mg/dL (7-18); CALCIUM 7.9 mg/dL (8.5-10.1); MAGNESIUM 1.7 mg/dL (1.8-2.4)
[2021-02-18 08:17] LABS: BILIRUBIN,TOTAL 0.2 mg/dL (0.2-1); PHOSPHOROUS 6.4 mg/dL (2.5-4.9); TOT PROT 5.7 g/dl (6.4-8.2)
[2021-02-18] MEDS ORDERED: CEFTRIAXONE 1 GM in DEXTROSE 5%-WATER - 50 ML IVPB SCH (10:00)
[2021-02-18] MEDS ORDERED: APIXABAN 2.5 MG TABLET PO SCH (10:00)
[2021-02-18] MEDS ORDERED: LOSARTAN POTASSIUM 25 MG TABLET PO SCH (10:00)
[2021-02-18] MEDS ORDERED: PATIENT'S OWN MEDICATION (NON-FORMULARY) (Umeclidinium Bromide [Incruse Ellipta] 62.5 MCG IH SCH (10:00)
[2021-02-18] MEDS: DIVALPROEX NA *ER* EXTEND REL 250 MG TABLET.SA PO SCH (11:22)
[2021-02-18] MEDS: amLODIPine BESYLATE 10 MG TABLET (FP) PO SCH (11:23)
[2021-02-18] MEDS: AZITHROMYCIN IVPB 250 MG in DEXTROSE 5%-WATER - 250 ML IVPB SCH (11:24)
[2021-02-18] MEDS: PANTOPRAZOLE 20 MG TABLET PO SCH (11:24)
[2021-02-18] MEDS: BUDESONIDE/FORMETEROL FUMARATE 80/4.5 mcg INHALER IH SCH ×2 (11:25→21:19)
[2021-02-18] MEDS ORDERED: cefTRIAXone SODIUM 1 GM VIAL ONE (11:48)
[2021-02-18] MEDS ORDERED: DEXTROSE 5%-WATER - 50 ML IVPB ONE (11:48)
[2021-02-18 14:01] LABS: LACTIC ACID 2.3 mmol/L (0.4-2.0)
[2021-02-18] MEDS: TIOTROPIUM BROMIDE 2.5 MCG (SPIRIVA) RESPIMAT INHALER IH SCH (14:03)
[2021-02-18] MEDS: CYPROHEPTADINE HCL 4 MG TABLET PO SCH (14:09)
[2021-02-18] MEDS: LACTATED RINGERS SOLUTION 1,000 ML/1,000 ML INFUS.BAG IV SCH (16:02)
[2021-02-18] MEDS: BICTEGRAV/EMTRICIT/TENOFOV (BIKTARVY) 50-200-25 MG TABLET PO SCH (16:02)
[2021-02-18] MEDS: SODIUM BICARBONATE 650 MG TABLET PO SCH ×2 (16:12→21:19)
[2021-02-18] MEDS: ATORVASTATIN CA 40 MG TABLET (FP) PO SCH (21:19)
[2021-02-18] MEDS: APIXABAN 2.5 MG TABLET PO SCH (21:19)
[2021-02-18] MEDS: MIRTAZAPINE 15 MG TABLET (FP) PO SCH (21:19)
[2021-02-19] MEDS: methylPREDNISolone NA SUCC 40 MG/1 ML VIAL IVPUSH SCH ×3 (01:25→17:38)
[2021-02-19] MEDS: ALBUTEROL SO4 0.083% IH SOL 2.5 MG/3 ML VIAL.NEB. NEB SCH ×5 (03:13→20:02)
[2021-02-19] MEDS ORDERED: [UNRECOGNIZED DRUG - OTHER] PO PRN (06:24)
[2021-02-19] MEDS ORDERED: CAFFEINE PO PRN (06:24)
[2021-02-19] MEDS ORDERED: ASPIRIN PO PRN (06:24)
[2021-02-19] MEDS ORDERED: BUTALBITAL PO PRN (06:24)
[2021-02-19 07:37] LABS: VENOUS BASE EXCESS -8.1 mmol/L (-2-2); VENOUS O2 SATURATION 89.4 % (70-80); VENOUS PCO2 32.7 mmHg (38-52); VENOUS PH 7.332 (7.310-7.410)
[2021-02-19 07:41] LABS: HEMATOCRIT 24.1 % (32.4-45.2); HEMOGLOBIN 8.3 GM/dL (10.7-15.3); MCH 35.5 pg (25.7-33.7); MCHC 34.2 g/dl (32.0-36.0); MEAN CELL VOLUME 103.9 fl (80-96); MEAN PLT VOLUME 7.7 fl (7.5-11.1); PLATELET COUNT 241 10^3/uL (134-434); RBC 2.32 M/mm3 (3.60-5.2); RDW 13.4 % (11.6-15.6); WHITE BLOOD COUNT 9.8 K/mm3 (4.0-10.0)
[2021-02-19 07:51] LABS: CALCIUM 8.3 mg/dL (8.5-10.1)
[2021-02-19 07:52] LABS: ALBUMIN 2.2 g/dl (3.4-5.0); BLOOD UREA NITROGEN 80.8 mg/dL (7-18); MAGNESIUM 1.9 mg/dL (1.8-2.4)
[2021-02-19 07:54] LABS: URIC ACID 8.9 mg/dL (2.6-7.2)
[2021-02-19 07:55] LABS: CREATININE 2.6 mg/dL (0.55-1.3)
[2021-02-19 07:56] LABS: BILIRUBIN,TOTAL 0.2 mg/dL (0.2-1); TOT PROT 5.8 g/dl (6.4-8.2)
[2021-02-19 09:36] LABS: ANISOCYTOSIS 1+; MACROCYTOSIS 1+; PLATELET ESTIMATE NORMAL
[2021-02-19] MEDS: SODIUM BICARBONATE 650 MG TABLET PO SCH ×2 (10:24→21:15)
[2021-02-19] MEDS: CYPROHEPTADINE HCL 4 MG TABLET PO SCH (10:24)
[2021-02-19] MEDS: BICTEGRAV/EMTRICIT/TENOFOV (BIKTARVY) 50-200-25 MG TABLET PO SCH (10:24)
[2021-02-19] MEDS: amLODIPine BESYLATE 10 MG TABLET (FP) PO SCH (10:24)
[2021-02-19] MEDS: PANTOPRAZOLE 20 MG TABLET PO SCH (10:24)
[2021-02-19] MEDS: DIVALPROEX NA *ER* EXTEND REL 250 MG TABLET.SA PO SCH (10:24)
[2021-02-19] MEDS: APIXABAN 2.5 MG TABLET PO SCH ×2 (10:24→21:15)
[2021-02-19] MEDS: BUDESONIDE/FORMETEROL FUMARATE 80/4.5 mcg INHALER IH SCH ×2 (10:26→21:16)
[2021-02-19] MEDS: TIOTROPIUM BROMIDE 2.5 MCG (SPIRIVA) RESPIMAT INHALER IH SCH (10:26)
[2021-02-19 14:28] LABS: LACTIC ACID 2.8 mmol/L (0.4-2.0)
[2021-02-19] MEDS: LACTATED RINGERS SOLUTION 1,000 ML/1,000 ML INFUS.BAG IV SCH (15:22)
[2021-02-19] MEDS: ACETAMINOPHEN/CAFFEINE/BUTALBITAL 1 TAB PO PRN ×2 (15:24→21:30)
[2021-02-19] MEDS ORDERED: LACTATED RINGERS SOLUTION 1,000 ML/1,000 ML INFUS.BAG IV SCH (18:25)
[2021-02-19] MEDS: MELATONIN 1 MG TABLET PO SCH (21:15)
[2021-02-19] MEDS: MIRTAZAPINE 15 MG TABLET (FP) PO SCH (21:15)
[2021-02-19] MEDS: ATORVASTATIN CA 40 MG TABLET (FP) PO SCH (21:15)
[2021-02-20] MEDS: ALBUTEROL SO4 0.083% IH SOL 2.5 MG/3 ML VIAL.NEB. NEB SCH ×6 (00:32→20:16)
[2021-02-20] MEDS: methylPREDNISolone NA SUCC 40 MG/1 ML VIAL IVPUSH SCH ×4 (01:27→22:06)
[2021-02-20 08:10] LABS: CALCIUM 7.9 mg/dL (8.5-10.1)
[2021-02-20 08:11] LABS: BLOOD UREA NITROGEN 69.9 mg/dL (7-18); MAGNESIUM 1.4 mg/dL (1.8-2.4)
[2021-02-20 08:14] LABS: BASO % 0.1 % (0-2.0); CREATININE 2.2 mg/dL (0.55-1.3); HEMATOCRIT 22.8 % (32.4-45.2); HEMOGLOBIN 7.9 GM/dL (10.7-15.3); MCHC 34.7 g/dl (32.0-36.0); MEAN CELL VOLUME 103.7 fl (80-96); MEAN PLT VOLUME 8.1 fl (7.5-11.1); MONO % 8.2 % (3.8-10.2); NEUT % 80.7 % (42.8-82.8); PLATELET COUNT 242 10^3/uL (134-434); RDW 13.6 % (11.6-15.6); WHITE BLOOD COUNT 10.7 K/mm3 (4.0-10.0)
[2021-02-20 08:15] LABS: BILIRUBIN,TOTAL 0.2 mg/dL (0.2-1)
[2021-02-20 08:16] LABS: TOT PROT 5.4 g/dl (6.4-8.2)
[2021-02-20] MEDS ORDERED: MAGNESIUM SULF 50% (8.12 MEQ/2 ML-1 GM VIAL) IVPB ONE (09:48)
[2021-02-20] MEDS ORDERED: PT OWN MED DRAWER 7, Y5N ONE (10:01)
[2021-02-20] MEDS: ACETAMINOPHEN/CAFFEINE/BUTALBITAL 1 TAB PO PRN ×2 (10:09→20:21)
[2021-02-20] MEDS: DIVALPROEX NA *ER* EXTEND REL 250 MG TABLET.SA PO SCH (10:17)
[2021-02-20] MEDS: APIXABAN 2.5 MG TABLET PO SCH ×3 (10:17→22:07)
[2021-02-20] MEDS: amLODIPine BESYLATE 10 MG TABLET (FP) PO SCH (10:17)
[2021-02-20] MEDS: VITAMIN B COMP W-C 1 EA TABLET (NEPHRO-VITE) PO SCH (10:17)
[2021-02-20] MEDS: SODIUM BICARBONATE 650 MG TABLET PO SCH ×3 (10:17→22:06)
[2021-02-20] MEDS: CYPROHEPTADINE HCL 4 MG TABLET PO SCH (10:18)
[2021-02-20] MEDS: BICTEGRAV/EMTRICIT/TENOFOV (BIKTARVY) 50-200-25 MG TABLET PO SCH (10:18)
[2021-02-20] MEDS: PANTOPRAZOLE 20 MG TABLET PO SCH (10:18)
[2021-02-20] MEDS: BUDESONIDE/FORMETEROL FUMARATE 80/4.5 mcg INHALER IH SCH ×3 (10:23→22:06)
[2021-02-20] MEDS: TIOTROPIUM BROMIDE 2.5 MCG (SPIRIVA) RESPIMAT INHALER IH SCH (10:23)
[2021-02-20] MEDS ORDERED: PATIENT'S OWN MEDICATION (NON-FORMULARY) (Oxycodone Hcl/Acetaminophen [Oxycodone-Acetamino PO PRN (10:56)
[2021-02-20] MEDS ORDERED: ACETAMINOPHEN 325 MG TABLET (FP) PO PRN (11:01)
[2021-02-20] MEDS: LIDOCAINE 5% TOPICAL PATCH TP SCH (15:26)
[2021-02-20] MEDS: oxyCODONE HCL 5 MG TABLET PO PRN (18:05)
[2021-02-20] MEDS: MELATONIN 1 MG TABLET PO SCH ×2 (20:16→22:06)
[2021-02-20] MEDS: ATORVASTATIN CA 40 MG TABLET (FP) PO SCH ×2 (20:18→22:06)
[2021-02-20] MEDS: MIRTAZAPINE 15 MG TABLET (FP) PO SCH ×2 (20:18→22:06)
[2021-02-20] MEDS: LIDOCAINE PATCH REMOVAL MC SCH ×2 (20:20→22:06)
[2021-02-21] MEDS: ALBUTEROL SO4 0.083% IH SOL 2.5 MG/3 ML VIAL.NEB. NEB SCH ×6 (00:29→19:54)
[2021-02-21 07:43] LABS: CALCIUM 8.2 mg/dL (8.5-10.1)
[2021-02-21 07:44] LABS: ALBUMIN 2.1 g/dl (3.4-5.0); BLOOD UREA NITROGEN 64.1 mg/dL (7-18); MAGNESIUM 2.3 mg/dL (1.8-2.4)
[2021-02-21 07:46] LABS: CREATININE 2.2 mg/dL (0.55-1.3)
[2021-02-21 07:48] LABS: BILIRUBIN,TOTAL 0.3 mg/dL (0.2-1); TOT PROT 5.3 g/dl (6.4-8.2)
[2021-02-21] MEDS: oxyCODONE HCL 5 MG TABLET PO PRN ×2 (08:26→16:53)
[2021-02-21 08:57] LABS: PHOSPHOROUS 3.7 mg/dL (2.5-4.9)
[2021-02-21] MEDS: DIVALPROEX NA *ER* EXTEND REL 250 MG TABLET.SA PO SCH (09:32)
[2021-02-21] MEDS: PANTOPRAZOLE 20 MG TABLET PO SCH (09:32)
[2021-02-21] MEDS: LIDOCAINE 5% TOPICAL PATCH TP SCH (09:32)
[2021-02-21] MEDS: VITAMIN B COMP W-C 1 EA TABLET (NEPHRO-VITE) PO SCH (09:32)
[2021-02-21] MEDS: amLODIPine BESYLATE 10 MG TABLET (FP) PO SCH (09:32)
[2021-02-21] MEDS: APIXABAN 2.5 MG TABLET PO SCH ×2 (09:32→21:04)
[2021-02-21] MEDS: SODIUM BICARBONATE 650 MG TABLET PO SCH ×2 (09:32→21:04)
[2021-02-21] MEDS ORDERED: PT OWN MED DRAWER 7, Y5N ONE (09:36)
[2021-02-21] MEDS: CYPROHEPTADINE HCL 4 MG TABLET PO SCH (09:37)
[2021-02-21] MEDS: BICTEGRAV/EMTRICIT/TENOFOV (BIKTARVY) 50-200-25 MG TABLET PO SCH (09:37)
[2021-02-21] MEDS: BUDESONIDE/FORMETEROL FUMARATE 80/4.5 mcg INHALER IH SCH ×2 (10:00→21:09)
[2021-02-21] MEDS: TIOTROPIUM BROMIDE 2.5 MCG (SPIRIVA) RESPIMAT INHALER IH SCH (10:00)
[2021-02-21] MEDS ORDERED: predniSONE 20 MG TABLET (UD) PO SCH (10:00)
[2021-02-21] MEDS ORDERED: ACETAMINOPHEN 1000 MG/100 ML VIAL IVPB ONE (11:00)
[2021-02-21 16:28] LABS: HEMATOCRIT 23.8 % (32.4-45.2); MCH 35.2 pg (25.7-33.7); MCHC 33.6 g/dl (32.0-36.0); MEAN CELL VOLUME 104.7 fl (80-96); MEAN PLT VOLUME 7.8 fl (7.5-11.1); PLATELET COUNT 244 10^3/uL (134-434); RBC 2.27 M/mm3 (3.60-5.2); RDW 13.8 % (11.6-15.6); WHITE BLOOD COUNT 9.9 K/mm3 (4.0-10.0)
[2021-02-21] MEDS: MELATONIN 1 MG TABLET PO SCH (21:04)
[2021-02-21] MEDS: MIRTAZAPINE 15 MG TABLET (FP) PO SCH (21:04)
[2021-02-21] MEDS: ACETAMINOPHEN/CAFFEINE/BUTALBITAL 1 TAB PO PRN (21:04)
[2021-02-21] MEDS: ATORVASTATIN CA 40 MG TABLET (FP) PO SCH (21:04)
[2021-02-21] MEDS: LIDOCAINE PATCH REMOVAL MC SCH (21:09)
[2021-02-22] MEDS: ALBUTEROL SO4 0.083% IH SOL 2.5 MG/3 ML VIAL.NEB. NEB SCH ×5 (00:40→15:11)
[2021-02-22] MEDS: oxyCODONE HCL 5 MG TABLET PO PRN ×2 (07:34→17:21)
[2021-02-22] MEDS ORDERED: PT OWN MED DRAWER 7, Y5N ONE (09:02)
[2021-02-22 09:17] LABS: BASO % 0.2 % (0-2.0); EOS % 0.3 % (0-4.5); HEMATOCRIT 26.3 % (32.4-45.2); LYMPH % 18.4 % (8-40); MCH 35.5 pg (25.7-33.7); MCHC 34.1 g/dl (32.0-36.0); MEAN CELL VOLUME 104.3 fl (80-96); MEAN PLT VOLUME 7.7 fl (7.5-11.1); MONO % 11.8 % (3.8-10.2); NEUT % 69.3 % (42.8-82.8); PLATELET COUNT 286 10^3/uL (134-434); RBC 2.53 M/mm3 (3.60-5.2); RDW 13.4 % (11.6-15.6); WHITE BLOOD COUNT 11.1 K/mm3 (4.0-10.0)
[2021-02-22] MEDS: LIDOCAINE 5% TOPICAL PATCH TP SCH (09:31)
[2021-02-22] MEDS: predniSONE 10 MG TABLET (UD) PO SCH (09:34)
[2021-02-22] MEDS: SODIUM BICARBONATE 650 MG TABLET PO SCH ×2 (09:34→21:11)
[2021-02-22] MEDS: APIXABAN 2.5 MG TABLET PO SCH ×2 (09:34→21:10)
[2021-02-22] MEDS: VITAMIN B COMP W-C 1 EA TABLET (NEPHRO-VITE) PO SCH (09:35)
[2021-02-22] MEDS: PANTOPRAZOLE 20 MG TABLET PO SCH (09:35)
[2021-02-22] MEDS: DIVALPROEX NA *ER* EXTEND REL 250 MG TABLET.SA PO SCH (09:35)
[2021-02-22] MEDS: CYPROHEPTADINE HCL 4 MG TABLET PO SCH (09:35)
[2021-02-22] MEDS: amLODIPine BESYLATE 10 MG TABLET (FP) PO SCH (09:35)
[2021-02-22] MEDS: BICTEGRAV/EMTRICIT/TENOFOV (BIKTARVY) 50-200-25 MG TABLET PO SCH (09:35)
[2021-02-22] MEDS: TIOTROPIUM BROMIDE 2.5 MCG (SPIRIVA) RESPIMAT INHALER IH SCH (09:36)
[2021-02-22] MEDS: BUDESONIDE/FORMETEROL FUMARATE 80/4.5 mcg INHALER IH SCH ×2 (09:36→21:11)
[2021-02-22 10:01] LABS: ALBUMIN 2.2 g/dl (3.4-5.0); BLOOD UREA NITROGEN 51.9 mg/dL (7-18); CALCIUM 8.2 mg/dL (8.5-10.1)
[2021-02-22 10:03] LABS: MAGNESIUM 1.8 mg/dL (1.8-2.4)
[2021-02-22 10:06] LABS: BILIRUBIN,TOTAL 0.3 mg/dL (0.2-1); CREATININE 2.2 mg/dL (0.55-1.3); PHOSPHOROUS 3.4 mg/dL (2.5-4.9); TOT PROT 5.8 g/dl (6.4-8.2)
[2021-02-22] MEDS: ACETAMINOPHEN/CAFFEINE/BUTALBITAL 1 TAB PO PRN (13:57)
[2021-02-22] MEDS ORDERED: POTASSIUM CHLORIDE TABS 20 MEQ TABLET.ER (FP) PO ONE (14:07)
[2021-02-22] MEDS ORDERED: GLYCERIN 1 RECTAL SUPPOSITORY, ADULT PR PRN (17:03)
[2021-02-22] MEDS ORDERED: MINERAL OIL ENEMA 133 ML ENEMA PR ONE (17:04)
[2021-02-22] MEDS: ATORVASTATIN CA 40 MG TABLET (FP) PO SCH (21:10)
[2021-02-22] MEDS: MELATONIN 1 MG TABLET PO SCH (21:10)
[2021-02-22] MEDS: MIRTAZAPINE 15 MG TABLET (FP) PO SCH (21:11)
[2021-02-22] MEDS: LIDOCAINE PATCH REMOVAL MC SCH (22:09)
[2021-02-23] MEDS: oxyCODONE HCL 5 MG TABLET PO PRN (06:46)
[2021-02-23 08:12] LABS: CHLORIDE 116 mmol/L (98-107); SODIUM 141 mmol/L (136-145)
[2021-02-23 08:14] LABS: CALCIUM 7.4 mg/dL (8.5-10.1)
[2021-02-23 08:15] LABS: BLOOD UREA NITROGEN 54.2 mg/dL (7-18); CO2 22 mmol/L (21-32); GLUCOSE,RANDOM 79 mg/dL (74-106)
[2021-02-23 08:18] LABS: CREATININE 2.4 mg/dL (0.55-1.3); PHOSPHOROUS 3.7 mg/dL (2.5-4.9)
[2021-02-23 08:27] LABS: ANION GAP 4 MMOL/L (8-16)
[2021-02-23] MEDS ORDERED: MINERAL OIL ENEMA 133 ML ENEMA RC ONE (08:29)
[2021-02-23] MEDS ORDERED: SODIUM CHLORIDE 0.45% 1,000 ML IV SCH (08:30)
[2021-02-23] MEDS: LIDOCAINE 5% TOPICAL PATCH TP SCH (09:31)
[2021-02-23] MEDS: DIVALPROEX NA *ER* EXTEND REL 250 MG TABLET.SA PO SCH (09:32)
[2021-02-23] MEDS: predniSONE 10 MG TABLET (UD) PO SCH (09:32)
[2021-02-23] MEDS: amLODIPine BESYLATE 10 MG TABLET (FP) PO SCH (09:32)
[2021-02-23] MEDS: BICTEGRAV/EMTRICIT/TENOFOV (BIKTARVY) 50-200-25 MG TABLET PO SCH (09:33)
[2021-02-23] MEDS: SODIUM BICARBONATE 650 MG TABLET PO SCH (09:33)
[2021-02-23] MEDS: PANTOPRAZOLE 20 MG TABLET PO SCH (09:33)
[2021-02-23] MEDS: CYPROHEPTADINE HCL 4 MG TABLET PO SCH (09:33)
[2021-02-23] MEDS: APIXABAN 2.5 MG TABLET PO SCH (09:33)
[2021-02-23] MEDS: VITAMIN B COMP W-C 1 EA TABLET (NEPHRO-VITE) PO SCH (09:33)
[2021-02-23] MEDS: TIOTROPIUM BROMIDE 2.5 MCG (SPIRIVA) RESPIMAT INHALER IH SCH (09:37)
[2021-02-23] MEDS: BUDESONIDE/FORMETEROL FUMARATE 80/4.5 mcg INHALER IH SCH (09:37)
[2021-02-23 10:54] LABS: BLOOD UREA NITROGEN 50.8 mg/dL (7-18); CALCIUM 7.6 mg/dL (8.5-10.1)
[2021-02-23 10:57] LABS: CREATININE 2.3 mg/dL (0.55-1.3)
[2021-02-23] MEDS ORDERED: ACETAMINOPHEN/CAFFEINE/BUTALBITAL 1 TAB PO PRN (13:44)
[2021-02-23] MEDS ORDERED: oxyCODONE HCL 5 MG TABLET PO PRN (13:49)
[2021-02-23] MEDS ORDERED: DOCUSATE SODIUM 100 MG CAPSULE (FP) PO SCH (14:00)
[2021-02-23 15:49] VITALS: BP 150/63; PULSE 94; TEMP 98.8
[2021-02-25 13:07] LABS: ANTIGLOMERULAR BASEMENT MEN.AB 3 units (0-20)
[2021-02-25 16:13] LABS: ATYPICAL pANCA <1:20 titer (Neg:<1:20); C-ANCA <1:20 titer (Neg:<1:20)
== END 2021-02-23 17:59 | disposition left against medical advice (07) | DRG 191 ==
LOC: JER 04:58 → JERBED 11:00 → J4W 20:56
PROVIDERS: ADMIT Internal Medicine; ATTEND Internal Medicine
DX: J44.1 Chronic obstructive pulmonary disease with (acute) exacerbation (principal); J84.9 Interstitial pulmonary disease, unspecified; N17.9 Acute kidney failure, unspecified; I24.8 Other forms of acute ischemic heart disease; I69.354 Hemiplegia and hemiparesis following cerebral infarction affecting left non-dominant side; E87.2 Acidosis; I13.0 Hypertensive heart and chronic kidney disease with heart failure and stage 1 through stage 4 chronic kidney disease, or unspecified chronic kidney disease; I50.32 Chronic diastolic (congestive) heart failure; E03.9 Hypothyroidism, unspecified; F41.9 Anxiety disorder, unspecified; E78.00 Pure hypercholesterolemia, unspecified; Z21 Asymptomatic human immunodeficiency virus [HIV] infection status; N18.9 Chronic kidney disease, unspecified; N20.0 Calculus of kidney; E87.5 Hyperkalemia; I48.0 Paroxysmal atrial fibrillation; M06.9 Rheumatoid arthritis, unspecified; K59.00 Constipation, unspecified; D64.9 Anemia, unspecified; E86.1 Hypovolemia; G40.909 Epilepsy, unspecified, not intractable, without status epilepticus; W18.39XA Other fall on same level, initial encounter; Y92.098 Other place in other non-institutional residence as the place of occurrence of the external cause; Z86.718 Personal history of other venous thrombosis and embolism
CPT/HCPCS: 36415; 70450-TC; 71045-TC-FY; 71101-TC-LT-FY; 71250-TC; 72125-TC; 72128-TC; 72131-TC; 72170-TC-FY; 73060-TC-LT-FY; 73070-TC-LT-FY; 73590-TC-LT-FY; 73610-TC-LT-FY; 73630-TC-LT; 74019-TC-FY; 74176-TC; 76775-TC; 80048; 80053; 80061; 81003; 82550; 82553; 82570; 82607; 82728; 82803; 83036; 83516; 83520; 83540; 83550; 83605; 83690; 83735; 83880; 84100; 84155; 84156; 84165; 84300; 84425; 84443; 84484; 84550; 85025; 85027; 85610; 85730; 86038; 86160; 86225; 86256; 86780; 86850; 86870; 86900; 86901; 86902; 87086; 93005; 93010; 93306-TC; 93880-TC; 93970-TC; 94010; 94150; 94640; 97116-GP; 97162-GP; 99285-25; C9803; J0131; J1644; U0003; U0005

== ENCOUNTER 2021-04-22 09:16 | Inpatient (IN) | payer OTHER ==
[2021-04-22] MEDS ORDERED: methylPREDNISolone NA SUCC 125 MG/2 ML VIAL IVPUSH ONE (10:10)
[2021-04-22] MEDS ORDERED: methylPREDNISolone NA SUCC 125 MG/2 ML VIAL ONE (10:47)
[2021-04-22] MEDS ORDERED: ALBUTEROL SO4 2.5/IPRATROPIUM 0.5 INH SOL 3 ML VIAL.NEB. NEB ONE (10:47)
[2021-04-22 11:11] LABS: BASO % 0.8 % (0-2.0); EOS % 0.7 % (0-4.5); HEMATOCRIT 25.2 % (32.4-45.2); HEMOGLOBIN 8.6 GM/dL (10.7-15.3); LYMPH % 17.7 % (8-40); MCH 35.9 pg (25.7-33.7); MCHC 34.3 g/dl (32.0-36.0); MEAN CELL VOLUME 104.9 fl (80-96); MEAN PLT VOLUME 7.5 fl (7.5-11.1); MONO % 9.1 % (3.8-10.2); NEUT % 71.7 % (42.8-82.8); PLATELET COUNT 268 10^3/uL (134-434); RDW 14.6 % (11.6-15.6); WHITE BLOOD COUNT 10.7 K/mm3 (4.0-10.0)
[2021-04-22] MEDS: ALBUTEROL SO4 2.5/IPRATROPIUM 0.5 INH SOL 3 ML VIAL.NEB. NEB SCH ×2 (11:14→11:41)
[2021-04-22 11:18] LABS: INR 1.11 (0.83-1.09); PROTHROMBIN TIME (PATIENT) 12.4 SEC (9.7-13.0)
[2021-04-22 11:21] LABS: ACTIVATED PTT 26.4 SECONDS (25.2-36.5)
[2021-04-22 11:34] LABS: ALBUMIN 1.8 g/dl (3.4-5.0); BLOOD UREA NITROGEN 36.4 mg/dL (7-18); CALCIUM 7.6 mg/dL (8.5-10.1)
[2021-04-22 11:35] LABS: MAGNESIUM 1.3 mg/dL (1.8-2.4)
[2021-04-22 11:37] LABS: CREATININE 3.3 mg/dL (0.55-1.3)
[2021-04-22 11:39] LABS: BILIRUBIN,TOTAL 0.2 mg/dL (0.2-1); TOT PROT 5.7 g/dl (6.4-8.2)
[2021-04-22] MEDS ORDERED: MAGNESIUM SULF 50% (8.12 MEQ/2 ML-1 GM VIAL) IVPB ONE (11:40)
[2021-04-22 11:42] LABS: N-TERMINAL BNP 1750.3 pg/ml (5-125)
[2021-04-22 11:59] LABS: VENOUS BASE EXCESS -10.2 mmol/L (-2-2); VENOUS O2 SATURATION 19.4 % (70-80); VENOUS PCO2 41.7 mmHg (38-52); VENOUS PH 7.221 (7.310-7.410)
[2021-04-22] MEDS ORDERED: MAGNESIUM SULFATE IN WATER 2 GM/50 ML IVPB IVPB ONE (12:08)
[2021-04-22] MEDS ORDERED: FUROSEMIDE 40 MG/4 ML INJECTABLE VIAL IVPUSH ONE (12:10)
[2021-04-22] MEDS ORDERED: FUROSEMIDE 40 MG/4 ML INJECTABLE VIAL ONE (12:16)
[2021-04-22] MEDS ORDERED: HEPARIN NA (PORCINE) 5,000 UNITS/ML 1ML VIAL IVPUSH PRN ×2 (17:11)
[2021-04-22] MEDS ORDERED: ALBUTEROL SO4 2.5/IPRATROPIUM 0.5 INH SOL 3 ML VIAL.NEB. NEB PRN (17:11)
[2021-04-22] MEDS ORDERED: HEPARIN SOD,PORK IN 0.45% NACL 25,000 UNIT/500 ML INFUS.BAG IVPB SCH (17:15)
[2021-04-22] MEDS ORDERED: GABAPENTIN 100 MG CAPSULE PO SCH (22:00)
[2021-04-22] MEDS ORDERED: GABAPENTIN 100 MG CAPSULE ONE (23:01)
[2021-04-22] MEDS ORDERED: ATORVASTATIN CA 40 MG TABLET (FP) ONE (23:01)
[2021-04-22] MEDS ORDERED: MIRTAZAPINE 15 MG TABLET (FP) ONE (23:02)
[2021-04-22] MEDS ORDERED: DIVALPROEX SODIUM 125 MG TABLET E.C. ONE (23:02)
[2021-04-22] MEDS: MIRTAZAPINE 15 MG TABLET (FP) PO SCH (23:06)
[2021-04-22] MEDS: ATORVASTATIN CA 40 MG TABLET (FP) PO SCH (23:06)
[2021-04-22] MEDS: DIVALPROEX NA *ER* EXTEND REL 250 MG TABLET.SA PO SCH (23:06)
[2021-04-23] MEDS ORDERED: HEPARIN NA (PORCINE) 5,000 UNITS/ML 1ML VIAL ONE (02:04)
[2021-04-23] MEDS: BUDESONIDE/FORMETEROL FUMARATE 80/4.5 mcg INHALER IH SCH ×3 (02:16→23:20)
[2021-04-23] MEDS ORDERED: ACETAMINOPHEN 1000 MG/100 ML VIAL IVPB ONE (02:44)
[2021-04-23 07:51] LABS: BASO % 0.3 % (0-2.0); EOS % 0.1 % (0-4.5); HEMATOCRIT 23.5 % (32.4-45.2); HEMOGLOBIN 7.8 GM/dL (10.7-15.3); MCH 34.1 pg (25.7-33.7); MCHC 33.1 g/dl (32.0-36.0); MEAN CELL VOLUME 103.2 fl (80-96); MEAN PLT VOLUME 7.6 fl (7.5-11.1); NEUT % 74.6 % (42.8-82.8); PLATELET COUNT 286 10^3/uL (134-434); RBC 2.28 M/mm3 (3.60-5.2); RDW 14.7 % (11.6-15.6); WHITE BLOOD COUNT 12.5 K/mm3 (4.0-10.0)
[2021-04-23 08:55] LABS: ALBUMIN 1.8 g/dl (3.4-5.0); BILIRUBIN,TOTAL 0.2 mg/dL (0.2-1); BLOOD UREA NITROGEN 41.1 mg/dL (7-18); CALCIUM 7.9 mg/dL (8.5-10.1); CREATININE 3.2 mg/dL (0.55-1.3); MAGNESIUM 1.8 mg/dL (1.8-2.4); PHOSPHOROUS 5.6 mg/dL (2.5-4.9); TOT PROT 5.9 g/dl (6.4-8.2)
[2021-04-23] MEDS ORDERED: MULTIVITAMINS (DAILY MVI) TABLET (FP) ONE (09:53)
[2021-04-23] MEDS ORDERED: predniSONE 20 MG TABLET (UD) ONE (09:53)
[2021-04-23] MEDS ORDERED: amLODIPine BESYLATE 5 MG TABLET (FP) ONE (09:54)
[2021-04-23] MEDS ORDERED: PANTOPRAZOLE 20 MG TABLET PO ONE (09:54)
[2021-04-23] MEDS ORDERED: FUROSEMIDE 40 MG/4 ML INJECTABLE VIAL ONE (09:54)
[2021-04-23] MEDS: amLODIPine BESYLATE 5 MG TABLET (FP) PO SCH (10:00)
[2021-04-23] MEDS: MULTIVITAMINS (DAILY MVI) TABLET (FP) PO SCH (10:00)
[2021-04-23] MEDS ORDERED: predniSONE 20 MG TABLET (UD) PO SCH (10:00)
[2021-04-23] MEDS ORDERED: BICTEGRAV/EMTRICIT/TENOFOV (BIKTARVY) 50-200-25 MG TABLET PO SCH (10:00)
[2021-04-23] MEDS: methylPREDNISolone NA SUCC 40 MG/1 ML VIAL IVPUSH SCH (10:00)
[2021-04-23] MEDS: FUROSEMIDE 40 MG/4 ML INJECTABLE VIAL IVPUSH SCH (10:00)
[2021-04-23] MEDS: PANTOPRAZOLE 20 MG TABLET PO SCH (10:00)
[2021-04-23] MEDS ORDERED: methylPREDNISolone NA SUCC 40 MG/1 ML VIAL ONE (10:14)
[2021-04-23] MEDS ORDERED: GABAPENTIN 100 MG CAPSULE ONE ×2 (12:51→23:03)
[2021-04-23] MEDS: SODIUM BICARBONATE 650 MG TABLET PO SCH ×2 (12:54→23:20)
[2021-04-23] MEDS: BICTEGRAV/EMTRICIT/TENOFOV (BIKTARVY) 50-200-25 MG TABLET PO SCH (12:54)
[2021-04-23] MEDS: GABAPENTIN 100 MG CAPSULE PO SCH ×2 (12:55→23:20)
[2021-04-23] MEDS ORDERED: ACETAMINOPHEN INJECTION 100 ML IVPB ONE (16:33)
[2021-04-23] MEDS: ACETAMINOPHEN 1000 MG/100 ML VIAL IVPB PRN (16:41)
[2021-04-23 20:47] LABS: EPI CELLS 16 /uL (0-25.1); HYALINE CASTS 1 /uL (0-3.1); URINE APPEARANCE CLOUDY; URINE BACTERIA 3339 /uL (0-1359); URINE BILIRUBIN NEGATIVE (NEGATIVE); URINE COLOR YELLOW; URINE GLUCOSE (UA) NEGATIVE (NEGATIVE); URINE KETONE NEGATIVE (NEGATIVE); URINE LEUK ESTERASE NEGATIVE (NEGATIVE); URINE NITRITE NEGATIVE (NEGATIVE); URINE PROTEIN 3+ (NEGATIVE); URINE RBC 989 /uL (0-23.9); URINE UROBILINOGEN 0.2 mg/dL (0.2-1.0); URINE WBC 50 /uL (0-25.8)
[2021-04-23] MEDS ORDERED: ATORVASTATIN CA 40 MG TABLET (FP) ONE (23:02)
[2021-04-23] MEDS ORDERED: DIVALPROEX SODIUM 125 MG TABLET E.C. ONE (23:03)
[2021-04-23] MEDS ORDERED: MIRTAZAPINE 15 MG TABLET (FP) ONE (23:04)
[2021-04-23] MEDS: MIRTAZAPINE 15 MG TABLET (FP) PO SCH (23:20)
[2021-04-23] MEDS: ATORVASTATIN CA 40 MG TABLET (FP) PO SCH (23:20)
[2021-04-23] MEDS: DIVALPROEX NA *ER* EXTEND REL 250 MG TABLET.SA PO SCH (23:20)
[2021-04-24] MEDS ORDERED: methylPREDNISolone NA SUCC 40 MG/1 ML VIAL ONE (00:33)
[2021-04-24] MEDS: methylPREDNISolone NA SUCC 40 MG/1 ML VIAL IVPUSH SCH ×3 (00:42→22:04)
[2021-04-24 07:19] LABS: HEMATOCRIT 21.3 % (32.4-45.2); MCH 33.8 pg (25.7-33.7); MCHC 32.6 g/dl (32.0-36.0); MEAN CELL VOLUME 103.6 fl (80-96); MEAN PLT VOLUME 7.9 fl (7.5-11.1); PLATELET COUNT 289 10^3/uL (134-434); RBC 2.06 M/mm3 (3.60-5.2); RDW 14.6 % (11.6-15.6); WHITE BLOOD COUNT 13.1 K/mm3 (4.0-10.0)
[2021-04-24 07:27] LABS: HEMOGLOBIN 6.9 GM/dL (10.7-15.3)
[2021-04-24 08:19] LABS: ALBUMIN 1.6 g/dl (3.4-5.0); BILIRUBIN,TOTAL 0.2 mg/dL (0.2-1); BLOOD UREA NITROGEN 44.5 mg/dL (7-18); CALCIUM 7.4 mg/dL (8.5-10.1); MAGNESIUM 1.7 mg/dL (1.8-2.4); TOT PROT 5.1 g/dl (6.4-8.2); URIC ACID 9.8 mg/dL (2.6-7.2)
[2021-04-24 08:28] LABS: PHOSPHOROUS 4.9 mg/dL (2.5-4.9)
[2021-04-24] MEDS ORDERED: PT OWN MED DRAWER 7, Y5N ONE (09:47)
[2021-04-24] MEDS ORDERED: BICTEGRAV/EMTRICIT/TENOFOV (BIKTARVY) 50-200-25 MG TABLET PO SCH (10:00)
[2021-04-24] MEDS: FUROSEMIDE 40 MG/4 ML INJECTABLE VIAL IVPUSH SCH (10:24)
[2021-04-24] MEDS: amLODIPine BESYLATE 5 MG TABLET (FP) PO SCH (10:24)
[2021-04-24] MEDS: MEGESTROL ACETATE 40 MG TABLET PO SCH (10:25)
[2021-04-24] MEDS: ACETAMINOPHEN 1000 MG/100 ML VIAL IVPB PRN (10:25)
[2021-04-24] MEDS: SODIUM BICARBONATE 650 MG TABLET PO SCH ×2 (10:25→22:04)
[2021-04-24] MEDS: PANTOPRAZOLE 20 MG TABLET PO SCH (10:25)
[2021-04-24] MEDS: GABAPENTIN 100 MG CAPSULE PO SCH ×2 (10:25→22:04)
[2021-04-24] MEDS: MULTIVITAMINS (DAILY MVI) TABLET (FP) PO SCH (10:25)
[2021-04-24] MEDS: BUDESONIDE/FORMETEROL FUMARATE 80/4.5 mcg INHALER IH SCH ×2 (10:58→22:05)
[2021-04-24] MEDS ORDERED: SODIUM CHLORIDE NASAL SPRAY 44 ML BOTTLE NS PRN (16:55)
[2021-04-24 20:36] LABS: BASO % 0.2 % (0-2.0); HEMATOCRIT 20.4 % (32.4-45.2); MCH 34.1 pg (25.7-33.7); MCHC 33.2 g/dl (32.0-36.0); MEAN CELL VOLUME 102.6 fl (80-96); MEAN PLT VOLUME 7.8 fl (7.5-11.1); NEUT % 84.8 % (42.8-82.8); PLATELET COUNT 309 10^3/uL (134-434); RBC 1.99 M/mm3 (3.60-5.2); RDW 14.3 % (11.6-15.6); WHITE BLOOD COUNT 13.4 K/mm3 (4.0-10.0)
[2021-04-24 20:53] LABS: HEMOGLOBIN 6.8 GM/dL (10.7-15.3)
[2021-04-24] MEDS: ATORVASTATIN CA 40 MG TABLET (FP) PO SCH (22:04)
[2021-04-24] MEDS: MIRTAZAPINE 15 MG TABLET (FP) PO SCH (22:04)
[2021-04-24] MEDS: DIVALPROEX NA *ER* EXTEND REL 250 MG TABLET.SA PO SCH (22:04)
[2021-04-25] MEDS: methylPREDNISolone NA SUCC 40 MG/1 ML VIAL IVPUSH SCH ×2 (09:36→22:18)
[2021-04-25] MEDS: MULTIVITAMINS (DAILY MVI) TABLET (FP) PO SCH (09:36)
[2021-04-25] MEDS: GABAPENTIN 100 MG CAPSULE PO SCH ×2 (09:36→22:17)
[2021-04-25] MEDS: FUROSEMIDE 40 MG/4 ML INJECTABLE VIAL IVPUSH SCH (09:36)
[2021-04-25] MEDS: SODIUM BICARBONATE 650 MG TABLET PO SCH ×2 (09:36→22:17)
[2021-04-25] MEDS: PANTOPRAZOLE 20 MG TABLET PO SCH (09:37)
[2021-04-25] MEDS: amLODIPine BESYLATE 5 MG TABLET (FP) PO SCH (09:37)
[2021-04-25] MEDS: BUDESONIDE/FORMETEROL FUMARATE 80/4.5 mcg INHALER IH SCH ×2 (09:37→22:18)
[2021-04-25] MEDS: MEGESTROL ACETATE 40 MG TABLET PO SCH (09:46)
[2021-04-25] MEDS ORDERED: ALBUTEROL SO4 0.083% IH SOL 2.5 MG/3 ML VIAL.NEB. NEB PRN (11:18)
[2021-04-25] MEDS: ALBUTEROL SO4 2.5/IPRATROPIUM 0.5 INH SOL 3 ML VIAL.NEB. NEB SCH ×3 (11:40→20:45)
[2021-04-25 13:33] LABS: BLOOD UREA NITROGEN 44.5 mg/dL (7-18); MAGNESIUM 1.6 mg/dL (1.8-2.4)
[2021-04-25 13:36] LABS: CREATININE 2.5 mg/dL (0.55-1.3); PHOSPHOROUS 3.7 mg/dL (2.5-4.9)
[2021-04-25 13:38] LABS: BILIRUBIN,TOTAL 0.4 mg/dL (0.2-1); TOT PROT 5.5 g/dl (6.4-8.2)
[2021-04-25] MEDS: DIVALPROEX NA *ER* EXTEND REL 250 MG TABLET.SA PO SCH (22:17)
[2021-04-25] MEDS: ATORVASTATIN CA 40 MG TABLET (FP) PO SCH (22:17)
[2021-04-25] MEDS: MIRTAZAPINE 15 MG TABLET (FP) PO SCH (22:17)
[2021-04-26] MEDS: ALBUTEROL SO4 2.5/IPRATROPIUM 0.5 INH SOL 3 ML VIAL.NEB. NEB SCH ×4 (08:35→20:50)
[2021-04-26] MEDS ORDERED: PT OWN MED DRAWER 7, Y5N ONE (09:13)
[2021-04-26 09:27] LABS: HEMATOCRIT 22.1 % (32.4-45.2); HEMOGLOBIN 7.7 GM/dL (10.7-15.3); MCH 35.9 pg (25.7-33.7); MCHC 34.8 g/dl (32.0-36.0); MEAN CELL VOLUME 103.4 fl (80-96); MEAN PLT VOLUME 7.9 fl (7.5-11.1); PLATELET COUNT 304 10^3/uL (134-434); RBC 2.14 M/mm3 (3.60-5.2); RDW 14.4 % (11.6-15.6); WHITE BLOOD COUNT 15.8 K/mm3 (4.0-10.0)
[2021-04-26] MEDS: amLODIPine BESYLATE 5 MG TABLET (FP) PO SCH (09:57)
[2021-04-26] MEDS: SODIUM BICARBONATE 650 MG TABLET PO SCH ×2 (09:57→22:41)
[2021-04-26] MEDS: MULTIVITAMINS (DAILY MVI) TABLET (FP) PO SCH (09:57)
[2021-04-26] MEDS: GABAPENTIN 100 MG CAPSULE PO SCH ×2 (09:57→22:41)
[2021-04-26] MEDS: MEGESTROL ACETATE 40 MG TABLET PO SCH (09:57)
[2021-04-26] MEDS: BUDESONIDE/FORMETEROL FUMARATE 80/4.5 mcg INHALER IH SCH ×2 (09:58→23:00)
[2021-04-26] MEDS: FUROSEMIDE 40 MG/4 ML INJECTABLE VIAL IVPUSH SCH (09:58)
[2021-04-26] MEDS: methylPREDNISolone NA SUCC 40 MG/1 ML VIAL IVPUSH SCH ×2 (09:58→22:41)
[2021-04-26] MEDS: PANTOPRAZOLE 20 MG TABLET PO SCH (09:58)
[2021-04-26] MEDS: MIRTAZAPINE 15 MG TABLET (FP) PO SCH (22:41)
[2021-04-26] MEDS: ATORVASTATIN CA 40 MG TABLET (FP) PO SCH (22:41)
[2021-04-26] MEDS: DIVALPROEX NA *ER* EXTEND REL 250 MG TABLET.SA PO SCH (22:41)
[2021-04-27 07:06] LABS: HEMATOCRIT 20.7 % (32.4-45.2); HEMOGLOBIN 7.1 GM/dL (10.7-15.3); MCH 35.1 pg (25.7-33.7); MCHC 34.1 g/dl (32.0-36.0); MEAN CELL VOLUME 102.8 fl (80-96); MEAN PLT VOLUME 8.2 fl (7.5-11.1); PLATELET COUNT 303 10^3/uL (134-434); RBC 2.01 M/mm3 (3.60-5.2); RDW 14.3 % (11.6-15.6); WHITE BLOOD COUNT 16.6 K/mm3 (4.0-10.0)
[2021-04-27 07:29] LABS: CALCIUM 7.4 mg/dL (8.5-10.1)
[2021-04-27 07:30] LABS: BLOOD UREA NITROGEN 44.5 mg/dL (7-18)
[2021-04-27 08:07] LABS: CREATININE 2.1 mg/dL (0.55-1.3)
[2021-04-27] MEDS: ALBUTEROL SO4 2.5/IPRATROPIUM 0.5 INH SOL 3 ML VIAL.NEB. NEB SCH ×4 (08:55→20:21)
[2021-04-27] MEDS ORDERED: PT OWN MED DRAWER 7, Y5N ONE (09:22)
[2021-04-27] MEDS: GABAPENTIN 100 MG CAPSULE PO SCH ×2 (10:08→21:29)
[2021-04-27] MEDS: methylPREDNISolone NA SUCC 40 MG/1 ML VIAL IVPUSH SCH (10:08)
[2021-04-27] MEDS: FUROSEMIDE 40 MG/4 ML INJECTABLE VIAL IVPUSH SCH ×2 (10:08→18:09)
[2021-04-27] MEDS: MULTIVITAMINS (DAILY MVI) TABLET (FP) PO SCH (10:08)
[2021-04-27] MEDS: MEGESTROL ACETATE 40 MG TABLET PO SCH (10:09)
[2021-04-27] MEDS: SODIUM BICARBONATE 650 MG TABLET PO SCH ×2 (10:09→21:30)
[2021-04-27] MEDS: PANTOPRAZOLE 20 MG TABLET PO SCH (10:09)
[2021-04-27] MEDS: amLODIPine BESYLATE 5 MG TABLET (FP) PO SCH (10:09)
[2021-04-27] MEDS: BUDESONIDE/FORMETEROL FUMARATE 80/4.5 mcg INHALER IH SCH ×2 (10:21→21:30)
[2021-04-27] MEDS: oxyCODONE HCL 5 MG TABLET PO PRN (18:24)
[2021-04-27] MEDS: DIVALPROEX NA *ER* EXTEND REL 250 MG TABLET.SA PO SCH (21:29)
[2021-04-27] MEDS: MIRTAZAPINE 15 MG TABLET (FP) PO SCH (21:29)
[2021-04-27] MEDS: ATORVASTATIN CA 40 MG TABLET (FP) PO SCH (21:30)
[2021-04-28] MEDS: FUROSEMIDE 40 MG/4 ML INJECTABLE VIAL IVPUSH SCH ×2 (05:30→14:24)
[2021-04-28] MEDS: ALBUTEROL SO4 2.5/IPRATROPIUM 0.5 INH SOL 3 ML VIAL.NEB. NEB SCH ×4 (07:40→20:45)
[2021-04-28 08:01] LABS: HEMATOCRIT 28.2 % (32.4-45.2); HEMOGLOBIN 9.5 GM/dL (10.7-15.3); MCHC 33.6 g/dl (32.0-36.0); PLATELET COUNT 280 10^3/uL (134-434); RBC 2.71 M/mm3 (3.60-5.2); RDW 14.2 % (11.6-15.6); WHITE BLOOD COUNT 20.4 K/mm3 (4.0-10.0)
[2021-04-28 08:23] LABS: CALCIUM 7.9 mg/dL (8.5-10.1)
[2021-04-28 08:24] LABS: ALBUMIN 1.8 g/dl (3.4-5.0); BLOOD UREA NITROGEN 46.4 mg/dL (7-18); MAGNESIUM 1.4 mg/dL (1.8-2.4)
[2021-04-28 08:27] LABS: CREATININE 2.2 mg/dL (0.55-1.3); PHOSPHOROUS 3.1 mg/dL (2.5-4.9)
[2021-04-28 08:28] LABS: BILIRUBIN,TOTAL 0.2 mg/dL (0.2-1); TOT PROT 5.1 g/dl (6.4-8.2)
[2021-04-28] MEDS ORDERED: MAGNESIUM OXIDE 400 MG TABLET (FP) PO ONE (10:03)
[2021-04-28] MEDS ORDERED: PT OWN MED DRAWER 7, Y5N ONE (10:04)
[2021-04-28] MEDS: amLODIPine BESYLATE 5 MG TABLET (FP) PO SCH (10:12)
[2021-04-28] MEDS: PANTOPRAZOLE 20 MG TABLET PO SCH (10:13)
[2021-04-28] MEDS: GABAPENTIN 100 MG CAPSULE PO SCH ×2 (10:13→21:15)
[2021-04-28] MEDS: predniSONE 20 MG TABLET (UD) PO SCH (10:13)
[2021-04-28] MEDS: SODIUM BICARBONATE 650 MG TABLET PO SCH ×2 (10:13→21:15)
[2021-04-28] MEDS: MEGESTROL ACETATE 40 MG TABLET PO SCH (10:14)
[2021-04-28] MEDS: MULTIVITAMINS (DAILY MVI) TABLET (FP) PO SCH (10:14)
[2021-04-28] MEDS: BUDESONIDE/FORMETEROL FUMARATE 80/4.5 mcg INHALER IH SCH ×2 (10:15→21:15)
[2021-04-28] MEDS: APIXABAN 5 MG TABLET PO SCH ×2 (12:05→21:15)
[2021-04-28 16:42] LABS: EPI CELLS >36 /uL (0-25.1); HYALINE CASTS 1 /uL (0-3.1); PH,URINE 7.5 (5.0-8.0); URINE APPEARANCE CLOUDY; URINE BACTERIA 3055 /uL (0-1359); URINE BILIRUBIN NEGATIVE (NEGATIVE); URINE COLOR YELLOW; URINE GLUCOSE (UA) NEGATIVE (NEGATIVE); URINE KETONE NEGATIVE (NEGATIVE); URINE LEUK ESTERASE 2+ (NEGATIVE); URINE NITRITE POSITIVE (NEGATIVE); URINE PROTEIN 2+ (NEGATIVE); URINE RBC 1969 /uL (0-23.9); URINE UROBILINOGEN 0.2 mg/dL (0.2-1.0); URINE WBC 887 /uL (0-25.8)
[2021-04-28] MEDS: SODIUM CHLORIDE NASAL SPRAY 44 ML BOTTLE NS SCH (21:15)
[2021-04-28] MEDS: DIVALPROEX NA *ER* EXTEND REL 250 MG TABLET.SA PO SCH (21:15)
[2021-04-28] MEDS: MIRTAZAPINE 15 MG TABLET (FP) PO SCH (21:15)
[2021-04-28] MEDS: ATORVASTATIN CA 40 MG TABLET (FP) PO SCH (21:15)
[2021-04-29 07:25] LABS: HEMATOCRIT 27.1 % (32.4-45.2); HEMOGLOBIN 9.1 GM/dL (10.7-15.3); MCH 34.7 pg (25.7-33.7); MCHC 33.6 g/dl (32.0-36.0); MEAN CELL VOLUME 103.4 fl (80-96); MEAN PLT VOLUME 8.2 fl (7.5-11.1); PLATELET COUNT 256 10^3/uL (134-434); RBC 2.62 M/mm3 (3.60-5.2); RDW 14.1 % (11.6-15.6); WHITE BLOOD COUNT 20.6 K/mm3 (4.0-10.0)
[2021-04-29] MEDS: ALBUTEROL SO4 2.5/IPRATROPIUM 0.5 INH SOL 3 ML VIAL.NEB. NEB SCH ×4 (07:42→20:02)
[2021-04-29 07:43] LABS: CALCIUM 7.2 mg/dL (8.5-10.1)
[2021-04-29 07:44] LABS: ALBUMIN 1.6 g/dl (3.4-5.0); BLOOD UREA NITROGEN 45.3 mg/dL (7-18); MAGNESIUM 1.4 mg/dL (1.8-2.4)
[2021-04-29 07:47] LABS: CREATININE 2.1 mg/dL (0.55-1.3)
[2021-04-29 07:48] LABS: BILIRUBIN,TOTAL 0.1 mg/dL (0.2-1); TOT PROT 4.8 g/dl (6.4-8.2)
[2021-04-29 08:39] LABS: ANISOCYTOSIS 1+; MACROCYTOSIS 1+; PLATELET ESTIMATE NORMAL
[2021-04-29] MEDS ORDERED: MAGNESIUM SULF 50% (8.12 MEQ/2 ML-1 GM VIAL) IVPB ONE (08:56)
[2021-04-29] MEDS ORDERED: PT OWN MED DRAWER 7, Y5N ONE ×3 (10:43→12:41)
[2021-04-29] MEDS: PANTOPRAZOLE 20 MG TABLET PO SCH (11:18)
[2021-04-29] MEDS: SODIUM CHLORIDE NASAL SPRAY 44 ML BOTTLE NS SCH ×2 (11:18→21:16)
[2021-04-29] MEDS: FUROSEMIDE 40 MG/4 ML INJECTABLE VIAL IVPUSH SCH (11:19)
[2021-04-29] MEDS: APIXABAN 5 MG TABLET PO SCH ×2 (11:19→21:15)
[2021-04-29] MEDS: amLODIPine BESYLATE 5 MG TABLET (FP) PO SCH (11:19)
[2021-04-29] MEDS: SODIUM BICARBONATE 650 MG TABLET PO SCH ×2 (11:19→21:15)
[2021-04-29] MEDS: BUDESONIDE/FORMETEROL FUMARATE 80/4.5 mcg INHALER IH SCH ×2 (11:20→21:16)
[2021-04-29] MEDS: MULTIVITAMINS (DAILY MVI) TABLET (FP) PO SCH (11:20)
[2021-04-29] MEDS: GABAPENTIN 100 MG CAPSULE PO SCH ×2 (11:20→21:16)
[2021-04-29] MEDS: MEGESTROL ACETATE 40 MG TABLET PO SCH (11:23)
[2021-04-29] MEDS: predniSONE 20 MG TABLET (UD) PO SCH (11:32)
[2021-04-29] MEDS: VANCOMYCIN 250 MG/5 ML ORAL SOLUTION PO SCH ×2 (12:06→17:28)
[2021-04-29 14:27] VITALS: BMI 22.4
[2021-04-29] MEDS: oxyCODONE HCL 5 MG TABLET PO PRN (20:35)
[2021-04-29] MEDS: ATORVASTATIN CA 40 MG TABLET (FP) PO SCH (21:16)
[2021-04-29] MEDS: DIVALPROEX NA *ER* EXTEND REL 250 MG TABLET.SA PO SCH (21:16)
[2021-04-29] MEDS: MIRTAZAPINE 15 MG TABLET (FP) PO SCH (21:16)
[2021-04-30] MEDS: VANCOMYCIN 250 MG/5 ML ORAL SOLUTION PO SCH ×4 (00:20→18:18)
[2021-04-30] MEDS ORDERED: PT OWN MED DRAWER 7, Y5N ONE ×4 (06:49→20:47)
[2021-04-30] MEDS: ALBUTEROL SO4 2.5/IPRATROPIUM 0.5 INH SOL 3 ML VIAL.NEB. NEB SCH (07:40)
[2021-04-30 08:18] LABS: ALBUMIN 1.8 g/dl (3.4-5.0); BLOOD UREA NITROGEN 40.8 mg/dL (7-18); CALCIUM 7.6 mg/dL (8.5-10.1)
[2021-04-30 08:21] LABS: CREATININE 2.1 mg/dL (0.55-1.3)
[2021-04-30 08:22] LABS: BILIRUBIN,TOTAL 0.2 mg/dL (0.2-1)
[2021-04-30 08:23] LABS: TOT PROT 4.7 g/dl (6.4-8.2)
[2021-04-30 08:28] LABS: BASO % 0.2 % (0-2.0); EOS % 0.1 % (0-4.5); HEMATOCRIT 28.6 % (32.4-45.2); HEMOGLOBIN 9.3 GM/dL (10.7-15.3); LYMPH % 11.6 % (8-40); MCH 34.7 pg (25.7-33.7); MCHC 32.3 g/dl (32.0-36.0); MEAN CELL VOLUME 107.4 fl (80-96); MONO % 9.8 % (3.8-10.2); NEUT % 78.3 % (42.8-82.8); PLATELET COUNT 260 10^3/uL (134-434); RBC 2.67 M/mm3 (3.60-5.2); RDW 14.6 % (11.6-15.6); WHITE BLOOD COUNT 21.6 K/mm3 (4.0-10.0)
[2021-04-30] MEDS: FUROSEMIDE 40 MG/4 ML INJECTABLE VIAL IVPUSH SCH (09:13)
[2021-04-30] MEDS: MEGESTROL ACETATE 40 MG TABLET PO SCH (09:15)
[2021-04-30] MEDS: PANTOPRAZOLE 20 MG TABLET PO SCH (09:15)
[2021-04-30] MEDS: GABAPENTIN 100 MG CAPSULE PO SCH ×2 (09:15→21:11)
[2021-04-30] MEDS: MULTIVITAMINS (DAILY MVI) TABLET (FP) PO SCH (09:15)
[2021-04-30] MEDS: predniSONE 20 MG TABLET (UD) PO SCH (09:15)
[2021-04-30] MEDS: amLODIPine BESYLATE 5 MG TABLET (FP) PO SCH (09:15)
[2021-04-30] MEDS: SODIUM BICARBONATE 650 MG TABLET PO SCH ×2 (09:15→21:11)
[2021-04-30] MEDS: APIXABAN 5 MG TABLET PO SCH ×2 (09:15→21:10)
[2021-04-30] MEDS: SODIUM CHLORIDE NASAL SPRAY 44 ML BOTTLE NS SCH ×2 (09:20→21:11)
[2021-04-30] MEDS: BUDESONIDE/FORMETEROL FUMARATE 80/4.5 mcg INHALER IH SCH ×2 (09:21→21:11)
[2021-04-30] MEDS: oxyCODONE HCL 5 MG TABLET PO PRN ×2 (09:35→15:32)
[2021-04-30 10:06] LABS: ANISOCYTOSIS 2+; MACROCYTOSIS 2+; PLATELET ESTIMATE NORMAL; TOXIC GRANULATION 2+
[2021-04-30] MEDS: MIRTAZAPINE 15 MG TABLET (FP) PO SCH (21:10)
[2021-04-30] MEDS: DIVALPROEX NA *ER* EXTEND REL 250 MG TABLET.SA PO SCH (21:11)
[2021-04-30] MEDS: ATORVASTATIN CA 40 MG TABLET (FP) PO SCH (21:11)
[2021-05-01] MEDS: VANCOMYCIN 250 MG/5 ML ORAL SOLUTION PO SCH ×3 (00:25→12:13)
[2021-05-01] MEDS: oxyCODONE HCL 5 MG TABLET PO PRN ×2 (02:10→12:13)
[2021-05-01 08:29] LABS: HEMATOCRIT 27.4 % (32.4-45.2); MCH 34.5 pg (25.7-33.7); MCHC 33.1 g/dl (32.0-36.0); MEAN CELL VOLUME 104.4 fl (80-96); MEAN PLT VOLUME 8.6 fl (7.5-11.1); PLATELET COUNT 250 10^3/uL (134-434); RBC 2.62 M/mm3 (3.60-5.2); RDW 14.2 % (11.6-15.6); WHITE BLOOD COUNT 21.2 K/mm3 (4.0-10.0)
[2021-05-01] MEDS: SODIUM BICARBONATE 650 MG TABLET PO SCH ×2 (09:46→21:20)
[2021-05-01] MEDS: MULTIVITAMINS (DAILY MVI) TABLET (FP) PO SCH (09:46)
[2021-05-01] MEDS: PANTOPRAZOLE 20 MG TABLET PO SCH (09:46)
[2021-05-01] MEDS: FUROSEMIDE 40 MG/4 ML INJECTABLE VIAL IVPUSH SCH (09:46)
[2021-05-01] MEDS: MEGESTROL ACETATE 40 MG TABLET PO SCH (09:46)
[2021-05-01] MEDS: APIXABAN 5 MG TABLET PO SCH ×2 (09:46→21:21)
[2021-05-01] MEDS: predniSONE 10 MG TABLET (UD) PO SCH (09:47)
[2021-05-01] MEDS: amLODIPine BESYLATE 5 MG TABLET (FP) PO SCH (09:47)
[2021-05-01] MEDS: GABAPENTIN 100 MG CAPSULE PO SCH ×2 (09:49→21:21)
[2021-05-01 09:50] LABS: ANISOCYTOSIS 1+; MACROCYTOSIS 1+; OVALOCYTE 1+; PLATELET ESTIMATE NORMAL
[2021-05-01] MEDS: BUDESONIDE/FORMETEROL FUMARATE 80/4.5 mcg INHALER IH SCH ×2 (09:51→21:44)
[2021-05-01] MEDS: SODIUM CHLORIDE NASAL SPRAY 44 ML BOTTLE NS SCH ×2 (09:51→22:00)
[2021-05-01] MEDS: MIRTAZAPINE 15 MG TABLET (FP) PO SCH (21:21)
[2021-05-01] MEDS: DIVALPROEX NA *ER* EXTEND REL 250 MG TABLET.SA PO SCH (21:21)
[2021-05-01] MEDS: ATORVASTATIN CA 40 MG TABLET (FP) PO SCH (21:21)
[2021-05-02] MEDS: oxyCODONE HCL 5 MG TABLET PO PRN (03:11)
[2021-05-02] MEDS ORDERED: PT OWN MED DRAWER 7, Y5N ONE (05:06)
[2021-05-02] MEDS ORDERED: METOCLOPRAMIDE HCL INJECTION 10 MG/2 ML VIAL IVPUSH ONE (05:45)
[2021-05-02] MEDS: predniSONE 10 MG TABLET (UD) PO SCH (09:43)
[2021-05-02] MEDS: TORSEMIDE 20 MG TABLET (FP) PO SCH (09:43)
[2021-05-02] MEDS: MULTIVITAMINS (DAILY MVI) TABLET (FP) PO SCH (09:43)
[2021-05-02] MEDS: APIXABAN 5 MG TABLET PO SCH ×2 (09:43→22:12)
[2021-05-02] MEDS: SODIUM CHLORIDE NASAL SPRAY 44 ML BOTTLE NS SCH ×2 (09:44→22:12)
[2021-05-02] MEDS: PANTOPRAZOLE 20 MG TABLET PO SCH (09:44)
[2021-05-02] MEDS: GABAPENTIN 100 MG CAPSULE PO SCH ×2 (09:44→22:12)
[2021-05-02] MEDS: amLODIPine BESYLATE 5 MG TABLET (FP) PO SCH (09:44)
[2021-05-02] MEDS: BUDESONIDE/FORMETEROL FUMARATE 80/4.5 mcg INHALER IH SCH ×2 (09:44→22:13)
[2021-05-02] MEDS: MEGESTROL ACETATE 40 MG TABLET PO SCH (09:44)
[2021-05-02] MEDS: SODIUM BICARBONATE 650 MG TABLET PO SCH ×2 (09:44→22:13)
[2021-05-02] MEDS ORDERED: ACETAMINOPHEN/CAFFEINE/BUTALBITAL 1 TAB PO ONE (11:00)
[2021-05-02 12:45] LABS: BASO % 0.3 % (0-2.0); EOS % 0.1 % (0-4.5); HEMATOCRIT 26.1 % (32.4-45.2); HEMOGLOBIN 8.8 GM/dL (10.7-15.3); LYMPH % 7.3 % (8-40); MCH 34.8 pg (25.7-33.7); MCHC 33.7 g/dl (32.0-36.0); MEAN CELL VOLUME 103.3 fl (80-96); MEAN PLT VOLUME 8.7 fl (7.5-11.1); MONO % 10.4 % (3.8-10.2); NEUT % 81.9 % (42.8-82.8); PLATELET COUNT 215 10^3/uL (134-434); RBC 2.53 M/mm3 (3.60-5.2); RDW 14.1 % (11.6-15.6); WHITE BLOOD COUNT 16.9 K/mm3 (4.0-10.0)
[2021-05-02 13:06] LABS: CHLORIDE 109 mmol/L (98-107); SODIUM 142 mmol/L (136-145)
[2021-05-02 13:10] LABS: ALBUMIN 1.8 g/dl (3.4-5.0); ANION GAP 9 MMOL/L (8-16); CO2 24 mmol/L (21-32); GLUCOSE,RANDOM 116 mg/dL (74-106)
[2021-05-02 13:13] LABS: CREATININE 2.6 mg/dL (0.55-1.3); SGPT/ALT 38 U/L (13-61)
[2021-05-02 13:14] LABS: SGOT/AST 33 U/L (15-37)
[2021-05-02 13:15] LABS: BILIRUBIN,TOTAL 0.2 mg/dL (0.2-1)
[2021-05-02 13:16] LABS: ALK PHOS 179 U/L (45-117)
[2021-05-02 13:32] LABS: CALCIUM 6.9 mg/dL (8.5-10.1)
[2021-05-02] MEDS ORDERED: POTASSIUM CHLORIDE TABS 20 MEQ TABLET.ER (FP) PO ONE (14:52)
[2021-05-02] MEDS: MIRTAZAPINE 15 MG TABLET (FP) PO SCH (22:11)
[2021-05-02] MEDS: DIVALPROEX NA *ER* EXTEND REL 250 MG TABLET.SA PO SCH (22:11)
[2021-05-02] MEDS: ATORVASTATIN CA 40 MG TABLET (FP) PO SCH (22:12)
[2021-05-03] MEDS: oxyCODONE HCL 5 MG TABLET PO PRN ×4 (01:07→22:28)
[2021-05-03] MEDS: TORSEMIDE 20 MG TABLET (FP) PO SCH (10:36)
[2021-05-03] MEDS: APIXABAN 5 MG TABLET PO SCH ×2 (10:37→22:27)
[2021-05-03] MEDS: MULTIVITAMINS (DAILY MVI) TABLET (FP) PO SCH (10:37)
[2021-05-03] MEDS: PANTOPRAZOLE 20 MG TABLET PO SCH (10:37)
[2021-05-03] MEDS: SODIUM BICARBONATE 650 MG TABLET PO SCH ×2 (10:37→22:32)
[2021-05-03] MEDS: amLODIPine BESYLATE 5 MG TABLET (FP) PO SCH (10:37)
[2021-05-03] MEDS: GABAPENTIN 100 MG CAPSULE PO SCH ×2 (10:37→22:27)
[2021-05-03] MEDS: predniSONE 10 MG TABLET (UD) PO SCH (10:37)
[2021-05-03] MEDS: SODIUM CHLORIDE NASAL SPRAY 44 ML BOTTLE NS SCH ×2 (10:39→22:29)
[2021-05-03] MEDS: BUDESONIDE/FORMETEROL FUMARATE 80/4.5 mcg INHALER IH SCH ×2 (10:39→22:29)
[2021-05-03] MEDS ORDERED: PT OWN MED DRAWER 7, Y5N ONE (10:41)
[2021-05-03] MEDS: MEGESTROL ACETATE 40 MG TABLET PO SCH (10:42)
[2021-05-03 11:26] LABS: BASO % 0.7 % (0-2.0); EOS % 0.1 % (0-4.5); HEMATOCRIT 27.1 % (32.4-45.2); HEMOGLOBIN 8.8 GM/dL (10.7-15.3); LYMPH % 14.4 % (8-40); MCH 34.4 pg (25.7-33.7); MCHC 32.5 g/dl (32.0-36.0); MEAN CELL VOLUME 105.8 fl (80-96); MEAN PLT VOLUME 9.2 fl (7.5-11.1); MONO % 13.2 % (3.8-10.2); NEUT % 71.6 % (42.8-82.8); PLATELET COUNT 198 10^3/uL (134-434); RBC 2.56 M/mm3 (3.60-5.2); RDW 14.1 % (11.6-15.6); WHITE BLOOD COUNT 15.2 K/mm3 (4.0-10.0)
[2021-05-03 13:03] LABS: CHLORIDE 112 mmol/L (98-107); SODIUM 147 mmol/L (136-145)
[2021-05-03 13:05] LABS: MAGNESIUM 1.6 mg/dL (1.8-2.4)
[2021-05-03 13:07] LABS: ALBUMIN 1.7 g/dl (3.4-5.0); ANION GAP 11 MMOL/L (8-16); BLOOD UREA NITROGEN 44.6 mg/dL (7-18); CO2 24 mmol/L (21-32); GLUCOSE,RANDOM 88 mg/dL (74-106)
[2021-05-03 13:09] LABS: SGOT/AST 36 U/L (15-37); SGPT/ALT 39 U/L (13-61)
[2021-05-03 13:10] LABS: PHOSPHOROUS 4.7 mg/dL (2.5-4.9); TOT PROT 4.6 g/dl (6.4-8.2)
[2021-05-03 13:12] LABS: BILIRUBIN,TOTAL < 0.1 mg/dL (0.2-1)
[2021-05-03 13:13] LABS: ALK PHOS 173 U/L (45-117)
[2021-05-03 13:33] LABS: CALCIUM 6.7 mg/dL (8.5-10.1)
[2021-05-03 13:41] LABS: GAMMA GLUTAMYL TRANSPEPTIDASE 908 U/L (5-85)
[2021-05-03] MEDS ORDERED: MAGNESIUM SULF 50% (8.12 MEQ/2 ML-1 GM VIAL) IVPB ONE (13:52)
[2021-05-03] MEDS: MELATONIN 1 MG TABLET PO SCH (22:27)
[2021-05-03] MEDS: DIVALPROEX NA *ER* EXTEND REL 250 MG TABLET.SA PO SCH (22:27)
[2021-05-03] MEDS: ATORVASTATIN CA 40 MG TABLET (FP) PO SCH (22:27)
[2021-05-03] MEDS: MIRTAZAPINE 15 MG TABLET (FP) PO SCH (22:32)
[2021-05-04] MEDS: BICTEGRAV/EMTRICIT/TENOFOV (BIKTARVY) 50-200-25 MG TABLET PO SCH (09:50)
[2021-05-04] MEDS: GABAPENTIN 100 MG CAPSULE PO SCH ×2 (09:51→22:55)
[2021-05-04] MEDS: PANTOPRAZOLE 20 MG TABLET PO SCH (09:51)
[2021-05-04] MEDS: SODIUM BICARBONATE 650 MG TABLET PO SCH ×2 (09:51→22:56)
[2021-05-04] MEDS: predniSONE 10 MG TABLET (UD) PO SCH (09:51)
[2021-05-04] MEDS: amLODIPine BESYLATE 5 MG TABLET (FP) PO SCH (09:51)
[2021-05-04] MEDS: SODIUM CHLORIDE NASAL SPRAY 44 ML BOTTLE NS SCH ×2 (09:52→22:56)
[2021-05-04] MEDS: MULTIVITAMINS (DAILY MVI) TABLET (FP) PO SCH (09:52)
[2021-05-04] MEDS: BUDESONIDE/FORMETEROL FUMARATE 80/4.5 mcg INHALER IH SCH ×2 (09:52→22:57)
[2021-05-04] MEDS: MEGESTROL ACETATE 40 MG TABLET PO SCH (09:54)
[2021-05-04] MEDS: APIXABAN 5 MG TABLET PO SCH ×2 (09:59→22:54)
[2021-05-04] MEDS ORDERED: PT OWN MED DRAWER 7, Y5N ONE (09:59)
[2021-05-04] MEDS: oxyCODONE HCL 5 MG TABLET PO PRN ×2 (14:23→22:01)
[2021-05-04 17:08] LABS: BASO % 0.3 % (0-2.0); HEMATOCRIT 28.6 % (32.4-45.2); HEMOGLOBIN 9.4 GM/dL (10.7-15.3); LYMPH % 6.7 % (8-40); MCH 33.9 pg (25.7-33.7); MCHC 32.9 g/dl (32.0-36.0); MEAN CELL VOLUME 103.2 fl (80-96); PLATELET COUNT 180 10^3/uL (134-434); RBC 2.77 M/mm3 (3.60-5.2); RDW 14.1 % (11.6-15.6); WHITE BLOOD COUNT 19.9 K/mm3 (4.0-10.0)
[2021-05-04 17:23] LABS: CHLORIDE 108 mmol/L (98-107); SODIUM 141 mmol/L (136-145)
[2021-05-04 17:24] LABS: CHLORIDE 108 mmol/L (98-107); SODIUM 140 mmol/L (136-145)
[2021-05-04 17:25] LABS: ALBUMIN 1.7 g/dl (3.4-5.0); ANION GAP 13 MMOL/L (8-16); BLOOD UREA NITROGEN 44.4 mg/dL (7-18); CO2 20 mmol/L (21-32)
[2021-05-04 17:26] LABS: GLUCOSE,RANDOM 134 mg/dL (74-106)
[2021-05-04 17:27] LABS: ANION GAP 12 MMOL/L (8-16); BLOOD UREA NITROGEN 45.6 mg/dL (7-18); CO2 20 mmol/L (21-32); GLUCOSE,RANDOM 138 mg/dL (74-106); MAGNESIUM 1.8 mg/dL (1.8-2.4)
[2021-05-04 17:28] LABS: ALBUMIN 1.7 g/dl (3.4-5.0); SGPT/ALT 35 U/L (13-61)
[2021-05-04 17:29] LABS: CREATININE 3.4 mg/dL (0.55-1.3); SGOT/AST 33 U/L (15-37)
[2021-05-04 17:30] LABS: BILIRUBIN,TOTAL 0.3 mg/dL (0.2-1); CREATININE 3.4 mg/dL (0.55-1.3); SGOT/AST 33 U/L (15-37); SGPT/ALT 34 U/L (13-61); TOT PROT 5.2 g/dl (6.4-8.2)
[2021-05-04 17:31] LABS: ALK PHOS 177 U/L (45-117); BILIRUBIN,TOTAL 0.3 mg/dL (0.2-1); CALCIUM 6.7 mg/dL (8.5-10.1); TOT PROT 5.2 g/dl (6.4-8.2)
[2021-05-04 17:33] LABS: ALK PHOS 177 U/L (45-117)
[2021-05-04 17:34] LABS: CALCIUM 6.8 mg/dL (8.5-10.1)
[2021-05-04] MEDS ORDERED: SODIUM CHLORIDE 1,000 ML IV SCH ×2 (17:45→18:00)
[2021-05-04 18:07] LABS: GLIADIN ANTIBODY IGA 5 units (0-19); GLIADIN ANTIBODY IGG 1 units (0-19); TRANSGLUTAMINASE IGG < 2 U/mL (0-5)
[2021-05-04] MEDS: MELATONIN 1 MG TABLET PO SCH (22:53)
[2021-05-04] MEDS: DIVALPROEX NA *ER* EXTEND REL 250 MG TABLET.SA PO SCH (22:55)
[2021-05-04] MEDS: MIRTAZAPINE 15 MG TABLET (FP) PO SCH (22:55)
[2021-05-04] MEDS: ATORVASTATIN CA 40 MG TABLET (FP) PO SCH (22:56)
[2021-05-05] MEDS: oxyCODONE HCL 5 MG TABLET PO PRN (03:34)
[2021-05-05] MEDS ORDERED: PT OWN MED DRAWER 7, Y5N ONE (08:46)
[2021-05-05] MEDS: MULTIVITAMINS (DAILY MVI) TABLET (FP) PO SCH (10:38)
[2021-05-05] MEDS: GABAPENTIN 100 MG CAPSULE PO SCH (10:38)
[2021-05-05] MEDS: amLODIPine BESYLATE 5 MG TABLET (FP) PO SCH (10:38)
[2021-05-05] MEDS: PANTOPRAZOLE 20 MG TABLET PO SCH (10:38)
[2021-05-05] MEDS: SODIUM BICARBONATE 650 MG TABLET PO SCH (10:38)
[2021-05-05] MEDS: APIXABAN 5 MG TABLET PO SCH (10:38)
[2021-05-05] MEDS: SODIUM CHLORIDE NASAL SPRAY 44 ML BOTTLE NS SCH (10:39)
[2021-05-05] MEDS: MEGESTROL ACETATE 40 MG TABLET PO SCH (10:39)
[2021-05-05] MEDS: BUDESONIDE/FORMETEROL FUMARATE 80/4.5 mcg INHALER IH SCH (10:39)
[2021-05-05 12:04] LABS: HEMATOCRIT 27.3 % (32.4-45.2); HEMOGLOBIN 9.1 GM/dL (10.7-15.3); MCH 34.4 pg (25.7-33.7); MCHC 33.2 g/dl (32.0-36.0); MEAN CELL VOLUME 103.5 fl (80-96); MEAN PLT VOLUME 8.4 fl (7.5-11.1); PLATELET COUNT 189 10^3/uL (134-434); RBC 2.63 M/mm3 (3.60-5.2); RDW 13.9 % (11.6-15.6); WHITE BLOOD COUNT 15.6 K/mm3 (4.0-10.0)
[2021-05-05 12:35] LABS: CHLORIDE 110 mmol/L (98-107); SODIUM 142 mmol/L (136-145)
[2021-05-05 12:38] LABS: ALBUMIN 1.7 g/dl (3.4-5.0); ANION GAP 9 MMOL/L (8-16); BLOOD UREA NITROGEN 43.5 mg/dL (7-18); CO2 23 mmol/L (21-32); GLUCOSE,RANDOM 82 mg/dL (74-106)
[2021-05-05 12:41] LABS: CREATININE 3.2 mg/dL (0.55-1.3); SGOT/AST 33 U/L (15-37); SGPT/ALT 31 U/L (13-61)
[2021-05-05 12:42] LABS: BILIRUBIN,TOTAL 0.2 mg/dL (0.2-1)
[2021-05-05 12:43] LABS: TOT PROT 4.9 g/dl (6.4-8.2)
[2021-05-05 12:44] LABS: ALK PHOS 168 U/L (45-117)
[2021-05-05 12:51] LABS: CALCIUM 6.6 mg/dL (8.5-10.1)
[2021-05-05 13:19] LABS: ANISOCYTOSIS 1+; MACROCYTOSIS 1+; PLATELET ESTIMATE NORMAL
[2021-05-05] MEDS ORDERED: ACETAMINOPHEN/CAFFEINE/BUTALBITAL 1 TAB PO ONE (13:45)
[2021-05-05 15:52] VITALS: BP 128/68; PULSE 76; TEMP 98.1
== END 2021-05-05 18:10 | disposition home or self-care (01) | DRG 291 ==
LOC: JER 09:16 → JERBED 13:40 → J4W 04-24 01:20
PROVIDERS: ADMIT Internal Medicine; ATTEND Nurse Practitioner Family
PROC: 30233N1 Transfusion of Nonautologous Red Blood Cells into Peripheral Vein, Percutaneous Approach (ICD-10-PCS; principal; 2021-04-29)
DX: I13.0 Hypertensive heart and chronic kidney disease with heart failure and stage 1 through stage 4 chronic kidney disease, or unspecified chronic kidney disease (principal); I50.33 Acute on chronic diastolic (congestive) heart failure; N17.9 Acute kidney failure, unspecified; E87.2 Acidosis; J44.1 Chronic obstructive pulmonary disease with (acute) exacerbation; I69.354 Hemiplegia and hemiparesis following cerebral infarction affecting left non-dominant side; I82.412 Acute embolism and thrombosis of left femoral vein; I24.8 Other forms of acute ischemic heart disease; D68.51 Activated protein C resistance; N39.0 Urinary tract infection, site not specified; D68.59 Other primary thrombophilia; N18.9 Chronic kidney disease, unspecified; M06.9 Rheumatoid arthritis, unspecified; E03.9 Hypothyroidism, unspecified; E87.6 Hypokalemia; D63.1 Anemia in chronic kidney disease; R74.8 Abnormal levels of other serum enzymes; G40.909 Epilepsy, unspecified, not intractable, without status epilepticus; F41.9 Anxiety disorder, unspecified; I48.0 Paroxysmal atrial fibrillation; G47.00 Insomnia, unspecified; E87.5 Hyperkalemia; N20.0 Calculus of kidney; G43.909 Migraine, unspecified, not intractable, without status migrainosus; R04.0 Epistaxis; M81.0 Age-related osteoporosis without current pathological fracture; R26.2 Difficulty in walking, not elsewhere classified; D72.829 Elevated white blood cell count, unspecified; H40.9 Unspecified glaucoma; I80.9 Phlebitis and thrombophlebitis of unspecified site; G25.81 Restless legs syndrome; Z95.818 Presence of other cardiac implants and grafts; B95.2 Enterococcus as the cause of diseases classified elsewhere; Z21 Asymptomatic human immunodeficiency virus [HIV] infection status; Z85.41 Personal history of malignant neoplasm of cervix uteri
CPT/HCPCS: 36415; 36430; 36511; 71045-TC-FY; 74018-TC-FY; 76705-TC; 76775-TC; 80048; 80053; 81003; 82272; 82550; 82570; 82668; 82728; 82784; 82803; 82977; 83516; 83540; 83550; 83735; 83880; 84100; 84155; 84156; 84165; 84300; 84484; 84540; 84550; 85025; 85027; 85379; 85610; 85730; 86038; 86334; 86359; 86360; 86705; 86803; 86850; 86870; 86900; 86901; 86902; 86922; 87040; 87086; 87186; 87324; 87340; 87449; 87517; 93005; 93010; 93970-TC; 93971; 94640; 97116-GP; 97162-GP; 99285-25; C9803; J0131; J1644; J8999; P9038; P9058; U0003; U0005

== ENCOUNTER 2022-10-29 10:55 | Inpatient (IN) | payer BC, OTHER ==
[2022-10-29 13:52] LABS: BASO % 1.8 % (0-2.0); EOS % 2.2 % (0-4.5); HEMATOCRIT 22.2 % (32.4-45.2); HEMOGLOBIN 7.1 GM/dL (10.7-15.3); LYMPH % 43.5 % (8-40); MCH 32.1 pg (25.7-33.7); MCHC 31.9 g/dl (32.0-36.0); MEAN CELL VOLUME 100.4 fl (80-96); MEAN PLT VOLUME 9.6 fl (7.5-11.1); MONO % 7.8 % (3.8-10.2); NEUT % 44.7 % (42.8-82.8); PLATELET COUNT 206 10^3/uL (134-434); RBC 2.21 M/mm3 (3.60-5.2); RDW 14.9 % (11.6-15.6); WHITE BLOOD COUNT 6.3 K/mm3 (4.0-10.0)
[2022-10-29 14:01] LABS: INR 1.31 (0.83-1.09); PROTHROMBIN TIME (PATIENT) 15.2 SEC (9.7-13.0)
[2022-10-29 14:04] LABS: ACTIVATED PTT 30.2 SECONDS (25.2-36.5)
[2022-10-29 14:08] LABS: POTASSIUM 3.9 mmol/L (3.5-5.1)
[2022-10-29 14:11] LABS: ALBUMIN 2.9 g/dl (3.4-5.0); BLOOD UREA NITROGEN 61.8 mg/dL (7-18); CALCIUM 8.3 mg/dL (8.5-10.1); MAGNESIUM 1.4 mg/dL (1.8-2.4)
[2022-10-29 14:14] LABS: CREATININE 4.6 mg/dL (0.55-1.3); PHOSPHOROUS 3.6 mg/dL (2.5-4.9)
[2022-10-29 14:16] LABS: BILIRUBIN,TOTAL 0.4 mg/dL (0.2-1); TOT PROT 6.1 g/dl (6.4-8.2)
[2022-10-29] MEDS ORDERED: MAGNESIUM SULF 50% (8.12 MEQ/2 ML-1 GM VIAL) IVPB ONE (15:36)
[2022-10-29] MEDS ORDERED: MAGNESIUM SULFATE IN WATER 2 GM/50 ML IVPB IVPB ONE (16:38)
[2022-10-29] MEDS ORDERED: ALBUTEROL SO4 HFA INHALER IH PRN (17:05)
[2022-10-29] MEDS ORDERED: METOPROLOL TARTRATE 50 MG TABLET (FP) PO ONE (19:56)
[2022-10-29] MEDS ORDERED: PNEUMOC 20-VAL CONJ-DIP CRM/PF 0.5 ML SYRINGE IM ONE (20:00)
[2022-10-29 21:51] LABS: HEMATOCRIT 21.7 % (32.4-45.2); HEMOGLOBIN 7.1 GM/dL (10.7-15.3); MCH 32.2 pg (25.7-33.7); MCHC 32.5 g/dl (32.0-36.0); MEAN CELL VOLUME 98.9 fl (80-96); MEAN PLT VOLUME 8.8 fl (7.5-11.1); PLATELET COUNT 232 10^3/uL (134-434); RBC 2.19 M/mm3 (3.60-5.2); RDW 14.9 % (11.6-15.6); WHITE BLOOD COUNT 8.3 K/mm3 (4.0-10.0)
[2022-10-29] MEDS ORDERED: METOPROLOL TARTRATE 50 MG TABLET (FP) PO SCH (22:00)
[2022-10-29] MEDS: DIVALPROEX NA *ER* EXTEND REL 250 MG TABLET.SA PO SCH (22:53)
[2022-10-29] MEDS: SODIUM BICARBONATE 650 MG TABLET PO SCH (22:53)
[2022-10-30 06:02] LABS: EPI CELLS 3 /uL (0-25.1); HYALINE CASTS 0 /uL (0-3.1); URINE APPEARANCE CLEAR; URINE BACTERIA 2313 /uL (0-1359); URINE BILIRUBIN NEGATIVE (NEGATIVE); URINE COLOR RED; URINE GLUCOSE (UA) NEGATIVE (NEGATIVE); URINE KETONE NEGATIVE (NEGATIVE); URINE LEUK ESTERASE TRACE (NEGATIVE); URINE NITRITE NEGATIVE (NEGATIVE); URINE PROTEIN 3+ (NEGATIVE); URINE RBC 26 /uL (0-23.9); URINE UROBILINOGEN 0.2 mg/dL (0.2-1.0); URINE WBC 128 /uL (0-25.8)
[2022-10-30] MEDS: LEVOTHYROXINE NA 112 MCG TABLET (FP) PO SCH (06:10)
[2022-10-30 07:25] LABS: BASO % 1.6 % (0-2.0); EOS % 1.8 % (0-4.5); HEMATOCRIT 26.6 % (32.4-45.2); HEMOGLOBIN 8.7 GM/dL (10.7-15.3); LYMPH % 25.5 % (8-40); MCH 30.2 pg (25.7-33.7); MCHC 32.8 g/dl (32.0-36.0); MEAN PLT VOLUME 9.1 fl (7.5-11.1); MONO % 8.3 % (3.8-10.2); NEUT % 62.8 % (42.8-82.8); PLATELET COUNT 176 10^3/uL (134-434); RBC 2.89 M/mm3 (3.60-5.2); RDW 19.6 % (11.6-15.6); WHITE BLOOD COUNT 7.4 K/mm3 (4.0-10.0)
[2022-10-30 07:49] LABS: POTASSIUM 3.1 mmol/L (3.5-5.1)
[2022-10-30 07:53] LABS: CALCIUM 8.1 mg/dL (8.5-10.1)
[2022-10-30 07:54] LABS: ALBUMIN 2.6 g/dl (3.4-5.0); BLOOD UREA NITROGEN 64.3 mg/dL (7-18); MAGNESIUM 1.9 mg/dL (1.8-2.4)
[2022-10-30 07:57] LABS: CREATININE 4.4 mg/dL (0.55-1.3); PHOSPHOROUS 3.4 mg/dL (2.5-4.9)
[2022-10-30 07:58] LABS: BILIRUBIN,TOTAL 0.5 mg/dL (0.2-1)
[2022-10-30 07:59] LABS: TOT PROT 5.4 g/dl (6.4-8.2)
[2022-10-30] MEDS ORDERED: PNEUMOC 20-VAL CONJ-DIP CRM/PF 0.5 ML SYRINGE IM ONE (10:00)
[2022-10-30] MEDS ORDERED: ERGOCALCIFEROL (VIT D2) 50,000 UNIT (1.25 MG) CAPSULE PO SCH (10:00)
[2022-10-30] MEDS ORDERED: METOLAZONE 5 MG TABLET PO SCH (10:00)
[2022-10-30] MEDS: DOLUTEGRAVIR SODIUM 50 MG TABLET (NON-FORMULARY) PO SCH (10:19)
[2022-10-30] MEDS: CITALOPRAM HYDROBROMIDE 20 MG TABLET PO SCH (10:20)
[2022-10-30] MEDS: TOPIRAMATE 100 MG TABLET PO SCH (10:20)
[2022-10-30] MEDS: DRONABINOL 2.5 MG CAPSULE PO SCH (10:20)
[2022-10-30] MEDS: METOPROLOL TARTRATE 50 MG TABLET (FP) PO SCH ×2 (10:20→21:32)
[2022-10-30] MEDS: ISOSORBIDE MONONITRATE 30 MG TAB.SR.24H (FP) PO SCH (10:20)
[2022-10-30] MEDS: SODIUM BICARBONATE 650 MG TABLET PO SCH ×2 (10:20→21:32)
[2022-10-30] MEDS: CALCIUM 500MG/VIT-D 200 UNITS COMBO TABLET (FP) PO SCH (10:20)
[2022-10-30] MEDS: FLUTICASONE/UMECLIDIN/VILANTER(100-62.5-25 TRELEGY ELLIPTA) INAHLER IH SCH (13:38)
[2022-10-30] MEDS ORDERED: NIFEdipine 10 MG CAPSULE (FP) PO SCH (14:00)
[2022-10-30] MEDS ORDERED: POTASSIUM CHLORIDE ORAL LIQUID 20 MEQ/15 ML PO ONE (14:38)
[2022-10-30] MEDS: ACETAMINOPHEN 325 MG TABLET (FP) PO PRN (16:13)
[2022-10-30] MEDS: DIVALPROEX NA *ER* EXTEND REL 250 MG TABLET.SA PO SCH (21:32)
[2022-10-30] MEDS: NIFEdipine E.R. 30 MG TABLET PO SCH (21:51)
[2022-10-31] MEDS: LEVOTHYROXINE NA 112 MCG TABLET (FP) PO SCH (06:05)
[2022-10-31 08:28] LABS: BASO % 1.2 % (0-2.0); EOS % 2.4 % (0-4.5); HEMATOCRIT 33.7 % (32.4-45.2); LYMPH % 22.7 % (8-40); MCH 29.9 pg (25.7-33.7); MCHC 32.5 g/dl (32.0-36.0); MEAN PLT VOLUME 8.9 fl (7.5-11.1); MONO % 6.5 % (3.8-10.2); NEUT % 67.2 % (42.8-82.8); PLATELET COUNT 194 10^3/uL (134-434); RBC 3.66 M/mm3 (3.60-5.2); RDW 21.2 % (11.6-15.6)
[2022-10-31 08:50] LABS: POTASSIUM 3.7 mmol/L (3.5-5.1)
[2022-10-31] MEDS ORDERED: ERTAPENEM SODIUM 1 GM in SODIUM CHLORIDE 50 ML IVPB ONE ×2 (08:54→11:30)
[2022-10-31 09:05] LABS: BLOOD UREA NITROGEN 65.6 mg/dL (7-18); CALCIUM 8.5 mg/dL (8.5-10.1)
[2022-10-31 09:08] LABS: CREATININE 4.5 mg/dL (0.55-1.3)
[2022-10-31 09:09] LABS: BILIRUBIN,TOTAL 0.9 mg/dL (0.2-1)
[2022-10-31] MEDS: NIFEdipine E.R. 30 MG TABLET PO SCH (09:48)
[2022-10-31] MEDS: DRONABINOL 2.5 MG CAPSULE PO SCH (09:48)
[2022-10-31] MEDS: METOPROLOL TARTRATE 50 MG TABLET (FP) PO SCH ×2 (09:48→22:26)
[2022-10-31] MEDS: ISOSORBIDE MONONITRATE 30 MG TAB.SR.24H (FP) PO SCH (09:48)
[2022-10-31] MEDS: SODIUM BICARBONATE 650 MG TABLET PO SCH ×2 (09:48→22:26)
[2022-10-31] MEDS: CITALOPRAM HYDROBROMIDE 20 MG TABLET PO SCH (09:48)
[2022-10-31] MEDS: CALCIUM 500MG/VIT-D 200 UNITS COMBO TABLET (FP) PO SCH (09:48)
[2022-10-31] MEDS: DOLUTEGRAVIR SODIUM 50 MG TABLET (NON-FORMULARY) PO SCH (09:49)
[2022-10-31] MEDS: TOPIRAMATE 100 MG TABLET PO SCH (09:49)
[2022-10-31] MEDS: FLUTICASONE/UMECLIDIN/VILANTER(100-62.5-25 TRELEGY ELLIPTA) INAHLER IH SCH (09:49)
[2022-10-31 10:13] LABS: ANISOCYTOSIS 2+; MACROCYTOSIS 0
[2022-10-31 12:17] VITALS: BMI 13.7
[2022-10-31] MEDS: ACETAMINOPHEN 325 MG TABLET (FP) PO PRN ×2 (13:38→22:26)
[2022-10-31] MEDS ORDERED: POTASSIUM CHLORIDE 10 MEQ in SODIUM CHLORIDE 0.45% 1,000 ML IVPB SCH (14:45)
[2022-10-31] MEDS: DIVALPROEX NA *ER* EXTEND REL 250 MG TABLET.SA PO SCH (22:26)
[2022-11-01] MEDS: LEVOTHYROXINE NA 112 MCG TABLET (FP) PO SCH (07:31)
[2022-11-01] MEDS: CALCIUM 500MG/VIT-D 200 UNITS COMBO TABLET (FP) PO SCH (10:23)
[2022-11-01] MEDS: CITALOPRAM HYDROBROMIDE 20 MG TABLET PO SCH (10:23)
[2022-11-01] MEDS: NIFEdipine E.R. 30 MG TABLET PO SCH (10:23)
[2022-11-01] MEDS: DRONABINOL 2.5 MG CAPSULE PO SCH (10:23)
[2022-11-01] MEDS: ISOSORBIDE MONONITRATE 30 MG TAB.SR.24H (FP) PO SCH (10:23)
[2022-11-01] MEDS: SODIUM BICARBONATE 650 MG TABLET PO SCH ×2 (10:23→22:10)
[2022-11-01] MEDS: DOLUTEGRAVIR SODIUM 50 MG TABLET (NON-FORMULARY) PO SCH (10:24)
[2022-11-01] MEDS: FLUTICASONE/UMECLIDIN/VILANTER(100-62.5-25 TRELEGY ELLIPTA) INAHLER IH SCH (10:24)
[2022-11-01] MEDS: METOPROLOL TARTRATE 50 MG TABLET (FP) PO SCH ×2 (10:24→22:11)
[2022-11-01] MEDS: TOPIRAMATE 100 MG TABLET PO SCH (10:24)
[2022-11-01 12:19] LABS: BASO % 1.2 % (0-2.0); EOS % 2.6 % (0-4.5); HEMOGLOBIN 9.7 GM/dL (10.7-15.3); LYMPH % 28.7 % (8-40); MCH 29.9 pg (25.7-33.7); MCHC 32.2 g/dl (32.0-36.0); MEAN CELL VOLUME 92.7 fl (80-96); MEAN PLT VOLUME 9.3 fl (7.5-11.1); MONO % 6.7 % (3.8-10.2); NEUT % 60.8 % (42.8-82.8); PLATELET COUNT 186 10^3/uL (134-434); RBC 3.24 M/mm3 (3.60-5.2); RDW 21.1 % (11.6-15.6); WHITE BLOOD COUNT 6.9 K/mm3 (4.0-10.0)
[2022-11-01 12:26] LABS: INR 1.07 (0.83-1.09); PROTHROMBIN TIME (PATIENT) 12.4 SEC (9.7-13.0)
[2022-11-01 12:29] LABS: ACTIVATED PTT 25.4 SECONDS (25.2-36.5)
[2022-11-01 12:41] LABS: POTASSIUM 4.2 mmol/L (3.5-5.1)
[2022-11-01 12:43] LABS: ALBUMIN 2.6 g/dl (3.4-5.0); CALCIUM 8.2 mg/dL (8.5-10.1)
[2022-11-01 12:44] LABS: BLOOD UREA NITROGEN 62.7 mg/dL (7-18); MAGNESIUM 1.8 mg/dL (1.8-2.4)
[2022-11-01 12:46] LABS: CREATININE 4.8 mg/dL (0.55-1.3); PHOSPHOROUS 2.8 mg/dL (2.5-4.9)
[2022-11-01 12:48] LABS: BILIRUBIN,TOTAL 0.3 mg/dL (0.2-1); TOT PROT 5.4 g/dl (6.4-8.2)
[2022-11-01] MEDS: ACETAMINOPHEN 325 MG TABLET (FP) PO PRN ×2 (18:28→22:30)
[2022-11-01] MEDS: DIVALPROEX NA *ER* EXTEND REL 250 MG TABLET.SA PO SCH (22:10)
[2022-11-02] MEDS: LEVOTHYROXINE NA 112 MCG TABLET (FP) PO SCH (06:13)
[2022-11-02] MEDS ORDERED: SENNOSIDES 8.6MG TABLET (FP) PO ONE (09:45)
[2022-11-02] MEDS: CITALOPRAM HYDROBROMIDE 20 MG TABLET PO SCH (10:30)
[2022-11-02] MEDS: DOLUTEGRAVIR SODIUM 50 MG TABLET (NON-FORMULARY) PO SCH (10:30)
[2022-11-02] MEDS: ISOSORBIDE MONONITRATE 30 MG TAB.SR.24H (FP) PO SCH (10:30)
[2022-11-02] MEDS: SODIUM BICARBONATE 650 MG TABLET PO SCH ×2 (10:30→21:33)
[2022-11-02] MEDS: METOPROLOL TARTRATE 50 MG TABLET (FP) PO SCH ×2 (10:30→21:32)
[2022-11-02] MEDS: NIFEdipine E.R. 30 MG TABLET PO SCH (10:30)
[2022-11-02] MEDS: DRONABINOL 2.5 MG CAPSULE PO SCH (10:30)
[2022-11-02] MEDS: CALCIUM 500MG/VIT-D 200 UNITS COMBO TABLET (FP) PO SCH (10:31)
[2022-11-02] MEDS: FLUTICASONE/UMECLIDIN/VILANTER(100-62.5-25 TRELEGY ELLIPTA) INAHLER IH SCH (10:31)
[2022-11-02] MEDS: TOPIRAMATE 100 MG TABLET PO SCH (10:32)
[2022-11-02 10:48] LABS: HEMATOCRIT 25.2 % (32.4-45.2); HEMOGLOBIN 8.2 GM/dL (10.7-15.3); MCH 29.9 pg (25.7-33.7); MCHC 32.7 g/dl (32.0-36.0); MEAN CELL VOLUME 91.5 fl (80-96); MEAN PLT VOLUME 8.9 fl (7.5-11.1); PLATELET COUNT 173 10^3/uL (134-434); RBC 2.75 M/mm3 (3.60-5.2); RDW 20.3 % (11.6-15.6); WHITE BLOOD COUNT 7.7 K/mm3 (4.0-10.0)
[2022-11-02 11:10] LABS: POTASSIUM 4.2 mmol/L (3.5-5.1)
[2022-11-02 11:12] LABS: BLOOD UREA NITROGEN 73.1 mg/dL (7-18)
[2022-11-02 11:15] LABS: CREATININE 4.9 mg/dL (0.55-1.3)
[2022-11-02] MEDS ORDERED: SODIUM CHLORIDE 0.45% 1,000 ML IV SCH (14:30)
[2022-11-02] MEDS: POLYETHYLENE GLYCOL (HEALTHYLAX) 3350 17 GM PACKET PO SCH ×2 (14:59→21:33)
[2022-11-02] MEDS: PATIENT'S OWN MEDICATION (NON-FORMULARY) (Doravirine [Pifeltro] 100 MG Tablet) PO SCH ×3 (15:41→17:49)
[2022-11-02] MEDS: RILPIVIRINE HCL 25 MG TABLET PO SCH (16:05)
[2022-11-02] MEDS: ACETAMINOPHEN 325 MG TABLET (FP) PO PRN (21:32)
[2022-11-02] MEDS: MELATONIN 5 MG TABLETS PO PRN (21:32)
[2022-11-02] MEDS: DIVALPROEX NA *ER* EXTEND REL 250 MG TABLET.SA PO SCH (21:32)
[2022-11-03] MEDS: ACETAMINOPHEN 325 MG TABLET (FP) PO PRN (05:23)
[2022-11-03] MEDS: POLYETHYLENE GLYCOL (HEALTHYLAX) 3350 17 GM PACKET PO SCH ×3 (05:24→21:50)
[2022-11-03] MEDS: LEVOTHYROXINE NA 112 MCG TABLET (FP) PO SCH (07:30)
[2022-11-03 08:23] LABS: INR 1.09 (0.83-1.09); PROTHROMBIN TIME (PATIENT) 12.6 SEC (9.7-13.0)
[2022-11-03 08:29] LABS: BASO % 1.2 % (0-2.0); EOS % 2.5 % (0-4.5); HEMATOCRIT 22.4 % (32.4-45.2); HEMOGLOBIN 7.3 GM/dL (10.7-15.3); LYMPH % 27.5 % (8-40); MCH 30.2 pg (25.7-33.7); MCHC 32.9 g/dl (32.0-36.0); MEAN CELL VOLUME 91.8 fl (80-96); MEAN PLT VOLUME 8.6 fl (7.5-11.1); MONO % 9.1 % (3.8-10.2); NEUT % 59.7 % (42.8-82.8); PLATELET COUNT 155 10^3/uL (134-434); RBC 2.44 M/mm3 (3.60-5.2); RDW 20.4 % (11.6-15.6); WHITE BLOOD COUNT 7.3 K/mm3 (4.0-10.0)
[2022-11-03 08:38] LABS: POTASSIUM 4.3 mmol/L (3.5-5.1)
[2022-11-03 08:41] LABS: ALBUMIN 2.4 g/dl (3.4-5.0); BLOOD UREA NITROGEN 77.4 mg/dL (7-18); CALCIUM 7.8 mg/dL (8.5-10.1)
[2022-11-03 08:43] LABS: CREATININE 5.2 mg/dL (0.55-1.3)
[2022-11-03 08:45] LABS: BILIRUBIN,TOTAL 0.3 mg/dL (0.2-1)
[2022-11-03] MEDS: NIFEdipine E.R. 30 MG TABLET PO SCH (09:09)
[2022-11-03] MEDS: DRONABINOL 2.5 MG CAPSULE PO SCH (09:09)
[2022-11-03] MEDS: RILPIVIRINE HCL 25 MG TABLET PO SCH (09:09)
[2022-11-03] MEDS: METOPROLOL TARTRATE 50 MG TABLET (FP) PO SCH ×2 (09:09→21:50)
[2022-11-03] MEDS: SODIUM BICARBONATE 650 MG TABLET PO SCH ×2 (09:09→21:50)
[2022-11-03] MEDS: CITALOPRAM HYDROBROMIDE 20 MG TABLET PO SCH (09:09)
[2022-11-03] MEDS: DOLUTEGRAVIR SODIUM 50 MG TABLET (NON-FORMULARY) PO SCH (09:09)
[2022-11-03] MEDS: CALCIUM 500MG/VIT-D 200 UNITS COMBO TABLET (FP) PO SCH (09:09)
[2022-11-03] MEDS: ISOSORBIDE MONONITRATE 30 MG TAB.SR.24H (FP) PO SCH (09:09)
[2022-11-03] MEDS: TOPIRAMATE 100 MG TABLET PO SCH (09:10)
[2022-11-03] MEDS: FLUTICASONE/UMECLIDIN/VILANTER(100-62.5-25 TRELEGY ELLIPTA) INAHLER IH SCH (09:10)
[2022-11-03] MEDS ORDERED: TETRACAINE/BENZOCAINE/BUTAMBEN 20 GM SPR TP ONE (10:27)
[2022-11-03] MEDS ORDERED: PANTOPRAZOLE SODIUM 40 MG VIAL IVPUSH SCH (11:00)
[2022-11-03] MEDS: FAMOTIDINE 10 MG TABLET PO SCH (12:54)
[2022-11-03] MEDS: SODIUM CHLORIDE 0.45% 1,000 ML IV SCH (14:54)
[2022-11-03] MEDS: DIVALPROEX NA *ER* EXTEND REL 250 MG TABLET.SA PO SCH (21:50)
[2022-11-03] MEDS: MELATONIN 5 MG TABLETS PO PRN (22:53)
[2022-11-04] MEDS: POLYETHYLENE GLYCOL (HEALTHYLAX) 3350 17 GM PACKET PO SCH (05:11)
[2022-11-04] MEDS: LEVOTHYROXINE NA 112 MCG TABLET (FP) PO SCH (06:00)
[2022-11-04] MEDS ORDERED: hydrALAZINE HCL 10 MG TABLET PO ONE (06:05)
[2022-11-04] MEDS: ACETAMINOPHEN 325 MG TABLET (FP) PO PRN ×2 (06:23→13:41)
[2022-11-04 09:16] LABS: BASO % 1.4 % (0-2.0); EOS % 2.6 % (0-4.5); MCH 30.3 pg (25.7-33.7); MCHC 33.3 g/dl (32.0-36.0); MONO % 7.2 % (3.8-10.2); NEUT % 69.8 % (42.8-82.8); PLATELET COUNT 166 10^3/uL (134-434); RBC 3.63 M/mm3 (3.60-5.2); RDW 18.5 % (11.6-15.6); WHITE BLOOD COUNT 8.1 K/mm3 (4.0-10.0)
[2022-11-04 09:26] LABS: POTASSIUM 4.4 mmol/L (3.5-5.1)
[2022-11-04 09:32] LABS: CREATININE 4.9 mg/dL (0.55-1.3)
[2022-11-04 09:33] LABS: BLOOD UREA NITROGEN 74.8 mg/dL (7-18)
[2022-11-04 09:37] LABS: ALBUMIN 2.5 g/dl (3.4-5.0); BILIRUBIN,TOTAL 0.4 mg/dL (0.2-1)
[2022-11-04 09:39] LABS: TOT PROT 5.2 g/dl (6.4-8.2)
[2022-11-04 09:47] LABS: CALCIUM 8.4 mg/dL (8.5-10.1)
[2022-11-04] MEDS ORDERED: NIFEdipine E.R. 30 MG TABLET PO ONE (10:00)
[2022-11-04] MEDS: NIFEdipine E.R. 30 MG TABLET PO SCH (10:12)
[2022-11-04] MEDS: FAMOTIDINE 10 MG TABLET PO SCH (10:12)
[2022-11-04] MEDS: DRONABINOL 2.5 MG CAPSULE PO SCH (10:13)
[2022-11-04] MEDS: CALCIUM 500MG/VIT-D 200 UNITS COMBO TABLET (FP) PO SCH (10:13)
[2022-11-04] MEDS: TOPIRAMATE 100 MG TABLET PO SCH (10:13)
[2022-11-04] MEDS: METOPROLOL TARTRATE 50 MG TABLET (FP) PO SCH ×2 (10:13→21:42)
[2022-11-04] MEDS: ISOSORBIDE MONONITRATE 30 MG TAB.SR.24H (FP) PO SCH (10:13)
[2022-11-04] MEDS: SODIUM BICARBONATE 650 MG TABLET PO SCH ×2 (10:14→21:42)
[2022-11-04] MEDS: DOLUTEGRAVIR SODIUM 50 MG TABLET (NON-FORMULARY) PO SCH (10:14)
[2022-11-04] MEDS: FLUTICASONE/UMECLIDIN/VILANTER(100-62.5-25 TRELEGY ELLIPTA) INAHLER IH SCH (10:17)
[2022-11-04] MEDS: RILPIVIRINE HCL 25 MG TABLET PO SCH (13:55)
[2022-11-04] MEDS: SODIUM CHLORIDE 0.45% 1,000 ML IV SCH (16:17)
[2022-11-04] MEDS: NYSTATIN POWDER 100,000 UNITS/GM - 15 GM TOPICAL POWDER TP SCH ×2 (16:54→21:43)
[2022-11-04] MEDS ORDERED: hydrALAZINE HCL 20 MG/ML VIAL IVPB ONE (17:31)
[2022-11-04] MEDS ORDERED: hydrALAZINE HCL 25 MG TABLET (FP) PO ONE (18:00)
[2022-11-04] MEDS: DIVALPROEX NA *ER* EXTEND REL 250 MG TABLET.SA PO SCH (21:42)
[2022-11-04] MEDS: MELATONIN 5 MG TABLETS PO PRN (23:15)
[2022-11-05] MEDS: ACETAMINOPHEN 325 MG TABLET (FP) PO PRN ×2 (01:34→16:28)
[2022-11-05] MEDS: SODIUM CHLORIDE NASAL SPRAY 44 ML BOTTLE NS PRN ×2 (02:57→10:56)
[2022-11-05] MEDS: LEVOTHYROXINE NA 112 MCG TABLET (FP) PO SCH (06:16)
[2022-11-05 08:34] LABS: BASO % 1.8 % (0-2.0); EOS % 1.5 % (0-4.5); HEMATOCRIT 30.3 % (32.4-45.2); HEMOGLOBIN 10.5 GM/dL (10.7-15.3); MCH 30.7 pg (25.7-33.7); MCHC 34.6 g/dl (32.0-36.0); MEAN CELL VOLUME 88.6 fl (80-96); MEAN PLT VOLUME 7.8 fl (7.5-11.1); NEUT % 63.7 % (42.8-82.8); PLATELET COUNT 143 10^3/uL (134-434); RBC 3.42 M/mm3 (3.60-5.2); RDW 18.5 % (11.6-15.6); WHITE BLOOD COUNT 7.9 K/mm3 (4.0-10.0)
[2022-11-05 09:26] LABS: ALBUMIN 2.6 g/dl (3.4-5.0); BILIRUBIN,TOTAL 0.2 mg/dL (0.2-1); BLOOD UREA NITROGEN 74.3 mg/dL (7-18); CALCIUM 8.2 mg/dL (8.5-10.1); CREATININE 5.2 mg/dL (0.55-1.3); POTASSIUM 4.4 mmol/L (3.5-5.1); TOT PROT 5.2 g/dl (6.4-8.2)
[2022-11-05] MEDS: DOLUTEGRAVIR SODIUM 50 MG TABLET (NON-FORMULARY) PO SCH (10:51)
[2022-11-05] MEDS: RILPIVIRINE HCL 25 MG TABLET PO SCH (10:51)
[2022-11-05] MEDS: DRONABINOL 2.5 MG CAPSULE PO SCH (10:52)
[2022-11-05] MEDS: TOPIRAMATE 100 MG TABLET PO SCH (10:52)
[2022-11-05] MEDS: NIFEdipine E.R. 30 MG TABLET PO SCH (10:53)
[2022-11-05] MEDS: CALCIUM 500MG/VIT-D 200 UNITS COMBO TABLET (FP) PO SCH (10:53)
[2022-11-05] MEDS: SODIUM BICARBONATE 650 MG TABLET PO SCH ×2 (10:53→21:35)
[2022-11-05] MEDS: METOPROLOL TARTRATE 50 MG TABLET (FP) PO SCH ×2 (10:53→21:35)
[2022-11-05] MEDS: ISOSORBIDE MONONITRATE 30 MG TAB.SR.24H (FP) PO SCH (10:53)
[2022-11-05] MEDS: NYSTATIN POWDER 100,000 UNITS/GM - 15 GM TOPICAL POWDER TP SCH ×2 (10:54→22:25)
[2022-11-05] MEDS: FAMOTIDINE 10 MG TABLET PO SCH (10:54)
[2022-11-05] MEDS: FLUTICASONE/UMECLIDIN/VILANTER(100-62.5-25 TRELEGY ELLIPTA) INAHLER IH SCH (10:55)
[2022-11-05] MEDS: SODIUM CHLORIDE 0.45% 1,000 ML IV SCH (16:03)
[2022-11-05] MEDS: MELATONIN 5 MG TABLETS PO PRN (21:35)
[2022-11-05] MEDS: DIVALPROEX NA *ER* EXTEND REL 250 MG TABLET.SA PO SCH (21:35)
[2022-11-06] MEDS: LEVOTHYROXINE NA 112 MCG TABLET (FP) PO SCH (06:26)
[2022-11-06] MEDS: DRONABINOL 2.5 MG CAPSULE PO SCH (09:34)
[2022-11-06] MEDS: ISOSORBIDE MONONITRATE 30 MG TAB.SR.24H (FP) PO SCH (09:35)
[2022-11-06] MEDS: CALCIUM 500MG/VIT-D 200 UNITS COMBO TABLET (FP) PO SCH (09:35)
[2022-11-06] MEDS: NIFEdipine E.R. 30 MG TABLET PO SCH (09:35)
[2022-11-06] MEDS: DOLUTEGRAVIR SODIUM 50 MG TABLET (NON-FORMULARY) PO SCH (09:35)
[2022-11-06] MEDS: SODIUM BICARBONATE 650 MG TABLET PO SCH ×2 (09:35→21:15)
[2022-11-06] MEDS: TOPIRAMATE 100 MG TABLET PO SCH (09:35)
[2022-11-06] MEDS: FAMOTIDINE 10 MG TABLET PO SCH (09:35)
[2022-11-06] MEDS: METOPROLOL TARTRATE 50 MG TABLET (FP) PO SCH ×2 (09:36→21:15)
[2022-11-06] MEDS: NYSTATIN POWDER 100,000 UNITS/GM - 15 GM TOPICAL POWDER TP SCH ×2 (09:36→22:12)
[2022-11-06] MEDS: RILPIVIRINE HCL 25 MG TABLET PO SCH (09:36)
[2022-11-06] MEDS: FLUTICASONE/UMECLIDIN/VILANTER(100-62.5-25 TRELEGY ELLIPTA) INAHLER IH SCH (09:37)
[2022-11-06] MEDS: SODIUM CHLORIDE NASAL SPRAY 44 ML BOTTLE NS PRN (09:37)
[2022-11-06] MEDS: SODIUM CHLORIDE 1,000 ML IV SCH (14:14)
[2022-11-06] MEDS ORDERED: NIFEdipine E.R. 30 MG TABLET PO ONE (17:49)
[2022-11-06] MEDS: DIVALPROEX NA *ER* EXTEND REL 250 MG TABLET.SA PO SCH (21:14)
[2022-11-06] MEDS: MELATONIN 5 MG TABLETS PO PRN (22:21)
[2022-11-07] MEDS: ACETAMINOPHEN 325 MG TABLET (FP) PO PRN ×3 (05:12→22:02)
[2022-11-07] MEDS: LEVOTHYROXINE NA 112 MCG TABLET (FP) PO SCH (06:13)
[2022-11-07 07:50] LABS: BASO % 1.3 % (0-2.0); EOS % 1.7 % (0-4.5); HEMATOCRIT 27.9 % (32.4-45.2); HEMOGLOBIN 9.6 GM/dL (10.7-15.3); LYMPH % 26.4 % (8-40); MCH 30.6 pg (25.7-33.7); MCHC 34.2 g/dl (32.0-36.0); MEAN CELL VOLUME 89.4 fl (80-96); MEAN PLT VOLUME 7.8 fl (7.5-11.1); MONO % 9.5 % (3.8-10.2); NEUT % 61.1 % (42.8-82.8); PLATELET COUNT 130 10^3/uL (134-434); RBC 3.13 M/mm3 (3.60-5.2); RDW 18.2 % (11.6-15.6); WHITE BLOOD COUNT 7.1 K/mm3 (4.0-10.0)
[2022-11-07 08:20] LABS: POTASSIUM 4.5 mmol/L (3.5-5.1)
[2022-11-07 08:22] LABS: CALCIUM 7.9 mg/dL (8.5-10.1)
[2022-11-07 08:23] LABS: ALBUMIN 2.3 g/dl (3.4-5.0); BLOOD UREA NITROGEN 72.2 mg/dL (7-18)
[2022-11-07 08:26] LABS: CREATININE 5.5 mg/dL (0.55-1.3)
[2022-11-07 08:28] LABS: BILIRUBIN,TOTAL 0.3 mg/dL (0.2-1); TOT PROT 4.9 g/dl (6.4-8.2)
[2022-11-07] MEDS: RILPIVIRINE HCL 25 MG TABLET PO SCH (09:30)
[2022-11-07] MEDS: TOPIRAMATE 100 MG TABLET PO SCH (09:30)
[2022-11-07] MEDS: METOPROLOL TARTRATE 50 MG TABLET (FP) PO SCH ×2 (09:30→22:03)
[2022-11-07] MEDS: FAMOTIDINE 10 MG TABLET PO SCH (09:30)
[2022-11-07] MEDS: ISOSORBIDE MONONITRATE 30 MG TAB.SR.24H (FP) PO SCH (09:30)
[2022-11-07] MEDS: CALCIUM 500MG/VIT-D 200 UNITS COMBO TABLET (FP) PO SCH (09:30)
[2022-11-07] MEDS: SODIUM BICARBONATE 650 MG TABLET PO SCH ×2 (09:30→22:04)
[2022-11-07] MEDS: FLUTICASONE/UMECLIDIN/VILANTER(100-62.5-25 TRELEGY ELLIPTA) INAHLER IH SCH (09:31)
[2022-11-07] MEDS: NYSTATIN POWDER 100,000 UNITS/GM - 15 GM TOPICAL POWDER TP SCH ×2 (09:31→22:04)
[2022-11-07] MEDS: NIFEdipine E.R 60 MG TABLET PO SCH (09:31)
[2022-11-07] MEDS: DOLUTEGRAVIR SODIUM 50 MG TABLET (NON-FORMULARY) PO SCH (09:31)
[2022-11-07] MEDS: SODIUM CHLORIDE 1,000 ML IV SCH (13:01)
[2022-11-07] MEDS: DIVALPROEX NA *ER* EXTEND REL 250 MG TABLET.SA PO SCH (22:03)
[2022-11-07] MEDS: MELATONIN 5 MG TABLETS PO PRN (22:03)
[2022-11-08] MEDS: ACETAMINOPHEN 325 MG TABLET (FP) PO PRN (06:01)
[2022-11-08] MEDS: LEVOTHYROXINE NA 112 MCG TABLET (FP) PO SCH (06:02)
[2022-11-08] MEDS ORDERED: NIFEdipine E.R. 30 MG TABLET PO ONE (06:30)
[2022-11-08] MEDS: NYSTATIN POWDER 100,000 UNITS/GM - 15 GM TOPICAL POWDER TP SCH (10:31)
[2022-11-08] MEDS: FLUTICASONE/UMECLIDIN/VILANTER(100-62.5-25 TRELEGY ELLIPTA) INAHLER IH SCH (10:31)
[2022-11-08] MEDS: METOPROLOL TARTRATE 50 MG TABLET (FP) PO SCH (10:47)
[2022-11-08] MEDS: FAMOTIDINE 10 MG TABLET PO SCH (10:47)
[2022-11-08] MEDS: CALCIUM 500MG/VIT-D 200 UNITS COMBO TABLET (FP) PO SCH (10:47)
[2022-11-08] MEDS: ISOSORBIDE MONONITRATE 30 MG TAB.SR.24H (FP) PO SCH (10:48)
[2022-11-08] MEDS: NIFEdipine E.R 60 MG TABLET PO SCH (10:48)
[2022-11-08] MEDS: TOPIRAMATE 100 MG TABLET PO SCH (10:48)
[2022-11-08] MEDS: SODIUM BICARBONATE 650 MG TABLET PO SCH (10:48)
[2022-11-08] MEDS: DOLUTEGRAVIR SODIUM 50 MG TABLET (NON-FORMULARY) PO SCH (10:49)
[2022-11-08] MEDS: RILPIVIRINE HCL 25 MG TABLET PO SCH (10:49)
[2022-11-08] MEDS: SODIUM CHLORIDE 1,000 ML IV SCH (17:30)
[2022-11-08 18:26] VITALS: BP 136/76; PULSE 94; RESP 18; TEMP 98.2
[2022-11-14] MEDS ORDERED: ERGOCALCIFEROL (VIT D2) 50,000 UNIT (1.25 MG) CAPSULE PO SCH (10:00)
== END 2022-11-08 18:32 | DRG 377 ==
LOC: JER 10:55 → JERBED 15:14 → J7W 17:15
PROVIDERS: ADMIT Internal Medicine; ATTEND Internal Medicine
PROC: 30233N1 Transfusion of Nonautologous Red Blood Cells into Peripheral Vein, Percutaneous Approach (ICD-10-PCS; 2022-10-29)
PROC: 0DB98ZX Excision of Duodenum, Via Natural or Artificial Opening Endoscopic, Diagnostic (ICD-10-PCS; 2022-11-03)
PROC: 0DB68ZX Excision of Stomach, Via Natural or Artificial Opening Endoscopic, Diagnostic (ICD-10-PCS; principal; 2022-11-03 11:00)
DX: K55.21 Angiodysplasia of colon with hemorrhage (principal); E43 Unspecified severe protein-calorie malnutrition; N17.9 Acute kidney failure, unspecified; B20 Human immunodeficiency virus [HIV] disease; R64 Cachexia; E87.20 Acidosis, unspecified; I13.0 Hypertensive heart and chronic kidney disease with heart failure and stage 1 through stage 4 chronic kidney disease, or unspecified chronic kidney disease; I50.32 Chronic diastolic (congestive) heart failure; I69.354 Hemiplegia and hemiparesis following cerebral infarction affecting left non-dominant side; N39.0 Urinary tract infection, site not specified; Z68.1 Body mass index [BMI] 19.9 or less, adult; K31.84 Gastroparesis; K92.2 Gastrointestinal hemorrhage, unspecified; E83.42 Hypomagnesemia; D64.9 Anemia, unspecified; E03.9 Hypothyroidism, unspecified; J44.9 Chronic obstructive pulmonary disease, unspecified; N18.9 Chronic kidney disease, unspecified
CPT/HCPCS: 36415; 36430; 36511; 74018-TC-FY; 74176-TC; 76775-TC; 80048; 80053; 81003; 82272; 82436; 82570; 82607; 82728; 82747; 83540; 83550; 83735; 84100; 84133; 84300; 85014; 85025; 85027; 85610; 85730; 86850; 86870; 86900; 86901; 86902; 86922; 87086; 87186; 88305-TC; 90677; 93005; 93010; 93971-TC; 97116-GP; 97162-GP; 99285-25; P9016; P9038; Q9967